=== PATIENT | female | born 1960 | race Caucasian/White ===

== ENCOUNTER 2016-07-13 17:56 | Inpatient (IN) | payer BC ==
[~2016-07-13] VITALS: Ht 157.5 cm; Wt 91.6 kg
[~2016-07-13 17:56] MED LIST: BENZ200C3 PO; CEFU250T PO; CETI10TA20 PO; CHOL200059 PO; DCS100C PO; ESTR0.5T PO; ESTR1TAB24 PO; ESTR2TAB PO; FENO134C PO; HYDR-3875 PO; L.AC1CAP6 PO; LEVO250T7 PO; LEVO50TA6 PO; LISI1TAB10 PO; LVT.05T PO; MAGN400T39 PO; MEDR2.5T PO; NAPR-243 PO; NAPR250T2 PO; OMEG1CAP51 PO; OXYC-197 PO; OXYC-471 PO; POTA10CA43 PO; SPIR25TA3; SPIR50TA PO; TYLENOL#3 PO; VALS1TAB4 PO; VALS1TAB76 PO; VITA1CAP PO
[2016-07-13] MEDS ORDERED: PATIENT MAY USE OWN MEDS, ALL PO SCH (18:00)
[2016-07-13] MEDS ORDERED: cefTRIAXone INJECTION 1,000 MG in NORMAL SALINE (BAXTER MINI) 50 ML IV SCH (18:00)
[2016-07-13] MEDS ORDERED: ACETAMINOPHEN 500 MG TAB (TYLENOL) PO PRN (18:00)
[2016-07-13] MEDS ORDERED: IBUPROFEN 600 MG (MOTRIN) TAB PO PRN (18:15)
--- OUTSIDE RECORDS SUMMARY | 2016-07-13 18:50 | XMS REPORT | Continuity of Care Document ---
Author Author [facility] Organization [facility] Address Unknown Phone Unavailable Care Team Providers Care Network Operations Technician Name Role Phone KINDRA RHODES DO PCP Insurance Providers Payer Name Policy Number Subscriber Name Relationship [facility] [id number] Kristin Hopper 16 Self / Same As Patient Advance Directives Directive Response Recorded Date/Time Advance Directives No 09/24/15 7:45am Health Care Power of Diabetes Education Coordinator No 09/24/15 7:45am Organ Donor Yes 09/24/15 7:45am Problems Active Problems Medical Problem Onset Date Status Bronchitis Unknown Acute Spontaneous hematoma of abdominal wall Unknown Acute Thrombocytopenia Unknown Acute Medications Current Home Medications Medication Dose Units Route Directions Days/Qty Instructions Start Date Potassium Chloride 10 Meq 10 Meq Oral Daily 08/30/15 Spironolactone 50 Mg 50 Mg Oral Daily 09/24/15 Estradiol 2 Mg 2 Mg Oral Bedtime 09/24/15 Levothyroxine Sodium 50 Mcg 50 Mcg Oral Daily 09/24/15 Valsartan/Hydrochlorothiazide 1 Each 1 Tab Oral Daily 09/24/15 Cetirizine Hcl 10 Mg 10 Mg Oral Bedtime 09/24/15 Cholecalciferol (Vitamin D3) 2,000 Unit 2,000 Unit Oral Daily Vitamin B Complex 1 Each 1 Cap Oral Daily 09/24/15 L.acidoph & Paracasei,B.lactis 1 Each 1 Cap Oral Daily 09/24/15 Hydrocodone/Acetaminophen 1 Each 2 Each Oral Every 4HRS 30 09/24/15 Past Home Medications Medication Directions Ordered Status Hctz/Lisinopril (Zestoretic) 1 Tab Tablet, 1 Each Oral Daily 05/12/10 Discontinued Levothyroxine Sodium 50 Mcg Tab, 50 Mcg Oral Daily 05/12/10 Discontinued Estradiol 1 Mg Tablet, 1 Mg Oral Daily 05/12/10 Discontinued Medroxyprogesterone Acetate 2.5 Mg Tablet, 1 Each Oral Daily 05/12/10 Discontinued Naproxen 500 Mg Tablet, 500 Mg Oral Twice A Day as needed for Pain 05/12/10 Discontinued [place]-3 Fatty Acids/Fish Oil 1 Each Capsule, 1000 Mg Oral Twice A Day Discontinued Benzonatate 200 Mg Capsule, 200 Mg Oral Three Times A Day 05/12/10 Discontinued Hctz/Valsartan 1 Each Tablet, 1 Each Oral Daily 05/12/10 Discontinued Levofloxacin 250 Mg Tab, 1 Each Oral Daily 05/21/10 Discontinued [Tylenol#3] , 1-2 Tab Oral Every 3 Hours Prn 05/21/10 Discontinued Naproxen 250 Mg Tab, 500 Mg Oral Twice Daily And Prn 05/21/10 Discontinued Docusate Sodium 100 Mg Capsule, 100 Mg Oral 05/21/10 Discontinued Estradiol 0.5 Mg Tablet, 1 Mg Oral Daily 05/21/10 Discontinued Spironolactone 25 Mg Tablet, 08/30/15 Discontinued Cefuroxime Axetil 250 Mg Tablet, 250 Mg Oral Twice A Day 08/30/15 Discontinued Oxycodone Hcl/Acetaminophen 1 Each Tablet, 1 Each Oral Every 4HRS as needed for Cough 08/30/15 Discontinued Fenofibrate,Micronized 134 Mg Capsule, 134 Mg Oral Daily 09/24/15 Discontinued Oxycodone Hcl/Acetaminophen 1 Each Tablet, 1-2 Tab Oral Every 4HRS as needed for Pain 09/24/15 Discontinued Magnesium Oxide 400 Mg Tablet, 400 Mg Oral Daily 09/24/15 Discontinued Social History Social History Problem Response Recorded Date/Time Alcohol Use Occasionally Uses 09/24/2015 7:47am Recreational Drug Use No 09/24/2015 7:47am Recent Foreign Travel N [place] 12/31/2015 8:54am Sexually Transmitted Disease No 09/24/2015 7:47am HIV/AIDS No 09/24/2015 7:47am Do you dip or chew tobacco? No 09/24/2015 10:07am Sexually Transmitted Disease No 09/24/2015 7:47am Hx Sexually Transmitted Disorders No 05/18/2010 11:00am Hospital Discharge Instructions No hospital discharge instructions. Plan of Care Prescriptions See Medication Section Functional Status No functional status results. Allergies, Adverse Reactions, Alerts Allergen Type Severity Reaction Status Last Updated azithromycin ([id number]) Allergy Severe BLISTERS Active 05/18/10 Immunizations No immunization records. Vital Signs No known vital signs results. Results Laboratory Results Test Name Result Units Flags Reference Collection Date/Time Result Date/ Time Comments White Blood Count 8.3 10^3/uL 4.3-11.0 12/31/2015 8:57am 12/31/2015 9: 04am Red Blood Count 4.75 10^6/uL 4.35-5.85 12/31/2015 8:57am 12/31/2015 9: 04am Hemoglobin 15.4 G/DL 11.5-16.0 12/31/2015 8:57am 12/31/2015 9:04am Hematocrit 43 % 35-52 12/31/2015 8:57am 12/31/2015 9:04am Mean Corpuscular Volume 91 FL 80-99 12/31/2015 8:57am 12/31/2015 9: 04am Mean Corpuscular Hemoglobin 32 PG 25-34 12/31/2015 8:57am 12/31/2015 9: 04am Mean Corpuscular Hemoglobin Concent 36 G/DL 32-36 12/31/2015 8:57am 9:04am Red Cell Distribution Width 12.9 % 10.0-14.5 12/31/2015 8:57am 2015 9:04am Platelet Count 210 10^3/uL 130-400 12/31/2015 8:57am 12/31/2015 9:04am Mean Platelet Volume 10.0 FL 7.4-10.4 12/31/2015 8:57am 12/31/2015 9: 04am Neutrophils (%) (Auto) 62 % 42-75 12/31/2015 8:57am 12/31/2015 9:04am Lymphocytes (%) (Auto) 28 % 12-44 12/31/2015 8:57am 12/31/2015 9:04am Monocytes (%) (Auto) 8 % 0-12 12/31/2015 8:57am 12/31/2015 9:04am Eosinophils (%) (Auto) 2 % 0-10 12/31/2015 8:57am 12/31/2015 9:04am Basophils (%) (Auto) 1 % 0-10 12/31/2015 8:57am 12/31/2015 9:04am Neutrophils # (Auto) 5.2 X 10^3 1.8-7.8 12/31/2015 8:57am 12/31/2015 9: 04am Lymphocytes # (Auto) 2.3 X 10^3 1.0-4.0 12/31/2015 8:57am 12/31/2015 9: 04am Monocytes # (Auto) 0.6 X 10^3 0.0-1.0 12/31/2015 8:57am 12/31/2015 9: 04am Eosinophils # (Auto) 0.2 10^3/uL 0.0-0.3 12/31/2015 8:57am 12/31/2015 9 :04am Basophils # (Auto) 0.1 10^3/uL 0.0-0.1 12/31/2015 8:57am 12/31/2015 9: 04am Sodium Level 140 MMOL/L 135-145 12/31/2015 8:57am 12/31/2015 9:37am Potassium Level 4.0 MMOL/L 3.6-5.0 12/31/2015 8:57am 12/31/2015 9:37am Chloride Level 102 MMOL/L 98-107 12/31/2015 8:5712/31/2015 9:37am Carbon Dioxide Level 25 MMOL/L 21-32 12/31/2015 8:5712/31/2015 9: 37am Anion Gap 13 MMOL/L 5-14 12/31/2015 8:57am 12/31/2015 9:37am Blood Urea Nitrogen 24 MG/DL H 7-18 12/31/2015 8:57am 12/31/2015 9:37am Creatinine 0.82 MG/DL 0.60-1.30 12/31/2015 8:57am 12/31/2015 9:37am BUN/Creatinine Ratio 29 12/31/2015 8:57am 12/31/2015 9:37am Estimat Glomerular Filtration Rate > 60 12/31/2015 8:57am 2015 9:37am GFR INTERPRETIVE DATA UNITS FOR ESTIMATED GFR (eGFR): mL/min/1.73 M2 REFERENCE RANGE FOR ESTIMATED GFR (eGFR) eGFR NORMAL eGFR >60 MODERATELY DECREASED eGFR 30-59 SEVERLY DECREASED eGFR 15-29 KIDNEY FAILURE <15 (OR DIALYSIS) Glucose Level 106 MG/DL H 70-105 12/31/2015 8:57am 12/31/2015 9:37am Calcium Level 9.4 MG/DL 8.5-10.1 12/31/2015 8:57am 12/31/2015 9:37am Total Bilirubin 0.3 MG/DL 0.1-1.0 12/31/2015 8:57am 12/31/2015 9:37am Alkaline Phosphatase 65 U/L 40-136 12/31/2015 8:57am 12/31/2015 9:37am Aspartate Amino Transf (AST/SGOT) 25 U/L 5-34 12/31/2015 8:57am 2015 9:37am Alanine Aminotransferase (ALT/SGPT) 20 U/L 0-55 12/31/2015 8:57am 12/30 9:37am Total Protein 6.4 G/DL 6.4-8.2 12/31/2015 8:57am 12/31/2015 9:37am Albumin 3.9 G/DL 3.2-4.5 12/31/2015 8:57am 12/31/2015 9:37am Procedures No known history of procedures. Encounters Encounter Location Arrival/Admit Date Discharge/Depart Date Attending Provider Discharged Recurring [facility] 12/31/15 8:54am 11:59pm SANDRA TOBIN
[2016-07-13] MEDS: ONDANSETRON 4 MG/2 ML (SDV) Z0FRAN IVP PRN (18:59)
[2016-07-13] MEDS ORDERED: KETOROLAC 30 MG/ML VIAL IVP ONE (19:15)
[2016-07-13] MEDS ORDERED: ONDANSETRON 4 MG/2 ML (SDV) Z0FRAN IVP ONE (19:15)
[2016-07-13] MEDS ORDERED: cefTRIAXone 1 GM (ROCEPHIN) VIAL ONE (19:16)
[2016-07-13] MEDS ORDERED: NORMAL SALINE (BAXTER MINI) 50 ML IV ONE (19:16)
[2016-07-13] MEDS: NS IV 1000 ML 1,000 ML IV SCH ×2 (19:20→20:59)
[2016-07-13] MEDS ORDERED: LACTATED RINGERS 1,000 ML IV SCH (20:00)
[2016-07-13 20:09] LABS: BASOPHILS % (AUTO) 0 % (0-10); EOSINOPHILS # (AUTO) 0.1 10^3/uL (0.0-0.3); EOSINOPHILS % (AUTO) 1 % (0-10); LYMPHOCYTES # (AUTO) 0.8 X 10^3 (1.0-4.0); LYMPHOCYTES % (AUTO) 7 % (12-44); MEAN CORPUSCULAR HEMOGLOBIN 33 PG (25-34); MEAN CORPUSCULAR HGB CONC 35 G/DL (32-36); MEAN CORPUSCULAR VOLUME 95 FL (80-99); MEAN PLATELET VOLUME 10.3 FL (7.4-10.4); MONOCYTES # (AUTO) 0.8 X 10^3 (0.0-1.0); MONOCYTES % (AUTO) 7 % (0-12); NEUTROPHILS # (AUTO) 10.1 X 10^3 (1.8-7.8); NEUTROPHILS % (AUTO) 85 % (42-75); PLATELET COUNT 202 10^3/uL (130-400); RED BLOOD COUNT 3.92 10^6/uL (4.35-5.85); RED CELL DISTRIBUTION WIDTH 12.5 % (10.0-14.5); WHITE BLOOD COUNT 11.8 10^3/uL (4.3-11.0)
[2016-07-13 20:23] LABS: CALCIUM 8.4 MG/DL (8.5-10.1); CREATININE SERUM 2.07 MG/DL (0.60-1.30)
[2016-07-13] MEDS ORDERED: NS IV 1000 ML 1,000 ML IV PRN (20:59)
[2016-07-13] MEDS: NOREPINEPHRINE FOR DRIPS 4 MG in D5W 250 ML (IVPB) 250 ML IV SCH (20:59)
[2016-07-13] MEDS ORDERED: DOXYCYCLINE IV SCH (21:00)
[2016-07-13] MEDS ORDERED: NORMAL SALINE IV SCH (21:00)
[2016-07-13] MEDS ORDERED: PHARMACY TO DOSE IV SCH (21:00)
--- NOTE | 2016-07-13 21:10 | History & Physicial ---
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 She did not go to work today because when she awakened, she had chills and weakness. 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 The CXR showed a left upper lobe pneumonia and admission was recommended. However, she wanted to attempt treatment at home so [facility] called out for her. She became weaker as the day progressed and started having nausea and vomiting as well as pain in her left chest and rib area so I was called by her employer and asked to direct admit her for pneumonia. Upon arrival to the hospital, the patient was weak and hypotensive so a lactic acid was added to her labs and did come back elevated. It was decided she should be transferred to the ICU and the sepsis protocol started. Date of Admission Jul 13, 2016 at 18:40 I consulted on this patient on 07/13/16 21:02 Attending Physician Samira Fish DO Admitting Physician Samira Fish DO Consult Allergies and Home Medications Allergies Coded Allergies: azithromycin (Unverified Allergy, Severe, BLISTERS, 05/18/10) Home Medications Cetirizine HCl 10 Mg Tablet 10 MG PO HS (Reported) Cholecalciferol (Vitamin D3) 2,000 Unit Tablet 2,000 UNIT PO DAILY (Reported) Estradiol 2 Mg Tablet 2 MG PO HS (Reported) Hydrocodone/Acetaminophen 1 Each Tablet #30 2 EACH PO Q4H Prescribed by: SAMIRA FISH on 09/24/15 190 L.acidoph & Paracasei,B.lactis 1 Each Capsule 1 CAP PO DAILY (Reported) Levothyroxine Sodium 50 Mcg Tablet 50 MCG PO DAILY (Reported) Potassium Chloride 10 Meq Capsule.er 10 MEQ PO DAILY (Reported) Spironolactone 50 Mg Tablet 50 MG PO DAILY (Reported) Valsartan/Hydrochlorothiazide 1 Each Tablet 1 TAB PO DAILY (Reported) Vitamin B Complex 1 Each Capsule 1 CAP PO DAILY (Reported) Past Squojsm-Ghirmq-Brddrz Hx Patient Social History Smoking Status: Current Everyday Smoker Type Used: Cigarettes Surgeries HX Surgeries: Yes (D&C) Surgeries: Section, Hysterectomy Respiratory Hx Respiratory Disorders: Yes Cardiovascular Hx Cardiovascular Disorders: Yes Cardiac Disorders: Hypertension Neurological Hx Neurological Disorders: No Reproductive System Hx Reproductive Disorders: No Sexually Transmitted Disease: No HIV/AIDS: No Female Reproductive Disorders: Denies Genitourinary Hx Genitourinary Disorders: Yes (STRESS INCONTINENCE) Gastrointestinal Hx Gastrointestinal Disorders: Yes Gastrointestinal Disorders: Gastroesophageal Reflux Musculoskeletal Hx Musculoskeletal Disorders: Yes Musculoskeletal Disorders: Arthritis Endocrine Hx Endocrine Disorders: Yes Endocrine Disorders: Hypothyroidsim HEENT HX ENT Disorders: No Cancer Hx Cancer: No Psychosocial Hx Psychiatric Problems: No Integumentary HX Skin/Integumentary Disorder: No Blood Transfusions Hx Blood Disorders: No Adverse Reaction to a Blood Tr: No Constitutional: chills weakness EENTM: No blurred vision, No dental problems, No double vision, No ear discharge, No ear pain, No epistaxis, No eye pain, No hearing loss, No hoarseness, No mouth pain, No mouth swelling, No no symptoms reported, No nose congestion, No nose pain, No other, No see HPI, No tearing, No throat pain, No throat swelling, No vision loss Respiratory: cough Cardiovascular: No no symptoms reported, No see HPI, No chest pain, No edema, No Hx of Intervention, No palpitations, No syncope, No vascular heart diseas, No other Gastrointestinal: diarrhea vomiting Genitourinary: No no symptoms reported, No see HPI, No decreased output, No discharge, No dysuria, No frequency, No hematuria, No hesitancy, No incontinence , No nocturia, No pain, No other Musculoskeletal: joint pain muscle pain Skin: No no symptoms reported, No see HPI, No change in color, No change in hair/nails, No dryness, No hx of skin cancer, No lesions, No lumps, No pruritus , No rash, No other Psychiatric/Neurological: Weakness Physical Exam Vital Signs Vital Sign - Last 12Hours 07/13/16 19:47 Pulse Ox 93 Capillary Refill : General Appearance: No Apparent Distress HEENT: Pharyngeal Erythema Neck: Supple Respiratory: Crackles (left) Decreased Breath Sounds Cardiovascular: Gallop/S3 Tachycardia Gastrointestinal: Normal Bowel Sounds Non Tender Soft Rectal: Deferred Back: No CVA Tenderness Extremity: Non Tender No Calf Tenderness No Pedal Edema Neurologic/Psychiatric: Alert Oriented x3 Motor Weakness (generalized) Skin: Warm/Dry Pallor Comments Laboratory Tests 07/13/16 19:52: Anion Gap 13, BUN/Creatinine Ratio 16, Basophils # (Auto) 0.0, Basophils (%) ( Auto) 0, Blood Urea Nitrogen 34H, Calcium Level 8.4L, Carbon Dioxide Level 17L, Chloride Level 105, Creatinine 2.07H, Eosinophils # (Auto) 0.1, Eosinophils (%) (Auto) 1, Estimat Glomerular Filtration Rate 25, Glucose Level 125H, Hematocrit 37, Hemoglobin 12.8, Lactic Acid Level 2.9*H, Lymphocytes # (Auto) 0.8L, Lymphocytes (%) (Auto) 7L, Mean Corpuscular Hemoglobin 33, Mean Corpuscular Hemoglobin Concent 35, Mean Corpuscular Volume 95, Mean Platelet Volume 10.3, Monocytes # (Auto) 0.8, Monocytes (%) (Auto) 7, Neutrophils # (Auto) 10.1H, Neutrophils (%) (Auto) 85H, Platelet Count 202, Potassium Level 4.0, Red Blood Count 3.92L, Red Cell Distribution Width 12.5, Sodium Level 135, White Blood Count 11.8H Assessment/Plan Assessment and Plan 1. Left Upper Lobe Pneumonia with Sepsis--Transfer to ICU on Sepsis Protocol, Given IV Rocephin and Doxycline 2. Hypotensive--aggressive IVF rehydration and monitor BP 3. Acute Renal Failure--monitor Cr with hydration, treatment of infection 4. Hypothyroidism--resume home dose 5. Tobacco Abuse--continues to smoke 6. COPD--start MAT protocol Clinical Quality Measures DVT/VTE Risk/Contraindication: Risk Factor Score Per Nursin RFS Level Per Nursing on Admit: 3=High SAMIRA FISH DO Jul 13, 2016 21:10
[2016-07-13 21:19] LABS: PROTHROMBIN TIME PATIENT 12.8 SEC (12.2-14.7)
[2016-07-13] MEDS ORDERED: DOXYCYCLINE 100 MG INJ (VIBRAMYCIN) ONE (21:39)
[2016-07-13] MEDS ORDERED: NORMAL SALINE (BAXTER MINI) 100 ML IV ONE (21:40)
[2016-07-13] MEDS: NS IV 1000 ML 2,500 ML IV PRN ×3 (21:50→23:20)
[2016-07-13] MEDS: ENOXAPARIN 30 MG/0.3 ML (LOVENOX) SYR SC SCH (21:54)
[2016-07-13 22:00] VITALS: BP 76/41
[2016-07-13] MEDS: HYDROcodone/APAP 5 MG/325 MG (LORTAB) TAB PO PRN (22:16)
[2016-07-13 23:00] VITALS: BP 107/83
[2016-07-13] MEDS ORDERED: HYDROmorphone (DILAUDID) 2 MG/ML VIAL IV ONE (23:30)
[2016-07-13] MEDS: RT-ALBUTEROL/IPRATROPIUM 3 ML (DUONEB) VIAL INH PRN (23:59)
[2016-07-14] VITALS (30 sets, daily range): BP systolic 66–151; BP diastolic 39–131
[2016-07-14] MEDS: ONDANSETRON 4 MG/2 ML (SDV) Z0FRAN IVP PRN (00:04)
[2016-07-14] MEDS ORDERED: NOREPINEPHRINE FOR DRIPS 4 MG/4 ML AMP IV ONE ×3 (00:08→12:25)
[2016-07-14] MEDS ORDERED: D5W 250 ML (IVPB) 250 ML IV ONE ×3 (00:08→12:25)
[2016-07-14] MEDS: NS IV 1000 ML 2,500 ML IV PRN (00:16)
[2016-07-14] MEDS: NOREPINEPHRINE FOR DRIPS 4 MG in D5W 250 ML (IVPB) 250 ML IV SCH ×5 (00:22→22:30)
[2016-07-14] MEDS: NS IV 1000 ML 1,000 ML IV SCH ×9 (00:25→22:35)
[2016-07-14 01:24] LABS: ABG BASE EXCESS -11.3 MMOL/L (-2.5-2.5); ABG OXYGEN SATURATION 95 % (94-100); ABG PCO2 43 MMHG (35-45); ABG PO2 79 MMHG (79-93); ABG TCO2 17.9 MMOL/L (21.0-31.0); ALLENS TEST YES-POS
[2016-07-14 01:25] LABS: PATIENT TEMP 96.8
[2016-07-14 01:26] LABS: ABG HCO3 17 MMOL/L (23-27)
[2016-07-14] MEDS: RT-ALBUTEROL/IPRATROPIUM 3 ML (DUONEB) VIAL INH PRN (02:25)
[2016-07-14] MEDS ORDERED: SODIUM BICARB 8.4% 50 MEQ/50 ML (ABBOTT) SYR ONE (02:29)
[2016-07-14] MEDS ORDERED: SODIUM BICARB 8.4% 50 MEQ/50 ML (ABBOTT) SYR INJ ONE (02:30)
[2016-07-14] MEDS ORDERED: VANCOMYCIN 2000 MG/NS 500 ML IVPB IV ONE ×2 (03:00)
[2016-07-14] MEDS ORDERED: [UNRECOGNIZED DRUG - OTHER] ONE (03:02)
[2016-07-14] MEDS ORDERED: SODIUM CHLORIDE ONE (03:02)
[2016-07-14] MEDS ORDERED: VANCOMYCIN 1 GM ADD-VANTAGE VIAL IV ONE (03:02)
[2016-07-14] MEDS ORDERED: NS IV 1000 ML 1,000 ML IV ONE (03:30)
[2016-07-14 04:11] LABS: BASOPHILS % (AUTO) 0 % (0-10); EOSINOPHILS % (AUTO) 0 % (0-10); LYMPHOCYTES # (AUTO) 1.2 X 10^3 (1.0-4.0); LYMPHOCYTES % (AUTO) 10 % (12-44); MEAN CORPUSCULAR HEMOGLOBIN 32 PG (25-34); MEAN CORPUSCULAR HGB CONC 33 G/DL (32-36); MEAN CORPUSCULAR VOLUME 98 FL (80-99); MEAN PLATELET VOLUME 10.4 FL (7.4-10.4); MONOCYTES # (AUTO) 0.4 X 10^3 (0.0-1.0); MONOCYTES % (AUTO) 4 % (0-12); NEUTROPHILS # (AUTO) 10.3 X 10^3 (1.8-7.8); NEUTROPHILS % (AUTO) 86 % (42-75); PLATELET COUNT 191 10^3/uL (130-400); WHITE BLOOD COUNT 11.9 10^3/uL (4.3-11.0)
[2016-07-14] MEDS: HYDROcodone/APAP 5 MG/325 MG (LORTAB) TAB PO PRN (04:21)
[2016-07-14 04:40] LABS: ALBUMIN 2.7 G/DL (3.2-4.5); ANION GAP 13 MMOL/L (5-14); BLOOD UREA NITROGEN 31 MG/DL (7-18); BUN/CREATININE RATIO 19; CALCIUM 6.5 MG/DL (8.5-10.1); CARBON DIOXIDE 12 MMOL/L (21-32); CHLORIDE 111 MMOL/L (98-107); GFR ESTIMATED 33; GLUCOSE 134 MG/DL (70-105); PHOSPHORUS 4.1 MG/DL (2.3-4.7); POTASSIUM 4.9 MMOL/L (3.6-5.0); SODIUM 136 MMOL/L (135-145)
[2016-07-14 04:48] LABS: TROPONIN I < 0.30 NG/ML (<0.30)
[2016-07-14 05:03] LABS: MAGNESIUM 0.9 MG/DL (1.8-2.4)
[2016-07-14] MEDS: POTASSIUM CL 10MEQ/50ML IVPB 50 ML IV SCH (05:56)
[2016-07-14] MEDS: KCL 20 MEQ TAB (K-DUR) PO SCH (05:56)
[2016-07-14] MEDS: MAGNESIUM 1 GM/100 ML IVPB 100 ML IV SCH ×5 (06:00→11:27)
[2016-07-14] MEDS: RT-ALBUTEROL/IPRATROPIUM 3 ML (DUONEB) VIAL INH SCH ×5 (06:30→22:29)
--- NOTE | 2016-07-14 06:55 | Diagnostic Imaging Report ---
INDICATION: Followup of pneumonia. Comparison with 07/13/2016. There has been significant increase in the infiltrate in the left lung. This now appears to involve both left upper and left lower lobe. Left hemidiaphragm is now obscured. Right lung shows mild basilar atelectasis. The heart is not enlarged. No evidence of pulmonary edema. IMPRESSION: Increasing infiltrate in the left lung when compared with previous exam. Dictated by: Dictated on workstation # [id number]
[2016-07-14] MEDS ORDERED: FLU TRIvalent (5 YOA+) 2016-17 (AFLURIA) 0.5 ML IM ONE (07:30)
--- NOTE | 2016-07-14 07:56 | Pulmonary Consultation ---
History of Present Illness History of Present Illness Date of Consultation 07/14/16 07:51 Date of Admission History of Present Illness 55yo presented via direct admit secondary to progressive cough, SOB, weakness and chills . Symptoms progressed to n/v left chest pain. Upon admission pt was weak and hypotensive she was transferred to with sepsis protocol . CXR shows RAMÍREZ pneumonia. SHe is requiring levophed gtt secondary to hypotension. I am consulted for pulmonary management. Allergies and Home Medications Allergies Coded Allergies: azithromycin (Unverified Allergy, Severe, BLISTERS, 05/18/10) Home Medications Calcium Carbonate 600 Mg Tablet 600 MG PO DAILY (Reported) Cetirizine HCl 10 Mg Tablet 10 MG PO HS (Reported) Cholecalciferol (Vitamin D3) 1,000 Unit Capsule 1,000 UNIT PO DAILY (Reported) Diclofenac Sod 100 Mg Tab 100 MG PO BID (Reported) Estradiol 2 Mg Tablet 2 MG PO HS (Reported) Fenofibrate,Micronized 134 Mg Capsule 134 MG PO DAILY (Reported) L.acidoph & Paracasei,B.lactis 1 Each Capsule 1 CAP PO DAILY (Reported) Levothyroxine Sodium 50 Mcg Tablet 50 MCG PO DAILY (Reported) Magnesium Oxide 400 Mg Tablet 400 MG PO DAILY (Reported) Potassium Chloride 10 Meq Capsule.er 10 MEQ PO DAILY (Reported) Spironolactone 50 Mg Tablet 50 MG PO DAILY (Reported) Valsartan/Hydrochlorothiazide 1 Each Tablet 1 TAB PO DAILY (Reported) Vitamin B Complex & Vit C No.4 150 Mg Tablet 1 TAB PO DAILY (Reported) Past Jfckpli-Ybvqbq-Blunle Hx Patient Social History Alcohol Use: Occasionally Uses Recreational Drug Use: No Smoking Status: Current Everyday Smoker Type Used: Cigarettes Recent Foreign Travel: No Contact w/Someone Who Travel: No Recent Infectious Disease Expo: No Recent Hopitalizations: No (SURGERIES) Physical Abuse Screen: No Sexual Abuse: No Immunizations Up To Date Tetanus Booster (TDap): More than 5yrs Seasonal Allergies Seasonal Allergies: Yes Surgeries HX Surgeries: Yes (D&C) Surgeries: Section, Hysterectomy Respiratory Hx Respiratory Disorders: Yes Respiratory Disorders: Chronic Bronchitis Cardiovascular Hx Cardiac Disorders: Yes Cardiac Disorders: Hypertension Neurological Hx Neurological Disorders: No Reproductive System Hx Reproductive Disorders: No Sexually Transmitted Disease: No HIV/AIDS: No Female Reproductive Disorders: Denies 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 Genitourinary Hx Genitourinary Disorders: Yes (STRESS INCONTINENCE) Gastrointestinal Hx Gastrointestinal Disorders: Yes Gastrointestinal Disorders: Gastroesophageal Reflux Musculoskeletal Hx Musculoskeletal Disorders: Yes Musculoskeletal Disorders: Arthritis Endocrine Hx Endocrine Disorders: Yes Endocrine Disorders: Hypothyroidsim HEENT HX ENT Disorders: No Cancer Hx Cancer: No Psychosocial Hx Psychiatric Problems: No Integumentary HX Skin/Integumentary Disorder: No Blood Transfusions Hx Blood Disorders: No Adverse Reaction to a Blood Tr: No Review of Systems Constitutional: : Chills: Fever: Malaise: Sweats: Weakness Respiratory: : SOB with excertion: Shortness of breath Cardiovascular: : Lt Headedness: Orthopnea: Palpitations: Paroxysmal Noc. Dyspnea Gastrointestinal: : Nausea: VomitingNo: Abdominal Pain, Constipation, Diarrhea Neurological: : Weakness Exam Exam Vital Signs Date Time Temp Pulse Resp B/P Pulse Ox O2 Delivery O2 Flow Rate FiO2 07/14/16 06:35 117 74/46 07/14/16 06:30 94 High Flow N/C 26.00 75 07/14/16 06:00 129 36 113/63 FIO2 75.00 07/14/16 06:00 117 113/63 07/14/16 05:44 112 101/88 07/14/16 05:00 108 21 105/76 FIO2 75.00 07/14/16 04:20 104 90/68 07/14/16 04:00 98.4 112 20 96/60 96 FIO2 80.00 07/14/16 03:00 98 22 79/58 94 FIO2 90.00 07/14/16 02:48 103 84/56 07/14/16 02:32 93 07/14/16 02:26 High Flow N/C 26.00 80 07/14/16 02:02 114 79/51 07/14/16 02:00 105 14 84/56 93 FIO2 90.00 07/14/16 01:58 High Flow N/C 28.00 80 07/14/16 01:17 111 74/56 07/14/16 01:00 111 18 73/54 96 FIO2 100.00 07/14/16 01:00 105 07/14/16 00:50 112 66/52 07/14/16 00:34 102 87/46 07/14/16 00:23 95 High Flow N/C 28.00 100 07/14/16 00:22 112 73/52 07/14/16 00:00 115 21 66/52 90 FIO2 100.00 07/14/16 00:00 96 FIO2 100 07/13/16 23:59 89 Nasal Cannula 10.00 07/13/16 23:00 120 23 107/83 95 Nasal Cannula 3.00 07/13/16 22:00 96.5 121 24 76/41 96 Nasal Cannula 3.00 07/13/16 21:21 96 Nasal Cannula 3.00 07/13/16 19:52 93 07/13/16 19:47 93 07/13/16 19:30 95 Room Air I & O 07/14/16 07:00 Intake Total 1000 ml Output Total 120 ml Balance 880 ml General Appearance: No Apparent Distress HEENT: Pharyngeal Erythema Neck: Supple Respiratory: Crackles (left) Decreased Breath Sounds Cardiovascular: Gallop/S3 Tachycardia Extremity: Non Tender No Calf Tenderness No Pedal Edema Neurologic/Psychiatric: Alert Oriented x3 Motor Weakness (generalized) Skin: Warm/Dry Pallor Results Lab Laboratory Tests 07/13/16 19:52 07/14/16 04:00 Assessment/Plan Assessment/Plan Severe sepsis with RAMÍREZ pneumonia -Change Abx to Vanco, cefepime, and Levaquin -Pagan cultures metabolic acidosis -Give 2 amps of NaHC03 -IVF Septic shock -Levophed -Will place central line and arterial line Acute renal failure -IVF Acute respiratory distress. -Will proceed with intubation Tobacco use Clinical Quality Measures DVT/VTE Risk/Contraindication: Risk Factor Score Per Nursin RFS Level Per Nursing on Admit: 3=High KIKO FREED DO Jul 14, 2016 07:56
[2016-07-14] MEDS ORDERED: CALC600T12 PO (08:10)
[2016-07-14] MEDS ORDERED: SODIUM BICARB 8.4% 50 MEQ/50 ML (ABBOTT) SYR IV NR (08:15)
[2016-07-14] MEDS ORDERED: VITA150T PO (08:17)
[2016-07-14] MEDS ORDERED: CHOL10007 PO (08:17)
[2016-07-14] MEDS ORDERED: MAGN400T29 PO (08:17)
[2016-07-14] MEDS ORDERED: NF-DICLOTA PO (08:17)
[2016-07-14] MEDS ORDERED: FENO134C PO (08:17)
[2016-07-14] MEDS ORDERED: PROPOFOL DRIP (ICU) 100 ML IV ONE (08:52)
[2016-07-14] MEDS ORDERED: proPOfol 200 MG/20 ML (DIPRIVAN) VIAL IV ONE (08:52)
[2016-07-14] MEDS ORDERED: VANCOMYCIN 1,750 MG/NS 500 ML IVPB IV NR ×2 (08:58)
[2016-07-14] MEDS ORDERED: PHARMACY TO DOSE IV SCH (09:00)
[2016-07-14] MEDS ORDERED: RT-ALBUTEROL/IPRATROPIUM 3 ML (DUONEB) VIAL INH SCH (09:00)
[2016-07-14] MEDS ORDERED: CEFEPIME INJECTION 2,000 MG in NORMAL SALINE (BAXTER MINI) 50 ML IV SCH (09:00)
[2016-07-14] MEDS ORDERED: NS IV 500 ML 500 ML ONE ×2 (09:07→10:41)
[2016-07-14] MEDS ORDERED: LIDOCAINE 1% INJ 20 ML (XYLOCAINE) VIAL ONE (09:08)
[2016-07-14] MEDS: DEXMEDETOMIDINE PRE-MIX 100 ML IV SCH (09:37)
[2016-07-14] MEDS ORDERED: MIDAZOLAM 5 MG/5 ML (VERSED) VIAL IVP ONE (09:45)
[2016-07-14] MEDS ORDERED: SUCCINYLCHOLINE INJ 100 MG/5 ML SYR INJ ONE ×2 (09:45→12:00)
--- NOTE | 2016-07-14 09:55 | Diagnostic Imaging Report ---
Postoperative upright radiograph of the chest. INDICATION: Intubation. FINDINGS: There is an ET tube seen in the mid thoracic trachea. There is a large infiltrate in the left lung slightly similar to the previous exam performed 6 hours earlier. The right lung is clear. The heart size is normal. No effusion or pneumothorax. IMPRESSION: Extensive left lung infiltrates. Dictated by: Dictated on workstation # [id number]
[2016-07-14] MEDS ORDERED: NS IV 1000 ML 1,000 ML IV SCH (10:30)
[2016-07-14] MEDS ORDERED: PROPOFOL DRIP (ICU) 100 ML IV SCH ×3 (11:30→15:30)
--- NOTE | 2016-07-14 11:38 | Pulmonary Procedures ---
Pulmonary Procedures Date of Procedure Date of Service: Jul 14, 2016 Lumen: triple Central Line Procedure: betadine prep sterile drapes applied sterile dressing applied Position: internal jugular (R) Anesthesia: Lidocaine Complications: none Post Position: sutured, good blood return, position confirmed w/ CXR KIKO FREED DO Jul 14, 2016 11:38
[2016-07-14] MEDS ORDERED: MIDAZOLAM 5 MG/5 ML (VERSED) VIAL IJ ONE (12:00)
[2016-07-14] MEDS: PROPOFOL DRIP (ICU) 100 ML IV SCH ×4 (12:02→23:26)
--- NOTE | 2016-07-14 12:02 | Diagnostic Imaging Report ---
INDICATION: Line placement. TECHNIQUE: Single view chest at 11:41 AM. CORRELATION STUDY: 07/14/2016. FINDINGS: The endotracheal tube remains in place. Since the prior study, a right IJ central line has been placed with the tip projected over the right paramediastinal region, likely over the high SVC. Rather extensive opacity through a large portion of the left hemithorax appears somewhat increased and more dense from the prior study. Minimal infiltrate is suggested about the right perihilar region appearing adversely changed. No pneumothorax. The heart size and mediastinal configuration are stable. IMPRESSION: 1. A right IJ central line has been placed without evidence for post line placement complication. 2. Increasing consolidated density over the left mid lung with increasing infiltrate in the right perihilar region. Dictated by: Dictated on workstation # [id number]
[2016-07-14] MEDS ORDERED: CEFEPIME HCL 2 GM (MAXIPIME) VIAL ONE (12:22)
[2016-07-14] MEDS ORDERED: NORMAL SALINE (BAXTER MINI) 50 ML IV ONE (12:22)
[2016-07-14] MEDS: LEVOFLOXACIN 500 MG/100 ML IV 100 ML IV SCH (12:33)
[2016-07-14 14:15] LABS: ABG BASE EXCESS -7.9 MMOL/L (-2.5-2.5); ABG HCO3 18 MMOL/L (23-27); ABG OXYGEN SATURATION 96 % (94-100); ABG PCO2 39 MMHG (35-45); ABG PO2 89 MMHG (79-93); ABG TCO2 19.2 MMOL/L (21.0-31.0)
[2016-07-14 14:18] LABS: ABG PH 7.28 (7.37-7.43)
[2016-07-14 14:19] LABS: PATIENT TEMP 99.3
[2016-07-14] MEDS ORDERED: SODIUM CHLORIDE FLUSH 10 ML IV PRN (15:30)
[2016-07-14] MEDS ORDERED: fentaNYL INJECTION 100 MCG/2 ML AMP ONE (15:37)
[2016-07-14] MEDS: fentaNYL INJECTION 100 MCG/2 ML AMP IVP PRN ×4 (15:51→22:49)
[2016-07-14] MEDS ORDERED: NS IV 500 ML 500 ML IV ONE (16:45)
[2016-07-14] MEDS ORDERED: VASOPRESSIN IV SCH (18:15)
[2016-07-14] MEDS ORDERED: NS IV SCH (18:15)
[2016-07-14] MEDS ORDERED: APAP 325 MG/10.15 ML LIQ (TYLENOL) UDC PO PRN (18:30)
[2016-07-14] MEDS: NS IV SCH ×2 (18:40→23:47)
[2016-07-14] MEDS: VASOPRESSIN IV SCH ×2 (18:40→23:47)
--- NOTE | 2016-07-14 19:16 | Progress Note (SOAP) ---
Subjective Subjective/Events-last exam Fwup Pneumonia with sepsis, acute renal failure, hypotension, COPD. Respiratory distress this AM. Objective Exam Vital Signs Date Time Temp Pulse Resp B/P Pulse Ox O2 Delivery O2 Flow Rate FiO2 07/14/16 18:33 101.5 07/14/16 18:18 120 22 97 50 07/14/16 18:12 101.5 07/14/16 18:10 125 19 86/39 97 FIO2 50.00 07/14/16 18:00 118 19 92/42 96 Mechanical Ventilator 85.00 07/14/16 17:20 121 23 95/41 98 50.00 07/14/16 17:20 121 23 95/41 98 FIO2 50.00 07/14/16 17:00 125 21 97/40 97 Mechanical Ventilator 85.00 07/14/16 16:37 126 22 97 50 07/14/16 16:00 125 18 94/39 95 Mechanical Ventilator 85.00 07/14/16 15:00 121 20 101/40 98 Mechanical Ventilator 85.00 07/14/16 14:41 123 22 95 60 07/14/16 14:10 99.3 07/14/16 14:00 117 19 102/49 98 Mechanical Ventilator 85.00 07/14/16 13:34 100/47 07/14/16 13:00 120 19 114/54 99 Mechanical Ventilator 85.00 07/14/16 13:00 120 07/14/16 12:30 99.4 07/14/16 12:16 100 43 97 70 07/14/16 12:12 122 42 127/53 95 FIO2 70.00 07/14/16 12:03 118 21 119/57 97 FIO2 70.00 07/14/16 12:02 120 40 119/56 96 FIO2 70.00 07/14/16 12:00 118 30 96/69 96 Mechanical Ventilator 85.00 07/14/16 11:21 121/50 07/14/16 11:00 116 18 114/75 100 Mechanical Ventilator 85.00 07/14/16 10:00 122 20 124/73 96 Mechanical Ventilator 85.00 07/14/16 09:45 66/45 07/14/16 09:37 98.4 115 28 101/76 94 07/14/16 09:10 116 20 90 80 07/14/16 09:00 125 31 107/69 90 Mechanical Ventilator 85.00 07/14/16 08:33 115 28 101/76 94 07/14/16 08:00 124 36 108/68 FIO2 75.00 07/14/16 07:00 110 15 104/67 FIO2 75.00 07/14/16 07:00 110 07/14/16 06:35 117 74/46 07/14/16 06:30 94 High Flow N/C 26.00 75 07/14/16 06:00 129 36 113/63 FIO2 75.00 07/14/16 06:00 117 113/63 07/14/16 05:44 112 101/88 07/14/16 05:00 108 21 105/76 FIO2 75.00 07/14/16 04:20 104 90/68 07/14/16 04:00 98.4 112 20 96/60 96 FIO2 80.00 07/14/16 04:00 96 FIO2 75 07/14/16 03:00 98 22 79/58 94 FIO2 90.00 07/14/16 02:48 103 84/56 07/14/16 02:32 93 07/14/16 02:26 High Flow N/C 26.00 80 07/14/16 02:02 114 79/51 07/14/16 02:00 105 14 84/56 93 FIO2 90.00 07/14/16 01:58 High Flow N/C 28.00 80 07/14/16 01:17 111 74/56 07/14/16 01:00 111 18 73/54 96 FIO2 100.00 07/14/16 01:00 105 07/14/16 00:50 112 66/52 07/14/16 00:34 102 87/46 07/14/16 00:23 95 High Flow N/C 28.00 100 07/14/16 00:22 112 73/52 07/14/16 00:00 115 21 66/52 90 FIO2 100.00 07/14/16 00:00 96 FIO2 100 07/13/16 23:59 89 Nasal Cannula 10.00 07/13/16 23:00 120 23 107/83 95 Nasal Cannula 3.00 07/13/16 22:00 96.5 121 24 76/41 96 Nasal Cannula 3.00 07/13/16 21:21 96 Nasal Cannula 3.00 07/13/16 19:52 93 07/13/16 19:47 93 07/13/16 19:30 95 Room Air I & O 07/14/16 07:00 Intake Total 8354 ml Output Total 120 ml Balance 8234 ml Capillary Refill : General Appearance: Moderate Distress Neck: Supple Respiratory: Decreased Breath Sounds Rales Rhonci Cardiovascular: Tachycardia Gastrointestinal: normal bowel sounds non tender soft Neurologic/Psychiatric: Alert Oriented x3 Results Lab Laboratory Tests 07/13/16 19:52: Activated Partial Thromboplast Time 28, Anion Gap 13, BUN/Creatinine Ratio 16, Basophils # (Auto) 0.0, Basophils (%) (Auto) 0, Blood Urea Nitrogen 34H, Calcium Level 8.4L, Carbon Dioxide Level 17L, Chloride Level 105, Creatinine 2.07H, Eosinophils # (Auto) 0.1, Eosinophils (%) (Auto) 1, Estimat Glomerular Filtration Rate 25, Glucose Level 125H, Hematocrit 37, Hemoglobin 12.8, INR Comment 1.0, Lactic Acid Level 2.9*H, Lymphocytes # (Auto) 0.8L, Lymphocytes (% ) (Auto) 7L, Mean Corpuscular Hemoglobin 33, Mean Corpuscular Hemoglobin Concent 35, Mean Corpuscular Volume 95, Mean Platelet Volume 10.3, Monocytes # ( Auto) 0.8, Monocytes (%) (Auto) 7, Neutrophils # (Auto) 10.1H, Neutrophils (%) ( Auto) 85H, Platelet Count 202, Potassium Level 4.0, Prothrombin Time 12.8, Red Blood Count 3.92L, Red Cell Distribution Width 12.5, Sodium Level 135, White Blood Count 11.8H 07/13/16 22:06: Lactic Acid Level 3.7*H 07/14/16 00:20: Lactic Acid Level 3.0*H 07/14/16 04:00: Anion Gap 13, BUN/Creatinine Ratio 19, Basophils # (Auto) 0.0, Basophils (%) ( Auto) 0, Blood Urea Nitrogen 31H, Calcium Level 6.5L, Carbon Dioxide Level 12L, Chloride Level 111H, Creatinine 1.60H, Eosinophils # (Auto) 0.0, Eosinophils (% ) (Auto) 0, Estimat Glomerular Filtration Rate 33, Glucose Level 134H, Hematocrit 36, Hemoglobin 11.9, Lactic Acid Level 3.9*H, Lymphocytes # (Auto) 1.2, Lymphocytes (%) (Auto) 10L, Mean Corpuscular Hemoglobin 32, Mean Corpuscular Hemoglobin Concent 33, Mean Corpuscular Volume 98, Mean Platelet Volume 10.4, Monocytes # (Auto) 0.4, Monocytes (%) (Auto) 4, Neutrophils # (Auto ) 10.3H, Neutrophils (%) (Auto) 86H, Platelet Count 191, Potassium Level 4.9, Red Blood Count 3.70L, Red Cell Distribution Width 13.0, Sodium Level 136, White Blood Count 11.9H, Albumin 2.7L, Magnesium Level 0.9*L, Phosphorus Level 4.1, Troponin I < 0.30 07/14/16 06:10: 07/14/16 08:27: Lactic Acid Level 4.5*H 07/14/16 12:19: Lactic Acid Level 3.2*H 07/14/16 14:10: Drew Test N/A, Arterial Blood Base Excess -7.9L, Arterial Blood HCO3 18L, Arterial Blood Oxygen Saturation 96, Arterial Blood Partial Pressure CO2 39, Arterial Blood Partial Pressure O2 89, Arterial Blood Total CO2 19.2L, Arterial Blood pH 7.28*L, Blood Gas Inspired Oxygen 60%, Blood Gas Patient Temperature 99.3, Blood Gas Puncture Site ART LINE, Blood Gas Ventilator Setting YES 07/14/16 14:25: Lactic Acid Level 2.6*H 07/14/16 14:45: Magnesium Level 2.1 07/14/16 16:08: Lactic Acid Level 3.0*H Microbiology 07/13/16 Blood Culture - Preliminary, Resulted No growth 07/14/16 Influenza Types A,B Antigen ([place]) - Final, Complete Assessment/Plan Assessment/Plan Assess & Plan/Chief Complaint 1. Pneumonia with Sepsis--changed to triple abx 2. Acute Respiratory Failure--Pulmonology consulted and proceeded with intubation 3. Septic Shock--on levaphed 4. Acute Renal Failure--hydrate and monitor 5. Metabolic Acidosis--given Na Bicarbonate 6. COPD-- Diagnosis/Problems: Clinical Quality Measures DVT/VTE Risk/Contraindication: Risk Factor Score Per Nursin RFS Level Per Nursing on Admit: 3=High KINDRA RHODES DO Jul 14, 2016 7:16 pm
[2016-07-14] MEDS: ENOXAPARIN 30 MG/0.3 ML (LOVENOX) SYR SC SCH (20:23)
[2016-07-14] MEDS: FAMOTIDINE 20MG/2ML IV (PEPCID) IVP SCH (20:23)
[2016-07-14] MEDS ORDERED: ALBUMIN 5% 12.5 GM/250 ML 500 ML IV ONE ×2 (22:14→22:30)
[2016-07-14 23:16] LABS: ALANINE AMINOTRANSFERASE 295 U/L (0-55); ANION GAP 12 MMOL/L (5-14); ASPARTATE AMINO TRANSFERASE 438 U/L (5-34); BLOOD UREA NITROGEN 25 MG/DL (7-18); BUN/CREATININE RATIO 21; CALCIUM 6.3 MG/DL (8.5-10.1); CARBON DIOXIDE 14 MMOL/L (21-32); CHLORIDE 106 MMOL/L (98-107); GFR ESTIMATED 46; GLUCOSE 159 MG/DL (70-105); LIPASE 24 U/L (8-78); POTASSIUM 4.3 MMOL/L (3.6-5.0); SODIUM 132 MMOL/L (135-145)
[2016-07-14 23:22] LABS: TROPONIN I < 0.30 NG/ML (<0.30)
[2016-07-14 23:43] LABS: CALCIUM IONIZED 0.96 mmol/L (1.16-1.32); CORRECTED IONIZED CALCIUM 0.85 mmol/L (1.16-1.32)
[2016-07-15] VITALS (37 sets, daily range): BP systolic 88–152; BP diastolic 35–77
[2016-07-15] MEDS: fentaNYL INJECTION 100 MCG/2 ML AMP IVP PRN ×5 (00:22→23:46)
[2016-07-15] MEDS ORDERED: SODIUM BICARB 8.4% 50 MEQ/50 ML (ABBOTT) SYR ONE ×2 (00:28→22:48)
[2016-07-15] MEDS ORDERED: SODIUM BICARB 8.4% 50 MEQ/50 ML (ABBOTT) SYR IV ONE (00:45)
[2016-07-15] MEDS ORDERED: CALCIUM GLUC. 10% 4.65 MEQ/10 ML VIAL ONE (00:48)
[2016-07-15] MEDS: NS IV 1000 ML 1,000 ML IV SCH ×4 (00:59→12:32)
[2016-07-15] MEDS ORDERED: NS (IVPB) 100 ML ONE (01:03)
[2016-07-15] MEDS ORDERED: SODIUM CHLORIDE IV SCH (01:15)
[2016-07-15] MEDS ORDERED: CALCIUM GLUCONATE IV SCH (01:15)
[2016-07-15] MEDS: PROPOFOL DRIP (ICU) 100 ML IV SCH ×5 (01:20→14:45)
[2016-07-15] MEDS: NOREPINEPHRINE FOR DRIPS 4 MG in D5W 250 ML (IVPB) 250 ML IV SCH ×3 (01:26→09:58)
[2016-07-15 01:50] LABS: BILIRUBIN,URINE NEGATIVE (NEGATIVE); KETONES,URINE 1+ (NEGATIVE); LEUKOCYTE ESTERASE ,URINE NEGATIVE (NEGATIVE); NITRITE,URINE NEGATIVE (NEGATIVE); PH,URINE 6 (5-9); PROTEIN,URINE 2+ (NEGATIVE); UROBILINOGEN,URINE NORMAL (NORMAL)
[2016-07-15 02:07] LABS: SQUAMOUS EPITHELIAL CELL,UR RARE /HPF; WBC,URINE RARE /HPF
[2016-07-15] MEDS: RT-ALBUTEROL/IPRATROPIUM 3 ML (DUONEB) VIAL INH SCH ×6 (02:11→22:40)
[2016-07-15 04:05] LABS: BASOPHILS % (AUTO) 0 % (0-10); EOSINOPHILS % (AUTO) 0 % (0-10); LYMPHOCYTES # (AUTO) 0.8 X 10^3 (1.0-4.0); LYMPHOCYTES % (AUTO) 9 % (12-44); MEAN CORPUSCULAR HEMOGLOBIN 34 PG (25-34); MEAN CORPUSCULAR HGB CONC 34 G/DL (32-36); MEAN CORPUSCULAR VOLUME 99 FL (80-99); MEAN PLATELET VOLUME 10.4 FL (7.4-10.4); MONOCYTES # (AUTO) 0.1 X 10^3 (0.0-1.0); MONOCYTES % (AUTO) 1 % (0-12); NEUTROPHILS # (AUTO) 8.4 X 10^3 (1.8-7.8); NEUTROPHILS % (AUTO) 90 % (42-75); PLATELET COUNT 94 10^3/uL (130-400); RED BLOOD COUNT 2.84 10^6/uL (4.35-5.85); WHITE BLOOD COUNT 9.3 10^3/uL (4.3-11.0)
[2016-07-15 04:13] LABS: ABG BASE EXCESS -8.5 MMOL/L (-2.5-2.5); ABG HCO3 18 MMOL/L (23-27); ABG OXYGEN SATURATION 95 % (94-100); ABG PCO2 41 MMHG (35-45); ABG PO2 76 MMHG (79-93); ABG TCO2 19.5 MMOL/L (21.0-31.0)
[2016-07-15 04:15] LABS: ALLENS TEST ART LINE; INR 1.6 (0.8-1.4); PATIENT TEMP 96.9; PROTHROMBIN TIME PATIENT 19.2 SEC (12.2-14.7)
[2016-07-15 04:16] LABS: ABG PH 7.26 (7.37-7.43)
[2016-07-15 04:28] LABS: ALBUMIN 2.8 G/DL (3.2-4.5); BILIRUBIN,TOTAL 1.5 MG/DL (0.1-1.0); CREATININE SERUM 1.08 MG/DL (0.60-1.30); POTASSIUM 4.2 MMOL/L (3.6-5.0); TOTAL PROTEIN 5.2 G/DL (6.4-8.2)
[2016-07-15 04:50] LABS: MAGNESIUM 2.1 MG/DL (1.8-2.4); PHOSPHORUS 2.5 MG/DL (2.3-4.7)
[2016-07-15] MEDS: POTASSIUM CL 10MEQ/50ML IVPB 50 ML IV SCH (04:53)
[2016-07-15] MEDS: KCL 20 MEQ TAB (K-DUR) PO SCH ×2 (04:56)
[2016-07-15] MEDS: MAGNESIUM 1 GM/100 ML IVPB 100 ML IV SCH (04:56)
[2016-07-15] MEDS ORDERED: D5W 250 ML (IVPB) 250 ML IV ONE (05:24)
[2016-07-15] MEDS ORDERED: NOREPINEPHRINE FOR DRIPS 4 MG/4 ML AMP IV ONE (05:24)
[2016-07-15] MEDS ORDERED: POTASSIUM CL 10MEQ/50ML IVPB 50 ML IV SCH (06:00)
[2016-07-15] MEDS ORDERED: MAGNESIUM 1 GM/100 ML IVPB 100 ML IV SCH (06:00)
[2016-07-15] MEDS ORDERED: inSUlin (REGULAR) HUMAN 1 UNIT/0.01 ML (CHARGE PER UNIT) SC SCH (06:00)
[2016-07-15 06:36] LABS: LEGIONELLA PNEU ANTIGEN URINE Negative
[2016-07-15 06:36] LABS: CALCIUM PH 7.2
[2016-07-15 06:37] LABS: STREP PNEUMOCOCCUS ANTIG Positive
[2016-07-15] MEDS ORDERED: SODIUM BICARBONATE 8.4% VIAL 100 MEQ in 1/2 NS IV SOLUTION 1,000 ML IV SCH (06:45)
--- NOTE | 2016-07-15 06:54 | Pulmonary Progress Note ---
Subjective Subjective/Events-last exam PT is still requiring Levophed and vasopressin for BP support. Exam Exam Vital Signs Date Time Temp Pulse Resp B/P Pulse Ox O2 Delivery O2 Flow Rate FiO2 07/15/16 06:00 104 21 110/53 94 Mechanical Ventilator 50.00 07/15/16 05:35 96.0 114 23 118/58 93 50.00 07/15/16 05:00 108 19 92/46 94 Mechanical Ventilator 50.00 07/15/16 04:11 114 23 93 50 07/15/16 04:00 92 Mechanical Ventilator 50 07/15/16 04:00 96.0 108 21 108/53 92 Mechanical Ventilator 50.00 07/15/16 03:00 112 20 101/50 92 Mechanical Ventilator 50.00 07/15/16 02:11 114 20 93 50 07/15/16 02:00 112 21 118/53 94 Mechanical Ventilator 50.00 07/15/16 01:26 98.5 112 22 124/55 92 50.00 07/15/16 01:20 98.5 112 22 124/55 92 50.00 07/15/16 01:00 107 21 145/61 92 Mechanical Ventilator 50.00 07/15/16 01:00 107 07/15/16 00:11 112 22 92 50 07/15/16 00:00 109 20 119/54 91 Mechanical Ventilator 50.00 07/15/16 00:00 92 Mechanical Ventilator 50 07/15/16 00:00 98.5 108 22 113/50 94 Mechanical Ventilator 50.00 07/14/16 23:26 99.2 118 22 100/45 96 50.00 07/14/16 23:00 112 21 102/51 91 Mechanical Ventilator 50.00 07/14/16 22:30 99.2 118 22 100/45 96 50.00 07/14/16 22:29 121 28 92 50 07/14/16 22:00 107 20 99/47 94 Mechanical Ventilator 50.00 07/14/16 21:00 111 21 91/44 94 Mechanical Ventilator 50.00 07/14/16 20:41 99.2 07/14/16 20:03 118 22 96 50 07/14/16 20:00 118 22 104/47 96 Mechanical Ventilator 50.00 07/14/16 20:00 95 Mechanical Ventilator 50 07/14/16 19:47 102.6 117 22 106/46 97 Mechanical Ventilator 50.00 07/14/16 19:13 101.5 07/14/16 19:10 118 20 102/44 97 FIO2 50.00 07/14/16 19:00 117 07/14/16 18:33 101.5 07/14/16 18:18 120 22 97 50 07/14/16 18:12 101.5 07/14/16 18:10 125 19 86/39 97 FIO2 50.00 07/14/16 18:00 118 19 92/42 96 Mechanical Ventilator 85.00 07/14/16 17:20 121 23 95/41 98 50.00 07/14/16 17:20 121 23 95/41 98 FIO2 50.00 07/14/16 17:00 125 21 97/40 97 Mechanical Ventilator 85.00 07/14/16 16:37 126 22 97 50 07/14/16 16:00 125 18 94/39 95 Mechanical Ventilator 85.00 07/14/16 16:00 FIO2 50 07/14/16 15:00 121 20 101/40 98 Mechanical Ventilator 85.00 07/14/16 14:41 123 22 95 60 07/14/16 14:10 99.3 07/14/16 14:00 117 19 102/49 98 Mechanical Ventilator 85.00 07/14/16 13:34 100/47 07/14/16 13:00 120 19 114/54 99 Mechanical Ventilator 85.00 07/14/16 13:00 120 07/14/16 12:30 99.4 07/14/16 12:16 100 43 97 70 07/14/16 12:12 122 42 127/53 95 FIO2 70.00 07/14/16 12:03 118 21 119/57 97 FIO2 70.00 07/14/16 12:02 120 40 119/56 96 FIO2 70.00 07/14/16 12:00 118 30 96/69 96 Mechanical Ventilator 85.00 07/14/16 12:00 FIO2 70 07/14/16 11:21 121/50 07/14/16 11:00 116 18 114/75 100 Mechanical Ventilator 85.00 07/14/16 10:00 122 20 124/73 96 Mechanical Ventilator 85.00 07/14/16 09:45 66/45 07/14/16 09:37 98.4 115 28 101/76 94 07/14/16 09:10 116 20 90 80 07/14/16 09:00 125 31 107/69 90 Mechanical Ventilator 85.00 07/14/16 08:33 115 28 101/76 94 07/14/16 08:00 124 36 108/68 FIO2 75.00 07/14/16 08:00 FIO2 75 07/14/16 07:00 110 15 104/67 FIO2 75.00 07/14/16 07:00 110 I & O 07/15/16 07:00 Intake Total 7235.5 ml Output Total 2550 ml Balance 4685.5 ml General Appearance: Moderate Distress HEENT: Pharyngeal Erythema Neck: Supple Respiratory: Crackles (left) Decreased Breath Sounds Cardiovascular: Gallop/S3 Tachycardia Gastrointestinal: normal bowel sounds non tender soft Extremity: Non Tender No Calf Tenderness No Pedal Edema Neurologic/Psychiatric: Alert Oriented x3 Motor Weakness (generalized) Skin: Warm/Dry Pallor Results Lab Laboratory Tests 07/13/16 19:52 07/14/16 04:00 07/14/16 22:40 07/15/16 03:55 Assessment/Plan Assessment/Plan Acute respiratory distress with ARDS Pa02/Fi02 = 152 -Continue ventilator support -Add fentanyl gtt 12.5 mcg/hr and try to titrate Diprivan down to lowest effective dose. Severe sepsis with RAMÍREZ pneumonia -Continue Vanco, cefepime, and Levaquin -Pagan cultures pending Anemia with thrombocytopenia - r/o DIC metabolic acidosis with lactic acidosis -add bicarb gtt at 100cc/hr -IVF keep NS at 50cc/hr Hyponatremia -monitor Septic shock r/o DIC -DIC panal, and peripheral smear -Levophed and vasopressin - central line CVP 15 , arterial line Acute renal failure -IVF shock liver -monitor Tobacco use Clinical Quality Measures DVT/VTE Risk/Contraindication: Risk Factor Score Per Nursin RFS Level Per Nursing on Admit: 3=High KIKO FREED DO Jul 15, 2016 06:53
[2016-07-15 07:06] LABS: BASOPHILS % (AUTO) 0 % (0-10); EOSINOPHILS % (AUTO) 0 % (0-10); LYMPHOCYTES # (AUTO) 0.8 X 10^3 (1.0-4.0); LYMPHOCYTES % (AUTO) 9 % (12-44); MEAN CORPUSCULAR HEMOGLOBIN 33 PG (25-34); MEAN CORPUSCULAR HGB CONC 34 G/DL (32-36); MEAN CORPUSCULAR VOLUME 99 FL (80-99); MEAN PLATELET VOLUME 10.3 FL (7.4-10.4); MONOCYTES # (AUTO) 0.2 X 10^3 (0.0-1.0); MONOCYTES % (AUTO) 2 % (0-12); NEUTROPHILS # (AUTO) 7.8 X 10^3 (1.8-7.8); NEUTROPHILS % (AUTO) 89 % (42-75); PLATELET COUNT 88 10^3/uL (130-400); RED BLOOD COUNT 2.84 10^6/uL (4.35-5.85); RED CELL DISTRIBUTION WIDTH 12.9 % (10.0-14.5); RETICULOCYTE % 1.57 % (0.50-2.40); WHITE BLOOD COUNT 8.9 10^3/uL (4.3-11.0)
[2016-07-15 07:17] LABS: PATH WILL NEED TO REVIEW SMEAR PATH TO REVIEW
--- NOTE | 2016-07-15 07:20 | Anesthesia-Procedure Note ---
Procedure Start/Stop Time Date of Procedure: Jul 14, 2016 Start Time: 09:00 Referring Physician: Dr. Guzmán Preprocedural Diagnosis: Impending Respiratory Failure Stop Time: 09:20 Procedures/Interventions Lumen: triple Central Line Procedure: betadine prep sterile drapes applied sterile dressing applied Position: internal jugular (R) Anesthesia: Lidocaine Complications: none Post Position: sutured, good blood return, position confirmed w/ CXR RSI: Yes 100% pre-Ox, [id number]: Yes Videoscope used: Yes Medications: Propofol, Succinylcholine Mask Ventilation: positive Positive End Tide CO2: Yes Breath Sounds after Intubation: bilateral-equal ETT Securred @ (cm): 21 Intubated with ease: Yes Intubation Complications: no complications Post Intubation Xray-done: Yes Progress/Xray Impression: Endotracheal tube in good location Post Procedure Pt tolerated procedure well Progress Pt was placed on ventilator support per Dr. Guzmán Care turned over to: CHIDI Navarrete DO Jul 15, 2016 07:20
[2016-07-15 07:26] LABS: INR 1.6 (0.8-1.4); PROTHROMBIN TIME PATIENT 18.7 SEC (12.2-14.7)
[2016-07-15] MEDS ORDERED: NORMAL SALINE (BAXTER MINI) 50 ML IV ONE ×2 (07:56→21:23)
[2016-07-15] MEDS ORDERED: CEFEPIME HCL 2 GM (MAXIPIME) VIAL ONE ×2 (07:56→21:21)
[2016-07-15] MEDS: DEXMEDETOMIDINE PRE-MIX 100 ML IV SCH (08:15)
[2016-07-15] MEDS: VASOPRESSIN IV SCH ×2 (08:23→21:25)
[2016-07-15] MEDS: NS IV SCH ×2 (08:23→21:25)
[2016-07-15] MEDS: FAMOTIDINE 20MG/2ML IV (PEPCID) IVP SCH ×2 (08:24→21:39)
[2016-07-15] MEDS: LEVOFLOXACIN 500 MG/100 ML IV 100 ML IV SCH (08:24)
[2016-07-15] MEDS: fentaNYL INJECTION 1,250 MCG in NS (IVPB) 225 ML IV SCH (08:27)
[2016-07-15 08:53] LABS: BAND NEUTROPHILS 5 %; NEUTROPHILS % (MANUAL) 84 %
[2016-07-15] MEDS: CEFEPIME INJECTION 2,000 MG in NORMAL SALINE (BAXTER MINI) 50 ML IV SCH ×2 (08:53→21:39)
[2016-07-15 08:54] LABS: BASOPHILS % (MANUAL) 0 %; EOSINOPHILS % (MANUAL) 1 %; LYMPHOCYTES % (MANUAL) 7 %
--- NOTE | 2016-07-15 09:06 | Physical Therapy Progress Note ---
Therapy Progress Note Patient is sedated and on vent. No skilled PT indicated at this time due to previous statement. RN and PT discussed that PT will be needed in future and will receive new orders. ANNMARIE AUGUSTIN PT Jul 15, 2016 09:06
[2016-07-15] MEDS: VANCOMYCIN 1250 MG/NS 250 ML IVPB IV SCH ×4 (09:58→23:06)
--- NOTE | 2016-07-15 12:28 | Diagnostic Imaging Report ---
Portable upright radiograph of the chest. INDICATION: Pneumonia and sepsis. COMPARISON: 07/14/2016. FINDINGS: Again seen extensive infiltrates in the left lung and mild right perihilar infiltrates minimally increased compared to 07/14/20. ET tube, NG tube and right IJ venous line are all stable. The heart size is not enlarged. There is no significant effusion. No pneumothorax. IMPRESSION: Slightly increased extensive bilateral infiltrates worse on the left. Dictated by: Dictated on workstation # [id number]
[2016-07-15] MEDS: inSUlin (REGULAR) HUMAN 1 UNIT/0.01 ML (CHARGE PER UNIT) SC SCH ×2 (12:32→18:05)
--- NOTE | 2016-07-15 12:44 | Progress Note (SOAP) ---
Subjective Subjective/Events-last exam Fwup respiratory failure, pneumonia with sepsis, septic shock with hypotension/ renal failure and elevated LFTs. Patient sedated on ventilator. Looks like in ARDS. Objective Exam Vital Signs Date Time Temp Pulse Resp B/P Pulse Ox O2 Delivery O2 Flow Rate FiO2 07/15/16 12:14 96 Mechanical Ventilator 50 07/15/16 12:14 97.9 07/15/16 09:59 103 22 96 50 07/15/16 09:58 103/51 07/15/16 08:48 96 Mechanical Ventilator 50 07/15/16 08:47 99.4 111 23 125/60 96 Mechanical Ventilator 50.00 07/15/16 08:23 108/53 07/15/16 08:03 105 22 94 50 07/15/16 08:00 103/51 Mechanical Ventilator 50.00 07/15/16 07:00 120 22 115/52 93 Mechanical Ventilator 50.00 07/15/16 07:00 104 07/15/16 06:43 96.0 103 21 98/50 95 50.00 07/15/16 06:37 103 21 95 50 07/15/16 06:00 104 21 110/53 94 Mechanical Ventilator 50.00 07/15/16 05:35 96.0 114 23 118/58 93 50.00 07/15/16 05:00 108 19 92/46 94 Mechanical Ventilator 50.00 07/15/16 04:11 114 23 93 50 07/15/16 04:00 92 Mechanical Ventilator 50 07/15/16 04:00 96.0 108 21 108/53 92 Mechanical Ventilator 50.00 07/15/16 03:00 112 20 101/50 92 Mechanical Ventilator 50.00 07/15/16 02:11 114 20 93 50 07/15/16 02:00 112 21 118/53 94 Mechanical Ventilator 50.00 07/15/16 01:26 98.5 112 22 124/55 92 50.00 07/15/16 01:20 98.5 112 22 124/55 92 50.00 07/15/16 01:00 107 21 145/61 92 Mechanical Ventilator 50.00 07/15/16 01:00 107 07/15/16 00:11 112 22 92 50 07/15/16 00:00 109 20 119/54 91 Mechanical Ventilator 50.00 07/15/16 00:00 92 Mechanical Ventilator 50 07/15/16 00:00 98.5 108 22 113/50 94 Mechanical Ventilator 50.00 07/14/16 23:26 99.2 118 22 100/45 96 50.00 07/14/16 23:00 112 21 102/51 91 Mechanical Ventilator 50.00 07/14/16 22:30 99.2 118 22 100/45 96 50.00 07/14/16 22:29 121 28 92 50 07/14/16 22:00 107 20 99/47 94 Mechanical Ventilator 50.00 07/14/16 21:00 111 21 91/44 94 Mechanical Ventilator 50.00 07/14/16 20:41 99.2 07/14/16 20:03 118 22 96 50 07/14/16 20:00 118 22 104/47 96 Mechanical Ventilator 50.00 07/14/16 20:00 95 Mechanical Ventilator 50 07/14/16 19:47 102.6 117 22 106/46 97 Mechanical Ventilator 50.00 07/14/16 19:13 101.5 07/14/16 19:10 118 20 102/44 97 FIO2 50.00 07/14/16 19:00 117 07/14/16 18:33 101.5 07/14/16 18:18 120 22 97 50 07/14/16 18:12 101.5 07/14/16 18:10 125 19 86/39 97 FIO2 50.00 07/14/16 18:00 118 19 92/42 96 Mechanical Ventilator 85.00 07/14/16 17:20 121 23 95/41 98 50.00 07/14/16 17:20 121 23 95/41 98 FIO2 50.00 07/14/16 17:00 125 21 97/40 97 Mechanical Ventilator 85.00 07/14/16 16:37 126 22 97 50 07/14/16 16:00 125 18 94/39 95 Mechanical Ventilator 85.00 07/14/16 16:00 FIO2 50 07/14/16 15:00 121 20 101/40 98 Mechanical Ventilator 85.00 07/14/16 14:41 123 22 95 60 07/14/16 14:10 99.3 07/14/16 14:00 117 19 102/49 98 Mechanical Ventilator 85.00 07/14/16 13:34 100/47 07/14/16 13:00 120 19 114/54 99 Mechanical Ventilator 85.00 07/14/16 13:00 120 I & O 07/15/16 07:00 Intake Total 7235.5 ml Output Total 2550 ml Balance 4685.5 ml Capillary Refill : General Appearance: Other (sedated on ventilator) Neck: Supple Respiratory: Decreased Breath Sounds Rhonci Cardiovascular: Gallop/S3 Tachycardia Gastrointestinal: normal bowel sounds soft Extremity: Pedal Edema Other (SCDs in place) Neurologic/Psychiatric: Other (sedated on ventilator) Results Lab Laboratory Tests 07/14/16 14:10: Drew Test N/A, Arterial Blood Base Excess -7.9L, Arterial Blood HCO3 18L, Arterial Blood Oxygen Saturation 96, Arterial Blood Partial Pressure CO2 39, Arterial Blood Partial Pressure O2 89, Arterial Blood Total CO2 19.2L, Arterial Blood pH 7.28*L, Blood Gas Inspired Oxygen 60%, Blood Gas Patient Temperature 99.3, Blood Gas Puncture Site ART LINE, Blood Gas Ventilator Setting YES 07/14/16 14:25: Lactic Acid Level 2.6*H 07/14/16 14:45: Magnesium Level 2.1 07/14/16 16:08: Lactic Acid Level 3.0*H 07/14/16 20:10: Lactic Acid Level 3.3*H 07/14/16 22:40: Lactic Acid Level 4.0*H, Alanine Aminotransferase (ALT/SGPT) 295H, Anion Gap 12 , Aspartate Amino Transf (AST/SGOT) 438H, BUN/Creatinine Ratio 21, Blood Urea Nitrogen 25H, Calcium Level 6.3L, Carbon Dioxide Level 14L, Chloride Level 106, Creatinine 1.20, Estimat Glomerular Filtration Rate 46, Glucose Level 159H, Hemoglobin 10.3L, Lipase 24, Magnesium Level 2.0, Potassium Level 4.3, Sodium Level 132L, Troponin I < 0.30 07/15/16 00:28: Glucometer 190H 07/15/16 03:55: Alanine Aminotransferase (ALT/SGPT) 283H, Anion Gap 12, Aspartate Amino Transf ( AST/SGOT) 398H, BUN/Creatinine Ratio 21, Blood Urea Nitrogen 23H, Calcium Level 7.0L, Carbon Dioxide Level 15L, Chloride Level 106, Creatinine 1.08, Estimat Glomerular Filtration Rate 52, Glucose Level 167H, Hemoglobin 9.5L, Magnesium Level 2.1, Potassium Level 4.2, Sodium Level 133L, Activated Partial Thromboplast Time 36H, Albumin 2.8L, Alkaline Phosphatase 54, Drew Test ART LINE, Arterial Blood Base Excess -8.5L, Arterial Blood HCO3 18L, Arterial Blood Oxygen Saturation 95, Arterial Blood Partial Pressure CO2 41, Arterial Blood Partial Pressure O2 76L, Arterial Blood Total CO2 19.5L, Arterial Blood pH 7.26* L, Basophils # (Auto) 0.0, Basophils (%) (Auto) 0, Blood Gas Inspired Oxygen 50% FIO2, Blood Gas Patient Temperature 96.9, Blood Gas Puncture Site R ISABEL, Blood Gas Ventilator Setting YES, Eosinophils # (Auto) 0.0, Eosinophils (%) ( Auto) 0, Hematocrit 28L, INR Comment 1.6H, Lymphocytes # (Auto) 0.8L, Lymphocytes (%) (Auto) 9L, Mean Corpuscular Hemoglobin 34, Mean Corpuscular Hemoglobin Concent 34, Mean Corpuscular Volume 99, Mean Platelet Volume 10.4, Monocytes # (Auto) 0.1, Monocytes (%) (Auto) 1, Neutrophils # (Auto) 8.4H, Neutrophils (%) (Auto) 90H, Phosphorus Level 2.5, Platelet Count 94L, Prothrombin Time 19.2H, Red Blood Count 2.84L, Red Cell Distribution Width 13.0 , Total Bilirubin 1.5H, Total Protein 5.2L, White Blood Count 9.3 07/15/16 06:55: Absolute Reticulocyte Count 45, Activated Partial Thromboplast Time 36H, Band Neutrophils 5, Basophils # (Auto) 0.0, Basophils % (Manual) 0, Basophils (%) ( Auto) 0, Blood Morphology Comment NORMAL, D-Dimer 6.50H, Eosinophils # (Auto) 0.0, Eosinophils % (Manual) 1, Eosinophils (%) (Auto) 0, Fibrinogen 563H, Hematocrit 28L, Hemoglobin 9.4L, INR Comment 1.6H, Lactic Acid Level 4.3*H, Lymphocytes # (Auto) 0.8L, Lymphocytes % (Manual) 7, Lymphocytes (%) (Auto) 9L, Mean Corpuscular Hemoglobin 33, Mean Corpuscular Hemoglobin Concent 34, Mean Corpuscular Volume 99, Mean Platelet Volume 10.3, Monocytes # (Auto) 0.2, Monocytes % (Manual) 3, Monocytes (%) (Auto) 2, Neutrophils # (Auto) 7.8, Neutrophils % (Manual) 84, Neutrophils (%) (Auto) 89H, Percent Reticulocyte Count 1.57, Platelet Count 88L, Prothrombin Time 18.7H, Red Blood Count 2.84L, Red Cell Distribution Width 12.9, White Blood Count 8.9 07/15/16 11:53: Lactic Acid Level 3.7*H Microbiology 07/13/16 Blood Culture - Preliminary, Resulted No growth 07/14/16 Gram Stain - Final, Resulted 07/14/16 Sputum Culture - Preliminary, Resulted Normal karissa 07/14/16 Urine Culture - Preliminary, Resulted NO GROWTH Assessment/Plan Assessment/Plan Assess & Plan/Chief Complaint 1. Pneumonia with Sepsis--continue triple abx, monitor CBC for DIC 2. Acute Respiratory Failure with ARDs--on ventilator 3. Septic Shock--on norepinephrine, vasopressin just DCed 4. Acute Renal Failure--creatinine improved 5. Metabolic Acidosis--improving Diagnosis/Problems: Clinical Quality Measures DVT/VTE Risk/Contraindication: Risk Factor Score Per Nursin RFS Level Per Nursing on Admit: 3=High KINDRA RHODES DO Jul 15, 2016 12:44 KINDRA RHODES DO Jul 15, 2016 12:44
--- NOTE | 2016-07-15 13:14 | Occ Therapy Progress Note ---
Therapy Progress Note Pt is currently intubated and sedated, therapy on hold at this time. Will await new Occupation Therapy orders when appropriate. GEO SALCIDO OT Jul 15, 2016 13:13
[2016-07-15] MEDS: HYDROCORTISONE 100 MG/2 ML (Solu-CORTEF) VIAL IV SCH ×2 (14:44→23:06)
--- NOTE | 2016-07-15 15:03 | Progress Note-Standard ---
Standard Progress Note Progress Notes/Assess & Plan Progress/Assessment & Plan Anesthesia Note (Post-dated: procedure done on 07-14-16 from [id number]) Called for arterial line placement. Dr Guzmán in room to do central line placement. ChloraPrep, 20 G art. line placed in Rt radial artery on 3rd attempt. Secured with good waveform. Pt intubated and sedated on ventilator. She tolerated the procedure well. JEROME ZAMUDIO DO Jul 15, 2016 15:03
[2016-07-15 15:13] LABS: ABG BASE EXCESS -5.3 MMOL/L (-2.5-2.5); ABG HCO3 21 MMOL/L (23-27); ABG OXYGEN SATURATION 97 % (94-100); ABG PCO2 41 MMHG (35-45); ABG PO2 87 MMHG (79-93)
[2016-07-15 15:15] LABS: ABG PH 7.32 (7.37-7.43); ALLENS TEST ART LINE; PATIENT TEMP 96.9
[2016-07-15] MEDS: SODIUM BICARBONATE 8.4% VIAL 150 MEQ in D5W 1000 ML IV SOLUTION 1,000 ML IV SCH ×2 (15:44→23:06)
[2016-07-15] MEDS ORDERED: fentaNYL INJECTION 100 MCG/2 ML AMP IVP PRN (16:00)
[2016-07-15] MEDS: ENOXAPARIN 40 MG/0.4 ML (LOVENOX) SYR SC SCH (21:39)
[2016-07-15] MEDS ORDERED: 1/2 NS IV SOLUTION 0 ML IV ONE (22:48)
[2016-07-15] MEDS ORDERED: D5W 1000 ML IV SOLUTION 1,000 ML ONE (22:53)
[2016-07-15 23:51] LABS: CALCIUM IONIZED 0.88 mmol/L (1.16-1.32); CORRECTED IONIZED CALCIUM 0.8 mmol/L (1.16-1.32)
[2016-07-16] VITALS (33 sets, daily range): BP systolic 104–183; BP diastolic 49–71
[2016-07-16] MEDS: inSUlin (REGULAR) HUMAN 1 UNIT/0.01 ML (CHARGE PER UNIT) SC SCH ×4 (00:41→18:25)
[2016-07-16] MEDS: PROPOFOL DRIP (ICU) 100 ML IV SCH ×3 (02:00→20:01)
[2016-07-16] MEDS: RT-ALBUTEROL/IPRATROPIUM 3 ML (DUONEB) VIAL INH SCH ×6 (02:30→22:42)
[2016-07-16] MEDS: NOREPINEPHRINE FOR DRIPS 4 MG in D5W 250 ML (IVPB) 250 ML IV SCH ×3 (03:27→23:52)
[2016-07-16] MEDS: VASOPRESSIN IV SCH ×3 (03:50→20:30)
[2016-07-16] MEDS: NS IV SCH ×3 (03:50→20:30)
[2016-07-16 04:21] LABS: BASOPHILS % (AUTO) 0 % (0-10); EOSINOPHILS % (AUTO) 0 % (0-10); LYMPHOCYTES # (AUTO) 0.6 X 10^3 (1.0-4.0); LYMPHOCYTES % (AUTO) 6 % (12-44); MEAN CORPUSCULAR HEMOGLOBIN 33 PG (25-34); MEAN CORPUSCULAR HGB CONC 35 G/DL (32-36); MEAN CORPUSCULAR VOLUME 96 FL (80-99); MEAN PLATELET VOLUME 10.6 FL (7.4-10.4); MONOCYTES # (AUTO) 0.3 X 10^3 (0.0-1.0); MONOCYTES % (AUTO) 3 % (0-12); NEUTROPHILS # (AUTO) 9.1 X 10^3 (1.8-7.8); NEUTROPHILS % (AUTO) 90 % (42-75); PLATELET COUNT 73 10^3/uL (130-400); RED BLOOD COUNT 2.69 10^6/uL (4.35-5.85); RED CELL DISTRIBUTION WIDTH 12.6 % (10.0-14.5); WHITE BLOOD COUNT 10.1 10^3/uL (4.3-11.0)
[2016-07-16 04:26] LABS: ABG HCO3 29 MMOL/L (23-27); ABG OXYGEN SATURATION 98 % (94-100); ABG PCO2 50 MMHG (35-45); ABG PH 7.38 (7.37-7.43); ABG PO2 98 MMHG (79-93); ABG TCO2 30.3 MMOL/L (21.0-31.0)
[2016-07-16 04:29] LABS: INR 1.4 (0.8-1.4); PROTHROMBIN TIME PATIENT 17.2 SEC (12.2-14.7)
[2016-07-16 04:31] LABS: ALLENS TEST YES-POS; PATIENT TEMP 98.4
[2016-07-16 04:37] LABS: MAGNESIUM 1.9 MG/DL (1.8-2.4)
[2016-07-16] MEDS: POTASSIUM CL 10MEQ/50ML IVPB 50 ML IV SCH (04:47)
[2016-07-16] MEDS: MAGNESIUM 1 GM/100 ML IVPB 100 ML IV SCH (04:48)
[2016-07-16] MEDS: KCL 20 MEQ TAB (K-DUR) PO SCH ×2 (04:48)
[2016-07-16 04:51] LABS: PHOSPHORUS 0.8 MG/DL (2.3-4.7)
[2016-07-16] MEDS ORDERED: SODIUM BICARB 8.4% 50 MEQ/50 ML (ABBOTT) SYR ONE (05:02)
[2016-07-16] MEDS ORDERED: D5W 1000 ML IV SOLUTION 1,000 ML ONE (05:05)
[2016-07-16 05:08] LABS: ALANINE AMINOTRANSFERASE 288 U/L (0-55); ALBUMIN 2.2 G/DL (3.2-4.5); ANION GAP 10 MMOL/L (5-14); ASPARTATE AMINO TRANSFERASE 317 U/L (5-34); BILIRUBIN,TOTAL 1.4 MG/DL (0.1-1.0); BLOOD UREA NITROGEN 13 MG/DL (7-18); BUN/CREATININE RATIO 17; CALCIUM 6.2 MG/DL (8.5-10.1); CARBON DIOXIDE 21 MMOL/L (21-32); CHLORIDE 110 MMOL/L (98-107); CREATININE SERUM 0.76 MG/DL (0.60-1.30); GFR ESTIMATED > 60; GLUCOSE 153 MG/DL (70-105); SODIUM 141 MMOL/L (135-145); TOTAL PROTEIN 4.1 G/DL (6.4-8.2)
[2016-07-16] MEDS: fentaNYL INJECTION 100 MCG/2 ML AMP IVP PRN ×3 (05:17→10:26)
[2016-07-16] MEDS: SODIUM BICARBONATE 8.4% VIAL 150 MEQ in D5W 1000 ML IV SOLUTION 1,000 ML IV SCH ×3 (05:22→20:00)
[2016-07-16] MEDS: HYDROCORTISONE 100 MG/2 ML (Solu-CORTEF) VIAL IV SCH ×2 (06:02→14:42)
[2016-07-16] MEDS ORDERED: NS IV 1000 ML 1,000 ML ONE (06:41)
[2016-07-16] MEDS: fentaNYL INJECTION 1,250 MCG in NS (IVPB) 225 ML IV SCH ×2 (06:45→23:56)
--- NOTE | 2016-07-16 06:48 | Pulmonary Progress Note ---
Subjective Subjective/Events-last exam Pt is maybe slightly improved. Levophed and vasopressin now D/C'd. Sputum culture + for Strep pneumonia Urine strep pneumonia Ag + Exam Exam Vital Signs Date Time Temp Pulse Resp B/P Pulse Ox O2 Delivery O2 Flow Rate FiO2 07/16/16 05:55 124 32 90 50 07/16/16 05:00 112 15 117/52 97 Mechanical Ventilator 50.00 07/16/16 04:00 115 23 106/49 97 Mechanical Ventilator 50.00 07/16/16 04:00 95 Mechanical Ventilator 50 07/16/16 03:51 98.4 114 30 104/52 95 Mechanical Ventilator 50.00 07/16/16 03:27 98.8 124 30 147/62 95 50.00 07/16/16 03:00 116 22 109/52 93 Mechanical Ventilator 50.00 07/16/16 02:30 124 30 95 50 07/16/16 02:00 122 24 148/68 96 Mechanical Ventilator 50.00 07/16/16 02:00 98.8 124 30 147/62 95 50.00 07/16/16 01:00 116 07/16/16 01:00 116 20 111/54 97 Mechanical Ventilator 50.00 07/16/16 00:16 117 30 96 50 07/16/16 00:00 98.8 124 30 130/59 98 Mechanical Ventilator 50.00 07/16/16 00:00 98 Mechanical Ventilator 50 07/15/16 23:00 128 24 115/48 89 Mechanical Ventilator 50.00 07/15/16 22:48 136 31 99 50 07/15/16 22:00 117 20 111/51 99 Mechanical Ventilator 50.00 07/15/16 21:00 125 31 125/56 99 Mechanical Ventilator 50.00 07/15/16 20:33 141 33 95 50 07/15/16 20:00 123 25 127/52 97 Mechanical Ventilator 50.00 07/15/16 20:00 98 Mechanical Ventilator 50 07/15/16 19:47 99.0 122 30 131/53 98 Mechanical Ventilator 50.00 07/15/16 19:00 120 20 117/50 99 Mechanical Ventilator 50.00 07/15/16 19:00 125 07/15/16 18:30 120 31 99 50 07/15/16 18:00 122 30 110/49 99 Mechanical Ventilator 50.00 07/15/16 17:00 122 19 110/47 96 Mechanical Ventilator 50.00 07/15/16 16:00 96.6 07/15/16 16:00 96 Mechanical Ventilator 50 07/15/16 16:00 123 12 88/35 94 Mechanical Ventilator 50.00 07/15/16 15:51 141 33 95 50 07/15/16 15:00 133 32 130/54 96 Mechanical Ventilator 50.00 07/15/16 14:45 135/55 07/15/16 14:44 135/55 07/15/16 14:00 130 29 152/77 97 Mechanical Ventilator 50.00 07/15/16 13:59 126 28 97 50 07/15/16 13:05 126 24 98 50 07/15/16 13:00 125 07/15/16 13:00 123 28 117/52 97 Mechanical Ventilator 50.00 07/15/16 12:14 96 Mechanical Ventilator 50 07/15/16 12:14 97.9 07/15/16 12:00 107 20 120/58 99 Mechanical Ventilator 50.00 07/15/16 11:00 101 21 106/53 97 Mechanical Ventilator 50.00 07/15/16 10:00 103 21 115/56 97 Mechanical Ventilator 50.00 07/15/16 09:59 103 22 96 50 07/15/16 09:58 103/51 07/15/16 08:48 96 Mechanical Ventilator 50 07/15/16 08:47 99.4 111 23 125/60 96 Mechanical Ventilator 50.00 07/15/16 08:23 108/53 07/15/16 08:03 105 22 94 50 07/15/16 08:00 103/51 Mechanical Ventilator 50.00 07/15/16 07:00 120 22 115/52 93 Mechanical Ventilator 50.00 07/15/16 07:00 104 07/15/16 06:43 96.0 103 21 98/50 95 50.00 I & O 07/16/16 07:00 Intake Total 3950 ml Output Total 3000 ml Balance 950 ml General Appearance: Other (sedated on ventilator) HEENT: Pharyngeal Erythema Neck: Supple Respiratory: Decreased Breath Sounds Rhonci Cardiovascular: Gallop/S3 Tachycardia Gastrointestinal: normal bowel sounds soft Extremity: Pedal Edema Other (SCDs in place) Neurologic/Psychiatric: Other (sedated on ventilator) Skin: Warm/Dry Pallor Results Lab Laboratory Tests 07/14/16 22:40 07/15/16 03:55 07/15/16 06:55 07/16/16 04:00 Assessment/Plan Assessment/Plan Acute respiratory distress with ARDS Pa02/Fi02 = 196 -Continue ventilator support -Add fentanyl gtt 12.5 mcg/hr and try to titrate Diprivan down to lowest effective dose. Severe sepsis with Strep pneumonia -D/C Vanco, Levaquin Continue cefepime, -Pagan cultures pending Anemia with thrombocytopenia - r/o DIC metabolic acidosis with lactic acidosis -Continue bicarb gtt Septic shock r/o DIC -Levophed and vasopressin --- Now D/C 'd - central line CVP 12 , arterial line Acute renal failure -IVF shock liver -monitor Tobacco use Clinical Quality Measures DVT/VTE Risk/Contraindication: Risk Factor Score Per Nursin RFS Level Per Nursing on Admit: 3=High KIKO FREED DO Jul 16, 2016 06:48 KIKO FREED DO Jul 16, 2016 06:48
--- NOTE | 2016-07-16 07:02 | Diagnostic Imaging Report ---
INDICATION: Ventilated patient. COMPARISON: 07/15/2016 FINDINGS: Single frontal radiographic view of the chest was obtained and demonstrates indwelling endotracheal tube with tip below the clavicular heads and above the sundar. Enteric tube terminates with tip in the stomach. Right internal jugular central venous catheter terminates with tip in the low SVC. Since the previous exam, there has been interval progression of dense consolidation scattered throughout the right lung. There is persistent large area of dense consolidation within the left lung as well, not significantly changed. There is no large effusion or pneumothorax. Cardiac silhouette and pulmonary vasculature stable. IMPRESSION: 1. Dense bilateral consolidations of both lungs with interval progression on the right. Dictated by: Dictated on workstation # [id number]
[2016-07-16] MEDS ORDERED: NS IV 1000 ML 1,000 ML IV ONE (07:15)
[2016-07-16 07:28] LABS: CALCIUM PH 7.21
[2016-07-16] MEDS ORDERED: CEFEPIME HCL 2 GM (MAXIPIME) VIAL ONE ×2 (07:40→19:52)
[2016-07-16] MEDS ORDERED: NORMAL SALINE (BAXTER MINI) 50 ML IV ONE ×2 (07:40→19:52)
[2016-07-16] MEDS: CEFEPIME INJECTION 2,000 MG in NORMAL SALINE (BAXTER MINI) 50 ML IV SCH ×2 (08:05→20:01)
[2016-07-16] MEDS: DEXMEDETOMIDINE PRE-MIX 100 ML IV SCH (08:05)
[2016-07-16] MEDS: LEVOFLOXACIN 500 MG/100 ML IV 100 ML IV SCH (08:05)
[2016-07-16] MEDS: FAMOTIDINE 20MG/2ML IV (PEPCID) IVP SCH ×2 (08:05→20:01)
[2016-07-16] MEDS ORDERED: TROUGH ORDER-PHARMACY XX NR (09:00)
--- NOTE | 2016-07-16 09:49 | ECHOCARDIOGRAPHY REPORT ---
PROCEDURE PHYSICIAN: EDDIE CHILDRESS DATE OF PROCEDURE: 07/14/2016 TWO DIMENSIONAL ECHOCARDIOGRAM REPORT PRIMARY PHYSICIAN: OTHER PHYSICIAN: Dr. Jose Guadalupe Green REFERRING PHYSICIAN: ORDERING PHYSICIAN: Dr. Xavier Guzmán ATTENDING PHYSICIAN: Dr. Samira Fish FAMILY PHYSICIAN: READING PHYSICIAN: INDICATION FOR THE PROCEDURE: Pneumonia, shortness of breath MEASUREMENTS DERIVED VALUES LV DIAMETER (LAX) NORMALS NORMALS Diastolic (3.6-5.2) Eject. Fract. (60%+/-6%) Systolic (2.3-3.9) Diastolic Vol. % Shortening (0.22-0.42) Systolic Vol. Aortic Root IVS THICKNESS Diastolic (0.6-1.1) LVPW THICKNESS Diastolic (0.6-1.1) LA DIAMETER Systolic (2.1-3.7) FINDINGS: 1. This is a technically difficult study; some of the views are limited. 2. Sinus rhythm. 3. There is no significant left atrial enlargement. 4. Left ventricular systolic function is preserved. Left ventricular ejection fraction is 60 to 65%. No LVH is present. 5. This is a difficult study especially the apex is not well visualized. In the rest of the payne, there is no significant wall motion abnormality. 6. Right heart dimensions are mildly enlarged. Right ventricular systolic function is preserved. 7. There is no evidence of pericardial effusion. 8. Diastolic function is normal. 9. IVC is dilated at 2.3 cm which suggests increased right atrial pressure. VALVULAR STRUCTURE OF THE HEART: There is trace tricuspid regurgitation with RVSP of 17 mmHg. The mitral valve has no significant pathology. Aortic valve is within normal limits. The pulmonic valve is not well visualized. CONCLUSION: 1. LV size and function is normal. 2. LVEF is 65%. 3. There is mild RV enlargement with preserved RV systolic function. 4. There is no significant valvular heart disease. 5. IVC is dilated which suggests increased right atrial pressure. 6. This is a technically difficult study and the apex is not well visualized. If accurate delineation of wall motion is required then contrast echocardiogram is recommended. Job ID: [id number] Dictated Date: 07/15/2016 20:33:00 Production Expediter Date: 07/16/2016 09:42:16 / jimmie
--- NOTE | 2016-07-16 11:05 | Progress Note (SOAP) ---
Subjective Subjective/Events-last exam Fwup respiratory failure, pneumonia with sepsis, septic shock with hypotension/ renal failure and elevated LFTs. Off all pressors and diprivan dose has been decreased so is moving a little bit but not agitated. Objective Exam Vital Signs Date Time Temp Pulse Resp B/P Pulse Ox O2 Delivery O2 Flow Rate FiO2 07/16/16 10:22 111 30 95 50 07/16/16 09:00 105 15 114/57 97 Mechanical Ventilator 50.00 07/16/16 08:00 112 13 126/60 97 Mechanical Ventilator 50.00 07/16/16 08:00 95 Mechanical Ventilator 50 07/16/16 08:00 96.9 07/16/16 07:45 112 30 97 50 07/16/16 07:00 112 07/16/16 07:00 112 14 108/51 97 Mechanical Ventilator 50.00 07/16/16 06:00 120 15 136/60 96 Mechanical Ventilator 50.00 07/16/16 05:55 124 32 90 50 07/16/16 05:00 112 15 117/52 97 Mechanical Ventilator 50.00 07/16/16 04:00 115 23 106/49 97 Mechanical Ventilator 50.00 07/16/16 04:00 95 Mechanical Ventilator 50 07/16/16 03:51 98.4 114 30 104/52 95 Mechanical Ventilator 50.00 07/16/16 03:27 98.8 124 30 147/62 95 50.00 07/16/16 03:00 116 22 109/52 93 Mechanical Ventilator 50.00 07/16/16 02:30 124 30 95 50 07/16/16 02:00 122 24 148/68 96 Mechanical Ventilator 50.00 07/16/16 02:00 98.8 124 30 147/62 95 50.00 07/16/16 01:00 116 07/16/16 01:00 116 20 111/54 97 Mechanical Ventilator 50.00 07/16/16 00:16 117 30 96 50 07/16/16 00:00 98.8 124 30 130/59 98 Mechanical Ventilator 50.00 07/16/16 00:00 98 Mechanical Ventilator 50 07/15/16 23:00 128 24 115/48 89 Mechanical Ventilator 50.00 07/15/16 22:48 136 31 99 50 07/15/16 22:00 117 20 111/51 99 Mechanical Ventilator 50.00 07/15/16 21:00 125 31 125/56 99 Mechanical Ventilator 50.00 07/15/16 20:33 141 33 95 50 07/15/16 20:00 123 25 127/52 97 Mechanical Ventilator 50.00 07/15/16 20:00 98 Mechanical Ventilator 50 07/15/16 19:47 99.0 122 30 131/53 98 Mechanical Ventilator 50.00 07/15/16 19:00 120 20 117/50 99 Mechanical Ventilator 50.00 07/15/16 19:00 125 07/15/16 18:30 120 31 99 50 07/15/16 18:00 122 30 110/49 99 Mechanical Ventilator 50.00 07/15/16 17:00 122 19 110/47 96 Mechanical Ventilator 50.00 07/15/16 16:00 96.6 07/15/16 16:00 96 Mechanical Ventilator 50 07/15/16 16:00 123 12 88/35 94 Mechanical Ventilator 50.00 07/15/16 15:51 141 33 95 50 07/15/16 15:00 133 32 130/54 96 Mechanical Ventilator 50.00 07/15/16 14:45 135/55 07/15/16 14:44 135/55 07/15/16 14:00 130 29 152/77 97 Mechanical Ventilator 50.00 07/15/16 13:59 126 28 97 50 07/15/16 13:05 126 24 98 50 07/15/16 13:00 125 07/15/16 13:00 123 28 117/52 97 Mechanical Ventilator 50.00 07/15/16 12:14 96 Mechanical Ventilator 50 07/15/16 12:14 97.9 07/15/16 12:00 107 20 120/58 99 Mechanical Ventilator 50.00 I & O 07/16/16 07:00 Intake Total 3950 ml Output Total 3000 ml Balance 950 ml Capillary Refill : General Appearance: No Apparent Distress Other (sedated on ventilator) Neck: Supple Respiratory: Crackles Decreased Breath Sounds Cardiovascular: Gallop/S3 Tachycardia Gastrointestinal: normal bowel sounds non tender soft Extremity: Non Tender No Calf Tenderness Pedal Edema Swelling Neurologic/Psychiatric: Other (sedated on ventilator) Results Lab Laboratory Tests 07/15/16 11:53: Glucometer 154H, Lactic Acid Level 3.7*H 07/15/16 15:06: Lactic Acid Level 2.7*H, Drew Test ART LINE, Arterial Blood Base Excess -5.3L, Arterial Blood HCO3 21L, Arterial Blood Oxygen Saturation 97, Arterial Blood Partial Pressure CO2 41, Arterial Blood Partial Pressure O2 87, Arterial Blood Total CO2 22.0, Arterial Blood pH 7.32*L, Blood Gas Inspired Oxygen 50%, Blood Gas Patient Temperature 96.9, Blood Gas Puncture Site ARTLINE, Blood Gas Ventilator Setting YES 07/15/16 17:59: Glucometer 158H 07/15/16 20:30: Urine Amorphous Sediment FEW GOPI URATESH, Urine Bacteria TRACE, Urine Bilirubin NEGATIVE, Urine Casts NONE, Urine Clarity CLEAR, Urine Color YELLOW, Urine Crystals PRESENTH, Urine Culture Indicated NO, Urine Glucose (UA) 1+H, Urine Ketones 1+H, Urine Leukocyte Esterase NEGATIVE, Urine Mucus SMALLH, Urine Nitrite NEGATIVE, Urine Protein 2+H, Urine RBC 50-100H, Urine RBC (Auto) 5+H, Urine Specific [place] 1.015L, Urine Squamous Epithelial Cells RARE, Urine Urobilinogen NORMAL, Urine WBC RARE, Urine pH 6 07/16/16 00:31: Glucometer 173H 07/16/16 04:00: Activated Partial Thromboplast Time 35, Alanine Aminotransferase (ALT/SGPT) 288H , Albumin 2.2L, Alkaline Phosphatase 66, Drew Test YES-POS, Anion Gap 10, Arterial Blood Base Excess 3.0H, Arterial Blood HCO3 29H, Arterial Blood Oxygen Saturation 98, Arterial Blood Partial Pressure CO2 50H, Arterial Blood Partial Pressure O2 98H, Arterial Blood Total CO2 30.3, Arterial Blood pH 7.38, Aspartate Amino Transf (AST/SGOT) 317H, BUN/Creatinine Ratio 17, Basophils # ( Auto) 0.0, Basophils (%) (Auto) 0, Blood Gas Inspired Oxygen 50%, Blood Gas Patient Temperature 98.4, Blood Gas Puncture Site RT RADIAL, Blood Gas Ventilator Setting YES, Blood Urea Nitrogen 13, Calcium Level 6.2L, Carbon Dioxide Level 21, Chloride Level 110H, Creatinine 0.76, Eosinophils # (Auto) 0.0 , Eosinophils (%) (Auto) 0, Estimat Glomerular Filtration Rate > 60, Glucose Level 153H, Hematocrit 26L, Hemoglobin 8.9L, INR Comment 1.4, Lactic Acid Level 3.3*H, Lymphocytes # (Auto) 0.6L, Lymphocytes (%) (Auto) 6L, Magnesium Level 1.9 , Mean Corpuscular Hemoglobin 33, Mean Corpuscular Hemoglobin Concent 35, Mean Corpuscular Volume 96, Mean Platelet Volume 10.6H, Monocytes # (Auto) 0.3, Monocytes (%) (Auto) 3, Neutrophils # (Auto) 9.1H, Neutrophils (%) (Auto) 90H, Phosphorus Level 0.8*L, Platelet Count 73L, Potassium Level 3.0L, Prothrombin Time 17.2H, Red Blood Count 2.69L, Red Cell Distribution Width 12.6, Sodium Level 141, Total Bilirubin 1.4H, Total Protein 4.1L, White Blood Count 10.1 07/16/16 09:00: Vancomycin Level Trough 14.2 Microbiology 07/13/16 Blood Culture - Preliminary, Resulted No growth 07/14/16 Gram Stain - Final, Complete 07/14/16 Sputum Culture - Final, Complete Usual/normal karissa isolated. 07/14/16 Urine Culture - Preliminary, Resulted Yeast Species Assessment/Plan Assessment/Plan Assess & Plan/Chief Complaint 1. Pneumonia with Sepsis--abx decreased down to cefepime, monitor CBC for DIC 2. Acute Respiratory Failure with ARDs--on ventilator 3. Septic Shock--off all pressors 4. Acute Renal Failure--creatinine improved 5. Metabolic Acidosis--improving Diagnosis/Problems: Clinical Quality Measures DVT/VTE Risk/Contraindication: Risk Factor Score Per Nursin RFS Level Per Nursing on Admit: 3=High KINDRA RHODES DO Jul 16, 2016 11:05
[2016-07-16 14:53] LABS: ABG BASE EXCESS 5.8 MMOL/L (-2.5-2.5); ABG HCO3 32 MMOL/L (23-27); ABG OXYGEN SATURATION 98 % (94-100); ABG PCO2 52 MMHG (35-45); ABG PO2 94 MMHG (79-93); ABG TCO2 33.3 MMOL/L (21.0-31.0)
[2016-07-16 14:56] LABS: ALLENS TEST YES-POS; PATIENT TEMP 97.3
[2016-07-16] MEDS: ENOXAPARIN 40 MG/0.4 ML (LOVENOX) SYR SC SCH (20:01)
[2016-07-17] VITALS (31 sets, daily range): BP systolic 121–177; BP diastolic 74–99
[2016-07-17] MEDS: inSUlin (REGULAR) HUMAN 1 UNIT/0.01 ML (CHARGE PER UNIT) SC SCH ×4 (00:23→18:00)
[2016-07-17 00:42] LABS: ANION GAP 10 MMOL/L (5-14); BLOOD UREA NITROGEN 12 MG/DL (7-18); BUN/CREATININE RATIO 15; CALCIUM 7.1 MG/DL (8.5-10.1); CARBON DIOXIDE 32 MMOL/L (21-32); CHLORIDE 101 MMOL/L (98-107); CREATININE SERUM 0.79 MG/DL (0.60-1.30); GFR ESTIMATED > 60; GLUCOSE 173 MG/DL (70-105); SODIUM 143 MMOL/L (135-145)
[2016-07-17] MEDS: RT-ALBUTEROL/IPRATROPIUM 3 ML (DUONEB) VIAL INH SCH ×6 (01:16→21:36)
[2016-07-17] MEDS ORDERED: POTASSIUM CL 10MEQ/50ML IVPB 50 ML IV ONE ×2 (02:15→19:15)
[2016-07-17] MEDS: PROPOFOL DRIP (ICU) 100 ML IV SCH ×5 (02:59→22:47)
[2016-07-17] MEDS: POTASSIUM CL 10MEQ/50ML IVPB 50 ML IV SCH ×10 (03:00→19:10)
[2016-07-17] MEDS: SODIUM BICARBONATE 8.4% VIAL 150 MEQ in D5W 1000 ML IV SOLUTION 1,000 ML IV SCH (03:46)
[2016-07-17] MEDS: NS IV SCH (04:50)
[2016-07-17] MEDS: VASOPRESSIN IV SCH (04:50)
[2016-07-17] MEDS: NOREPINEPHRINE FOR DRIPS 4 MG in D5W 250 ML (IVPB) 250 ML IV SCH (04:59)
[2016-07-17 05:03] LABS: ABG BASE EXCESS 10.6 MMOL/L (-2.5-2.5); ABG HCO3 36 MMOL/L (23-27); ABG OXYGEN SATURATION 95 % (94-100); ABG PCO2 50 MMHG (35-45); ABG PH 7.47 (7.37-7.43); ABG PO2 63 MMHG (79-93); ABG TCO2 37.3 MMOL/L (21.0-31.0)
[2016-07-17 05:07] LABS: BASOPHILS % (AUTO) 0 % (0-10); EOSINOPHILS % (AUTO) 0 % (0-10); LYMPHOCYTES # (AUTO) 1.1 X 10^3 (1.0-4.0); LYMPHOCYTES % (AUTO) 8 % (12-44); MEAN CORPUSCULAR HEMOGLOBIN 32 PG (25-34); MEAN CORPUSCULAR HGB CONC 33 G/DL (32-36); MEAN CORPUSCULAR VOLUME 96 FL (80-99); MONOCYTES # (AUTO) 1.8 X 10^3 (0.0-1.0); MONOCYTES % (AUTO) 14 % (0-12); NEUTROPHILS # (AUTO) 10.2 X 10^3 (1.8-7.8); NEUTROPHILS % (AUTO) 78 % (42-75); PLATELET COUNT 89 10^3/uL (130-400); RED BLOOD COUNT 3.08 10^6/uL (4.35-5.85); RED CELL DISTRIBUTION WIDTH 12.7 % (10.0-14.5); WHITE BLOOD COUNT 13.1 10^3/uL (4.3-11.0)
[2016-07-17 05:09] LABS: ALLENS TEST YES-POS; PATIENT TEMP 96.9
[2016-07-17 05:11] LABS: INR 1.1 (0.8-1.4); PROTHROMBIN TIME PATIENT 13.6 SEC (12.2-14.7)
[2016-07-17] MEDS: KCL 20 MEQ TAB (K-DUR) PO SCH ×2 (05:11)
[2016-07-17 05:19] LABS: MAGNESIUM 2.3 MG/DL (1.8-2.4)
[2016-07-17 05:20] LABS: ALANINE AMINOTRANSFERASE 261 U/L (0-55); ALBUMIN 2.4 G/DL (3.2-4.5); ANION GAP 10 MMOL/L (5-14); ASPARTATE AMINO TRANSFERASE 201 U/L (5-34); BILIRUBIN,TOTAL 1.5 MG/DL (0.1-1.0); BLOOD UREA NITROGEN 11 MG/DL (7-18); BUN/CREATININE RATIO 14; CALCIUM 7.2 MG/DL (8.5-10.1); CARBON DIOXIDE 33 MMOL/L (21-32); CHLORIDE 100 MMOL/L (98-107); CREATININE SERUM 0.77 MG/DL (0.60-1.30); GFR ESTIMATED > 60; GLUCOSE 169 MG/DL (70-105); POTASSIUM 3.3 MMOL/L (3.6-5.0); SODIUM 143 MMOL/L (135-145); TOTAL PROTEIN 4.9 G/DL (6.4-8.2)
[2016-07-17] MEDS: MAGNESIUM 1 GM/100 ML IVPB 100 ML IV SCH (05:49)
[2016-07-17] MEDS ORDERED: POTASSIUM PHOSPHATE IV ONE (06:02)
[2016-07-17] MEDS ORDERED: NS IV ONE (06:02)
[2016-07-17] MEDS: HYDROCORTISONE 100 MG/2 ML (Solu-CORTEF) VIAL IV SCH ×4 (06:23→22:05)
[2016-07-17] MEDS ORDERED: PHARMACY TO DOSE IV SCH (06:30)
--- NOTE | 2016-07-17 06:34 | Pulmonary Progress Note ---
Subjective Subjective/Events-last exam No complications noted. Pt is sedated on vent. Exam Exam Vital Signs Date Time Temp Pulse Resp B/P Pulse Ox O2 Delivery O2 Flow Rate FiO2 07/17/16 06:08 99 24 94 35 07/17/16 06:00 101 14 142/90 94 Mechanical Ventilator 40.00 07/17/16 05:00 96 30 149/89 94 Mechanical Ventilator 40.00 07/17/16 04:18 101 30 94 35 07/17/16 04:00 94 Mechanical Ventilator 45 07/17/16 04:00 97.0 105 30 147/90 93 Mechanical Ventilator 40.00 07/17/16 03:00 106 23 142/86 93 Mechanical Ventilator 40.00 07/17/16 02:59 99.9 112 30 121/74 95 40.00 07/17/16 02:00 111 19 135/79 94 Mechanical Ventilator 40.00 07/17/16 01:17 120 9 121/74 95 Mechanical Ventilator 40.00 07/17/16 01:16 112 30 95 35 07/17/16 01:00 117 15 93 Mechanical Ventilator 40.00 07/17/16 01:00 116 07/17/16 00:00 96 Mechanical Ventilator 45 07/17/16 00:00 99.9 117 30 128/74 93 Mechanical Ventilator 40.00 07/16/16 23:56 99.3 07/16/16 23:00 120 16 135/71 93 Mechanical Ventilator 40.00 07/16/16 22:42 104 30 96 40 07/16/16 22:00 106 30 125/63 96 Mechanical Ventilator 40.00 07/16/16 21:00 116 17 148/67 95 Mechanical Ventilator 40.00 07/16/16 20:01 99.3 112 30 127/60 96 40.00 07/16/16 20:00 110 30 121/59 95 Mechanical Ventilator 40.00 07/16/16 20:00 96 Mechanical Ventilator 45 07/16/16 19:55 99.3 112 30 127/60 96 Mechanical Ventilator 40.00 07/16/16 19:50 109 30 97 45 07/16/16 19:00 115 07/16/16 19:00 111 14 122/63 96 Mechanical Ventilator 50.00 07/16/16 18:11 110 30 98 50 07/16/16 18:00 110 23 127/65 98 Mechanical Ventilator 50.00 07/16/16 17:00 112 11 132/65 98 Mechanical Ventilator 50.00 07/16/16 16:08 97.2 07/16/16 16:00 113 11 146/63 98 Mechanical Ventilator 50.00 07/16/16 15:59 115 30 98 50 07/16/16 15:52 95 Mechanical Ventilator 50 07/16/16 15:01 118 30 97 50 07/16/16 15:00 116 16 161/62 99 Mechanical Ventilator 50.00 07/16/16 14:00 114 14 147/62 98 Mechanical Ventilator 50.00 07/16/16 13:35 147/65 07/16/16 13:00 116 14 138/62 98 Mechanical Ventilator 50.00 07/16/16 13:00 115 07/16/16 12:51 118 31 97 50 07/16/16 12:00 120 12 139/59 96 Mechanical Ventilator 50.00 07/16/16 11:32 95 Mechanical Ventilator 50 07/16/16 11:32 97.7 07/16/16 11:00 121 18 139/57 95 Mechanical Ventilator 50.00 07/16/16 10:22 111 30 95 50 07/16/16 10:00 107 30 131/57 98 Mechanical Ventilator 50.00 07/16/16 09:00 105 15 114/57 97 Mechanical Ventilator 50.00 07/16/16 08:00 112 13 126/60 97 Mechanical Ventilator 50.00 07/16/16 08:00 95 Mechanical Ventilator 50 07/16/16 08:00 96.9 07/16/16 07:45 112 30 97 50 07/16/16 07:00 112 07/16/16 07:00 112 14 108/51 97 Mechanical Ventilator 50.00 I & O 07/17/16 07:00 Intake Total 2600 ml Output Total 2925 ml Balance -325 ml General Appearance: No Apparent Distress Other (sedated on ventilator) HEENT: Pharyngeal Erythema Neck: Supple Respiratory: Crackles Decreased Breath Sounds Cardiovascular: Gallop/S3 Tachycardia Gastrointestinal: normal bowel sounds non tender soft Extremity: Non Tender No Calf Tenderness Pedal Edema Swelling Neurologic/Psychiatric: Other (sedated on ventilator) Skin: Warm/Dry Pallor Results Lab Laboratory Tests 07/15/16 06:55 07/16/16 04:00 07/17/16 00:13 07/17/16 04:45 Assessment/Plan Assessment/Plan Acute respiratory distress with ARDS Pa02/Fi02 = 157.5 -Continue ventilator support -Will start weaning tomorrow as tolerated -decrease fentanyl gtt 12.5 mcg/hr and try to titrate Diprivan down to lowest effective dose. Severe sepsis with Strep pneumonia -restart Vanco, Levaquin Continue cefepime, -- WBC jumped up to 13 pulmonary edema -D/C bicarb gtt -Start NS at 50cc/hr -give lasix 40mg IV X 1 Anemia with thrombocytopenia - stable metabolic acidosis with lactic acidosis -- RESOLVED -D/C bicarb gtt Septic shock r/o DIC -RESOLVED -Levophed and vasopressin --- Now D/C 'd - central line CVP 12 , arterial line Acute renal failure -IVF shock liver -monitor Tobacco use Clinical Quality Measures DVT/VTE Risk/Contraindication: Risk Factor Score Per Nursin RFS Level Per Nursing on Admit: 3=High KIKO FREED DO Jul 17, 2016 06:33
[2016-07-17] MEDS ORDERED: FUROSEMIDE 40 MG/4 ML INJ (LASIX) IVP ONE ×2 (06:45→19:30)
[2016-07-17] MEDS: NS IV 1000 ML 1,000 ML IV SCH (06:57)
[2016-07-17] MEDS: DEXMEDETOMIDINE PRE-MIX 100 ML IV SCH (07:01)
[2016-07-17] MEDS: LEVOFLOXACIN 750 MG/150 ML IV 150 ML IV SCH (07:06)
[2016-07-17] MEDS ORDERED: CEFEPIME HCL 2 GM (MAXIPIME) VIAL ONE ×2 (08:16→20:19)
[2016-07-17] MEDS: CEFEPIME INJECTION 2,000 MG in NORMAL SALINE (BAXTER MINI) 50 ML IV SCH ×2 (08:29→20:26)
[2016-07-17] MEDS: FAMOTIDINE 20MG/2ML IV (PEPCID) IVP SCH ×2 (08:29→20:26)
[2016-07-17] MEDS: VANCOMYCIN 1250 MG/NS 250 ML IVPB IV SCH ×4 (08:30→19:43)
[2016-07-17] MEDS ORDERED: NS IV NR (09:00)
[2016-07-17] MEDS ORDERED: SODIUM PHOSPHATE IV NR (09:00)
--- NOTE | 2016-07-17 09:43 | Progress Note (SOAP) ---
Subjective Subjective/Events-last exam patient on vent. Magnesium 1, potassium 3.3, liver enzymes elevated. Respiratory failure. Pneumonia with sepsis. Septic shock. Patient appears to be improving slowly Objective Exam Vital Signs Date Time Temp Pulse Resp B/P Pulse Ox O2 Delivery O2 Flow Rate FiO2 07/17/16 07:58 105 27 93 35 07/17/16 07:01 97.0 99 24 142/90 94 40.00 07/17/16 06:08 99 24 94 35 07/17/16 06:00 101 14 142/90 94 Mechanical Ventilator 40.00 07/17/16 05:00 96 30 149/89 94 Mechanical Ventilator 40.00 07/17/16 04:18 101 30 94 35 07/17/16 04:00 94 Mechanical Ventilator 45 07/17/16 04:00 97.0 105 30 147/90 93 Mechanical Ventilator 40.00 07/17/16 03:00 106 23 142/86 93 Mechanical Ventilator 40.00 07/17/16 02:59 99.9 112 30 121/74 95 40.00 07/17/16 02:00 111 19 135/79 94 Mechanical Ventilator 40.00 07/17/16 01:17 120 9 121/74 95 Mechanical Ventilator 40.00 07/17/16 01:16 112 30 95 35 07/17/16 01:00 117 15 93 Mechanical Ventilator 40.00 07/17/16 01:00 116 07/17/16 00:00 96 Mechanical Ventilator 45 07/17/16 00:00 99.9 117 30 128/74 93 Mechanical Ventilator 40.00 07/16/16 23:56 99.3 07/16/16 23:00 120 16 135/71 93 Mechanical Ventilator 40.00 07/16/16 22:42 104 30 96 40 07/16/16 22:00 106 30 125/63 96 Mechanical Ventilator 40.00 07/16/16 21:00 116 17 148/67 95 Mechanical Ventilator 40.00 07/16/16 20:01 99.3 112 30 127/60 96 40.00 07/16/16 20:00 110 30 121/59 95 Mechanical Ventilator 40.00 07/16/16 20:00 96 Mechanical Ventilator 45 07/16/16 19:55 99.3 112 30 127/60 96 Mechanical Ventilator 40.00 07/16/16 19:50 109 30 97 45 07/16/16 19:00 115 07/16/16 19:00 111 14 122/63 96 Mechanical Ventilator 50.00 07/16/16 18:11 110 30 98 50 07/16/16 18:00 110 23 127/65 98 Mechanical Ventilator 50.00 07/16/16 17:00 112 11 132/65 98 Mechanical Ventilator 50.00 07/16/16 16:08 97.2 07/16/16 16:00 113 11 146/63 98 Mechanical Ventilator 50.00 07/16/16 15:59 115 30 98 50 07/16/16 15:52 95 Mechanical Ventilator 50 07/16/16 15:01 118 30 97 50 07/16/16 15:00 116 16 161/62 99 Mechanical Ventilator 50.00 07/16/16 14:00 114 14 147/62 98 Mechanical Ventilator 50.00 07/16/16 13:35 147/65 07/16/16 13:00 116 14 138/62 98 Mechanical Ventilator 50.00 07/16/16 13:00 115 07/16/16 12:51 118 31 97 50 07/16/16 12:00 120 12 139/59 96 Mechanical Ventilator 50.00 07/16/16 11:32 95 Mechanical Ventilator 50 07/16/16 11:32 97.7 07/16/16 11:00 121 18 139/57 95 Mechanical Ventilator 50.00 07/16/16 10:22 111 30 95 50 07/16/16 10:00 107 30 131/57 98 Mechanical Ventilator 50.00 I & O 07/17/16 07:00 Intake Total 2600 ml Output Total 2925 ml Balance -325 ml Capillary Refill : General Appearance: Other ( on vent) Respiratory: Other (vent) Cardiovascular: Regular Rate, Rhythm Results Lab Laboratory Tests 07/16/16 11:14: Glucometer 178H 07/16/16 14:45: Drew Test YES-POS, Arterial Blood Base Excess 5.8H, Arterial Blood HCO3 32H, Arterial Blood Oxygen Saturation 98, Arterial Blood Partial Pressure CO2 52H, Arterial Blood Partial Pressure O2 94H, Arterial Blood Total CO2 33.3H, Arterial Blood pH 7.40, Blood Gas Inspired Oxygen 50%, Blood Gas Patient Temperature 97.3, Blood Gas Puncture Site RT RADIAL, Blood Gas Ventilator Setting YES 07/16/16 18:16: Glucometer 173H 07/17/16 00:10: Glucometer 170H 07/17/16 00:13: Anion Gap 10, BUN/Creatinine Ratio 15, Blood Urea Nitrogen 12, Calcium Level 7.1L, Carbon Dioxide Level 32, Chloride Level 101, Creatinine 0.79, Estimat Glomerular Filtration Rate > 60, Glucose Level 173H, Lactic Acid Level 2.0, Potassium Level 3.0L, Sodium Level 143 07/17/16 04:45: Anion Gap 10, BUN/Creatinine Ratio 14, Blood Urea Nitrogen 11, Calcium Level 7.2L, Carbon Dioxide Level 33H, Chloride Level 100, Creatinine 0.77, Estimat Glomerular Filtration Rate > 60, Glucose Level 169H, Lactic Acid Level 1.9, Potassium Level 3.3L, Sodium Level 143, Activated Partial Thromboplast Time 28, Alanine Aminotransferase (ALT/SGPT) 261H, Albumin 2.4L, Alkaline Phosphatase 120 , Drew Test YES-POS, Arterial Blood Base Excess 10.6H, Arterial Blood HCO3 36H , Arterial Blood Oxygen Saturation 95, Arterial Blood Partial Pressure CO2 50H, Arterial Blood Partial Pressure O2 63L, Arterial Blood Total CO2 37.3H, Arterial Blood pH 7.47H, Aspartate Amino Transf (AST/SGOT) 201H, Basophils # ( Auto) 0.0, Basophils (%) (Auto) 0, Blood Gas Inspired Oxygen 40%, Blood Gas Patient Temperature 96.9, Blood Gas Puncture Site LEFT RADIAL, Blood Gas Ventilator Setting YES, Eosinophils # (Auto) 0.0, Eosinophils (%) (Auto) 0, Hematocrit 30L, Hemoglobin 9.9L, INR Comment 1.1, Lymphocytes # (Auto) 1.1, Lymphocytes (%) (Auto) 8L, Magnesium Level 2.3, Mean Corpuscular Hemoglobin 32, Mean Corpuscular Hemoglobin Concent 33, Mean Corpuscular Volume 96, Mean Platelet Volume 11.0H, Monocytes # (Auto) 1.8H, Monocytes (%) (Auto) 14H, Neutrophils # (Auto) 10.2H, Neutrophils (%) (Auto) 78H, Phosphorus Level 1.0*L, Platelet Count 89L, Prothrombin Time 13.6, Red Blood Count 3.08L, Red Cell Distribution Width 12.7, Total Bilirubin 1.5H, Total Protein 4.9L, White Blood Count 13.1H Microbiology 07/13/16 Blood Culture - Preliminary, Resulted No growth 07/14/16 Gram Stain - Final, Complete 07/14/16 Sputum Culture - Final, Complete Usual/normal karissa isolated. 07/14/16 Urine Culture - Final, Complete Yeast Species Assessment/Plan Assessment/Plan Assess & Plan/Chief Complaint respiratory failure. Pneumonia with sepsis. Septic shock. Elevated liver functions studies Diagnosis/Problems: Clinical Quality Measures DVT/VTE Risk/Contraindication: Risk Factor Score Per Nursin RFS Level Per Nursing on Admit: 3=High JANA WILLIAMSON DO Jul 17, 2016 09:43
--- NOTE | 2016-07-17 10:02 | Diagnostic Imaging Report ---
INDICATION: On ventilator. Sepsis, pneumonia. EXAMINATION: Chest 07/17/2016. COMPARISON: 07/16/2016. FINDINGS: Again noted are diffuse bilateral airspace opacities especially in the periphery of the left midlung stable from previous imaging. No pneumothorax appreciated. There are likely bilateral small effusions. Heart and pulmonary vasculature appear prominent and stable. The feeding tube is stable. ET tube unchanged. A right jugular line is also unchanged. IMPRESSION: Stable chest. Dictated by: Dictated on workstation # [id number]
[2016-07-17] MEDS: hydrALAZINE (APESOLINE) 20 MG/ML VIAL IV PRN ×2 (12:03→20:26)
[2016-07-17 14:23] LABS: ABG BASE EXCESS 10.4 MMOL/L (-2.5-2.5); ABG HCO3 35 MMOL/L (23-27); ABG OXYGEN SATURATION 95 % (94-100); ABG PCO2 47 MMHG (35-45); ABG PH 7.49 (7.37-7.43); ABG PO2 64 MMHG (79-93); ABG TCO2 36.5 MMOL/L (21.0-31.0)
--- NOTE | 2016-07-17 14:40 | Diagnostic Imaging Report ---
EXAMINATION: Chest radiograph, portable AP view. DATE: July 17, 2016, at 1427 hours. INDICATION: 55-year-old female, tube placement. COMPARISON: July 17, 2016, at 0542 hrs. FINDINGS: The endotracheal tube is approximately 4 cm above the sundar. The nasogastric tube extends below the oxdsl-[id number]. The right internal jugular central venous line overlies the mid SVC. Stable overall appearance of the cardiomediastinal silhouette. There is no identified pneumothorax. There is no large pleural effusion. There is unchanged multifocal lung consolidation bilaterally. IMPRESSION: 1. Unchanged multifocal lung consolidation bilaterally. 2. Support lines and tubes as above. Dictated by: Dictated on workstation # [id number]
[2016-07-17 16:29] LABS: ANION GAP 12 MMOL/L (5-14); BLOOD UREA NITROGEN 14 MG/DL (7-18); BUN/CREATININE RATIO 17; CALCIUM 7.4 MG/DL (8.5-10.1); CARBON DIOXIDE 32 MMOL/L (21-32); CHLORIDE 103 MMOL/L (98-107); CREATININE SERUM 0.82 MG/DL (0.60-1.30); GFR ESTIMATED > 60; GLUCOSE 131 MG/DL (70-105); MAGNESIUM 2.2 MG/DL (1.8-2.4); PHOSPHORUS 2.1 MG/DL (2.3-4.7); POTASSIUM 2.9 MMOL/L (3.6-5.0); SODIUM 147 MMOL/L (135-145)
[2016-07-17] MEDS ORDERED: POTASSIUM CL 10MEQ/50ML IVPB 50 ML IV SCH (18:00)
[2016-07-17] MEDS: fentaNYL INJECTION 100 MCG/2 ML AMP IVP PRN ×3 (18:30→23:19)
[2016-07-17] MEDS ORDERED: FUROSEMIDE 40 MG/4 ML INJ (LASIX) IV ONE (19:00)
[2016-07-17] MEDS ORDERED: SODIUM PHOSPHATE INJ 30 MM in NS (IVPB) 100 ML IV ONE (19:30)
[2016-07-17] MEDS ORDERED: NORMAL SALINE (BAXTER MINI) 50 ML IV ONE (20:19)
[2016-07-17] MEDS: ENOXAPARIN 40 MG/0.4 ML (LOVENOX) SYR SC SCH (20:26)
[2016-07-17 23:36] LABS: ABG BASE EXCESS 9.8 MMOL/L (-2.5-2.5); ABG HCO3 36 MMOL/L (23-27); ABG OXYGEN SATURATION 98 % (94-100); ABG PCO2 54 MMHG (35-45); ABG PH 7.44 (7.37-7.43); ABG PO2 98 MMHG (79-93); ABG TCO2 37.1 MMOL/L (21.0-31.0)
[2016-07-17 23:38] LABS: ALLENS TEST YES-POS
[2016-07-17 23:39] LABS: PATIENT TEMP 98.7
[2016-07-18] VITALS (36 sets, daily range): BP systolic 140–201; BP diastolic 67–117
[2016-07-18] MEDS: inSUlin (REGULAR) HUMAN 1 UNIT/0.01 ML (CHARGE PER UNIT) SC SCH ×5 (00:48→23:47)
[2016-07-18 01:19] LABS: ABG BASE EXCESS 10.3 MMOL/L (-2.5-2.5); ABG HCO3 35 MMOL/L (23-27); ABG OXYGEN SATURATION 97 % (94-100); ABG PCO2 54 MMHG (35-45); ABG PH 7.44 (7.37-7.43); ABG PO2 88 MMHG (79-93)
[2016-07-18 01:21] LABS: ALLENS TEST YES-POS; PATIENT TEMP 100.8
[2016-07-18] MEDS: RT-ALBUTEROL/IPRATROPIUM 3 ML (DUONEB) VIAL INH SCH ×6 (01:33→22:26)
[2016-07-18] MEDS: fentaNYL INJECTION 100 MCG/2 ML AMP IVP PRN ×9 (01:43→21:08)
[2016-07-18] MEDS: PROPOFOL DRIP (ICU) 100 ML IV SCH ×6 (01:44→20:58)
[2016-07-18] MEDS: NS IV 1000 ML 1,000 ML IV SCH (03:40)
[2016-07-18] MEDS: KCL 20 MEQ TAB (K-DUR) PO SCH ×2 (04:48→05:37)
[2016-07-18 04:52] LABS: BASOPHILS # (AUTO) 0.2 10^3/uL (0.0-0.1); BASOPHILS % (AUTO) 1 % (0-10); EOSINOPHILS % (AUTO) 0 % (0-10); LYMPHOCYTES # (AUTO) 1.6 X 10^3 (1.0-4.0); LYMPHOCYTES % (AUTO) 10 % (12-44); MEAN CORPUSCULAR HEMOGLOBIN 33 PG (25-34); MEAN CORPUSCULAR HGB CONC 34 G/DL (32-36); MEAN CORPUSCULAR VOLUME 97 FL (80-99); MEAN PLATELET VOLUME 10.4 FL (7.4-10.4); MONOCYTES # (AUTO) 2.9 X 10^3 (0.0-1.0); MONOCYTES % (AUTO) 17 % (0-12); NEUTROPHILS # (AUTO) 12.5 X 10^3 (1.8-7.8); NEUTROPHILS % (AUTO) 73 % (42-75); PLATELET COUNT 118 10^3/uL (130-400); RED BLOOD COUNT 3.14 10^6/uL (4.35-5.85); WHITE BLOOD COUNT 17.2 10^3/uL (4.3-11.0)
[2016-07-18 05:07] LABS: INR 1.1 (0.8-1.4)
[2016-07-18 05:20] LABS: MAGNESIUM 2.2 MG/DL (1.8-2.4); PHOSPHORUS 2.1 MG/DL (2.3-4.7)
[2016-07-18 05:22] LABS: ALANINE AMINOTRANSFERASE 181 U/L (0-55); ALBUMIN 2.5 G/DL (3.2-4.5); ANION GAP 14 MMOL/L (5-14); ASPARTATE AMINO TRANSFERASE 113 U/L (5-34); BILIRUBIN,TOTAL 1.6 MG/DL (0.1-1.0); BLOOD UREA NITROGEN 20 MG/DL (7-18); BUN/CREATININE RATIO 26; CALCIUM 7.4 MG/DL (8.5-10.1); CARBON DIOXIDE 31 MMOL/L (21-32); CHLORIDE 104 MMOL/L (98-107); CREATININE SERUM 0.76 MG/DL (0.60-1.30); GFR ESTIMATED > 60; GLUCOSE 128 MG/DL (70-105); POTASSIUM 3.1 MMOL/L (3.6-5.0); SODIUM 149 MMOL/L (135-145); TOTAL PROTEIN 5.1 G/DL (6.4-8.2)
[2016-07-18] MEDS: MAGNESIUM 1 GM/100 ML IVPB 100 ML IV SCH (05:37)
[2016-07-18] MEDS: LEVOFLOXACIN 750 MG/150 ML IV 150 ML IV SCH (05:43)
[2016-07-18] MEDS: POTASSIUM CL 10MEQ/50ML IVPB 50 ML IV SCH ×5 (05:44→09:49)
[2016-07-18] MEDS: HYDROCORTISONE 100 MG/2 ML (Solu-CORTEF) VIAL IV SCH (05:44)
[2016-07-18 05:51] LABS: ABG BASE EXCESS 9.1 MMOL/L (-2.5-2.5); ABG HCO3 35 MMOL/L (23-27); ABG OXYGEN SATURATION 86 % (94-100); ABG PCO2 58 MMHG (35-45); ABG PO2 56 MMHG (79-93); ABG TCO2 36.7 MMOL/L (21.0-31.0)
[2016-07-18 06:11] LABS: BAND NEUTROPHILS 7 %; NEUTROPHILS % (MANUAL) 72 %
[2016-07-18 06:12] LABS: LYMPHOCYTES % (MANUAL) 5 %; METAMYELOCYTES % 5 %; MYELOCYTES % 2 %
[2016-07-18 06:13] LABS: ALLENS TEST YES-POS; PATIENT TEMP 100.6
[2016-07-18] MEDS ORDERED: 1/2 NS IV SOLUTION 1,000 ML IV SCH (07:00)
[2016-07-18 07:06] LABS: ABG BASE EXCESS 9.8 MMOL/L (-2.5-2.5); ABG HCO3 35 MMOL/L (23-27); ABG OXYGEN SATURATION 96 % (94-100); ABG PCO2 53 MMHG (35-45); ABG PH 7.44 (7.37-7.43); ABG PO2 78 MMHG (79-93); ABG TCO2 36.4 MMOL/L (21.0-31.0)
--- NOTE | 2016-07-18 07:07 | Pulmonary Progress Note ---
Subjective Subjective/Events-last exam Pt appears worse today. She is now on pressure control settings. Exam Exam Vital Signs Date Time Temp Pulse Resp B/P Pulse Ox O2 Delivery O2 Flow Rate FiO2 07/18/16 06:03 126 40 92 70 07/18/16 06:00 112 24 153/80 94 Mechanical Ventilator 70.00 07/18/16 05:44 146/74 07/18/16 05:00 115 24 175/86 93 Mechanical Ventilator 70.00 07/18/16 04:11 112 143/73 07/18/16 04:00 113 25 143/73 93 Mechanical Ventilator 70.00 07/18/16 04:00 93 Mechanical Ventilator 70.00 07/18/16 03:46 114 27 92 80 07/18/16 03:45 99.2 114 24 166/88 92 Mechanical Ventilator 70.00 07/18/16 03:00 115 25 146/78 92 Mechanical Ventilator 70.00 07/18/16 02:47 115 24 141/67 94 Mechanical Ventilator 70.00 07/18/16 02:00 117 26 153/68 94 Mechanical Ventilator 80.00 07/18/16 01:44 120 32 194/113 92 Mechanical Ventilator 80.00 07/18/16 01:33 122 36 92 80 07/18/16 01:00 111 07/18/16 01:00 111 27 171/94 95 Mechanical Ventilator 80.00 07/18/16 00:30 94 Mechanical Ventilator 80.00 07/18/16 00:00 98.7 113 32 158/85 92 Mechanical Ventilator 80.00 07/17/16 23:06 114 27 96 100 07/17/16 23:00 117 32 161/94 94 Mechanical Ventilator 100.00 07/17/16 22:47 114 30 153/93 07/17/16 22:00 109 27 146/84 94 Mechanical Ventilator 100.00 07/17/16 21:36 108 30 97 100 07/17/16 21:00 117 37 144/86 96 Mechanical Ventilator 100.00 07/17/16 20:26 144 07/17/16 20:20 126 44 96 Mechanical Ventilator 100.00 07/17/16 20:08 126 44 87 60 07/17/16 20:00 125 43 163/99 86 Mechanical Ventilator 80.00 07/17/16 20:00 97 Mechanical Ventilator 100.00 07/17/16 19:47 46 169/95 92 Mechanical Ventilator 60.00 07/17/16 19:00 117 07/17/16 19:00 99.6 124 48 163/88 Mechanical Ventilator 60.00 07/17/16 18:32 114 30 92 60 07/17/16 18:00 122 44 160/86 89 Mechanical Ventilator 35.00 07/17/16 17:45 117 49 152/83 91 Mechanical Ventilator 35.00 07/17/16 16:45 116 42 149/80 91 Mechanical Ventilator 35.00 07/17/16 16:03 105 34 94 60 07/17/16 16:00 99.0 Mechanical Ventilator 35.00 07/17/16 16:00 91 Mechanical Ventilator 35 07/17/16 15:55 97.9 114 34 145/84 92 Mechanical Ventilator 35.00 07/17/16 15:45 110 36 145/84 90 Mechanical Ventilator 35.00 07/17/16 14:21 109 36 93 60 07/17/16 14:00 108 33 145/79 91 Mechanical Ventilator 35.00 07/17/16 13:03 60 07/17/16 13:00 113 152/88 89 Mechanical Ventilator 35.00 07/17/16 13:00 112 07/17/16 12:02 110 39 95 35 07/17/16 12:00 98.0 Mechanical Ventilator 35.00 07/17/16 12:00 91 Mechanical Ventilator 35 07/17/16 11:31 97.9 89 23 171/98 91 Mechanical Ventilator 35.00 07/17/16 11:00 105 19 172/99 Mechanical Ventilator 35.00 07/17/16 10:00 99 29 172/95 91 Mechanical Ventilator 35.00 07/17/16 09:53 102 29 93 35 07/17/16 09:00 86 17 169/96 Mechanical Ventilator 35.00 07/17/16 08:00 91 Mechanical Ventilator 35 07/17/16 08:00 97.4 Mechanical Ventilator 35.00 07/17/16 08:00 114 23 156/86 93 Mechanical Ventilator 35.00 07/17/16 07:58 105 27 93 35 I & O 07/18/16 06:59 Intake Total 2216.0 ml Output Total 6100 ml Balance -3884.0 ml General Appearance: Other ( on vent) HEENT: Pharyngeal Erythema Neck: Supple Respiratory: Other (vent) Cardiovascular: Regular Rate, Rhythm Gastrointestinal: normal bowel sounds non tender soft Extremity: Non Tender No Calf Tenderness Pedal Edema Swelling Neurologic/Psychiatric: Other (sedated on ventilator) Skin: Warm/Dry Pallor Results Lab Laboratory Tests 07/17/16 00:13 07/17/16 04:45 07/17/16 16:10 07/18/16 04:40 Assessment/Plan Assessment/Plan Acute respiratory distress with ARDS Pa02/Fi02 = 65 -Continue ventilator support -- pt is now on pressure control settings -Currently expiratory VT is around 400 -Add end tidal C02 monitor -decrease fentanyl gtt 14 mcg/hr and try to titrate Diprivan down to lowest effective dose. Severe sepsis with Strep pneumonia -restart Vanco, Levaquin change cefepime to Merrem -Repan culture pulmonary edema - IVF 30cc/hr -Hold lasix for now Hypernatremia -Change IVF to 1/2 NS Anemia with thrombocytopenia - stable metabolic acidosis with lactic acidosis -- RESOLVED -D/C bicarb gtt Septic shock r/o DIC -RESOLVED -Levophed and vasopressin --- Now D/C 'd - central line CVP 12 , arterial line -Change solucortef to solumedrol Acute renal failure -IVF shock liver -monitor Tobacco use Clinical Quality Measures DVT/VTE Risk/Contraindication: Risk Factor Score Per Nursin RFS Level Per Nursing on Admit: 3=High KIKO FREED DO Jul 18, 2016 07:07
[2016-07-18 07:10] LABS: ALLENS TEST YES-POS; PATIENT TEMP 100.6
--- NOTE | 2016-07-18 07:10 | Diagnostic Imaging Report ---
EXAMINATION: Chest radiograph, portable AP view. DATE: July 18, 2016, at 0508 hours. INDICATION: 55-year-old female, sepsis. COMPARISON: July 17, 2016. FINDINGS: The endotracheal tube is approximately 4.5 cm above the sundar. The nasogastric tube overlies the expected position of the stomach. The right internal jugular central venous line overlies the mid SVC. Stable overall appearance of the cardiomediastinal silhouette. There is no identified pneumothorax. There are multifocal lung opacities bilaterally which appear mildly increased since the comparison exam. IMPRESSION: 1. Extensive multifocal bilateral lung opacities which are mildly increased since comparison exam. 2. Support lines and tubes as above. ? Dictated by: Dictated on workstation # [id number]
[2016-07-18] MEDS ORDERED: SODIUM PHOSPHATE INJ 30 MM in NS (IVPB) 100 ML IV NR (08:00)
--- NOTE | 2016-07-18 08:53 | Progress Note (SOAP) ---
Subjective Subjective/Events-last exam pneumonia. Sepsis. White blood cell count elevated to 17,200. Chest x-ray looks little worse today. Patient underwent Objective Exam Vital Signs Date Time Temp Pulse Resp B/P Pulse Ox O2 Delivery O2 Flow Rate FiO2 07/18/16 07:56 121 30 94 65 07/18/16 06:03 126 40 92 70 07/18/16 06:00 112 24 153/80 94 Mechanical Ventilator 70.00 07/18/16 05:44 146/74 07/18/16 05:00 115 24 175/86 93 Mechanical Ventilator 70.00 07/18/16 04:11 112 143/73 07/18/16 04:00 113 25 143/73 93 Mechanical Ventilator 70.00 07/18/16 04:00 93 Mechanical Ventilator 70.00 07/18/16 03:46 114 27 92 80 07/18/16 03:45 99.2 114 24 166/88 92 Mechanical Ventilator 70.00 07/18/16 03:00 115 25 146/78 92 Mechanical Ventilator 70.00 07/18/16 02:47 115 24 141/67 94 Mechanical Ventilator 70.00 07/18/16 02:00 117 26 153/68 94 Mechanical Ventilator 80.00 07/18/16 01:44 120 32 194/113 92 Mechanical Ventilator 80.00 07/18/16 01:33 122 36 92 80 07/18/16 01:00 111 07/18/16 01:00 111 27 171/94 95 Mechanical Ventilator 80.00 07/18/16 00:30 94 Mechanical Ventilator 80.00 07/18/16 00:00 98.7 113 32 158/85 92 Mechanical Ventilator 80.00 07/17/16 23:06 114 27 96 100 07/17/16 23:00 117 32 161/94 94 Mechanical Ventilator 100.00 07/17/16 22:47 114 30 153/93 07/17/16 22:00 109 27 146/84 94 Mechanical Ventilator 100.00 07/17/16 21:36 108 30 97 100 07/17/16 21:00 117 37 144/86 96 Mechanical Ventilator 100.00 07/17/16 20:26 144 07/17/16 20:20 126 44 96 Mechanical Ventilator 100.00 07/17/16 20:08 126 44 87 60 07/17/16 20:00 125 43 163/99 86 Mechanical Ventilator 80.00 07/17/16 20:00 97 Mechanical Ventilator 100.00 07/17/16 19:47 46 169/95 92 Mechanical Ventilator 60.00 07/17/16 19:00 117 07/17/16 19:00 99.6 124 48 163/88 Mechanical Ventilator 60.00 07/17/16 18:32 114 30 92 60 07/17/16 18:00 122 44 160/86 89 Mechanical Ventilator 35.00 07/17/16 17:45 117 49 152/83 91 Mechanical Ventilator 35.00 07/17/16 16:45 116 42 149/80 91 Mechanical Ventilator 35.00 07/17/16 16:03 105 34 94 60 07/17/16 16:00 99.0 Mechanical Ventilator 35.00 07/17/16 16:00 91 Mechanical Ventilator 35 07/17/16 15:55 97.9 114 34 145/84 92 Mechanical Ventilator 35.00 07/17/16 15:45 110 36 145/84 90 Mechanical Ventilator 35.00 07/17/16 14:21 109 36 93 60 07/17/16 14:00 108 33 145/79 91 Mechanical Ventilator 35.00 07/17/16 13:03 60 07/17/16 13:00 113 152/88 89 Mechanical Ventilator 35.00 07/17/16 13:00 112 07/17/16 12:02 110 39 95 35 07/17/16 12:00 98.0 Mechanical Ventilator 35.00 07/17/16 12:00 91 Mechanical Ventilator 35 07/17/16 11:31 97.9 89 23 171/98 91 Mechanical Ventilator 35.00 07/17/16 11:00 105 19 172/99 Mechanical Ventilator 35.00 07/17/16 10:00 99 29 172/95 91 Mechanical Ventilator 35.00 07/17/16 09:53 102 29 93 35 07/17/16 09:00 86 17 169/96 Mechanical Ventilator 35.00 I & O 07/18/16 07:00 Intake Total 2216.0 ml Output Total 6100 ml Balance -3884.0 ml Capillary Refill : General Appearance: No Apparent Distress WD/WN Results Lab Laboratory Tests 07/17/16 16:10 07/18/16 04:40 Laboratory Tests 07/17/16 14:18: Drew Test NA, Arterial Blood Base Excess 10.4H, Arterial Blood HCO3 35H, Arterial Blood Oxygen Saturation 95, Arterial Blood Partial Pressure CO2 47H, Arterial Blood Partial Pressure O2 64L, Arterial Blood Total CO2 36.5H, Arterial Blood pH 7.49H, Blood Gas Inspired Oxygen NA, Blood Gas Patient Temperature 98.0, Blood Gas Puncture Site LT RAD, Blood Gas Ventilator Setting YES 07/17/16 15:53: Glucometer 132H 07/17/16 16:10: Anion Gap 12, BUN/Creatinine Ratio 17, Blood Urea Nitrogen 14, Calcium Level 7.4L, Carbon Dioxide Level 32, Chloride Level 103, Creatinine 0.82, Estimat Glomerular Filtration Rate > 60, Glucose Level 131H, Magnesium Level 2.2, Phosphorus Level 2.1L, Potassium Level 2.9L, Sodium Level 147H 07/17/16 23:30: Drew Test YES-POS, Arterial Blood Base Excess 9.8H, Arterial Blood HCO3 36H, Arterial Blood Oxygen Saturation 98, Arterial Blood Partial Pressure CO2 54H, Arterial Blood Partial Pressure O2 98H, Arterial Blood Total CO2 37.1H, Arterial Blood pH 7.44H, Blood Gas Inspired Oxygen 100%, Blood Gas Patient Temperature 98.7, Blood Gas Puncture Site LEFT RADIAL, Blood Gas Ventilator Setting YES 07/18/16 00:35: Glucometer 148H 07/18/16 01:00: Drew Test YES-POS, Arterial Blood Base Excess 10.3H, Arterial Blood HCO3 35H, Arterial Blood Oxygen Saturation 97, Arterial Blood Partial Pressure CO2 54H, Arterial Blood Partial Pressure O2 88, Arterial Blood Total CO2 37.0H, Arterial Blood pH 7.44H, Blood Gas Inspired Oxygen 80%, Blood Gas Patient Temperature 100.8, Blood Gas Puncture Site RIGHT RADIAL, Blood Gas Ventilator Setting YES 07/18/16 04:40: Activated Partial Thromboplast Time 26, Alanine Aminotransferase (ALT/SGPT) 181H , Albumin 2.5L, Alkaline Phosphatase 133, Anion Gap 14, Aspartate Amino Transf ( AST/SGOT) 113H, B-Type Natriuretic Peptide 595.3H, BUN/Creatinine Ratio 26, Band Neutrophils 7, Basophils # (Auto) 0.2H, Basophils (%) (Auto) 1, Blood Morphology Comment NORMAL, Blood Urea Nitrogen 20H, Calcium Level 7.4L, Carbon Dioxide Level 31, Chloride Level 104, Creatinine 0.76, Eosinophils # (Auto) 0.0 , Eosinophils (%) (Auto) 0, Estimat Glomerular Filtration Rate > 60, Glucose Level 128H, Hematocrit 31L, Hemoglobin 10.3L, INR Comment 1.1, Lymphocytes # ( Auto) 1.6, Lymphocytes % (Manual) 5, Lymphocytes (%) (Auto) 10L, Magnesium Level 2.2, Mean Corpuscular Hemoglobin 33, Mean Corpuscular Hemoglobin Concent 34, Mean Corpuscular Volume 97, Mean Platelet Volume 10.4, Metamyelocytes % 5, Monocytes # (Auto) 2.9H, Monocytes % (Manual) 9, Monocytes (%) (Auto) 17H, Myelocytes % 2, Neutrophils # (Auto) 12.5H, Neutrophils % (Manual) 72, Neutrophils (%) (Auto) 73, Nucleated Red Blood Cells 3, Phosphorus Level 2.1L, Platelet Count 118L, Potassium Level 3.1L, Prothrombin Time 14.0, Red Blood Count 3.14L, Red Cell Distribution Width 13.0, Sodium Level 149H, Total Bilirubin 1.6H, Total Protein 5.1L, White Blood Count 17.2H 07/18/16 04:45: Glucometer 121H 07/18/16 05:45: Drew Test YES-POS, Arterial Blood Base Excess 9.1H, Arterial Blood HCO3 35H, Arterial Blood Oxygen Saturation 86L, Arterial Blood Partial Pressure CO2 58H, Arterial Blood Partial Pressure O2 56L, Arterial Blood Total CO2 36.7H, Arterial Blood pH 7.40, Blood Gas Inspired Oxygen 70%, Blood Gas Patient Temperature 100.6, Blood Gas Puncture Site RIGHT RADIAL, Blood Gas Ventilator Setting YES 07/18/16 07:00: Drew Test YES-POS, Arterial Blood Base Excess 9.8H, Arterial Blood HCO3 35H, Arterial Blood Oxygen Saturation 96, Arterial Blood Partial Pressure CO2 53H, Arterial Blood Partial Pressure O2 78L, Arterial Blood Total CO2 36.4H, Arterial Blood pH 7.44H, Blood Gas Inspired Oxygen 70%, Blood Gas Patient Temperature 100.6, Blood Gas Puncture Site RIGHT RADIAL, Blood Gas Ventilator Setting YES 07/18/16 07:55: Lactic Acid Level 1.6 Microbiology 07/13/16 Blood Culture - Preliminary, Resulted No growth 07/14/16 Gram Stain - Final, Complete 07/14/16 Sputum Culture - Final, Complete Usual/normal karissa isolated. 07/14/16 Urine Culture - Final, Complete Yeast Species Assessment/Plan Assessment/Plan Assess & Plan/Chief Complaint respiratory failure. Pneumonia with sepsis. Septic shock. Elevated liver functions studiesarea . 07/18/16 Patient on vent. Chest x-ray looks worse. White blood cell count elevated. Pneumonia. Sepsis Diagnosis/Problems: Clinical Quality Measures DVT/VTE Risk/Contraindication: Risk Factor Score Per Nursin RFS Level Per Nursing on Admit: 3=High JANA WILLIAMSON DO Jul 18, 2016 08:53
[2016-07-18] MEDS: methylPREDNISolone 40 MG/ML (Solu-MEDROL) VIAL IV SCH ×3 (09:47→20:34)
[2016-07-18] MEDS: FAMOTIDINE 20MG/2ML IV (PEPCID) IVP SCH ×2 (09:47→20:34)
[2016-07-18] MEDS: MEROPENEM 500 MG in NS (IVPB) 100 ML IV SCH ×2 (09:48→13:35)
[2016-07-18] MEDS: VANCOMYCIN 1250 MG/NS 250 ML IVPB IV SCH ×4 (09:48→20:40)
[2016-07-18] MEDS: DEXMEDETOMIDINE PRE-MIX 100 ML IV SCH (09:49)
[2016-07-18] MEDS: fentaNYL INJECTION 1,250 MCG in NS (IVPB) 225 ML IV SCH (09:49)
[2016-07-18] MEDS ORDERED: FUROSEMIDE 40 MG/4 ML INJ (LASIX) IVP ONE (10:15)
[2016-07-18 10:52] LABS: BILIRUBIN,URINE NEGATIVE (NEGATIVE); KETONES,URINE NEGATIVE (NEGATIVE); LEUKOCYTE ESTERASE ,URINE NEGATIVE (NEGATIVE); NITRITE,URINE NEGATIVE (NEGATIVE); PH,URINE 6 (5-9); PROTEIN,URINE 1+ (NEGATIVE); UROBILINOGEN,URINE NORMAL (NORMAL)
[2016-07-18 11:18] LABS: WBC,URINE 0-2 /HPF; YEAST,URINE FEW /HPF
[2016-07-18 13:22] LABS: ABG BASE EXCESS 8.8 MMOL/L (-2.5-2.5); ABG HCO3 34 MMOL/L (23-27); ABG OXYGEN SATURATION 95 % (94-100); ABG PCO2 54 MMHG (35-45); ABG PH 7.43 (7.37-7.43); ABG PO2 74 MMHG (79-93)
[2016-07-18 13:23] LABS: ALLENS TEST YES-POS; PATIENT TEMP 99.5
[2016-07-18] MEDS ORDERED: TROUGH ORDER-PHARMACY XX NR (19:00)
[2016-07-18] MEDS: hydrALAZINE (APESOLINE) 20 MG/ML VIAL IV PRN (19:08)
[2016-07-18] MEDS ORDERED: CEFEPIME HCL 2 GM (MAXIPIME) VIAL ONE (20:18)
[2016-07-18] MEDS ORDERED: SODIUM CHLORIDE (ADD-VANTAGE) 0 ML IV ONE (20:21)
[2016-07-18] MEDS: ENOXAPARIN 40 MG/0.4 ML (LOVENOX) SYR SC SCH (20:34)
[2016-07-18] MEDS ORDERED: MEROPENEM 500 MG VIAL (MERREM) IV ONE (20:35)
[2016-07-18] MEDS: MEROPENEM 500 MG in NORMAL SALINE (BAXTER MINI) 100 ML IV SCH (20:47)
[2016-07-18] MEDS ORDERED: SODIUM PHOSPHATE INJ 30 MM in NS (IVPB) 100 ML IV ONE (21:12)
[2016-07-19] VITALS (34 sets, daily range): BP systolic 124–211; BP diastolic 64–96
[2016-07-19] MEDS: PROPOFOL DRIP (ICU) 100 ML IV SCH ×7 (00:29→20:31)
[2016-07-19] MEDS: MEROPENEM 500 MG in NORMAL SALINE (BAXTER MINI) 100 ML IV SCH ×4 (01:06→19:31)
[2016-07-19] MEDS: methylPREDNISolone 40 MG/ML (Solu-MEDROL) VIAL IV SCH ×4 (01:07→19:31)
[2016-07-19] MEDS: fentaNYL INJECTION 1,250 MCG in NS (IVPB) 225 ML IV SCH (01:29)
[2016-07-19] MEDS: RT-ALBUTEROL/IPRATROPIUM 3 ML (DUONEB) VIAL INH SCH ×6 (02:36→22:49)
[2016-07-19 04:28] LABS: BASOPHILS # (AUTO) 0.2 10^3/uL (0.0-0.1); BASOPHILS % (AUTO) 1 % (0-10); EOSINOPHILS % (AUTO) 0 % (0-10); LYMPHOCYTES # (AUTO) 1.7 X 10^3 (1.0-4.0); LYMPHOCYTES % (AUTO) 9 % (12-44); MEAN CORPUSCULAR HEMOGLOBIN 33 PG (25-34); MEAN CORPUSCULAR HGB CONC 33 G/DL (32-36); MEAN CORPUSCULAR VOLUME 99 FL (80-99); MEAN PLATELET VOLUME 10.5 FL (7.4-10.4); MONOCYTES # (AUTO) 2.4 X 10^3 (0.0-1.0); MONOCYTES % (AUTO) 12 % (0-12); NEUTROPHILS # (AUTO) 15.5 X 10^3 (1.8-7.8); NEUTROPHILS % (AUTO) 78 % (42-75); PLATELET COUNT 154 10^3/uL (130-400); RED BLOOD COUNT 3.15 10^6/uL (4.35-5.85); RED CELL DISTRIBUTION WIDTH 13.2 % (10.0-14.5); WHITE BLOOD COUNT 19.7 10^3/uL (4.3-11.0)
[2016-07-19 04:36] LABS: ABG BASE EXCESS 8.7 MMOL/L (-2.5-2.5); ABG HCO3 34 MMOL/L (23-27); ABG OXYGEN SATURATION 98 % (94-100); ABG PCO2 51 MMHG (35-45); ABG PH 7.44 (7.37-7.43); ABG PO2 95 MMHG (79-93); ABG TCO2 35.8 MMOL/L (21.0-31.0)
[2016-07-19 04:38] LABS: ALLENS TEST YES-POS; PATIENT TEMP 97.3
[2016-07-19 04:39] LABS: INR 1.1 (0.8-1.4); PROTHROMBIN TIME PATIENT 13.4 SEC (12.2-14.7)
[2016-07-19 04:50] LABS: ALANINE AMINOTRANSFERASE 135 U/L (0-55); ALBUMIN 2.5 G/DL (3.2-4.5); ANION GAP 14 MMOL/L (5-14); ASPARTATE AMINO TRANSFERASE 79 U/L (5-34); BLOOD UREA NITROGEN 25 MG/DL (7-18); BUN/CREATININE RATIO 34; CALCIUM 7.7 MG/DL (8.5-10.1); CARBON DIOXIDE 30 MMOL/L (21-32); CHLORIDE 105 MMOL/L (98-107); CREATININE SERUM 0.73 MG/DL (0.60-1.30); GFR ESTIMATED > 60; GLUCOSE 165 MG/DL (70-105); MAGNESIUM 2.5 MG/DL (1.8-2.4); PHOSPHORUS 1.8 MG/DL (2.3-4.7); POTASSIUM 3.1 MMOL/L (3.6-5.0); SODIUM 149 MMOL/L (135-145); TOTAL PROTEIN 5.2 G/DL (6.4-8.2)
[2016-07-19] MEDS: hydrALAZINE (APESOLINE) 20 MG/ML VIAL IV PRN ×3 (05:00→15:44)
[2016-07-19] MEDS: KCL 20 MEQ TAB (K-DUR) PO SCH ×2 (05:32→05:33)
[2016-07-19] MEDS: MAGNESIUM 1 GM/100 ML IVPB 100 ML IV SCH (05:32)
[2016-07-19] MEDS: POTASSIUM CL 10MEQ/50ML IVPB 50 ML IV SCH ×9 (05:34→20:37)
[2016-07-19] MEDS: inSUlin (REGULAR) HUMAN 1 UNIT/0.01 ML (CHARGE PER UNIT) SC SCH ×3 (05:41→18:35)
[2016-07-19] MEDS: LEVOFLOXACIN 750 MG/150 ML IV 150 ML IV SCH (05:43)
--- NOTE | 2016-07-19 05:58 | Pulmonary Progress Note ---
Subjective Subjective/Events-last exam Pt is slightly better today. Exam Exam Vital Signs Date Time Temp Pulse Resp B/P Pulse Ox O2 Delivery O2 Flow Rate FiO2 07/19/16 05:00 114 14 155/82 96 Mechanical Ventilator 70.00 07/19/16 04:15 116 32 97 70 07/19/16 04:02 97.3 110 25 139/76 96 Mechanical Ventilator 70.00 07/19/16 04:00 96 Mechanical Ventilator 70.00 07/19/16 03:42 99.7 111 29 143/79 96 70.00 07/19/16 03:00 115 14 137/72 96 Mechanical Ventilator 70.00 07/19/16 02:36 111 29 96 70 07/19/16 02:00 110 13 141/74 96 Mechanical Ventilator 70.00 07/19/16 01:00 111 07/19/16 01:00 112 14 154/95 97 Mechanical Ventilator 70.00 07/19/16 00:29 99.7 128 25 162/91 96 70.00 07/19/16 00:00 96 Mechanical Ventilator 70.00 07/18/16 23:48 99.7 128 25 162/91 97 Mechanical Ventilator 70.00 07/18/16 23:00 130 22 140/91 96 Mechanical Ventilator 70.00 07/18/16 22:26 122 28 96 70 07/18/16 22:00 121 18 168/93 96 Mechanical Ventilator 70.00 07/18/16 21:00 120 14 174/100 96 Mechanical Ventilator 70.00 07/18/16 20:58 99.8 126 25 161/85 97 70.00 07/18/16 20:20 125 30 96 70 07/18/16 20:00 93 Mechanical Ventilator 70.00 07/18/16 20:00 126 25 161/85 97 Mechanical Ventilator 70.00 07/18/16 19:43 99.8 128 25 157/91 93 Mechanical Ventilator 70.00 07/18/16 19:00 126 07/18/16 19:00 125 20 181/117 96 Mechanical Ventilator 70.00 07/18/16 18:12 122 29 95 70 07/18/16 18:00 118 16 185/104 97 Mechanical Ventilator 70.00 07/18/16 17:00 118 19 176/103 97 Mechanical Ventilator 70.00 07/18/16 16:49 91 Mechanical Ventilator 70.00 07/18/16 16:49 99.1 07/18/16 16:48 158/97 07/18/16 16:00 115 16 162/91 95 Mechanical Ventilator 70.00 07/18/16 15:00 117 17 168/103 96 Mechanical Ventilator 70.00 07/18/16 14:16 109 31 95 70 07/18/16 14:00 110 19 171/91 93 Mechanical Ventilator 70.00 07/18/16 13:47 167/98 07/18/16 13:00 90 25 189/110 95 Mechanical Ventilator 70.00 07/18/16 13:00 118 07/18/16 12:36 90 70 07/18/16 12:00 91 Mechanical Ventilator 70.00 07/18/16 12:00 111 25 171/99 95 Mechanical Ventilator 70.00 07/18/16 11:00 112 27 176/99 95 Mechanical Ventilator 70.00 07/18/16 10:17 157/80 07/18/16 10:15 91 Mechanical Ventilator 70.00 07/18/16 10:09 70 07/18/16 10:03 125 40 87 60 07/18/16 10:00 126 25 151/80 90 Mechanical Ventilator 70.00 07/18/16 09:00 111 25 169/91 92 Mechanical Ventilator 70.00 07/18/16 08:40 92 60 07/18/16 08:30 92 Mechanical Ventilator 60.00 07/18/16 08:00 98.6 92 Mechanical Ventilator 65.00 07/18/16 08:00 93 Mechanical Ventilator 65.00 07/18/16 08:00 111 24 154/80 92 Mechanical Ventilator 70.00 07/18/16 07:56 121 30 94 65 07/18/16 07:00 114 24 156/80 93 Mechanical Ventilator 70.00 07/18/16 07:00 93 Mechanical Ventilator 70.00 07/18/16 07:00 115 07/18/16 06:03 126 40 92 70 07/18/16 06:00 112 24 153/80 94 Mechanical Ventilator 70.00 I & O 07/19/16 07:00 Intake Total 1295 ml Output Total 2475 ml Balance -1180 ml General Appearance: Other ( on vent) HEENT: Pharyngeal Erythema Neck: Supple Respiratory: Other (vent) Cardiovascular: Regular Rate, Rhythm Gastrointestinal: normal bowel sounds non tender soft Extremity: Non Tender No Calf Tenderness Pedal Edema Swelling Neurologic/Psychiatric: Other (sedated on ventilator) Skin: Warm/Dry Pallor Results Lab Laboratory Tests 07/17/16 16:10 07/18/16 04:40 07/19/16 04:10 Assessment/Plan Assessment/Plan Acute respiratory distress with ARDS Pa02/Fi02 = 135 -Continue ventilator support -- Pt is now respiratory alkalosis requiring minimal IP. She has been very restless on vent requiring a lot of sedation. Will change to volume control now -decrease fentanyl gtt 14 mcg/hr and try to titrate Diprivan down to lowest effective dose. Severe sepsis with Strep pneumonia -restart Vanco, Levaquin change cefepime to Merrem -Repan culture pulmonary edema - IVF 30cc/hr -Hold lasix for now Hypernatremia -Change IVF to D5 W -250cc of free water per OG Q 6hrs Anemia with thrombocytopenia - stable metabolic acidosis with lactic acidosis -- RESOLVED -D/C bicarb gtt Septic shock r/o DIC -RESOLVED -Levophed and vasopressin --- Now D/C 'd - central line CVP 12 , arterial line -Change solucortef to solumedrol Acute renal failure -IVF shock liver -monitor Tobacco use Clinical Quality Measures DVT/VTE Risk/Contraindication: Risk Factor Score Per Nursin RFS Level Per Nursing on Admit: 3=High KIKO FREED DO Jul 19, 2016 05:58
[2016-07-19] MEDS ORDERED: D5W 1000 ML IV SOLUTION 1,000 ML IV SCH ×2 (06:00→16:30)
[2016-07-19] MEDS ORDERED: POTASSIUM PHOSPHATE INJ 30 MM in NS (IVPB) 250 ML IV ONE (07:00)
[2016-07-19 07:53] LABS: ABG BASE EXCESS 7.2 MMOL/L (-2.5-2.5); ABG HCO3 32 MMOL/L (23-27); ABG OXYGEN SATURATION 95 % (94-100); ABG PCO2 44 MMHG (35-45); ABG PH 7.48 (7.37-7.43); ABG PO2 66 MMHG (79-93); ABG TCO2 33.2 MMOL/L (21.0-31.0)
[2016-07-19 07:54] LABS: ALLENS TEST YES-POS; PATIENT TEMP 97.1
[2016-07-19] MEDS ORDERED: LORazepam INJ 2 MG/ML (ATIVAN) VIAL ONE (08:18)
[2016-07-19] MEDS: meTOprolol TARTRATE 25 MG (LOPRESSOR) TABLET PO SCH ×2 (08:34→20:08)
[2016-07-19] MEDS: lisINopril 20 MG (ZESTRIL) TAB PO SCH (08:34)
[2016-07-19] MEDS: fentaNYL INJECTION 100 MCG/2 ML AMP IVP PRN ×5 (08:38→23:10)
[2016-07-19] MEDS ORDERED: NS IV 1000 ML 1,000 ML ONE (08:39)
--- NOTE | 2016-07-19 08:49 | Diagnostic Imaging Report ---
INDICATION: Sepsis. FINDINGS: The 5 lobe airspace disease is a redemonstrated finding having increased in severity in the lower lobes. The support apparatus projects in stable alignment. There is no pneumothorax. IMPRESSION: Worsened severe 5 lobe airspace disease. Dictated by: Dictated on workstation # [id number]
[2016-07-19] MEDS: FAMOTIDINE 20MG/2ML IV (PEPCID) IVP SCH ×2 (09:17→20:08)
[2016-07-19] MEDS: DEXMEDETOMIDINE PRE-MIX 100 ML IV SCH (09:24)
--- NOTE | 2016-07-19 09:55 | Progress Note-Standard ---
Standard Progress Note Progress Notes/Assess & Plan Progress/Assessment & Plan [id number] Called to ICU 9 for arterial line placement. On arrival around 0830, patient's HR was 140+ and CHRIS Gee noted that she was anxious and stirred up this am. Dr. Guzmán and CHRIS Gee were giving Ativan and Fentanyl IV to help calm her down. I attended to another in the meantime. Upon returning to this patient, I reviewed patient's chart and noted that anesthesia had previously placed an arterial line last week, with multiple attempts. Patient is edematous ; however, I was able to palpate a decent left radial pulse and I placed a 20g arterial catheter on my 3rd attempt. Strong pulsatile blood flow noted. Arterial waveform noted with pressure 150s/70s. Correlates well with NIBP. Secure arterial line with opsite. Left wrist restraint reapplied. Reported off to CHRIS Gee. ROMELIA ELMORE CRNA Jul 19, 2016 09:55
[2016-07-19] MEDS: VANCOMYCIN 1250 MG/NS 250 ML IVPB IV SCH ×4 (10:15→20:08)
--- NOTE | 2016-07-19 12:59 | Progress Note (SOAP) ---
Subjective Subjective/Events-last exam Fwup respiratory failure, pneumonia with sepsis, septic shock with hypotension/ renal failure and elevated LFTs. Respiratory status worsened over weekend. Growing out strep pneumo so abx changed yesterday and seems to be little improved today. Objective Exam Vital Signs Date Time Temp Pulse Resp B/P Pulse Ox O2 Delivery O2 Flow Rate FiO2 07/19/16 12:29 133 41 93 60 07/19/16 10:28 177/71 07/19/16 10:08 117 23 93 60 07/19/16 10:00 120 20 126/66 93 Mechanical Ventilator 70.00 07/19/16 09:00 129 20 132/64 95 Mechanical Ventilator 70.00 07/19/16 08:33 98.8 07/19/16 08:08 133 41 93 60 07/19/16 08:00 134 26 135/69 93 Mechanical Ventilator 70.00 07/19/16 07:09 97.3 109 34 155/79 93 70.00 07/19/16 07:00 123 07/19/16 07:00 137 34 173/90 90 Mechanical Ventilator 70.00 07/19/16 06:12 109 34 93 60 07/19/16 06:00 120 16 148/75 95 Mechanical Ventilator 70.00 07/19/16 05:00 114 14 155/82 96 Mechanical Ventilator 70.00 07/19/16 04:15 116 32 97 70 07/19/16 04:02 97.3 110 25 139/76 96 Mechanical Ventilator 70.00 07/19/16 04:00 96 Mechanical Ventilator 70.00 07/19/16 03:42 99.7 111 29 143/79 96 70.00 07/19/16 03:00 115 14 137/72 96 Mechanical Ventilator 70.00 07/19/16 02:36 111 29 96 70 07/19/16 02:00 110 13 141/74 96 Mechanical Ventilator 70.00 07/19/16 01:00 111 07/19/16 01:00 112 14 154/95 97 Mechanical Ventilator 70.00 07/19/16 00:29 99.7 128 25 162/91 96 70.00 07/19/16 00:00 96 Mechanical Ventilator 70.00 07/18/16 23:48 99.7 128 25 162/91 97 Mechanical Ventilator 70.00 07/18/16 23:00 130 22 140/91 96 Mechanical Ventilator 70.00 07/18/16 22:26 122 28 96 70 07/18/16 22:00 121 18 168/93 96 Mechanical Ventilator 70.00 07/18/16 21:00 120 14 174/100 96 Mechanical Ventilator 70.00 07/18/16 20:58 99.8 126 25 161/85 97 70.00 07/18/16 20:20 125 30 96 70 07/18/16 20:00 93 Mechanical Ventilator 70.00 07/18/16 20:00 126 25 161/85 97 Mechanical Ventilator 70.00 07/18/16 19:43 99.8 128 25 157/91 93 Mechanical Ventilator 70.00 07/18/16 19:00 126 07/18/16 19:00 125 20 181/117 96 Mechanical Ventilator 70.00 07/18/16 18:12 122 29 95 70 07/18/16 18:00 118 16 185/104 97 Mechanical Ventilator 70.00 07/18/16 17:00 118 19 176/103 97 Mechanical Ventilator 70.00 07/18/16 16:49 91 Mechanical Ventilator 70.00 07/18/16 16:49 99.1 07/18/16 16:48 158/97 07/18/16 16:00 115 16 162/91 95 Mechanical Ventilator 70.00 07/18/16 15:00 117 17 168/103 96 Mechanical Ventilator 70.00 07/18/16 14:16 109 31 95 70 07/18/16 14:00 110 19 171/91 93 Mechanical Ventilator 70.00 07/18/16 13:47 167/98 07/18/16 13:00 90 25 189/110 95 Mechanical Ventilator 70.00 07/18/16 13:00 118 I & O 07/19/16 07:00 Intake Total 1545 ml Output Total 2475 ml Balance -930 ml Capillary Refill : General Appearance: Other (sedated on ventilator) Neck: Supple Respiratory: Decreased Breath Sounds Rales Cardiovascular: Systolic Murmur Gallop/S3 Tachycardia Gastrointestinal: normal bowel sounds soft Extremity: Swelling Other (SCDs in place) Neurologic/Psychiatric: Other (sedated on ventilator) Results Lab Laboratory Tests 07/18/16 13:15: Drew Test YES-POS, Arterial Blood Base Excess 8.8H, Arterial Blood HCO3 34H, Arterial Blood Oxygen Saturation 95, Arterial Blood Partial Pressure CO2 54H, Arterial Blood Partial Pressure O2 74L, Arterial Blood Total CO2 36.0H, Arterial Blood pH 7.43, Blood Gas Inspired Oxygen 70%, Blood Gas Patient Temperature 99.5, Blood Gas Puncture Site LT RADIAL, Blood Gas Ventilator Setting YES 07/18/16 13:24: Glucometer 134H 07/18/16 18:39: Glucometer 149H 07/18/16 18:45: Vancomycin Level Trough 14.0 07/18/16 23:43: Glucometer 167H 07/19/16 04:10: Activated Partial Thromboplast Time 24, Alanine Aminotransferase (ALT/SGPT) 135H , Albumin 2.5L, Alkaline Phosphatase 125, Anion Gap 14, Aspartate Amino Transf ( AST/SGOT) 79H, BUN/Creatinine Ratio 34, Basophils # (Auto) 0.2H, Basophils (%) ( Auto) 1, Blood Urea Nitrogen 25H, Calcium Level 7.7L, Carbon Dioxide Level 30, Chloride Level 105, Creatinine 0.73, Eosinophils # (Auto) 0.0, Eosinophils (%) ( Auto) 0, Estimat Glomerular Filtration Rate > 60, Glucose Level 165H, Hematocrit 31L, Hemoglobin 10.3L, INR Comment 1.1, Lymphocytes # (Auto) 1.7, Lymphocytes (%) (Auto) 9L, Magnesium Level 2.5H, Mean Corpuscular Hemoglobin 33 , Mean Corpuscular Hemoglobin Concent 33, Mean Corpuscular Volume 99, Mean Platelet Volume 10.5H, Monocytes # (Auto) 2.4H, Monocytes (%) (Auto) 12, Neutrophils # (Auto) 15.5H, Neutrophils (%) (Auto) 78H, Phosphorus Level 1.8L, Platelet Count 154, Potassium Level 3.1L, Prothrombin Time 13.4, Red Blood Count 3.15L, Red Cell Distribution Width 13.2, Sodium Level 149H, Total Bilirubin 1.0, Total Protein 5.2L, White Blood Count 19.7H 07/19/16 04:20: Drew Test YES-POS, Arterial Blood Base Excess 8.7H, Arterial Blood HCO3 34H, Arterial Blood Oxygen Saturation 98, Arterial Blood Partial Pressure CO2 51H, Arterial Blood Partial Pressure O2 95H, Arterial Blood Total CO2 35.8H, Arterial Blood pH 7.44H, Blood Gas Inspired Oxygen 70%, Blood Gas Patient Temperature 97.3, Blood Gas Puncture Site LEFT RADIAL, Blood Gas Ventilator Setting YES 07/19/16 07:41: Drew Test YES-POS, Arterial Blood Base Excess 7.2H, Arterial Blood HCO3 32H, Arterial Blood Oxygen Saturation 95, Arterial Blood Partial Pressure CO2 44, Arterial Blood Partial Pressure O2 66L, Arterial Blood Total CO2 33.2H, Arterial Blood pH 7.48H, Blood Gas Inspired Oxygen 60%, Blood Gas Patient Temperature 97.1, Blood Gas Puncture Site LT RADIAL, Blood Gas Ventilator Setting YES 07/19/16 11:49: Glucometer 182H Microbiology 07/13/16 Blood Culture - Final, Complete No growth 07/14/16 Gram Stain - Final, Complete 07/14/16 Sputum Culture - Final, Complete Usual/normal karissa isolated. 07/14/16 Urine Culture - Final, Complete Yeast Species Assessment/Plan Assessment/Plan Assess & Plan/Chief Complaint 1. Pneumonia with Sepsis--growing out Strep pneumo so back on triple therapy abx 2. Acute Respiratory Failure with ARDs--on ventilator 3. Septic Shock--improved off all pressors and IVF rate decreased 4. Acute Renal Failure--creatinine improved 5. Metabolic Acidosis--improved Diagnosis/Problems: Clinical Quality Measures DVT/VTE Risk/Contraindication: Risk Factor Score Per Nursin RFS Level Per Nursing on Admit: 3=High KINDRA RHODES DO Jul 19, 2016 12:59 pm
[2016-07-19] MEDS ORDERED: FUROSEMIDE 40 MG/4 ML INJ (LASIX) IVP NR (15:22)
[2016-07-19 16:02] LABS: ABG HCO3 33 MMOL/L (23-27); ABG OXYGEN SATURATION 93 % (94-100); ABG PCO2 51 MMHG (35-45); ABG PH 7.43 (7.37-7.43); ABG PO2 68 MMHG (79-93); ABG TCO2 34.7 MMOL/L (21.0-31.0)
[2016-07-19 16:09] LABS: PATIENT TEMP 99.8
[2016-07-19 16:21] LABS: ALANINE AMINOTRANSFERASE 138 U/L (0-55); ALBUMIN 2.8 G/DL (3.2-4.5); ANION GAP 10 MMOL/L (5-14); ASPARTATE AMINO TRANSFERASE 98 U/L (5-34); BILIRUBIN,TOTAL 1.1 MG/DL (0.1-1.0); BLOOD UREA NITROGEN 25 MG/DL (7-18); BUN/CREATININE RATIO 37; CALCIUM 7.9 MG/DL (8.5-10.1); CARBON DIOXIDE 32 MMOL/L (21-32); CHLORIDE 106 MMOL/L (98-107); CREATININE SERUM 0.67 MG/DL (0.60-1.30); GFR ESTIMATED > 60; GLUCOSE 195 MG/DL (70-105); MAGNESIUM 2.3 MG/DL (1.8-2.4); PHOSPHORUS 2.3 MG/DL (2.3-4.7); POTASSIUM 3.4 MMOL/L (3.6-5.0); SODIUM 148 MMOL/L (135-145); TOTAL PROTEIN 5.6 G/DL (6.4-8.2)
[2016-07-19] MEDS: D5W IV SCH (18:36)
[2016-07-19] MEDS: POTASSIUM CHLORIDE IV SCH (18:36)
[2016-07-19] MEDS: ENOXAPARIN 40 MG/0.4 ML (LOVENOX) SYR SC SCH (20:29)
[2016-07-20] VITALS (48 sets, daily range): BP systolic 109–215; BP diastolic 50–85
[2016-07-20] MEDS: hydrALAZINE (APESOLINE) 20 MG/ML VIAL IV PRN ×3 (00:02→21:12)
[2016-07-20] MEDS: inSUlin (REGULAR) HUMAN 1 UNIT/0.01 ML (CHARGE PER UNIT) SC SCH ×5 (00:22→23:44)
[2016-07-20] MEDS: PROPOFOL DRIP (ICU) 100 ML IV SCH ×5 (00:30→17:14)
[2016-07-20] MEDS: RT-ALBUTEROL/IPRATROPIUM 3 ML (DUONEB) VIAL INH SCH ×6 (02:09→22:30)
[2016-07-20] MEDS: MEROPENEM 500 MG in NORMAL SALINE (BAXTER MINI) 100 ML IV SCH ×4 (02:11→21:04)
[2016-07-20] MEDS: methylPREDNISolone 40 MG/ML (Solu-MEDROL) VIAL IV SCH ×4 (02:12→21:04)
[2016-07-20] MEDS: fentaNYL INJECTION 100 MCG/2 ML AMP IVP PRN ×5 (02:33→23:42)
[2016-07-20 04:19] LABS: ABG BASE EXCESS 8.7 MMOL/L (-2.5-2.5); ABG HCO3 34 MMOL/L (23-27); ABG OXYGEN SATURATION 96 % (94-100); ABG PCO2 51 MMHG (35-45); ABG PH 7.44 (7.37-7.43); ABG PO2 80 MMHG (79-93); ABG TCO2 35.5 MMOL/L (21.0-31.0); BASOPHILS # (AUTO) 0.1 10^3/uL (0.0-0.1); BASOPHILS % (AUTO) 0 % (0-10); EOSINOPHILS % (AUTO) 0 % (0-10); LYMPHOCYTES # (AUTO) 1.6 X 10^3 (1.0-4.0); LYMPHOCYTES % (AUTO) 7 % (12-44); MEAN CORPUSCULAR HEMOGLOBIN 32 PG (25-34); MEAN CORPUSCULAR HGB CONC 32 G/DL (32-36); MEAN CORPUSCULAR VOLUME 99 FL (80-99); MEAN PLATELET VOLUME 10.3 FL (7.4-10.4); MONOCYTES # (AUTO) 0.7 X 10^3 (0.0-1.0); MONOCYTES % (AUTO) 3 % (0-12); NEUTROPHILS # (AUTO) 19.6 X 10^3 (1.8-7.8); NEUTROPHILS % (AUTO) 89 % (42-75); PLATELET COUNT 192 10^3/uL (130-400); RED BLOOD COUNT 3.21 10^6/uL (4.35-5.85); RED CELL DISTRIBUTION WIDTH 13.5 % (10.0-14.5)
[2016-07-20 04:21] LABS: ALLENS TEST ART LINE
[2016-07-20 04:32] LABS: INR 1.1 (0.8-1.4); PROTHROMBIN TIME PATIENT 13.8 SEC (12.2-14.7)
[2016-07-20 04:45] LABS: ALANINE AMINOTRANSFERASE 128 U/L (0-55); ALBUMIN 2.7 G/DL (3.2-4.5); ANION GAP 12 MMOL/L (5-14); ASPARTATE AMINO TRANSFERASE 113 U/L (5-34); BLOOD UREA NITROGEN 27 MG/DL (7-18); BUN/CREATININE RATIO 40; CALCIUM 7.9 MG/DL (8.5-10.1); CARBON DIOXIDE 29 MMOL/L (21-32); CHLORIDE 105 MMOL/L (98-107); CREATININE SERUM 0.67 MG/DL (0.60-1.30); GFR ESTIMATED > 60; GLUCOSE 180 MG/DL (70-105); MAGNESIUM 2.3 MG/DL (1.8-2.4); PHOSPHORUS 2.3 MG/DL (2.3-4.7); POTASSIUM 3.9 MMOL/L (3.6-5.0); SODIUM 146 MMOL/L (135-145); TOTAL PROTEIN 5.3 G/DL (6.4-8.2)
[2016-07-20] MEDS ORDERED: LABETALOL HCL 20 MG/4 ML VIAL IV ONE (05:15)
[2016-07-20] MEDS: KCL 20 MEQ TAB (K-DUR) PO SCH ×2 (05:21)
[2016-07-20] MEDS: POTASSIUM CL 10MEQ/50ML IVPB 50 ML IV SCH (05:21)
[2016-07-20] MEDS: MAGNESIUM 1 GM/100 ML IVPB 100 ML IV SCH (05:21)
[2016-07-20] MEDS: LEVOFLOXACIN 750 MG/150 ML IV 150 ML IV SCH (05:52)
[2016-07-20] MEDS: fentaNYL INJECTION 1,250 MCG in NS (IVPB) 225 ML IV SCH ×2 (06:10→15:21)
--- NOTE | 2016-07-20 06:20 | Pulmonary Progress Note ---
Subjective Subjective/Events-last exam Pt appears slightly improved today. She is requiring less oxygen today. Exam Exam Vital Signs Date Time Temp Pulse Resp B/P Pulse Ox O2 Delivery O2 Flow Rate FiO2 07/20/16 06:00 94 20 134/77 92 Mechanical Ventilator 40.00 07/20/16 05:51 Mechanical Ventilator 40.00 07/20/16 05:00 113 20 127/70 94 Mechanical Ventilator 50.00 07/20/16 04:00 Mechanical Ventilator 50.00 07/20/16 04:00 99.0 109 25 131/72 95 Mechanical Ventilator 50.00 07/20/16 03:59 106 33 93 50 07/20/16 03:32 99.4 101 32 130/71 95 55.00 07/20/16 03:00 88 23 150/76 93 Mechanical Ventilator 55.00 07/20/16 02:09 101 32 95 55 07/20/16 02:00 100 20 130/71 95 Mechanical Ventilator 55.00 07/20/16 01:11 106 07/20/16 01:00 107 20 130/69 94 Mechanical Ventilator 55.00 07/20/16 00:30 99.4 106 25 145/79 95 55.00 07/20/16 00:00 99.4 91 25 145/79 95 Mechanical Ventilator 55.00 07/20/16 00:00 Mechanical Ventilator 55.00 07/19/16 23:00 116 23 135/71 95 Mechanical Ventilator 55.00 07/19/16 22:49 100 28 95 60 07/19/16 22:00 102 19 124/72 95 Mechanical Ventilator 55.00 07/19/16 21:00 127 21 143/74 94 Mechanical Ventilator 60.00 07/19/16 20:31 100.5 122 28 179/94 92 60.00 07/19/16 20:06 122 28 92 60 07/19/16 20:00 Mechanical Ventilator 60.00 07/19/16 20:00 124 30 155/79 93 Mechanical Ventilator 60.00 07/19/16 19:36 100.5 128 25 164/91 93 Mechanical Ventilator 60.00 07/19/16 19:00 122 07/19/16 18:18 120 24 93 60 07/19/16 18:00 120 24 183/66 91 Mechanical Ventilator 70.00 07/19/16 17:03 172/88 07/19/16 17:00 123 24 172/88 91 Mechanical Ventilator 70.00 07/19/16 16:04 133 31 92 60 07/19/16 16:00 Mechanical Ventilator 60.00 07/19/16 16:00 146 177/83 90 Mechanical Ventilator 70.00 07/19/16 15:58 99.8 07/19/16 15:00 130 30 179/86 92 Mechanical Ventilator 70.00 07/19/16 14:07 117 24 91 60 07/19/16 14:00 118 24 142/81 93 Mechanical Ventilator 70.00 07/19/16 13:45 183/68 07/19/16 13:00 133 166/96 88 Mechanical Ventilator 70.00 07/19/16 13:00 131 07/19/16 12:29 133 41 93 60 07/19/16 12:00 Mechanical Ventilator 60.00 07/19/16 12:00 99.4 07/19/16 12:00 109 22 138/77 94 Mechanical Ventilator 70.00 07/19/16 11:00 115 19 135/71 94 Mechanical Ventilator 70.00 07/19/16 10:28 177/71 07/19/16 10:08 117 23 93 60 07/19/16 10:00 120 20 126/66 93 Mechanical Ventilator 70.00 07/19/16 09:00 129 20 132/64 95 Mechanical Ventilator 70.00 07/19/16 08:33 98.8 07/19/16 08:08 133 41 93 60 07/19/16 08:00 Mechanical Ventilator 70.00 07/19/16 08:00 134 26 135/69 93 Mechanical Ventilator 70.00 07/19/16 07:09 97.3 109 34 155/79 93 70.00 07/19/16 07:00 123 07/19/16 07:00 137 34 173/90 90 Mechanical Ventilator 70.00 I & O 07/20/16 07:00 Intake Total 4632 ml Output Total 2300 ml Balance 2332 ml General Appearance: Other (sedated on ventilator) HEENT: Pharyngeal Erythema Neck: Supple Respiratory: Decreased Breath Sounds Rales Cardiovascular: Systolic Murmur Gallop/S3 Tachycardia Gastrointestinal: normal bowel sounds soft Extremity: Swelling Other (SCDs in place) Neurologic/Psychiatric: Other (sedated on ventilator) Skin: Warm/Dry Pallor Results Lab Laboratory Tests 1/2/17 04:10 07/19/16 15:55 07/20/16 04:10 Assessment/Plan Assessment/Plan Acute respiratory distress with ARDS Pa02/Fi02 = 160 -Continue ventilator support -- Pt is now respiratory alkalosis requiring minimal IP. She has been very restless on vent requiring a lot of sedation. Will change to volume control now Severe sepsis with Strep pneumonia - Vanco, Levaquin Merrem -Repan culture neg thus far pulmonary edema - IVF 50cc/hr with d5w -continue lasix Hypernatremia - IVF D5 W -250cc of free water per OG Q 6hrs Anemia with thrombocytopenia - improving metabolic acidosis with lactic acidosis -- RESOLVED -D/C bicarb gtt Septic shock r/o DIC -RESOLVED -Levophed and vasopressin --- Now D/C 'd - central line CVP 12 , arterial line -Change solucortef to solumedrol Acute renal failure -IVF shock liver -- improving -monitor Tobacco use Clinical Quality Measures DVT/VTE Risk/Contraindication: Risk Factor Score Per Nursin RFS Level Per Nursing on Admit: 3=High KIKO FREED DO Jul 20, 2016 06:20
[2016-07-20] MEDS ORDERED: FUROSEMIDE 40 MG/4 ML INJ (LASIX) IVP ONE (06:45)
[2016-07-20] MEDS: DEXMEDETOMIDINE PRE-MIX 100 ML IV SCH ×4 (08:15→21:57)
--- NOTE | 2016-07-20 08:20 | Progress Note (SOAP) ---
Subjective Subjective/Events-last exam Fwup respiratory failure, pneumonia with Strep pneumo sepsis, septic shock with hypotension/renal failure and elevated LFTs. FiO2 down to 40%. Not agitated this am during exam. Objective Exam Vital Signs Date Time Temp Pulse Resp B/P Pulse Ox O2 Delivery O2 Flow Rate FiO2 07/20/16 06:55 99.0 104 28 134/77 92 40.00 07/20/16 06:26 104 28 92 40 07/20/16 06:00 94 20 134/77 92 Mechanical Ventilator 40.00 07/20/16 05:51 Mechanical Ventilator 40.00 07/20/16 05:00 113 20 127/70 94 Mechanical Ventilator 50.00 07/20/16 04:00 Mechanical Ventilator 50.00 07/20/16 04:00 99.0 109 25 131/72 95 Mechanical Ventilator 50.00 07/20/16 03:59 106 33 93 50 07/20/16 03:32 99.4 101 32 130/71 95 55.00 07/20/16 03:00 88 23 150/76 93 Mechanical Ventilator 55.00 07/20/16 02:09 101 32 95 55 07/20/16 02:00 100 20 130/71 95 Mechanical Ventilator 55.00 07/20/16 01:11 106 07/20/16 01:00 107 20 130/69 94 Mechanical Ventilator 55.00 07/20/16 00:30 99.4 106 25 145/79 95 55.00 07/20/16 00:00 99.4 91 25 145/79 95 Mechanical Ventilator 55.00 07/20/16 00:00 Mechanical Ventilator 55.00 07/19/16 23:00 116 23 135/71 95 Mechanical Ventilator 55.00 07/19/16 22:49 100 28 95 60 07/19/16 22:00 102 19 124/72 95 Mechanical Ventilator 55.00 07/19/16 21:00 127 21 143/74 94 Mechanical Ventilator 60.00 07/19/16 20:31 100.5 122 28 179/94 92 60.00 07/19/16 20:06 122 28 92 60 07/19/16 20:00 Mechanical Ventilator 60.00 07/19/16 20:00 124 30 155/79 93 Mechanical Ventilator 60.00 07/19/16 19:36 100.5 128 25 164/91 93 Mechanical Ventilator 60.00 07/19/16 19:00 122 07/19/16 18:18 120 24 93 60 07/19/16 18:00 120 24 183/66 91 Mechanical Ventilator 70.00 07/19/16 17:03 172/88 07/19/16 17:00 123 24 172/88 91 Mechanical Ventilator 70.00 07/19/16 16:04 133 31 92 60 07/19/16 16:00 Mechanical Ventilator 60.00 07/19/16 16:00 146 177/83 90 Mechanical Ventilator 70.00 07/19/16 15:58 99.8 07/19/16 15:00 130 30 179/86 92 Mechanical Ventilator 70.00 07/19/16 14:07 117 24 91 60 07/19/16 14:00 118 24 142/81 93 Mechanical Ventilator 70.00 07/19/16 13:45 183/68 07/19/16 13:00 133 166/96 88 Mechanical Ventilator 70.00 07/19/16 13:00 131 07/19/16 12:29 133 41 93 60 07/19/16 12:00 Mechanical Ventilator 60.00 07/19/16 12:00 99.4 07/19/16 12:00 109 22 138/77 94 Mechanical Ventilator 70.00 07/19/16 11:00 115 19 135/71 94 Mechanical Ventilator 70.00 07/19/16 10:28 177/71 07/19/16 10:08 117 23 93 60 07/19/16 10:00 120 20 126/66 93 Mechanical Ventilator 70.00 07/19/16 09:00 129 20 132/64 95 Mechanical Ventilator 70.00 07/19/16 08:33 98.8 I & O 07/20/16 07:00 Intake Total 4732 ml Output Total 2300 ml Balance 2432 ml Capillary Refill : General Appearance: Other (sedated on ventilator) Respiratory: Decreased Breath Sounds Rales Cardiovascular: Systolic Murmur Gallop/S3 Tachycardia Gastrointestinal: normal bowel sounds soft Extremity: Pedal Edema Swelling Other (SCDs in place) Neurologic/Psychiatric: Other (sedated on ventilator) Results Lab Laboratory Tests 07/19/16 11:49: Glucometer 182H 07/19/16 15:55: Alanine Aminotransferase (ALT/SGPT) 138H, Albumin 2.8L, Alkaline Phosphatase 131 , Drew Test NA, Anion Gap 10, Arterial Blood Base Excess 8.0H, Arterial Blood HCO3 33H, Arterial Blood Oxygen Saturation 93L, Arterial Blood Partial Pressure CO2 51H, Arterial Blood Partial Pressure O2 68L, Arterial Blood Total CO2 34.7H , Arterial Blood pH 7.43, Aspartate Amino Transf (AST/SGOT) 98H, BUN/Creatinine Ratio 37, Blood Gas Inspired Oxygen 60%, Blood Gas Patient Temperature 99.8, Blood Gas Puncture Site ARTLINE, Blood Gas Ventilator Setting YES, Blood Urea Nitrogen 25H, Calcium Level 7.9L, Carbon Dioxide Level 32, Chloride Level 106, Creatinine 0.67, Estimat Glomerular Filtration Rate > 60, Glucose Level 195H, Magnesium Level 2.3, Phosphorus Level 2.3, Potassium Level 3.4L, Sodium Level 148H, Total Bilirubin 1.1H, Total Protein 5.6L 07/19/16 17:54: Glucometer 212H 07/20/16 00:10: Glucometer 204H 07/20/16 04:10: Activated Partial Thromboplast Time 22L, Alanine Aminotransferase (ALT/SGPT) 128H, Albumin 2.7L, Alkaline Phosphatase 123, Drew Test ART LINE, Anion Gap 12 , Arterial Blood Base Excess 8.7H, Arterial Blood HCO3 34H, Arterial Blood Oxygen Saturation 96, Arterial Blood Partial Pressure CO2 51H, Arterial Blood Partial Pressure O2 80, Arterial Blood Total CO2 35.5H, Arterial Blood pH 7.44H , Aspartate Amino Transf (AST/SGOT) 113H, BUN/Creatinine Ratio 40, Basophils # ( Auto) 0.1, Basophils (%) (Auto) 0, Blood Gas Inspired Oxygen 50%, Blood Gas Patient Temperature 99.0, Blood Gas Puncture Site LEFT ISABEL, Blood Gas Ventilator Setting YES, Blood Urea Nitrogen 27H, Calcium Level 7.9L, Carbon Dioxide Level 29, Chloride Level 105, Creatinine 0.67, Eosinophils # (Auto) 0.0 , Eosinophils (%) (Auto) 0, Estimat Glomerular Filtration Rate > 60, Glucose Level 180H, Hematocrit 32L, Hemoglobin 10.3L, INR Comment 1.1, Lymphocytes # ( Auto) 1.6, Lymphocytes (%) (Auto) 7L, Magnesium Level 2.3, Mean Corpuscular Hemoglobin 32, Mean Corpuscular Hemoglobin Concent 32, Mean Corpuscular Volume 99, Mean Platelet Volume 10.3, Monocytes # (Auto) 0.7, Monocytes (%) (Auto) 3, Neutrophils # (Auto) 19.6H, Neutrophils (%) (Auto) 89H, Phosphorus Level 2.3, Platelet Count 192, Potassium Level 3.9, Prothrombin Time 13.8, Red Blood Count 3.21L, Red Cell Distribution Width 13.5, Sodium Level 146H, Total Bilirubin 1.0 , Total Protein 5.3L, White Blood Count 22.0H Microbiology 07/18/16 Blood Culture - Preliminary, Resulted No growth 07/14/16 Gram Stain - Final, Complete 07/14/16 Sputum Culture - Final, Complete Usual/normal karissa isolated. 07/14/16 Urine Culture - Final, Complete Yeast Species Assessment/Plan Assessment/Plan Assess & Plan/Chief Complaint 1. Pneumonia with Sepsis--growing out Strep pneumo so back on triple therapy abx but WBC count increasing 2. Acute Respiratory Failure with ARDs--on ventilator 3. Septic Shock--improved off all pressors and IVF rate decreased 4. Acute Renal Failure--creatinine improved 5. Metabolic Acidosis--improved Diagnosis/Problems: Clinical Quality Measures DVT/VTE Risk/Contraindication: Risk Factor Score Per Nursin RFS Level Per Nursing on Admit: 3=High KINDRA RHODES DO Jul 20, 2016 8:20 am
--- NOTE | 2016-07-20 08:59 | Diagnostic Imaging Report ---
INDICATION: Sepsis, pneumonia, and respiratory failure. TECHNIQUE: A frontal chest was obtained at 0542 hours. COMPARISON: 07/19/2016. FINDINGS: The ET tube, NG tube, and right-sided central catheter are all unchanged. Extensive patchy bilateral infiltrates are again noted throughout both lungs which appear similar to the prior study. There is no pneumothorax or pleural fluid. IMPRESSION: Stable life-support lines. Unchanged diffuse extensive bilateral infiltrates. No pneumothorax or pleural fluid. Dictated by: Dictated on workstation # [id number]
[2016-07-20] MEDS: meTOprolol TARTRATE 50 MG (LOPRESSOR) TAB NG SCH ×2 (09:08→21:04)
[2016-07-20] MEDS: lisINopril 20 MG (ZESTRIL) TAB PO SCH (09:08)
[2016-07-20] MEDS: VANCOMYCIN 1250 MG/NS 250 ML IVPB IV SCH ×4 (09:08→21:05)
[2016-07-20] MEDS: FAMOTIDINE 20MG/2ML IV (PEPCID) IVP SCH ×2 (09:08→21:05)
[2016-07-20 11:18] LABS: ABG BASE EXCESS 8.7 MMOL/L (-2.5-2.5); ABG HCO3 34 MMOL/L (23-27); ABG OXYGEN SATURATION 92 % (94-100); ABG PCO2 49 MMHG (35-45); ABG PH 7.45 (7.37-7.43); ABG PO2 60 MMHG (79-93); ABG TCO2 35.4 MMOL/L (21.0-31.0)
[2016-07-20 11:20] LABS: ALLENS TEST ART LINE; PATIENT TEMP 98.3
[2016-07-20] MEDS: D5W IV SCH (15:03)
[2016-07-20] MEDS: POTASSIUM CHLORIDE IV SCH (15:03)
[2016-07-20] MEDS: morphine INJ 4 MG/ML 1 ML (VIAL/SYRINGE) IVP PRN (18:30)
[2016-07-20] MEDS: ENOXAPARIN 40 MG/0.4 ML (LOVENOX) SYR SC SCH (21:04)
[2016-07-20] MEDS: ONDANSETRON 4 MG/2 ML (SDV) Z0FRAN IVP PRN (21:12)
[2016-07-21] VITALS (54 sets, daily range): BP systolic 101–185; BP diastolic 44–149
[2016-07-21] MEDS: methylPREDNISolone 40 MG/ML (Solu-MEDROL) VIAL IV SCH ×4 (01:53→20:57)
[2016-07-21] MEDS: MEROPENEM 500 MG in NORMAL SALINE (BAXTER MINI) 100 ML IV SCH ×4 (01:54→20:56)
[2016-07-21] MEDS: RT-ALBUTEROL/IPRATROPIUM 3 ML (DUONEB) VIAL INH SCH ×6 (02:17→21:32)
[2016-07-21] MEDS: DEXMEDETOMIDINE PRE-MIX 100 ML IV SCH ×6 (03:02→22:39)
[2016-07-21 03:59] LABS: PROTHROMBIN TIME PATIENT 13.1 SEC (12.2-14.7)
[2016-07-21 04:04] LABS: BASOPHILS # (AUTO) 0.1 10^3/uL (0.0-0.1); BASOPHILS % (AUTO) 0 % (0-10); EOSINOPHILS % (AUTO) 0 % (0-10); LYMPHOCYTES % (AUTO) 6 % (12-44); MEAN CORPUSCULAR HEMOGLOBIN 32 PG (25-34); MEAN CORPUSCULAR HGB CONC 32 G/DL (32-36); MEAN CORPUSCULAR VOLUME 99 FL (80-99); MEAN PLATELET VOLUME 10.6 FL (7.4-10.4); MONOCYTES # (AUTO) 0.4 X 10^3 (0.0-1.0); MONOCYTES % (AUTO) 2 % (0-12); NEUTROPHILS # (AUTO) 17.4 X 10^3 (1.8-7.8); NEUTROPHILS % (AUTO) 92 % (42-75); PLATELET COUNT 210 10^3/uL (130-400); RED BLOOD COUNT 3.29 10^6/uL (4.35-5.85); RED CELL DISTRIBUTION WIDTH 13.4 % (10.0-14.5); WHITE BLOOD COUNT 18.9 10^3/uL (4.3-11.0)
[2016-07-21 04:10] LABS: ALANINE AMINOTRANSFERASE 131 U/L (0-55); ALBUMIN 2.6 G/DL (3.2-4.5); ANION GAP 11 MMOL/L (5-14); ASPARTATE AMINO TRANSFERASE 93 U/L (5-34); BILIRUBIN,TOTAL 0.7 MG/DL (0.1-1.0); BLOOD UREA NITROGEN 30 MG/DL (7-18); BUN/CREATININE RATIO 45; CALCIUM 7.9 MG/DL (8.5-10.1); CARBON DIOXIDE 28 MMOL/L (21-32); CHLORIDE 104 MMOL/L (98-107); CREATININE SERUM 0.66 MG/DL (0.60-1.30); GFR ESTIMATED > 60; GLUCOSE 164 MG/DL (70-105); MAGNESIUM 2.2 MG/DL (1.8-2.4); PHOSPHORUS 3.1 MG/DL (2.3-4.7); POTASSIUM 4.2 MMOL/L (3.6-5.0); SODIUM 143 MMOL/L (135-145); TOTAL PROTEIN 5.2 G/DL (6.4-8.2)
[2016-07-21] MEDS: POTASSIUM CL 10MEQ/50ML IVPB 50 ML IV SCH (04:48)
[2016-07-21] MEDS: MAGNESIUM 1 GM/100 ML IVPB 100 ML IV SCH (04:49)
[2016-07-21] MEDS: KCL 20 MEQ TAB (K-DUR) PO SCH ×2 (04:49)
[2016-07-21] MEDS: LEVOFLOXACIN 750 MG/150 ML IV 150 ML IV SCH (06:01)
[2016-07-21] MEDS: inSUlin (REGULAR) HUMAN 1 UNIT/0.01 ML (CHARGE PER UNIT) SC SCH ×4 (06:01→23:49)
[2016-07-21 06:28] LABS: ABG BASE EXCESS 6.1 MMOL/L (-2.5-2.5); ABG HCO3 31 MMOL/L (23-27); ABG OXYGEN SATURATION 99 % (94-100); ABG PCO2 45 MMHG (35-45); ABG PH 7.45 (7.37-7.43); ABG PO2 114 MMHG (79-93); ABG TCO2 32.3 MMOL/L (21.0-31.0)
[2016-07-21 06:30] LABS: ALLENS TEST ART LINE; PATIENT TEMP 98.1
[2016-07-21] MEDS ORDERED: FUROSEMIDE 40 MG/4 ML INJ (LASIX) ONE (06:43)
[2016-07-21] MEDS: hydrALAZINE (APESOLINE) 20 MG/ML VIAL IV PRN ×2 (06:56→20:57)
[2016-07-21] MEDS ORDERED: FUROSEMIDE 40 MG/4 ML INJ (LASIX) IVP ONE (07:00)
--- NOTE | 2016-07-21 07:41 | Pulmonary Progress Note ---
Subjective Subjective/Events-last exam PT is looking much better today. She is tolerating being off Diprivan Exam Exam Vital Signs Date Time Temp Pulse Resp B/P Pulse Ox O2 Delivery O2 Flow Rate FiO2 07/21/16 07:08 96 07/21/16 06:30 75 23 172/69 98 Mechanical Ventilator 40.00 07/21/16 06:15 84 12 158/67 97 Mechanical Ventilator 40.00 07/21/16 06:03 84 29 97 40 07/21/16 06:00 85 13 150/63 97 Mechanical Ventilator 40.00 07/21/16 05:45 86 12 151/64 97 Mechanical Ventilator 40.00 07/21/16 05:30 89 22 156/65 96 Mechanical Ventilator 40.00 07/21/16 05:15 97 11 155/68 96 Mechanical Ventilator 40.00 07/21/16 05:00 81 14 125/48 96 Mechanical Ventilator 40.00 07/21/16 04:45 93 12 120/45 96 Mechanical Ventilator 40.00 07/21/16 04:30 98 14 126/50 96 Mechanical Ventilator 40.00 07/21/16 04:18 78 25 96 40 07/21/16 04:15 100 21 137/51 95 Mechanical Ventilator 40.00 07/21/16 04:00 96 Mechanical Ventilator 40.00 07/21/16 04:00 100 14 139/52 95 Mechanical Ventilator 40.00 07/21/16 04:00 98.7 07/21/16 03:45 96 14 135/54 94 Mechanical Ventilator 40.00 07/21/16 03:30 103 19 154/62 94 Mechanical Ventilator 40.00 07/21/16 03:15 102 20 156/63 95 Mechanical Ventilator 40.00 07/21/16 03:02 111 07/21/16 03:00 81 12 139/55 96 Mechanical Ventilator 40.00 07/21/16 02:45 82 11 137/53 96 Mechanical Ventilator 40.00 07/21/16 02:30 81 18 131/50 97 Mechanical Ventilator 40.00 07/21/16 02:17 80 33 96 40 07/21/16 02:15 80 12 133/53 96 Mechanical Ventilator 40.00 07/21/16 02:00 78 10 131/52 96 Mechanical Ventilator 40.00 07/21/16 01:45 82 12 130/51 96 Mechanical Ventilator 40.00 07/21/16 01:30 82 16 127/50 96 Mechanical Ventilator 40.00 07/21/16 01:15 84 12 122/48 96 Mechanical Ventilator 40.00 07/21/16 01:00 88 07/21/16 01:00 88 14 119/46 96 Mechanical Ventilator 40.00 07/21/16 00:45 89 13 123/49 96 Mechanical Ventilator 40.00 07/21/16 00:41 87 27 95 40 07/21/16 00:38 98.6 07/21/16 00:30 98 12 119/51 95 Mechanical Ventilator 40.00 07/21/16 00:15 94 13 123/50 95 Mechanical Ventilator 40.00 07/21/16 00:00 95 Mechanical Ventilator 40.00 07/21/16 00:00 98 12 126/52 95 Mechanical Ventilator 40.00 07/21/16 00:00 98.9 07/20/16 23:47 98.6 07/20/16 23:45 96 11 131/50 94 Mechanical Ventilator 40.00 07/20/16 23:30 98 14 136/55 94 Mechanical Ventilator 40.00 07/20/16 23:15 113 23 161/69 94 Mechanical Ventilator 40.00 07/20/16 23:00 98 13 124/56 95 Mechanical Ventilator 40.00 07/20/16 22:45 104 9 120/54 95 Mechanical Ventilator 40.00 07/20/16 22:30 84 25 133/66 94 Mechanical Ventilator 40.00 07/20/16 22:30 90 27 94 40 07/20/16 22:15 96 14 116/51 96 Mechanical Ventilator 40.00 07/20/16 22:00 99 14 109/50 96 Mechanical Ventilator 40.00 07/20/16 21:57 100 07/20/16 21:45 102 16 112/52 95 Mechanical Ventilator 40.00 07/20/16 21:30 103 16 128/56 95 Mechanical Ventilator 40.00 07/20/16 21:15 98 15 176/69 96 Mechanical Ventilator 40.00 07/20/16 21:00 85 13 177/74 95 Mechanical Ventilator 40.00 07/20/16 20:45 87 16 174/72 94 Mechanical Ventilator 40.00 07/20/16 20:30 84 14 167/68 94 Mechanical Ventilator 40.00 07/20/16 20:17 90 31 95 40 07/20/16 20:15 104 23 196/85 95 Mechanical Ventilator 40.00 07/20/16 20:00 84 12 173/76 94 Mechanical Ventilator 40.00 07/20/16 20:00 95 Mechanical Ventilator 40.00 07/20/16 19:45 84 12 170/71 95 Mechanical Ventilator 40.00 07/20/16 19:31 99.1 83 12 178/72 Mechanical Ventilator 40.00 07/20/16 19:15 80 12 171/72 95 Mechanical Ventilator 40.00 07/20/16 19:00 80 07/20/16 19:00 80 13 174/74 95 Mechanical Ventilator 40.00 07/20/16 18:53 78 32 95 40 07/20/16 18:00 80 15 174/72 94 Mechanical Ventilator 40.00 07/20/16 17:14 168/71 07/20/16 17:14 78 07/20/16 17:00 75 16 171/72 94 Mechanical Ventilator 40.00 07/20/16 16:52 76 34 94 40 07/20/16 16:00 91 Mechanical Ventilator 40.00 07/20/16 16:00 78 17 158/66 94 Mechanical Ventilator 40.00 07/20/16 16:00 98.7 07/20/16 15:00 89 20 153/66 94 Mechanical Ventilator 40.00 07/20/16 14:12 74 34 94 40 07/20/16 14:00 76 24 136/58 93 Mechanical Ventilator 40.00 07/20/16 13:00 104 07/20/16 13:00 98 23 180/67 92 Mechanical Ventilator 40.00 07/20/16 12:23 168/80 07/20/16 12:03 111 28 92 40 07/20/16 12:00 108 25 214/75 92 Mechanical Ventilator 40.00 07/20/16 11:13 91 Mechanical Ventilator 40.00 07/20/16 11:13 98.3 07/20/16 11:00 87 21 183/64 92 Mechanical Ventilator 40.00 07/20/16 10:37 79 23 91 40 07/20/16 10:30 185/65 07/20/16 10:00 108 23 211/72 92 Mechanical Ventilator 40.00 07/20/16 09:00 109 26 202/71 91 Mechanical Ventilator 40.00 07/20/16 08:30 105 23 91 40 07/20/16 08:00 91 Mechanical Ventilator 40.00 07/20/16 08:00 121 39 182/66 89 Mechanical Ventilator 40.00 07/20/16 08:00 99.2 91 Mechanical Ventilator 40.00 I & O 07/21/16 07:00 Intake Total 1202.5 ml Output Total 3200 ml Balance -1997.5 ml General Appearance: Other (sedated on ventilator) HEENT: Pharyngeal Erythema Neck: Supple Respiratory: Decreased Breath Sounds Rales Cardiovascular: Systolic Murmur Gallop/S3 Tachycardia Gastrointestinal: normal bowel sounds soft Extremity: Pedal Edema Swelling Other (SCDs in place) Neurologic/Psychiatric: Other (sedated on ventilator) Skin: Warm/Dry Pallor Results Lab Laboratory Tests 07/19/16 15:55 07/20/16 04:10 07/21/16 03:45 Assessment/Plan Assessment/Plan Acute respiratory distress with ARDS Pa02/Fi02 = 285 ARDS IS NOW MUCH IMPROVED -Continue ventilator support -- Continue volume control ventilation -Decrease PEEP to 10 -HOLD OFF ON TRACHEOSTOMY -NO LANDMARK CONSULT AT THIS TIME Severe sepsis with Strep pneumonia - Jolynn Serna Merrem -Repan culture neg thus far pulmonary edema - IVF 50cc/hr with d5w -continue lasix Hypernatremia - RESOLVED - IVF D5 W -250cc of free water per OG Q 6hrs Anemia with thrombocytopenia - improving metabolic acidosis with lactic acidosis -- RESOLVED -D/C bicarb gtt Septic shock r/o DIC -RESOLVED -Levophed and vasopressin --- Now D/C 'd - central line CVP 12 , arterial line - solumedrol Acute renal failure -IVF shock liver -- improving -monitor Tobacco use Clinical Quality Measures DVT/VTE Risk/Contraindication: Risk Factor Score Per Nursin RFS Level Per Nursing on Admit: 3=High KIKO FREED DO Jul 21, 2016 07:41
--- NOTE | 2016-07-21 08:51 | Diagnostic Imaging Report ---
INDICATION: Respiratory failure and sepsis. Frontal chest obtained at 5:14 a.m. and compared with yesterday. FINDINGS: ET tube and NG tube and right IJ catheter are unchanged. Extensive patchy bilateral infiltrates are again noted and appears similar to the prior study. There is no pneumothorax or pleural fluid collection. IMPRESSION: Extensive patchy bilateral infiltrates are present and unchanged. Life-support lines are stable. No new abnormality. Dictated by: Dictated on workstation # [id number]
[2016-07-21] MEDS: meTOprolol TARTRATE 50 MG (LOPRESSOR) TAB NG SCH ×2 (09:29→20:57)
[2016-07-21] MEDS: lisINopril 20 MG (ZESTRIL) TAB PO SCH (09:29)
[2016-07-21] MEDS: FAMOTIDINE 20MG/2ML IV (PEPCID) IVP SCH ×2 (09:29→20:57)
[2016-07-21] MEDS: VANCOMYCIN 1250 MG/NS 250 ML IVPB IV SCH ×4 (09:29→20:56)
[2016-07-21] MEDS: D5W IV SCH (12:34)
[2016-07-21] MEDS: POTASSIUM CHLORIDE IV SCH (12:34)
[2016-07-21] MEDS: fentaNYL INJECTION 100 MCG/2 ML AMP IVP PRN ×4 (12:47→22:53)
[2016-07-21] MEDS: morphine INJ 4 MG/ML 1 ML (VIAL/SYRINGE) IVP PRN (17:13)
--- NOTE | 2016-07-21 18:32 | Progress Note (SOAP) ---
Subjective Subjective/Events-last exam Fwup respiratory failure, pneumonia with Strep pneumo sepsis, septic shock with hypotension/renal failure and elevated LFTs. Patient much better this AM--off diprivan with eyes open and nodding head to questions. PEEP down to 10. Objective Exam Vital Signs Date Time Temp Pulse Resp B/P Pulse Ox O2 Delivery O2 Flow Rate FiO2 07/21/16 16:32 86 25 97 40 07/21/16 16:03 98.3 07/21/16 16:03 95 Mechanical Ventilator 40.00 07/21/16 15:22 95 07/21/16 14:44 80 25 97 40 07/21/16 13:00 82 07/21/16 12:33 82 25 93 40 07/21/16 12:00 97.2 07/21/16 12:00 95 Mechanical Ventilator 40.00 07/21/16 10:47 95 147/58 07/21/16 10:13 89 25 97 40 07/21/16 08:30 95 Mechanical Ventilator 40.00 07/21/16 08:30 97.5 07/21/16 08:14 98 25 96 40 07/21/16 07:08 96 07/21/16 07:00 98 07/21/16 06:30 75 23 172/69 98 Mechanical Ventilator 40.00 07/21/16 06:15 84 12 158/67 97 Mechanical Ventilator 40.00 07/21/16 06:03 84 29 97 40 07/21/16 06:00 85 13 150/63 97 Mechanical Ventilator 40.00 07/21/16 05:45 86 12 151/64 97 Mechanical Ventilator 40.00 07/21/16 05:30 89 22 156/65 96 Mechanical Ventilator 40.00 07/21/16 05:15 97 11 155/68 96 Mechanical Ventilator 40.00 07/21/16 05:00 81 14 125/48 96 Mechanical Ventilator 40.00 07/21/16 04:45 93 12 120/45 96 Mechanical Ventilator 40.00 07/21/16 04:30 98 14 126/50 96 Mechanical Ventilator 40.00 07/21/16 04:18 78 25 96 40 07/21/16 04:15 100 21 137/51 95 Mechanical Ventilator 40.00 07/21/16 04:00 96 Mechanical Ventilator 40.00 07/21/16 04:00 100 14 139/52 95 Mechanical Ventilator 40.00 07/21/16 04:00 98.7 07/21/16 03:45 96 14 135/54 94 Mechanical Ventilator 40.00 07/21/16 03:30 103 19 154/62 94 Mechanical Ventilator 40.00 07/21/16 03:15 102 20 156/63 95 Mechanical Ventilator 40.00 07/21/16 03:02 111 07/21/16 03:00 81 12 139/55 96 Mechanical Ventilator 40.00 07/21/16 02:45 82 11 137/53 96 Mechanical Ventilator 40.00 07/21/16 02:30 81 18 131/50 97 Mechanical Ventilator 40.00 07/21/16 02:17 80 33 96 40 07/21/16 02:15 80 12 133/53 96 Mechanical Ventilator 40.00 07/21/16 02:00 78 10 131/52 96 Mechanical Ventilator 40.00 07/21/16 01:45 82 12 130/51 96 Mechanical Ventilator 40.00 07/21/16 01:30 82 16 127/50 96 Mechanical Ventilator 40.00 07/21/16 01:15 84 12 122/48 96 Mechanical Ventilator 40.00 07/21/16 01:00 88 07/21/16 01:00 88 14 119/46 96 Mechanical Ventilator 40.00 07/21/16 00:45 89 13 123/49 96 Mechanical Ventilator 40.00 07/21/16 00:41 87 27 95 40 07/21/16 00:38 98.6 07/21/16 00:30 98 12 119/51 95 Mechanical Ventilator 40.00 07/21/16 00:15 94 13 123/50 95 Mechanical Ventilator 40.00 07/21/16 00:00 95 Mechanical Ventilator 40.00 07/21/16 00:00 98 12 126/52 95 Mechanical Ventilator 40.00 07/21/16 00:00 98.9 07/20/16 23:47 98.6 07/20/16 23:45 96 11 131/50 94 Mechanical Ventilator 40.00 07/20/16 23:30 98 14 136/55 94 Mechanical Ventilator 40.00 07/20/16 23:15 113 23 161/69 94 Mechanical Ventilator 40.00 07/20/16 23:00 98 13 124/56 95 Mechanical Ventilator 40.00 07/20/16 22:45 104 9 120/54 95 Mechanical Ventilator 40.00 07/20/16 22:30 84 25 133/66 94 Mechanical Ventilator 40.00 07/20/16 22:30 90 27 94 40 07/20/16 22:15 96 14 116/51 96 Mechanical Ventilator 40.00 07/20/16 22:00 99 14 109/50 96 Mechanical Ventilator 40.00 07/20/16 21:57 100 07/20/16 21:45 102 16 112/52 95 Mechanical Ventilator 40.00 07/20/16 21:30 103 16 128/56 95 Mechanical Ventilator 40.00 07/20/16 21:15 98 15 176/69 96 Mechanical Ventilator 40.00 07/20/16 21:00 85 13 177/74 95 Mechanical Ventilator 40.00 07/20/16 20:45 87 16 174/72 94 Mechanical Ventilator 40.00 07/20/16 20:30 84 14 167/68 94 Mechanical Ventilator 40.00 07/20/16 20:17 90 31 95 40 07/20/16 20:15 104 23 196/85 95 Mechanical Ventilator 40.00 07/20/16 20:00 84 12 173/76 94 Mechanical Ventilator 40.00 07/20/16 20:00 95 Mechanical Ventilator 40.00 07/20/16 19:45 84 12 170/71 95 Mechanical Ventilator 40.00 07/20/16 19:31 99.1 83 12 178/72 Mechanical Ventilator 40.00 07/20/16 19:15 80 12 171/72 95 Mechanical Ventilator 40.00 07/20/16 19:00 80 07/20/16 19:00 80 13 174/74 95 Mechanical Ventilator 40.00 07/20/16 18:53 78 32 95 40 I & O 07/21/16 07:00 Intake Total 1202.5 ml Output Total 3200 ml Balance -1997.5 ml Capillary Refill : General Appearance: Other (on ventilator but opens eyes and understands questions and not agitated) Neck: Supple Respiratory: Lungs Clear Cardiovascular: Systolic Murmur Gallop/S3 Tachycardia Gastrointestinal: normal bowel sounds non tender soft Extremity: Non Tender No Calf Tenderness Swelling Neurologic/Psychiatric: Alert (eyes open this AM and comprehending questions) Other (on ventilator) Results Lab Laboratory Tests 07/20/16 18:38: Glucometer 174H 07/20/16 23:39: Glucometer 169H 07/21/16 03:45: Activated Partial Thromboplast Time 21L, Alanine Aminotransferase (ALT/SGPT) 131H, Albumin 2.6L, Alkaline Phosphatase 113, Anion Gap 11, Aspartate Amino Transf (AST/SGOT) 93H, BUN/Creatinine Ratio 45, Basophils # (Auto) 0.1, Basophils (%) (Auto) 0, Blood Urea Nitrogen 30H, Calcium Level 7.9L, Carbon Dioxide Level 28, Chloride Level 104, Creatinine 0.66, Eosinophils # (Auto) 0.0 , Eosinophils (%) (Auto) 0, Estimat Glomerular Filtration Rate > 60, Glucose Level 164H, Hematocrit 33L, Hemoglobin 10.5L, INR Comment 1.0, Lymphocytes # ( Auto) 1.0, Lymphocytes (%) (Auto) 6L, Magnesium Level 2.2, Mean Corpuscular Hemoglobin 32, Mean Corpuscular Hemoglobin Concent 32, Mean Corpuscular Volume 99, Mean Platelet Volume 10.6H, Monocytes # (Auto) 0.4, Monocytes (%) (Auto) 2, Neutrophils # (Auto) 17.4H, Neutrophils (%) (Auto) 92H, Phosphorus Level 3.1, Platelet Count 210, Potassium Level 4.2, Prothrombin Time 13.1, Red Blood Count 3.29L, Red Cell Distribution Width 13.4, Sodium Level 143, Total Bilirubin 0.7, Total Protein 5.2L, White Blood Count 18.9H 07/21/16 06:25: Drew Test ART LINE, Arterial Blood Base Excess 6.1H, Arterial Blood HCO3 31H, Arterial Blood Oxygen Saturation 99, Arterial Blood Partial Pressure CO2 45, Arterial Blood Partial Pressure O2 114H, Arterial Blood Total CO2 32.3H, Arterial Blood pH 7.45H, Blood Gas Inspired Oxygen 40%, Blood Gas Patient Temperature 98.1, Blood Gas Puncture Site LEFT ISABEL, Blood Gas Ventilator Setting YES 07/21/16 12:41: Glucometer 207H Microbiology 07/18/16 Blood Culture - Preliminary, Resulted No growth 07/14/16 Gram Stain - Final, Complete 07/14/16 Sputum Culture - Final, Complete Usual/normal karissa isolated. 07/14/16 Urine Culture - Final, Complete Yeast Species Assessment/Plan Assessment/Plan Assess & Plan/Chief Complaint 1. Pneumonia with Sepsis--growing out Strep pneumo so back on triple therapy abx and recultures negative so far 2. Acute Respiratory Failure with ARDs--on ventilator but much improved this AM 3. Septic Shock--improved off all pressors and IVF rate decreased 4. Acute Renal Failure--creatinine improved 5. Metabolic Acidosis--improved 6. Pulmonary Edema--on Lasix 7. Much better prognosis so as per pulmonology going to hold on trach Diagnosis/Problems: Clinical Quality Measures DVT/VTE Risk/Contraindication: Risk Factor Score Per Nursin RFS Level Per Nursing on Admit: 3=High KINDRA RHODES DO Jul 21, 2016 6:32 pm
[2016-07-21] MEDS: ONDANSETRON 4 MG/2 ML (SDV) Z0FRAN IVP PRN (20:56)
[2016-07-21] MEDS: ENOXAPARIN 40 MG/0.4 ML (LOVENOX) SYR SC SCH (20:57)
[2016-07-22] VITALS (31 sets, daily range): BP systolic 137–232; BP diastolic 47–80
[2016-07-22] MEDS: PROPOFOL DRIP (ICU) 100 ML IV SCH (01:25)
[2016-07-22] MEDS: RT-ALBUTEROL/IPRATROPIUM 3 ML (DUONEB) VIAL INH SCH ×6 (01:50→22:31)
[2016-07-22] MEDS: DEXMEDETOMIDINE PRE-MIX 100 ML IV SCH ×2 (02:09→05:08)
[2016-07-22] MEDS: methylPREDNISolone 40 MG/ML (Solu-MEDROL) VIAL IV SCH ×4 (02:15→20:16)
[2016-07-22] MEDS: MEROPENEM 500 MG in NORMAL SALINE (BAXTER MINI) 100 ML IV SCH ×4 (02:16→20:15)
[2016-07-22 03:58] LABS: ABG HCO3 29 MMOL/L (23-27); ABG OXYGEN SATURATION 97 % (94-100); ABG PCO2 44 MMHG (35-45); ABG PH 7.43 (7.37-7.43); ABG PO2 81 MMHG (79-93)
[2016-07-22 03:59] LABS: ALLENS TEST ART LINE; PATIENT TEMP 98.9
[2016-07-22 04:04] LABS: BASOPHILS % (AUTO) 0 % (0-10); EOSINOPHILS % (AUTO) 0 % (0-10); LYMPHOCYTES # (AUTO) 0.6 X 10^3 (1.0-4.0); LYMPHOCYTES % (AUTO) 4 % (12-44); MEAN CORPUSCULAR HEMOGLOBIN 32 PG (25-34); MEAN CORPUSCULAR HGB CONC 33 G/DL (32-36); MEAN CORPUSCULAR VOLUME 99 FL (80-99); MEAN PLATELET VOLUME 10.6 FL (7.4-10.4); MONOCYTES # (AUTO) 0.4 X 10^3 (0.0-1.0); MONOCYTES % (AUTO) 3 % (0-12); NEUTROPHILS # (AUTO) 12.5 X 10^3 (1.8-7.8); NEUTROPHILS % (AUTO) 92 % (42-75); PLATELET COUNT 222 10^3/uL (130-400); RED BLOOD COUNT 3.22 10^6/uL (4.35-5.85); RED CELL DISTRIBUTION WIDTH 13.2 % (10.0-14.5); WHITE BLOOD COUNT 13.6 10^3/uL (4.3-11.0)
[2016-07-22 04:15] LABS: INR 1.1 (0.8-1.4)
[2016-07-22 04:25] LABS: PROTHROMBIN TIME PATIENT 13.5 SEC (12.2-14.7)
[2016-07-22 04:26] LABS: ALANINE AMINOTRANSFERASE 126 U/L (0-55); ALBUMIN 2.5 G/DL (3.2-4.5); ANION GAP 8 MMOL/L (5-14); ASPARTATE AMINO TRANSFERASE 86 U/L (5-34); BILIRUBIN,TOTAL 0.5 MG/DL (0.1-1.0); BLOOD UREA NITROGEN 30 MG/DL (7-18); BUN/CREATININE RATIO 54; CALCIUM 7.7 MG/DL (8.5-10.1); CARBON DIOXIDE 26 MMOL/L (21-32); CHLORIDE 106 MMOL/L (98-107); CREATININE SERUM 0.56 MG/DL (0.60-1.30); GFR ESTIMATED > 60; GLUCOSE 168 MG/DL (70-105); POTASSIUM 4.4 MMOL/L (3.6-5.0); SODIUM 140 MMOL/L (135-145); TOTAL PROTEIN 4.7 G/DL (6.4-8.2)
[2016-07-22] MEDS: hydrALAZINE (APESOLINE) 20 MG/ML VIAL IV PRN ×3 (04:31→16:42)
[2016-07-22] MEDS: morphine INJ 4 MG/ML 1 ML (VIAL/SYRINGE) IVP PRN ×3 (04:32→20:16)
[2016-07-22] MEDS: POTASSIUM CL 10MEQ/50ML IVPB 50 ML IV SCH (04:33)
[2016-07-22] MEDS: KCL 20 MEQ TAB (K-DUR) PO SCH ×2 (04:33)
[2016-07-22 04:50] LABS: ANION GAP 8 MMOL/L (5-14); BLOOD UREA NITROGEN 30 MG/DL (7-18); BUN/CREATININE RATIO 53; CALCIUM 7.7 MG/DL (8.5-10.1); CARBON DIOXIDE 26 MMOL/L (21-32); CHLORIDE 105 MMOL/L (98-107); CREATININE SERUM 0.57 MG/DL (0.60-1.30); GFR ESTIMATED > 60; GLUCOSE 168 MG/DL (70-105); MAGNESIUM 2.1 MG/DL (1.8-2.4); PHOSPHORUS 3.6 MG/DL (2.3-4.7); POTASSIUM 4.4 MMOL/L (3.6-5.0); SODIUM 139 MMOL/L (135-145)
[2016-07-22] MEDS: MAGNESIUM 1 GM/100 ML IVPB 100 ML IV SCH (05:13)
[2016-07-22] MEDS: inSUlin (REGULAR) HUMAN 1 UNIT/0.01 ML (CHARGE PER UNIT) SC SCH ×3 (06:12→18:35)
[2016-07-22] MEDS ORDERED: FUROSEMIDE 40 MG/4 ML INJ (LASIX) IVP ONE (06:45)
--- NOTE | 2016-07-22 06:49 | Pulmonary Progress Note ---
Subjective Subjective/Events-last exam Pt is looking very good today. Will attempt ventilator weaning Exam Exam Vital Signs Date Time Temp Pulse Resp B/P Pulse Ox O2 Delivery O2 Flow Rate FiO2 07/22/16 06:00 75 15 137/54 94 Mechanical Ventilator 25.00 07/22/16 05:53 73 34 94 25 07/22/16 05:08 78 07/22/16 05:00 75 19 137/55 94 Mechanical Ventilator 25.00 07/22/16 04:10 66 32 95 25 07/22/16 04:00 69 13 173/69 95 Mechanical Ventilator 25.00 07/22/16 04:00 96 Mechanical Ventilator 30.00 07/22/16 03:00 82 16 144/61 94 Mechanical Ventilator 25.00 07/22/16 02:09 77 07/22/16 02:00 77 11 144/61 94 Mechanical Ventilator 25.00 07/22/16 01:55 75 16 146/63 94 Mechanical Ventilator 25.00 07/22/16 01:50 79 29 97 30 07/22/16 01:00 71 07/22/16 01:00 71 17 146/63 96 Mechanical Ventilator 30.00 07/22/16 00:09 79 24 140/60 96 Mechanical Ventilator 30.00 07/22/16 00:05 79 30 97 35 07/22/16 00:00 96 Mechanical Ventilator 30.00 07/22/16 00:00 98.7 80 11 137/59 97 Mechanical Ventilator 35.00 07/21/16 23:00 86 11 128/53 96 Mechanical Ventilator 35.00 07/21/16 22:39 80 07/21/16 22:00 89 14 101/47 96 Mechanical Ventilator 35.00 07/21/16 21:33 92 29 95 35 07/21/16 21:00 90 23 185/75 97 Mechanical Ventilator 35.00 07/21/16 20:00 96 Mechanical Ventilator 35.00 07/21/16 20:00 80 12 169/70 97 Mechanical Ventilator 35.00 07/21/16 19:47 Mechanical Ventilator 35.00 07/21/16 19:43 80 34 98 40 07/21/16 19:00 97.4 81 11 171/70 97 Mechanical Ventilator 40.00 07/21/16 19:00 84 07/21/16 18:57 84 07/21/16 18:30 80 35 97 40 07/21/16 18:00 85 12 /149 98 Mechanical Ventilator 40.00 07/21/16 17:00 90 15 130/55 97 Mechanical Ventilator 40.00 07/21/16 16:32 86 25 97 40 07/21/16 16:03 98.3 07/21/16 16:03 95 Mechanical Ventilator 40.00 07/21/16 16:00 85 14 131/59 94 Mechanical Ventilator 40.00 07/21/16 15:22 95 07/21/16 15:00 84 13 146/60 97 Mechanical Ventilator 40.00 07/21/16 14:44 80 25 97 40 07/21/16 14:00 81 13 157/69 97 Mechanical Ventilator 40.00 07/21/16 13:00 82 07/21/16 13:00 86 12 151/63 97 Mechanical Ventilator 40.00 07/21/16 12:33 82 25 93 40 07/21/16 12:00 97.2 07/21/16 12:00 95 Mechanical Ventilator 40.00 07/21/16 11:00 91 22 160/62 97 Mechanical Ventilator 40.00 07/21/16 10:47 95 147/58 07/21/16 10:13 89 25 97 40 07/21/16 10:00 92 19 116/44 97 Mechanical Ventilator 40.00 07/21/16 09:00 92 13 138/51 97 Mechanical Ventilator 40.00 07/21/16 08:30 95 Mechanical Ventilator 40.00 07/21/16 08:30 97.5 07/21/16 08:14 98 25 96 40 07/21/16 08:00 92 21 149/55 96 Mechanical Ventilator 40.00 07/21/16 07:08 96 07/21/16 07:00 98 07/21/16 07:00 96 15 158/63 97 Mechanical Ventilator 40.00 I & O 07/22/16 07:00 Intake Total 2895.5 ml Output Total 2675 ml Balance 220.5 ml General Appearance: No Apparent Distress WD/WN Other (on ventilator but opens eyes and understands questions and not agitated) HEENT: Pharyngeal Erythema Neck: Supple Respiratory: Lungs Clear Cardiovascular: Systolic Murmur Gallop/S3 Tachycardia Gastrointestinal: normal bowel sounds non tender soft Extremity: Non Tender No Calf Tenderness Swelling Neurologic/Psychiatric: Alert (eyes open this AM and comprehending questions) Other (on ventilator) Skin: Warm/Dry Pallor Results Lab Laboratory Tests 07/21/16 03:45 07/22/16 03:48 Assessment/Plan Assessment/Plan Acute respiratory distress with ARDS Pa02/Fi02 = 324 ARDS IS NOW RESOLVED -Will start weaning vent -Decrease PEEP to 5 and obtain weaning parameters -obtain weaning parameters -D/C fentanyl continue Precedex -NO LANDMARK CONSULT AT THIS TIME Severe sepsis with Strep pneumonia - Daphne Levaquin Merrem pulmonary edema - IVF 50cc/hr with d5w -continue lasix shock liver -- improving -monitor Tobacco use Hypernatremia - RESOLVED - IVF D5 W -250cc of free water per OG Q 6hrs Anemia with thrombocytopenia - RESOLVED metabolic acidosis with lactic acidosis -- RESOLVED -D/C bicarb gtt Septic shock r/o DIC -RESOLVED Acute renal failure - RESOLVED -IVF Hypotension - resolved Clinical Quality Measures DVT/VTE Risk/Contraindication: Risk Factor Score Per Nursin RFS Level Per Nursing on Admit: 3=High KIKO FREED DO Jul 22, 2016 06:49
[2016-07-22 07:40] LABS: ABG HCO3 30 MMOL/L (23-27); ABG OXYGEN SATURATION 96 % (94-100); ABG PCO2 41 MMHG (35-45); ABG PH 7.47 (7.37-7.43); ABG PO2 67 MMHG (79-93)
[2016-07-22 07:41] LABS: PATIENT TEMP 95.4
[2016-07-22] MEDS: FAMOTIDINE 20MG/2ML IV (PEPCID) IVP SCH ×2 (09:18→20:16)
[2016-07-22] MEDS: D5W IV SCH (09:18)
[2016-07-22] MEDS: POTASSIUM CHLORIDE IV SCH (09:18)
[2016-07-22] MEDS: VANCOMYCIN 1250 MG/NS 250 ML IVPB IV SCH ×4 (09:19→20:15)
--- NOTE | 2016-07-22 10:43 | Diagnostic Imaging Report ---
INDICATION: Mechanical ventilation. Severe sepsis. TECHNIQUE: Single view chest at 4:57 a.m. CORRELATION STUDY: 07/21/2016. FINDINGS: Endotracheal tube, gastric tube, and right IJ central line all remain in place. Heart size and mediastinum are generally stable. Vasculature does remain prominent, perhaps slightly increased. Scattered patchy airspace disease throughout both lung segal persists. This may be slightly more consolidated involving the right lung base and left upper lobe, otherwise perhaps minimally improved. IMPRESSION: 1. Stable support lines and tubes. Extensive patchy bilateral infiltrates do persist, perhaps very slightly more consolidated involving the right lung base as well as left upper lobe with remaining lung segal perhaps somewhat improved. Dictated by: Dictated on workstation # [id number]
[2016-07-22 11:55] LABS: ABG BASE EXCESS 4.9 MMOL/L (-2.5-2.5); ABG HCO3 29 MMOL/L (23-27); ABG OXYGEN SATURATION 96 % (94-100); ABG PCO2 40 MMHG (35-45); ABG PH 7.48 (7.37-7.43); ABG PO2 75 MMHG (79-93); ABG TCO2 30.1 MMOL/L (21.0-31.0)
[2016-07-22 11:56] LABS: ALLENS TEST POSITIVE; PATIENT TEMP 98.2
[2016-07-22] MEDS: lisINopril 20 MG (ZESTRIL) TAB PO SCH (12:42)
[2016-07-22] MEDS: meTOprolol TARTRATE 50 MG (LOPRESSOR) TAB NG SCH ×2 (12:42→20:16)
[2016-07-22] MEDS ORDERED: MEROPENEM 500 MG VIAL (MERREM) IV ONE (14:44)
[2016-07-22] MEDS ORDERED: NORMAL SALINE (BAXTER MINI) 100 ML IV ONE (14:45)
[2016-07-22] MEDS: ONDANSETRON 4 MG/2 ML (SDV) Z0FRAN IVP PRN ×2 (14:55→20:16)
[2016-07-22] MEDS: fentaNYL INJECTION 100 MCG/2 ML AMP IVP PRN (14:55)
[2016-07-22] MEDS ORDERED: LORazepam INJ 2 MG/ML (ATIVAN) VIAL ONE (19:53)
[2016-07-22] MEDS ORDERED: LORazepam INJ 2 MG/ML (ATIVAN) VIAL IVP ONE (20:15)
[2016-07-22] MEDS: HYDROcodone/APAP 5 MG/325 MG (LORTAB) TAB PO PRN (20:16)
[2016-07-22] MEDS: ENOXAPARIN 40 MG/0.4 ML (LOVENOX) SYR SC SCH (20:16)
[2016-07-22] MEDS ORDERED: ENALAPRILAT 2.5 MG/2 ML (VASOTEC) VIAL IV ONE (20:45)
[2016-07-23] VITALS (25 sets, daily range): BP systolic 136–194; BP diastolic 43–85
[2016-07-23] MEDS: RT-ALBUTEROL/IPRATROPIUM 3 ML (DUONEB) VIAL INH SCH ×6 (02:27→22:08)
[2016-07-23] MEDS: MEROPENEM 500 MG in NORMAL SALINE (BAXTER MINI) 100 ML IV SCH ×4 (02:32→20:31)
[2016-07-23] MEDS: hydrALAZINE (APESOLINE) 20 MG/ML VIAL IV PRN ×3 (02:33→21:49)
[2016-07-23] MEDS: morphine INJ 4 MG/ML 1 ML (VIAL/SYRINGE) IVP PRN ×2 (02:33→23:17)
[2016-07-23] MEDS: methylPREDNISolone 40 MG/ML (Solu-MEDROL) VIAL IV SCH ×4 (02:33→20:31)
[2016-07-23] MEDS: D5W IV SCH ×2 (02:39→21:49)
[2016-07-23] MEDS: POTASSIUM CHLORIDE IV SCH ×2 (02:39→21:49)
[2016-07-23 04:22] LABS: BASOPHILS # (AUTO) 0.1 10^3/uL (0.0-0.1); BASOPHILS % (AUTO) 0 % (0-10); EOSINOPHILS % (AUTO) 0 % (0-10); LYMPHOCYTES # (AUTO) 0.9 X 10^3 (1.0-4.0); LYMPHOCYTES % (AUTO) 4 % (12-44); MEAN CORPUSCULAR HEMOGLOBIN 32 PG (25-34); MEAN CORPUSCULAR HGB CONC 33 G/DL (32-36); MEAN CORPUSCULAR VOLUME 98 FL (80-99); MEAN PLATELET VOLUME 10.5 FL (7.4-10.4); MONOCYTES # (AUTO) 0.7 X 10^3 (0.0-1.0); MONOCYTES % (AUTO) 3 % (0-12); NEUTROPHILS # (AUTO) 21.4 X 10^3 (1.8-7.8); NEUTROPHILS % (AUTO) 93 % (42-75); PLATELET COUNT 309 10^3/uL (130-400); RED BLOOD COUNT 3.41 10^6/uL (4.35-5.85); RED CELL DISTRIBUTION WIDTH 13.4 % (10.0-14.5); WHITE BLOOD COUNT 23.1 10^3/uL (4.3-11.0)
[2016-07-23 04:32] LABS: PROTHROMBIN TIME PATIENT 13.2 SEC (12.2-14.7)
[2016-07-23 04:48] LABS: ALANINE AMINOTRANSFERASE 101 U/L (0-55); ALBUMIN 2.6 G/DL (3.2-4.5); ANION GAP 8 MMOL/L (5-14); ASPARTATE AMINO TRANSFERASE 64 U/L (5-34); BILIRUBIN,TOTAL 0.6 MG/DL (0.1-1.0); BLOOD UREA NITROGEN 22 MG/DL (7-18); BUN/CREATININE RATIO 39; CARBON DIOXIDE 26 MMOL/L (21-32); CHLORIDE 103 MMOL/L (98-107); CREATININE SERUM 0.57 MG/DL (0.60-1.30); GFR ESTIMATED > 60; GLUCOSE 129 MG/DL (70-105); POTASSIUM 4.6 MMOL/L (3.6-5.0); SODIUM 137 MMOL/L (135-145); TOTAL PROTEIN 5.1 G/DL (6.4-8.2)
[2016-07-23] MEDS: POTASSIUM CL 10MEQ/50ML IVPB 50 ML IV SCH (05:02)
[2016-07-23] MEDS: KCL 20 MEQ TAB (K-DUR) PO SCH ×2 (05:02→05:03)
[2016-07-23] MEDS: inSUlin (REGULAR) HUMAN 1 UNIT/0.01 ML (CHARGE PER UNIT) SC SCH ×5 (05:03→23:33)
[2016-07-23 05:06] LABS: ANION GAP 9 MMOL/L (5-14); BLOOD UREA NITROGEN 21 MG/DL (7-18); BUN/CREATININE RATIO 36; CALCIUM 7.9 MG/DL (8.5-10.1); CARBON DIOXIDE 25 MMOL/L (21-32); CHLORIDE 103 MMOL/L (98-107); CREATININE SERUM 0.59 MG/DL (0.60-1.30); GFR ESTIMATED > 60; GLUCOSE 130 MG/DL (70-105); POTASSIUM 4.6 MMOL/L (3.6-5.0); SODIUM 137 MMOL/L (135-145)
[2016-07-23] MEDS: MAGNESIUM 1 GM/100 ML IVPB 100 ML IV SCH (05:08)
[2016-07-23] MEDS ORDERED: ENALAPRILAT 2.5 MG/2 ML (VASOTEC) VIAL IV ONE ×2 (05:29→06:00)
[2016-07-23] MEDS ORDERED: meTOprolol 5 MG/5 ML (LOPRESSOR) VIAL ONE (05:32)
[2016-07-23] MEDS ORDERED: meTOprolol 5 MG/5 ML (LOPRESSOR) VIAL IV ONE (06:00)
--- NOTE | 2016-07-23 07:14 | Diagnostic Imaging Report ---
INDICATION: Followup pneumonia. Sepsis. COMPARISON: 07/22/2016 FINDINGS: Single frontal radiographic view of the chest was obtained and demonstrates interval removal of enteric and endotracheal tubes. Right internal jugular central venous catheter remains with tip in the SVC. Cardiac silhouette and pulmonary vasculature are stable. Lungs continue to show diffuse patchy and confluent alveolar infiltrates bilaterally. Overall, aeration has not significantly changed compared to prior exam. Small underlying effusions cannot be excluded. There is no pneumothorax. Bony structures are unchanged. IMPRESSION: 1. Interval extubation and removal of enteric tube. 2. Otherwise, stable exam of the chest showing extensive bilateral infiltrates. Dictated by: Dictated on workstation # [id number]
[2016-07-23] MEDS: meTOprolol TARTRATE 50 MG (LOPRESSOR) TAB NG SCH ×2 (08:01→20:31)
[2016-07-23] MEDS: FAMOTIDINE 20MG/2ML IV (PEPCID) IVP SCH ×2 (08:01→20:31)
[2016-07-23] MEDS: lisINopril 20 MG (ZESTRIL) TAB PO SCH (08:01)
[2016-07-23] MEDS: amLODIPine 5 MG (NORVASC) TAB PO SCH (08:01)
[2016-07-23] MEDS: LEVOTHYROXINE 50 MCG (LEVOTHROID) TAB PO SCH (08:01)
--- NOTE | 2016-07-23 08:26 | Pulmonary Progress Note ---
Subjective Subjective/Events-last exam Pt is a/o x 3; she denies shortness of breath, she does report npc. She reports difficulty getting up oob and states she is weak. She used bipap until 7pm last night and is on 5L NC with sats 97%. She states she has had hx of htn for several years. She is a 1ppd smoker; she does not use INH at home. She had never been hospitalized for breathing problems nor placed on vent before this hospitalization. Exam Exam Vital Signs Date Time Temp Pulse Resp B/P Pulse Ox O2 Delivery O2 Flow Rate FiO2 07/23/16 06:34 96 High Flow N/C 4.00 07/23/16 06:00 90 17 162/52 97 High Flow NC 5.00 07/23/16 05:00 96 17 194/54 96 High Flow NC 5.00 07/23/16 04:00 106 20 191/63 95 High Flow NC 5.00 07/23/16 04:00 95 High Flow NC 5.00 07/23/16 03:00 104 16 146/50 96 High Flow NC 5.00 07/23/16 02:27 98 High Flow N/C 5.00 07/23/16 02:00 92 17 165/59 97 High Flow NC 5.00 07/23/16 01:00 92 17 159/56 97 High Flow NC 5.00 07/23/16 01:00 90 07/23/16 00:41 98.7 High Flow NC 5.00 07/23/16 00:00 106 12 178/60 97 High Flow NC 5.00 07/23/16 00:00 97 High Flow NC 5.00 07/22/16 23:00 112 17 174/60 96 High Flow NC 5.00 07/22/16 22:31 98 High Flow N/C 6.00 07/22/16 22:00 118 17 178/59 98 High Flow NC 5.00 07/22/16 21:00 117 18 195/64 98 High Flow NC 5.00 07/22/16 20:42 98 High Flow N/C 6.00 07/22/16 20:00 118 13 164/50 98 NIV/Bilevel 40.00 07/22/16 20:00 96 High Flow NC 6.00 07/22/16 19:21 98.2 NIV/Bilevel 40.00 07/22/16 19:00 125 07/22/16 19:00 125 21 146/48 97 NIV/Bilevel 40.00 07/22/16 18:33 121 20 96 40.00 07/22/16 18:00 118 11 138/54 97 FIO2 45.00 15.00 07/22/16 17:00 112 11 145/47 97 FIO2 45.00 15.00 07/22/16 16:00 98 NIV/Bilevel 40.00 07/22/16 16:00 107 14 165/55 97 FIO2 45.00 15.00 07/22/16 15:41 107 19 96 07/22/16 15:00 113 18 170/57 98 FIO2 45.00 15.00 07/22/16 14:00 113 14 162/56 96 FIO2 45.00 15.00 07/22/16 13:55 116 19 98 07/22/16 13:30 96 High Flow NC 4.00 07/22/16 13:00 123 17 186/60 98 FIO2 45.00 15.00 07/22/16 13:00 121 07/22/16 12:15 120 22 97 07/22/16 12:00 121 16 197/61 95 FIO2 45.00 15.00 07/22/16 11:41 96 High Flow NC 4.00 07/22/16 11:40 98.2 07/22/16 11:00 114 7 232/70 94 FIO2 45.00 15.00 07/22/16 10:30 96 FIO2 45.00 15.00 07/22/16 10:14 High Flow N/C 96 07/22/16 10:00 105 19 202/79 96 High Flow NC 4.00 07/22/16 09:00 95 15 212/77 96 High Flow NC 4.00 07/22/16 08:30 96.8 High Flow NC 4.00 I & O 07/23/16 07:00 Intake Total 1717.5 ml Output Total 5240 ml Balance -3522.5 ml General Appearance: No Apparent Distress WD/WN Obese HEENT: PERRL/EOMI Pharyngeal Erythema Neck: Full Range of Motion Normal Inspection Non Tender Supple Respiratory: Lungs Clear No Accessory Muscle Use No Respiratory Distress Decreased Breath Sounds Cardiovascular: Regular Rate, Rhythm Systolic Murmur Gallop/S3 Other (b/l +2 edema) Peripheral Pulses: 2+ Dorsalis Pedis (R), 2+ Left Dors-Pedis (L), 2+ Radial Pulses (R), 2+ Radial Pulses (L) Gastrointestinal: normal bowel sounds non tender soft Extremity: Normal Capillary Refill Normal Inspection Normal Range of Motion Non Tender No Calf Tenderness Pedal Edema Swelling Neurologic/Psychiatric: Alert Oriented x3 Normal Mood/Affect Skin: Normal Color Warm/Dry Results Lab Laboratory Tests 07/22/16 03:48 07/23/16 04:00 Assessment/Plan Assessment/Plan Acute respiratory distress with ARDS Pa02/Fi02 = 324 ARDS IS NOW RESOLVED -bipap prn -oxygen to maintain sats >92% -I/S -order PT for ambulation -continue IV solumedrol -continue daily cxr and labs -NO LANDMARK CONSULT AT THIS TIME Severe sepsis with Strep pneumonia - Vanco, Levaquin Merrem -WBC was elevated will repeat cbc and if remains elevated will stop vanco and add zyvox pulmonary edema - IVF 50cc/hr with d5w -lasix 40mg IV x 1 HTN -start Cardene GTT -start Home BP meds -Pt started on lisinipril, norvasc, and Lopressor -titrate Cardene off once bp is controlled Hypothyroidism -resume Home meds DVT prophylactic -lovenox Pt is on pepcid shock liver -- improving -monitor Tobacco use Hypernatremia - RESOLVED - IVF D5 W -250cc of free water per OG Q 6hrs Anemia with thrombocytopenia - RESOLVED metabolic acidosis with lactic acidosis -- RESOLVED -D/C bicarb gtt Septic shock r/o DIC -RESOLVED Acute renal failure - RESOLVED -IVF Hypotension - resolved *please note that all treatment plans listed above were d/c with Dr. Guzmán via phone. Clinical Quality Measures DVT/VTE Risk/Contraindication: Risk Factor Score Per Nursin RFS Level Per Nursing on Admit: 3=High ZAKI ANDREWS APRN Jul 23, 2016 08:25
[2016-07-23] MEDS: VANCOMYCIN 1250 MG/NS 250 ML IVPB IV SCH ×2 (08:44)
[2016-07-23] MEDS: niCARdipine IV 50 MG in NS (IVPB) 230 ML IV SCH ×3 (08:45→21:50)
[2016-07-23] MEDS ORDERED: lisINopril 10 MG (PRINIVIL) TAB PO SCH ×2 (09:00)
[2016-07-23] MEDS ORDERED: FUROSEMIDE 40 MG/4 ML INJ (LASIX) IVP NR (09:27)
[2016-07-23 10:49] LABS: RED BLOOD COUNT 3.54 10^6/uL (4.35-5.85); RED CELL DISTRIBUTION WIDTH 13.3 % (10.0-14.5)
--- NOTE | 2016-07-23 11:40 | Progress Note (SOAP) ---
Subjective Subjective/Events-last exam Late entry for 07/22/16. Fwup respiratory failure, pneumonia with Strep pneumo sepsis, septic shock with hypotension/renal failure and elevated LFTs. Extubated this AM and on NC. Some confusion but is awake and alert. Objective Exam Vital Signs Date Time Temp Pulse Resp B/P Pulse Ox O2 Delivery O2 Flow Rate FiO2 07/23/16 10:23 94 High Flow N/C 4.00 07/23/16 08:00 95 High Flow NC 5.00 07/23/16 07:50 98.0 High Flow NC 5.00 07/23/16 07:00 96 07/23/16 06:34 96 High Flow N/C 4.00 07/23/16 06:00 90 17 162/52 97 High Flow NC 5.00 07/23/16 05:00 96 17 194/54 96 High Flow NC 5.00 07/23/16 04:00 106 20 191/63 95 High Flow NC 5.00 07/23/16 04:00 95 High Flow NC 5.00 07/23/16 03:00 104 16 146/50 96 High Flow NC 5.00 07/23/16 02:27 98 High Flow N/C 5.00 07/23/16 02:00 92 17 165/59 97 High Flow NC 5.00 07/23/16 01:00 92 17 159/56 97 High Flow NC 5.00 07/23/16 01:00 90 07/23/16 00:41 98.7 High Flow NC 5.00 07/23/16 00:00 106 12 178/60 97 High Flow NC 5.00 07/23/16 00:00 97 High Flow NC 5.00 07/22/16 23:00 112 17 174/60 96 High Flow NC 5.00 07/22/16 22:31 98 High Flow N/C 6.00 07/22/16 22:00 118 17 178/59 98 High Flow NC 5.00 07/22/16 21:00 117 18 195/64 98 High Flow NC 5.00 07/22/16 20:42 98 High Flow N/C 6.00 07/22/16 20:00 118 13 164/50 98 NIV/Bilevel 40.00 07/22/16 20:00 96 High Flow NC 6.00 07/22/16 19:21 98.2 NIV/Bilevel 40.00 07/22/16 19:00 125 07/22/16 19:00 125 21 146/48 97 NIV/Bilevel 40.00 07/22/16 18:33 121 20 96 40.00 07/22/16 18:00 118 11 138/54 97 FIO2 45.00 15.00 07/22/16 17:00 112 11 145/47 97 FIO2 45.00 15.00 07/22/16 16:00 98 NIV/Bilevel 40.00 07/22/16 16:00 107 14 165/55 97 FIO2 45.00 15.00 07/22/16 15:41 107 19 96 07/22/16 15:00 113 18 170/57 98 FIO2 45.00 15.00 07/22/16 14:00 113 14 162/56 96 FIO2 45.00 15.00 07/22/16 13:55 116 19 98 07/22/16 13:30 96 High Flow NC 4.00 07/22/16 13:00 123 17 186/60 98 FIO2 45.00 15.00 07/22/16 13:00 121 07/22/16 12:15 120 22 97 07/22/16 12:00 121 16 197/61 95 FIO2 45.00 15.00 07/22/16 11:41 96 High Flow NC 4.00 07/22/16 11:40 98.2 I & O 07/23/16 07:00 Intake Total 1717.5 ml Output Total 5240 ml Balance -3522.5 ml Capillary Refill : General Appearance: No Apparent Distress Neck: Supple Respiratory: Rales Gastrointestinal: normal bowel sounds non tender soft Extremity: Swelling Neurologic/Psychiatric: Alert Results Lab Laboratory Tests 07/22/16 11:51: Drew Test POSITIVE, Arterial Blood Base Excess 4.9H, Arterial Blood HCO3 29H, Arterial Blood Oxygen Saturation 96, Arterial Blood Partial Pressure CO2 40, Arterial Blood Partial Pressure O2 75L, Arterial Blood Total CO2 30.1, Arterial Blood pH 7.48H, Blood Gas Inspired Oxygen 45%, Blood Gas Patient Temperature 98.2, Blood Gas Puncture Site LEFT RADIAL, Blood Gas Ventilator Setting YES 07/22/16 17:50: Glucometer 158H 07/23/16 00:35: Glucometer 149H 07/23/16 04:00: Activated Partial Thromboplast Time 23L, Alanine Aminotransferase (ALT/SGPT) 101H, Albumin 2.6L, Alkaline Phosphatase 106, Anion Gap 9, Aspartate Amino Transf (AST/SGOT) 64H, BUN/Creatinine Ratio 36, Basophils # (Auto) 0.1, Basophils (%) (Auto) 0, Blood Urea Nitrogen 21H, Calcium Level 7.9L, Carbon Dioxide Level 25, Chloride Level 103, Creatinine 0.59L, Eosinophils # (Auto) 0.0 , Eosinophils (%) (Auto) 0, Estimat Glomerular Filtration Rate > 60, Glucose Level 130H, Hematocrit 33L, Hemoglobin 10.9L, INR Comment 1.0, Lymphocytes # ( Auto) 0.9L, Lymphocytes (%) (Auto) 4L, Magnesium Level 2.0, Mean Corpuscular Hemoglobin 32, Mean Corpuscular Hemoglobin Concent 33, Mean Corpuscular Volume 98, Mean Platelet Volume 10.5H, Monocytes # (Auto) 0.7, Monocytes (%) (Auto) 3, Neutrophils # (Auto) 21.4H, Neutrophils (%) (Auto) 93H, Phosphorus Level 4.0, Platelet Count 309, Potassium Level 4.6, Prothrombin Time 13.2, Red Blood Count 3.41L, Red Cell Distribution Width 13.4, Sodium Level 137, Total Bilirubin 0.6, Total Protein 5.1L, White Blood Count 23.1H 07/23/16 10:45: Hematocrit 35, Hemoglobin 11.4L, Mean Corpuscular Hemoglobin 32, Mean Corpuscular Hemoglobin Concent 33, Mean Corpuscular Volume 98, Mean Platelet Volume 10.0, Platelet Count 331, Red Blood Count 3.54L, Red Cell Distribution Width 13.3, White Blood Count 24.0H Microbiology 07/18/16 Blood Culture - Preliminary, Resulted No growth 07/14/16 Gram Stain - Final, Complete 07/14/16 Sputum Culture - Final, Complete Usual/normal karissa isolated. 07/14/16 Urine Culture - Final, Complete Yeast Species Assessment/Plan Assessment/Plan Assess & Plan/Chief Complaint 1. Pneumonia with Sepsis--growing out Strep pneumo so continue triple therapy abx and recultures negative so far--WBC still up but likely from steroids 2. Acute Respiratory Failure with ARDs--extubated this AM 3. Septic Shock--improved off all pressors and IVF rate decreased 4. Acute Renal Failure--creatinine improved 5. Metabolic Acidosis--improved 6. Pulmonary Edema--on Lasix 7. Much better prognosis so holding on LTAC Diagnosis/Problems: Clinical Quality Measures DVT/VTE Risk/Contraindication: Risk Factor Score Per Nursin RFS Level Per Nursing on Admit: 3=High KINDRA RHODES DO Jul 23, 2016 11:40
--- NOTE | 2016-07-23 11:43 | Progress Note (SOAP) ---
Subjective Subjective/Events-last exam Fwup respiratory failure, pneumonia with Strep pneumo sepsis, septic shock with hypotension/renal failure and elevated LFTs. On BIPAP yesterday and some overnight but back to OR this AM. Is awake and hungry. Feels very weak. Objective Exam Vital Signs Date Time Temp Pulse Resp B/P Pulse Ox O2 Delivery O2 Flow Rate FiO2 07/23/16 10:23 94 High Flow N/C 4.00 07/23/16 08:00 95 High Flow NC 5.00 07/23/16 07:50 98.0 High Flow NC 5.00 07/23/16 07:00 96 07/23/16 06:34 96 High Flow N/C 4.00 07/23/16 06:00 90 17 162/52 97 High Flow NC 5.00 07/23/16 05:00 96 17 194/54 96 High Flow NC 5.00 07/23/16 04:00 106 20 191/63 95 High Flow NC 5.00 07/23/16 04:00 95 High Flow NC 5.00 07/23/16 03:00 104 16 146/50 96 High Flow NC 5.00 07/23/16 02:27 98 High Flow N/C 5.00 07/23/16 02:00 92 17 165/59 97 High Flow NC 5.00 07/23/16 01:00 92 17 159/56 97 High Flow NC 5.00 07/23/16 01:00 90 07/23/16 00:41 98.7 High Flow NC 5.00 07/23/16 00:00 106 12 178/60 97 High Flow NC 5.00 07/23/16 00:00 97 High Flow NC 5.00 07/22/16 23:00 112 17 174/60 96 High Flow NC 5.00 07/22/16 22:31 98 High Flow N/C 6.00 07/22/16 22:00 118 17 178/59 98 High Flow NC 5.00 07/22/16 21:00 117 18 195/64 98 High Flow NC 5.00 07/22/16 20:42 98 High Flow N/C 6.00 07/22/16 20:00 118 13 164/50 98 NIV/Bilevel 40.00 07/22/16 20:00 96 High Flow NC 6.00 07/22/16 19:21 98.2 NIV/Bilevel 40.00 07/22/16 19:00 125 07/22/16 19:00 125 21 146/48 97 NIV/Bilevel 40.00 07/22/16 18:33 121 20 96 40.00 07/22/16 18:00 118 11 138/54 97 FIO2 45.00 15.00 07/22/16 17:00 112 11 145/47 97 FIO2 45.00 15.00 07/22/16 16:00 98 NIV/Bilevel 40.00 07/22/16 16:00 107 14 165/55 97 FIO2 45.00 15.00 07/22/16 15:41 107 19 96 07/22/16 15:00 113 18 170/57 98 FIO2 45.00 15.00 07/22/16 14:00 113 14 162/56 96 FIO2 45.00 15.00 07/22/16 13:55 116 19 98 07/22/16 13:30 96 High Flow NC 4.00 07/22/16 13:00 123 17 186/60 98 FIO2 45.00 15.00 07/22/16 13:00 121 07/22/16 12:15 120 22 97 07/22/16 12:00 121 16 197/61 95 FIO2 45.00 15.00 07/22/16 11:41 96 High Flow NC 4.00 I & O 07/23/16 07:00 Intake Total 1717.5 ml Output Total 5240 ml Balance -3522.5 ml Capillary Refill : General Appearance: No Apparent Distress Neck: Supple Respiratory: Rales Cardiovascular: Regular Rate, Rhythm Systolic Murmur Gallop/S3 Gastrointestinal: normal bowel sounds non tender soft Extremity: Swelling Neurologic/Psychiatric: Alert Oriented x3 Results Lab Laboratory Tests 07/22/16 11:51: Drew Test POSITIVE, Arterial Blood Base Excess 4.9H, Arterial Blood HCO3 29H, Arterial Blood Oxygen Saturation 96, Arterial Blood Partial Pressure CO2 40, Arterial Blood Partial Pressure O2 75L, Arterial Blood Total CO2 30.1, Arterial Blood pH 7.48H, Blood Gas Inspired Oxygen 45%, Blood Gas Patient Temperature 98.2, Blood Gas Puncture Site LEFT RADIAL, Blood Gas Ventilator Setting YES 07/22/16 17:50: Glucometer 158H 07/23/16 00:35: Glucometer 149H 07/23/16 04:00: Activated Partial Thromboplast Time 23L, Alanine Aminotransferase (ALT/SGPT) 101H, Albumin 2.6L, Alkaline Phosphatase 106, Anion Gap 9, Aspartate Amino Transf (AST/SGOT) 64H, BUN/Creatinine Ratio 36, Basophils # (Auto) 0.1, Basophils (%) (Auto) 0, Blood Urea Nitrogen 21H, Calcium Level 7.9L, Carbon Dioxide Level 25, Chloride Level 103, Creatinine 0.59L, Eosinophils # (Auto) 0.0 , Eosinophils (%) (Auto) 0, Estimat Glomerular Filtration Rate > 60, Glucose Level 130H, Hematocrit 33L, Hemoglobin 10.9L, INR Comment 1.0, Lymphocytes # ( Auto) 0.9L, Lymphocytes (%) (Auto) 4L, Magnesium Level 2.0, Mean Corpuscular Hemoglobin 32, Mean Corpuscular Hemoglobin Concent 33, Mean Corpuscular Volume 98, Mean Platelet Volume 10.5H, Monocytes # (Auto) 0.7, Monocytes (%) (Auto) 3, Neutrophils # (Auto) 21.4H, Neutrophils (%) (Auto) 93H, Phosphorus Level 4.0, Platelet Count 309, Potassium Level 4.6, Prothrombin Time 13.2, Red Blood Count 3.41L, Red Cell Distribution Width 13.4, Sodium Level 137, Total Bilirubin 0.6, Total Protein 5.1L, White Blood Count 23.1H 07/23/16 10:45: Hematocrit 35, Hemoglobin 11.4L, Mean Corpuscular Hemoglobin 32, Mean Corpuscular Hemoglobin Concent 33, Mean Corpuscular Volume 98, Mean Platelet Volume 10.0, Platelet Count 331, Red Blood Count 3.54L, Red Cell Distribution Width 13.3, White Blood Count 24.0H Microbiology 07/18/16 Blood Culture - Preliminary, Resulted No growth 07/14/16 Gram Stain - Final, Complete 07/14/16 Sputum Culture - Final, Complete Usual/normal karissa isolated. 07/14/16 Urine Culture - Final, Complete Yeast Species Assessment/Plan Assessment/Plan Assess & Plan/Chief Complaint 1. Pneumonia with Sepsis--growing out Strep pneumo so continue triple therapy abx and recultures negative so far--WBC still up but likely from steroids but per pulmonology note may change abx tomorrow if WBC count still elevated 2. Acute Respiratory Failure with ARDs--BIPAP prn with NC 3. Septic Shock--improved off all pressors and IVF rate decreased 4. Acute Renal Failure--creatinine improved 5. Metabolic Acidosis--improved 6. Pulmonary Edema--on Lasix 7. Much better prognosis so holding on LTAC 8. Weakness--PT started Diagnosis/Problems: Clinical Quality Measures DVT/VTE Risk/Contraindication: Risk Factor Score Per Nursin RFS Level Per Nursing on Admit: 3=High KINDRA RHODES DO Jul 23, 2016 11:43
[2016-07-23] MEDS: LINEZOLID IVPB 300 ML IV SCH ×2 (12:36→23:22)
--- NOTE | 2016-07-23 14:40 | Physical Therapy Evaluation ---
PT Evaluation-General Medical Diagnosis Admission Date Jul 13, 2016 at 18:40 Medical Diagnosis: severe sepsis/pneumonia Onset Date: Jul 13, 2016 Therapy Diagnosis Therapy Diagnosis: severe weakness and debility Height/Weight Height (Feet): 5 Height (Inches): 2.00 Weight (Pounds): 234 Weight (Ounces): 9.0 Precautions Precautions/Isolations: Standard Precautions Referral Physician: Abe Reason for Referral: Evaluation/Treatment Medical History Pertinent Medical History: Arthritis, COPD, Hypothroidism, Smoking Additional Medical History attempted to conservatively treat at home with oral antibiotic, however, unsuccessful Current History increase with SOA, N&V and elevated lactic acid; on vent x 7 days Reviewed History: Yes Social History Home: Single Level Current Living Status: Spouse Prior/Core FIM Prior Level of Function Functional [place] Measure 0=Not Assessed/NA 4=Minimal Assistance 1=Total Assistance 5=Supervision or Setup 2=Maximal Assistance 6=Modified [place] 3=Moderate Assistance 7=Complete [place] Bed Mobility: 7 Transfers (B,C,W/C) (FIM): 7 Gait: 7 Locomotion: 7 [address] nurse for Dr. andrea dwyer PT Evaluation-Current Subjective Patient is in bed and agrees to PT. Pain Numeric Pain Scale: 5-Moderate Pain Location: Right, Left Location Body Site: Knee Pain Description: Ache Pt/Family Goals improve current LOF and return to home Objective Patient Orientation: Normal For Age Problem Solving: Fair Attachments: Oxygen, Jewell Catheter, Other-See Comments, IV art. line ROM/Strength ROM Lower Extremities bilateral LE WFL with PROM in all planes in supine Strenght Lower Extremities left knee and ankle MMT all planes 2+/5 grossly; right knee and ankle MMT all planes 3/5 grossly Integumentary/Posture Integumentary noted pitting 2+ edema bilateral LE Bowel Incontinence: No Bladder Incontinence: Jewell Cath Posture kyphotic posture in sit due to severe weakness Neuromuscular (Tone, Coordination, Reflexes) severely diminished coordination and tone due to severe debility Sensory Vision: Functional Hearing: Functional Sensation Right Lower Extremit: Intact Sensation Left Lower Extremity: Intact Transfers Functional [place] Measure 0=Not Assessed/NA 4=Minimal Assistance 1=Total Assistance 5=Supervision or Setup 2=Maximal Assistance 6=Modified [place] 3=Moderate Assistance 7=Complete [place] Transfers (B, C, W/C) (FIM): 1 Scootin Rollin Supine to/from Sit: 1 dependent assist with all bed mobility and supine<>sit EOB with dependent assist to maintain EOB x 5 min Gait Anticipated Mode of Locomotion: Walk Balance Sitting Static: Poor Sitting Dynamic: Poor Assessment/Needs 55 y.o. extremely debilitated female, will benefit from skilled PT to address limitations in functional strength and mobility to improve current LOF and to return to PLOF. Rehab Potential: Fair Post Rehab Potential-Barriers: resp. failure PT Short Term Goals Short Term Goals Time Frame: Jul 30, 2016 Transfers (B,C,W/C) (FIM): 3 Gait (FIM): 1 Distance (FIM): 1=up to 49 ft Gait Distance Comment: 20' Gait Level of Assist: 3 Gait Assistive Device: FWW PT Alf Goals Contact Center Engineer Goals PT Alf Goals Time Frame: Aug 13, 2016 Transfers (B,C,W/C) (FIM): 6 Gait (FIM): 6 Gait distance (FIM): 3=150 ft Gait Level of Assist: 6 Gait Assistive Device: None, FWW PT Plan Problem List Problem List: Activity Tolerance, Functional Strength, Safety, Balance, Gait, Transfer, Bed Mobility Treatment/Plan Treatment Plan: Continue Plan of Care Treatment Plan: Bed Mobility, Education, Functional Activity Zeina, Functional Strength, Gait, Safety, Therapeutic Exercise, Transfers Treatment Duration: Aug 13, 2016 # of days/week 6 Visits Per Week: 11 Pt/Family Agrees w/Plan: Yes Safety Risks/Education Patient Education: Correct Positioning Teaching Recipient: Patient, Family Teaching Methods: Demonstration, Discussion Response to Teaching: Verbalize Understanding, Return Demonstration Discharge Recommendations Therapy D/C Recommendations: Acute Rehab Time/GCodes Time In: 1335 Time Out: 1400 Total Billed Treatment Time: 25 Total Billed Treatment 1 visit EVM 25 min ANNMARIE AUGUSTIN PT Jul 23, 2016 14:40
[2016-07-23] MEDS: meTOprolol 5 MG/5 ML (LOPRESSOR) VIAL IV PRN ×2 (18:48→23:06)
[2016-07-23] MEDS ORDERED: DIAZEPAM 5 MG (VALIUM) TABLET PO NR (20:00)
[2016-07-23] MEDS: ENOXAPARIN 40 MG/0.4 ML (LOVENOX) SYR SC SCH (20:31)
[2016-07-23] MEDS ORDERED: PANTOPRAZOLE 40 MG/10 ML (PROTONIX) VIAL ONE (22:02)
[2016-07-23] MEDS ORDERED: CALCIUM CARBONATE 500 MG (TUMS) TAB.CHEW ONE (22:02)
[2016-07-23] MEDS ORDERED: PANTOPRAZOLE 40 MG/10 ML (PROTONIX) VIAL IV ONE (22:15)
[2016-07-23] MEDS ORDERED: CALCIUM CARBONATE 500 MG (TUMS) TAB.CHEW PO PRN (22:15)
[2016-07-23] MEDS ORDERED: HALOPERIDOL 5 MG/ML (HALDOL) AMP ONE (22:50)
[2016-07-23] MEDS ORDERED: HALOPERIDOL 5 MG/ML (HALDOL) AMP IJ ONE (23:00)
[2016-07-23] MEDS: ONDANSETRON 4 MG/2 ML (SDV) Z0FRAN IVP PRN (23:17)
[2016-07-24] VITALS (25 sets, daily range): BP systolic 111–173; BP diastolic 40–81
[2016-07-24] MEDS: meTOprolol 5 MG/5 ML (LOPRESSOR) VIAL IV PRN ×3 (01:14→17:34)
[2016-07-24] MEDS ORDERED: NS (IVPB) 250 ML ONE ×2 (01:20→05:43)
[2016-07-24] MEDS ORDERED: niCARdipine IV FOR DRIP 50 MG KIT ONE ×2 (01:20→05:43)
[2016-07-24] MEDS: RT-ALBUTEROL/IPRATROPIUM 3 ML (DUONEB) VIAL INH SCH ×6 (02:02→22:03)
[2016-07-24] MEDS: MEROPENEM 500 MG in NORMAL SALINE (BAXTER MINI) 100 ML IV SCH ×4 (02:07→20:17)
[2016-07-24] MEDS: methylPREDNISolone 40 MG/ML (Solu-MEDROL) VIAL IV SCH ×4 (02:07→20:17)
[2016-07-24] MEDS: niCARdipine IV 50 MG in NS (IVPB) 230 ML IV SCH ×5 (02:25→18:47)
[2016-07-24 04:41] LABS: BASOPHILS % (AUTO) 0 % (0-10); EOSINOPHILS % (AUTO) 0 % (0-10); LYMPHOCYTES # (AUTO) 0.4 X 10^3 (1.0-4.0); LYMPHOCYTES % (AUTO) 2 % (12-44); MEAN CORPUSCULAR HEMOGLOBIN 32 PG (25-34); MEAN CORPUSCULAR HGB CONC 33 G/DL (32-36); MEAN CORPUSCULAR VOLUME 97 FL (80-99); MEAN PLATELET VOLUME 10.5 FL (7.4-10.4); MONOCYTES # (AUTO) 0.5 X 10^3 (0.0-1.0); MONOCYTES % (AUTO) 2 % (0-12); NEUTROPHILS # (AUTO) 19.7 X 10^3 (1.8-7.8); NEUTROPHILS % (AUTO) 96 % (42-75); PLATELET COUNT 332 10^3/uL (130-400); RED BLOOD COUNT 3.43 10^6/uL (4.35-5.85); RED CELL DISTRIBUTION WIDTH 13.1 % (10.0-14.5); WHITE BLOOD COUNT 20.6 10^3/uL (4.3-11.0)
[2016-07-24 04:43] LABS: PROTHROMBIN TIME PATIENT 13.2 SEC (12.2-14.7)
[2016-07-24] MEDS ORDERED: FUROSEMIDE 40 MG/4 ML INJ (LASIX) IVP ONE ×2 (04:45→10:00)
[2016-07-24] MEDS ORDERED: meTOprolol 5 MG/5 ML (LOPRESSOR) VIAL IV ONE (04:45)
[2016-07-24] MEDS ORDERED: ENALAPRILAT 2.5 MG/2 ML (VASOTEC) VIAL IV ONE (04:45)
[2016-07-24 05:06] LABS: ALANINE AMINOTRANSFERASE 102 U/L (0-55); ALBUMIN 2.9 G/DL (3.2-4.5); ANION GAP 11 MMOL/L (5-14); ASPARTATE AMINO TRANSFERASE 107 U/L (5-34); BILIRUBIN,TOTAL 0.6 MG/DL (0.1-1.0); BLOOD UREA NITROGEN 19 MG/DL (7-18); BUN/CREATININE RATIO 33; CALCIUM 8.1 MG/DL (8.5-10.1); CARBON DIOXIDE 24 MMOL/L (21-32); CHLORIDE 104 MMOL/L (98-107); CREATININE SERUM 0.58 MG/DL (0.60-1.30); GFR ESTIMATED > 60; GLUCOSE 165 MG/DL (70-105); POTASSIUM 4.4 MMOL/L (3.6-5.0); SODIUM 139 MMOL/L (135-145); TOTAL PROTEIN 5.1 G/DL (6.4-8.2)
[2016-07-24] MEDS: KCL 20 MEQ TAB (K-DUR) PO SCH ×2 (05:19→05:20)
[2016-07-24] MEDS: POTASSIUM CL 10MEQ/50ML IVPB 50 ML IV SCH (05:19)
[2016-07-24] MEDS: inSUlin (REGULAR) HUMAN 1 UNIT/0.01 ML (CHARGE PER UNIT) SC SCH ×3 (05:26→17:34)
[2016-07-24 05:33] LABS: ANION GAP 11 MMOL/L (5-14); BLOOD UREA NITROGEN 19 MG/DL (7-18); BUN/CREATININE RATIO 33; CARBON DIOXIDE 24 MMOL/L (21-32); CHLORIDE 103 MMOL/L (98-107); CREATININE SERUM 0.58 MG/DL (0.60-1.30); GFR ESTIMATED > 60; GLUCOSE 164 MG/DL (70-105); POTASSIUM 4.4 MMOL/L (3.6-5.0); SODIUM 138 MMOL/L (135-145)
[2016-07-24] MEDS: MAGNESIUM 1 GM/100 ML IVPB 100 ML IV SCH (05:41)
[2016-07-24] MEDS: LEVOTHYROXINE 50 MCG (LEVOTHROID) TAB PO SCH (08:02)
[2016-07-24] MEDS: lisINopril 20 MG (ZESTRIL) TAB PO SCH (08:02)
[2016-07-24] MEDS: FAMOTIDINE 20MG/2ML IV (PEPCID) IVP SCH ×2 (08:02→20:17)
[2016-07-24] MEDS: meTOprolol TARTRATE 50 MG (LOPRESSOR) TAB NG SCH (08:02)
[2016-07-24] MEDS: amLODIPine 5 MG (NORVASC) TAB PO SCH (08:02)
--- NOTE | 2016-07-24 09:04 | Physical Therapy Daily Note ---
PT Daily Note-Current Subjective Patient in bed pre tx, agrees to PT, states she liked having the bed in a chair form yesterday. Pain Numeric Pain Scale: 0-No Pain Appearance Patient in bed post tx, has nurse call, phone, tray, all needs met. Bed in chair position. Mental Status Patient Orientation: Normal For Age Attachments: Oxygen, Jewell Catheter, IV Transfers Functional [place] Measure 0=Not Assessed/NA 4=Minimal Assistance 1=Total Assistance 5=Supervision or Setup 2=Maximal Assistance 6=Modified [place] 3=Moderate Assistance 7=Complete IndependenceIRFPAI Quality Coding Scale 6 Independent with activity with or without an assistive device 5 Patient requires set up or clean up by helper. Patient completes activity by themselves 4 Supervision or touching assist (CGA). [place] provide cues , steadying assist 3 The helper provides less than half the effort to complete the activity 2 The helper provides more than half the effort to complete the activity 1 Dependent. The helper does all the effort to complete an activity 7 Patient refused to complete or attempt activity 9 The patient did not perform the activity before the current illness or injury 88 Not attempted due to Medical conditions or safety concerns Transfers (B, C, W/C) (FIM): 1 Scootin Rollin Supine to/from Sit: 1 Patient was able to assist getting her legs to the edge of the bed. Exercises LAQ x 20 while sitting at EOB Treatments Patient sat at the edge of the bed for 5 min and performed LAQ, she quickly became too tired to continue to sit. Assessment Current Status: Poor Progress no change in mobility PT Short Term Goals Short Term Goals Time Frame: Jul 30, 2016 Transfers (B,C,W/C) (FIM): 3 Gait (FIM): 1 Distance (FIM): 1=up to 49 ft Gait Distance Comment: 20' Gait Level of Assist: 3 Gait Assistive Device: FWW PT Physicist [place] Goals Physicist [place] Goals PT Prison Goals Time Frame: Aug 13, 2016 Transfers (B,C,W/C) (FIM): 6 Gait (FIM): 6 Gait distance (FIM): 3=150 ft Gait Level of Assist: 6 Gait Assistive Device: None, FWW PT Plan Problem List Problem List: Activity Tolerance, Functional Strength, Safety, Balance, Gait, Transfer, Bed Mobility, ROM Treatment/Plan Treatment Plan: Continue Plan of Care Treatment Plan: Bed Mobility, Education, Functional Activity Zeina, Functional Strength, Gait, Safety, Therapeutic Exercise, Transfers Treatment Duration: Aug 13, 2016 Visits Per Week: 11 Safety Risks/Education Patient Education: Transfer Techniques, Correct Positioning, Safety Issues Teaching Recipient: Patient Teaching Methods: Demonstration, Discussion Response to Teaching: Reinforcement Needed Time/GCodes Time In: 845 Time Out: 855 Total Billed Treatment Time: 10 Total Billed Treatment 1 visit FA 10 min NOREEN DIAZ PT Jul 24, 2016 09:04
--- NOTE | 2016-07-24 09:31 | Progress Note (SOAP) ---
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 THE PATIENT WAS SITTING UP IN BED, STATES THAT SHE JUST FEELS EXTREMELY WEAK, FEELS FATIGUED, HAD VERY BAD HEART BURN LAST NIGHT AND STILL HAS SOME HEART BURN TODAY. PER STAFF, SHE HAD A DOSE OF VALIUM LAST NIGHT BECAUSE OF ANXIETY, THEN HAD HALLUCINATIONS FROM THE VALIUM. NURSING STAFF ALSO NOTES THAT SHE HAS HAD TROUBLE GETTING BLOOD PRESSURES UNDER CONTROL WITHOUT USE OF IV METOPROLOL. Review of Systems General: No Chills, Fatigue Malaise Appetite (DECREASED) HEENT: No Head Aches, No Visual Changes Pulmonary: Dyspnea Cough Cardiovascular: : EdemaNo: Chest Pain Gastrointestinal: : Abdominal Pain (GERD)No: Nausea Musculoskeletal: : other (GENERALIZED WEAKNESS) Neurological: : Confusion (LAST NIGHT): Weakness Objective Exam Vital Signs Date Time Temp Pulse Resp B/P Pulse Ox O2 Delivery O2 Flow Rate FiO2 07/24/16 08:00 94 High Flow NC 3.00 07/24/16 08:00 98.6 118 16 159/75 94 High Flow NC 3.00 152/47 07/24/16 07:00 97 07/24/16 06:26 94 Nasal Cannula 2.00 07/24/16 06:00 95 156/41 93 High Flow NC 3.00 07/24/16 05:00 101 155/40 93 High Flow NC 3.00 07/24/16 04:00 94 High Flow NC 3.00 07/24/16 03:53 99.2 105 20 160/43 91 High Flow NC 3.00 07/24/16 03:00 100 156/43 90 High Flow NC 3.00 07/24/16 02:03 94 High Flow N/C 2.00 07/24/16 02:00 96 154/43 96 High Flow NC 3.00 07/24/16 01:00 105 07/24/16 01:00 106 173/47 95 High Flow NC 3.00 07/24/16 00:00 101 173/48 94 High Flow NC 3.00 07/24/16 00:00 93 High Flow NC 3.00 07/23/16 23:26 97.9 104 20 147/47 91 High Flow NC 3.00 07/23/16 23:00 134 12 151/72 92 High Flow NC 3.00 07/23/16 22:09 94 High Flow N/C 2.00 07/23/16 22:00 121 150/75 94 High Flow NC 3.00 07/23/16 21:00 129 24 149/71 92 High Flow NC 3.00 07/23/16 20:00 93 High Flow NC 3.00 07/23/16 20:00 122 25 137/64 93 High Flow NC 3.00 07/23/16 19:40 97.8 107 20 136/43 93 High Flow NC 3.00 07/23/16 19:13 95 High Flow N/C 2.00 07/23/16 19:00 104 07/23/16 19:00 97 19 140/65 92 High Flow NC 3.00 07/23/16 18:00 128 16 147/74 94 High Flow NC 3.00 07/23/16 17:00 130 19 162/71 93 High Flow NC 3.00 07/23/16 16:00 97.9 High Flow NC 3.00 07/23/16 16:00 123 11 141/85 94 High Flow NC 3.00 07/23/16 16:00 94 High Flow NC 3.00 07/23/16 15:00 122 13 155/82 95 High Flow NC 3.00 07/23/16 14:34 97 High Flow N/C 3.00 07/23/16 14:00 120 20 147/75 96 High Flow NC 3.00 07/23/16 13:00 92 07/23/16 13:00 93 19 147/75 94 High Flow NC 3.00 07/23/16 12:00 94 High Flow NC 5.00 07/23/16 12:00 102 16 156/53 93 High Flow NC 5.00 07/23/16 12:00 98.6 High Flow NC 5.00 07/23/16 11:00 96 16 167/56 93 High Flow NC 5.00 07/23/16 10:23 94 High Flow N/C 4.00 07/23/16 10:00 86 16 152/48 94 High Flow NC 5.00 I & O 07/24/16 07:00 Intake Total 2572.5 ml Output Total 6900 ml Balance -4327.5 ml Capillary Refill : General Appearance: WD/WN Mild Distress HEENT: PERRL/EOMI Pharynx Normal Neck: Full Range of Motion Respiratory: Chest Non Tender Crackles Decreased Breath Sounds Wheezing Cardiovascular: Regular Rate, Rhythm Other (EDEMA BILATERAL LOWER EXTREMITIES AND HANDS/WRISTS) Gastrointestinal: normal bowel sounds non tender soft no organomegaly no pulsatile mass Extremity: Pedal Edema Neurologic/Psychiatric: Alert Oriented x3 Normal Mood/Affect Skin: Warm/Dry Results Lab Laboratory Tests 07/23/16 10:45: Hematocrit 35, Hemoglobin 11.4L, Mean Corpuscular Hemoglobin 32, Mean Corpuscular Hemoglobin Concent 33, Mean Corpuscular Volume 98, Mean Platelet Volume 10.0, Platelet Count 331, Red Blood Count 3.54L, Red Cell Distribution Width 13.3, White Blood Count 24.0H 07/23/16 12:09: Glucometer 170H 07/23/16 17:46: Glucometer 178H 07/23/16 23:29: Glucometer 166H 07/24/16 04:00: Activated Partial Thromboplast Time 22L, Alanine Aminotransferase (ALT/SGPT) 102H, Albumin 2.9L, Alkaline Phosphatase 109, Anion Gap 11, Aspartate Amino Transf (AST/SGOT) 107H, BUN/Creatinine Ratio 33, Basophils # (Auto) 0.0, Basophils (%) (Auto) 0, Blood Urea Nitrogen 19H, Calcium Level 8.0L, Carbon Dioxide Level 24, Chloride Level 103, Creatinine 0.58L, Eosinophils # (Auto) 0.0 , Eosinophils (%) (Auto) 0, Estimat Glomerular Filtration Rate > 60, Glucose Level 164H, Hematocrit 33L, Hemoglobin 10.8L, INR Comment 1.0, Lymphocytes # ( Auto) 0.4L, Lymphocytes (%) (Auto) 2L, Magnesium Level 2.0, Mean Corpuscular Hemoglobin 32, Mean Corpuscular Hemoglobin Concent 33, Mean Corpuscular Volume 97, Mean Platelet Volume 10.5H, Monocytes # (Auto) 0.5, Monocytes (%) (Auto) 2, Neutrophils # (Auto) 19.7H, Neutrophils (%) (Auto) 96H, Phosphorus Level 4.0, Platelet Count 332, Potassium Level 4.4, Prothrombin Time 13.2, Red Blood Count 3.43L, Red Cell Distribution Width 13.1, Sodium Level 138, Total Bilirubin 0.6, Total Protein 5.1L, White Blood Count 20.6H Microbiology 07/18/16 Blood Culture - Final, Complete No growth 07/14/16 Gram Stain - Final, Complete 07/14/16 Sputum Culture - Final, Complete Usual/normal karissa isolated. 07/14/16 Urine Culture - Final, Complete Yeast Species Assessment/Plan Assessment/Plan Assess & Plan/Chief Complaint PNEUMONIA DUE TO STREPTOCOCCUS SEPSIS/SEPTIC SHOCK ACUTE RESPIRATORY FAILURE HYPERTENSION ACUTE RENAL FAILURE GERD PULMONARY EDEMA GENERALIZED WEAKNESS ANXIETY PNEUMONIA DUE TO STREPTOCOCCUS WITH SEPSIS/SEPTIC SHOCK - SHOCK HAS IMPROVED - PNEUMONIA PERSISTENT - CHEST XRAY SHOWS CONTINUED INFILTRATES, THE WHITE COUNT HAD BEEN INCREASING AND THE PATIENT'S ANTIBIOTICS WERE ADJUSTED YESTERDAY - PT IS CURRENTLY ON : - MEROPENEM - ZYVOX FOR TREATMENT OF PNEUMONIA - CONTINUE WITH CURRENT TREATMENT - MONITOR SERIAL CHEST XRAYS. ACUTE RESPIRATORY FAILURE - IMPROVED PT OFF OF VENT ON NASAL CANNULA WITH BIPAP PRN FOR RESPIRATORY MUSCLE FATIGUE. HYPERTENSION - UNCONTROLLED - INCREASED DOSE OF TOPROL FROM 50MG BID TO 75MG BID - CONTINUE WITH PRN IV DOSE OF LOPRESSOR AND MONITOR BLOOD PRESSURE AND HEART RATE RESPONSE TO INCREASE IN HER MEDICATION. ACUTE RENAL FAILURE - IMPROVED PULMONARY EDEMA- IMPROVING - WILL GIVE DOSE OF LASIX TODAY. GENERALIZED WEAKNESS - WILL ORDER PHYSICAL THERAPY IF NOT ALREADY VISITING PATIENT FOR EXERCISES TO BE DONE IN HER BED IN THE ICU FOR NOW, MAY NEED TO CONSIDER INPATIENT REHAB FOR FURTHER STRENGTHENING POST PROLONGED HOSPITALIZATION DUE TO HER SEVERE ILLNESS. ANXIETY - WILL ORDER PRN ATIVAN FOR PT TO USE AT NIGHT IF NEEDED FOR ANXIETY ATTACK. GERD - PT ON PEPCID, PRN PROTONIX AND WILL ORDER CARAFATE. Diagnosis/Problems: Clinical Quality Measures DVT/VTE Risk/Contraindication: Risk Factor Score Per Nursin RFS Level Per Nursing on Admit: 3=High NELSON MORALES MD Jul 24, 2016 09:31
[2016-07-24] MEDS ORDERED: meTOprolol TARTRATE 25 MG (LOPRESSOR) TABLET PO ONE (10:00)
[2016-07-24] MEDS: SUCRALFATE 1 GM (CARAFATE) TAB PO SCH ×3 (10:35→20:17)
--- NOTE | 2016-07-24 11:21 | Diagnostic Imaging Report ---
INDICATION: Pneumonia with sepsis. Followup. TECHNIQUE: Single view chest 5:27 a.m. CORRELATION STUDY: 07/23/2016. FINDINGS: Right IJ central line stable. Cardiac enlargement with pulmonary vascular congestion persist, perhaps very minimally improved. Scattered areas of edema versus infiltrate throughout both lung segal most noticeable at the bases. Bilateral pleural effusions. IMPRESSION: 1. Findings of congestive failure with fluid overload. 2. Scattered bilateral pulmonary infiltrates versus edema persisting, overall likely relatively stable. Dictated by: Dictated on workstation # [id number]
[2016-07-24] MEDS ORDERED: LORazepam INJ 2 MG/ML (ATIVAN) VIAL IVP PRN (11:45)
[2016-07-24] MEDS: LINEZOLID IVPB 300 ML IV SCH (12:24)
[2016-07-24] MEDS: FUROSEMIDE 40 MG/4 ML INJ (LASIX) IVP SCH (16:45)
[2016-07-24] MEDS: D5W IV SCH (17:40)
[2016-07-24] MEDS: POTASSIUM CHLORIDE IV SCH (17:40)
[2016-07-24] MEDS: meTOprolol TARTRATE 25 MG (LOPRESSOR) TABLET PO SCH (20:17)
[2016-07-24] MEDS: ENOXAPARIN 40 MG/0.4 ML (LOVENOX) SYR SC SCH (20:17)
[2016-07-24] MEDS: meTOprolol TARTRATE 50 MG (LOPRESSOR) TAB PO SCH (20:17)
[2016-07-25] VITALS (24 sets, daily range): BP systolic 120–154; BP diastolic 40–81
[2016-07-25] MEDS: niCARdipine IV 50 MG in NS (IVPB) 230 ML IV SCH ×2 (00:07→07:30)
[2016-07-25] MEDS: LINEZOLID IVPB 300 ML IV SCH ×2 (00:26→12:16)
[2016-07-25] MEDS: inSUlin (REGULAR) HUMAN 1 UNIT/0.01 ML (CHARGE PER UNIT) SC SCH ×5 (00:26→20:45)
[2016-07-25] MEDS: RT-ALBUTEROL/IPRATROPIUM 3 ML (DUONEB) VIAL INH SCH ×6 (02:05→22:10)
[2016-07-25] MEDS: methylPREDNISolone 40 MG/ML (Solu-MEDROL) VIAL IV SCH ×4 (02:46→20:13)
[2016-07-25] MEDS: MEROPENEM 500 MG in NORMAL SALINE (BAXTER MINI) 100 ML IV SCH ×4 (02:46→20:13)
[2016-07-25] MEDS: meTOprolol 5 MG/5 ML (LOPRESSOR) VIAL IV PRN ×2 (03:49→13:09)
[2016-07-25 05:03] LABS: BASOPHILS % (AUTO) 0 % (0-10); EOSINOPHILS % (AUTO) 0 % (0-10); LYMPHOCYTES # (AUTO) 0.4 X 10^3 (1.0-4.0); LYMPHOCYTES % (AUTO) 3 % (12-44); MEAN CORPUSCULAR HEMOGLOBIN 32 PG (25-34); MEAN CORPUSCULAR HGB CONC 34 G/DL (32-36); MEAN CORPUSCULAR VOLUME 95 FL (80-99); MEAN PLATELET VOLUME 10.1 FL (7.4-10.4); MONOCYTES # (AUTO) 0.8 X 10^3 (0.0-1.0); MONOCYTES % (AUTO) 5 % (0-12); NEUTROPHILS # (AUTO) 13.4 X 10^3 (1.8-7.8); NEUTROPHILS % (AUTO) 92 % (42-75); PLATELET COUNT 334 10^3/uL (130-400); RED BLOOD COUNT 3.31 10^6/uL (4.35-5.85); RED CELL DISTRIBUTION WIDTH 12.8 % (10.0-14.5); WHITE BLOOD COUNT 14.6 10^3/uL (4.3-11.0)
[2016-07-25 05:19] LABS: INR 1.1 (0.8-1.4); PROTHROMBIN TIME PATIENT 13.5 SEC (12.2-14.7)
[2016-07-25 05:36] LABS: ALANINE AMINOTRANSFERASE 98 U/L (0-55); ALBUMIN 2.8 G/DL (3.2-4.5); ANION GAP 12 MMOL/L (5-14); ASPARTATE AMINO TRANSFERASE 105 U/L (5-34); BILIRUBIN,TOTAL 0.6 MG/DL (0.1-1.0); BLOOD UREA NITROGEN 22 MG/DL (7-18); BUN/CREATININE RATIO 37; CALCIUM 7.9 MG/DL (8.5-10.1); CARBON DIOXIDE 22 MMOL/L (21-32); CHLORIDE 103 MMOL/L (98-107); CREATININE SERUM 0.59 MG/DL (0.60-1.30); GFR ESTIMATED > 60; GLUCOSE 170 MG/DL (70-105); SODIUM 137 MMOL/L (135-145); TOTAL PROTEIN 5.1 G/DL (6.4-8.2)
[2016-07-25] MEDS: KCL 20 MEQ TAB (K-DUR) PO SCH ×2 (05:47)
[2016-07-25] MEDS: POTASSIUM CL 10MEQ/50ML IVPB 50 ML IV SCH (05:47)
[2016-07-25] MEDS: MAGNESIUM 1 GM/100 ML IVPB 100 ML IV SCH (06:00)
[2016-07-25 06:06] LABS: ANION GAP 11 MMOL/L (5-14); BLOOD UREA NITROGEN 21 MG/DL (7-18); BUN/CREATININE RATIO 36; CARBON DIOXIDE 22 MMOL/L (21-32); CHLORIDE 103 MMOL/L (98-107); CREATININE SERUM 0.58 MG/DL (0.60-1.30); GFR ESTIMATED > 60; GLUCOSE 171 MG/DL (70-105); MAGNESIUM 1.9 MG/DL (1.8-2.4); PHOSPHORUS 3.8 MG/DL (2.3-4.7); POTASSIUM 3.9 MMOL/L (3.6-5.0); SODIUM 136 MMOL/L (135-145)
[2016-07-25] MEDS: FUROSEMIDE 40 MG/4 ML INJ (LASIX) IVP SCH ×2 (06:23→16:15)
[2016-07-25] MEDS: SUCRALFATE 1 GM (CARAFATE) TAB PO SCH ×4 (06:23→20:31)
[2016-07-25] MEDS: FAMOTIDINE 20MG/2ML IV (PEPCID) IVP SCH ×2 (08:00→20:31)
[2016-07-25] MEDS: amLODIPine 5 MG (NORVASC) TAB PO SCH (08:00)
[2016-07-25] MEDS: lisINopril 20 MG (ZESTRIL) TAB PO SCH (08:00)
[2016-07-25] MEDS: LEVOTHYROXINE 50 MCG (LEVOTHROID) TAB PO SCH (08:00)
[2016-07-25] MEDS: meTOprolol TARTRATE 50 MG (LOPRESSOR) TAB PO SCH ×2 (08:01→20:31)
[2016-07-25] MEDS: meTOprolol TARTRATE 25 MG (LOPRESSOR) TABLET PO SCH (08:01)
--- NOTE | 2016-07-25 08:15 | Diagnostic Imaging Report ---
INDICATION: Pneumonia with sepsis. COMPARISON: July 24, 2016 TECHNIQUE: Single frontal radiograph of the chest dated July 25, 2016. FINDINGS: Right IJ central venous catheter is stable. The cardiac silhouette is within normal limits. Mild central pulmonary vascular congestion is present, appearing improved from the prior examination. Improved bibasilar pleural-parenchymal opacities with persistent opacities remaining. No new focal pulmonary opacity. No pneumothorax. Osseous structures are stable. IMPRESSION: Improving bibasilar pleural-parenchymal opacities. Findings likely relate to improving edema given improving central pulmonary vascular congestion. Recommend continued followup. Dictated by: Dictated on workstation # [id number]
--- NOTE | 2016-07-25 09:22 | Progress Note (SOAP) ---
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 THE PATIENT WAS SITTING UP IN BED, STATES THAT SHE JUST FEELS EXTREMELY WEAK, FEELS FATIGUED, AND HAS QUITE A BIT OF SWELLING OF HER ARMS, SIGNIFICANTLY CHANGED FROM YESTERDAY. Review of Systems General: Fatigue Malaise HEENT: No Head Aches Pulmonary: Dyspnea Cough Cardiovascular: : Edema (LOWER EXTREMITIES AND ARMS)No: Chest Pain Gastrointestinal: No: Abdominal Pain, Nausea Genitourinary: No Dysuria Musculoskeletal: : arm painNo: back pain Neurological: : Weakness Objective Exam Vital Signs Date Time Temp Pulse Resp B/P Pulse Ox O2 Delivery O2 Flow Rate FiO2 07/25/16 08:00 97 High Flow NC 3.00 07/25/16 08:00 98.4 98 18 146/68 96 High Flow NC 3.00 129/40 07/25/16 07:00 98 07/25/16 06:08 98 Nasal Cannula 3.00 07/25/16 06:00 96 23 141/45 97 High Flow NC 3.00 07/25/16 05:00 94 22 143/48 94 High Flow NC 3.00 07/25/16 04:00 96 High Flow NC 3.00 07/25/16 04:00 97.6 96 20 146/49 97 High Flow NC 3.00 07/25/16 03:00 99 140/59 98 High Flow NC 3.00 07/25/16 02:06 96 Nasal Cannula 3.00 07/25/16 02:00 98 140/44 98 High Flow NC 3.00 07/25/16 01:00 96 07/25/16 01:00 94 138/43 94 High Flow NC 3.00 07/25/16 00:00 94 High Flow NC 3.00 07/25/16 00:00 98.8 103 20 136/43 94 High Flow NC 3.00 07/24/16 23:00 102 134/42 95 High Flow NC 3.00 07/24/16 22:03 97 Nasal Cannula 3.00 07/24/16 22:00 105 120/40 High Flow NC 3.00 07/24/16 21:00 105 129/42 High Flow NC 3.00 07/24/16 20:00 94 High Flow NC 3.00 07/24/16 20:00 97 19 134/41 96 High Flow NC 3.00 07/24/16 19:27 97.9 96 22 131/40 96 High Flow NC 3.00 07/24/16 19:00 97 07/24/16 19:00 98 23 135/47 97 High Flow NC 3.00 07/24/16 18:38 98 Nasal Cannula 3.00 07/24/16 18:00 96 30 135/77 95 High Flow NC 3.00 07/24/16 17:00 112 26 152/73 85 High Flow NC 3.00 07/24/16 16:00 109 26 150/70 93 High Flow NC 3.00 07/24/16 16:00 95 High Flow NC 3.00 07/24/16 16:00 99.1 07/24/16 15:05 95 Nasal Cannula 3.00 07/24/16 15:00 102 28 128/60 89 High Flow NC 3.00 07/24/16 14:00 99 20 125/56 90 High Flow NC 3.00 07/24/16 13:00 93 23 129/60 90 High Flow NC 3.00 07/24/16 13:00 94 07/24/16 12:00 95 High Flow NC 3.00 07/24/16 12:00 98.3 92 20 118/54 95 High Flow NC 3.00 135/46 07/24/16 11:00 111/53 92 High Flow NC 3.00 07/24/16 10:31 98 Nasal Cannula 4.00 07/24/16 10:00 89 15 159/81 89 High Flow NC 3.00 I & O 07/25/16 07:00 Intake Total 3785 ml Output Total 3700 ml Balance 85 ml Capillary Refill : General Appearance: No Apparent Distress WD/WN HEENT: PERRL/EOMI Pharynx Normal Neck: Full Range of Motion Supple Respiratory: Chest Non Tender Decreased Breath Sounds Rhonci Cardiovascular: Regular Rate, Rhythm Gastrointestinal: normal bowel sounds non tender soft no organomegaly no pulsatile mass Extremity: Pedal Edema Swelling (UPPER AND LOWER EXTREMITIES 2-3+) Neurologic/Psychiatric: Alert Oriented x3 Normal Mood/Affect Lymphatic: No Adenopathy Results Lab Laboratory Tests 07/24/16 12:06: Glucometer 196H 07/24/16 17:28: Glucometer 196H 07/25/16 00:19: Glucometer 174H 07/25/16 04:50: Activated Partial Thromboplast Time 22L, Alanine Aminotransferase (ALT/SGPT) 98H , Albumin 2.8L, Alkaline Phosphatase 95, Anion Gap 11, Aspartate Amino Transf ( AST/SGOT) 105H, BUN/Creatinine Ratio 36, Basophils # (Auto) 0.0, Basophils (%) ( Auto) 0, Blood Urea Nitrogen 21H, Calcium Level 8.0L, Carbon Dioxide Level 22, Chloride Level 103, Creatinine 0.58L, Eosinophils # (Auto) 0.0, Eosinophils (%) (Auto) 0, Estimat Glomerular Filtration Rate > 60, Glucose Level 171H, Hematocrit 32L, Hemoglobin 10.6L, INR Comment 1.1, Lymphocytes # (Auto) 0.4L, Lymphocytes (%) (Auto) 3L, Magnesium Level 1.9, Mean Corpuscular Hemoglobin 32, Mean Corpuscular Hemoglobin Concent 34, Mean Corpuscular Volume 95, Mean Platelet Volume 10.1, Monocytes # (Auto) 0.8, Monocytes (%) (Auto) 5, Neutrophils # (Auto) 13.4H, Neutrophils (%) (Auto) 92H, Phosphorus Level 3.8, Platelet Count 334, Potassium Level 3.9, Prothrombin Time 13.5, Red Blood Count 3.31L, Red Cell Distribution Width 12.8, Sodium Level 136, Total Bilirubin 0.6, Total Protein 5.1L, White Blood Count 14.6H Microbiology 07/18/16 Blood Culture - Final, Complete No growth 07/14/16 Gram Stain - Final, Complete 07/14/16 Sputum Culture - Final, Complete Usual/normal karissa isolated. 07/14/16 Urine Culture - Final, Complete Yeast Species Assessment/Plan Assessment/Plan Assess & Plan/Chief Complaint PNEUMONIA DUE TO STREPTOCOCCUS SEPSIS/SEPTIC SHOCK ACUTE RESPIRATORY FAILURE HYPERTENSION ACUTE RENAL FAILURE GERD PULMONARY EDEMA GENERALIZED WEAKNESS ANXIETY PNEUMONIA DUE TO STREPTOCOCCUS WITH SEPSIS/SEPTIC SHOCK - SHOCK HAS IMPROVED - PNEUMONIA PERSISTENT - CHEST XRAY SHOWS CONTINUED INFILTRATES, THE WHITE COUNT HAD BEEN INCREASING AND THE PATIENT'S ANTIBIOTICS WERE ADJUSTED YESTERDAY - PT IS CURRENTLY ON : - MEROPENEM - ZYVOX FOR TREATMENT OF PNEUMONIA - CONTINUE WITH CURRENT TREATMENT - MONITOR SERIAL CHEST XRAYS. ACUTE RESPIRATORY FAILURE - IMPROVED PT OFF OF VENT ON NASAL CANNULA WITH BIPAP PRN FOR RESPIRATORY MUSCLE FATIGUE. HYPERTENSION - UNCONTROLLED - INCREASED DOSE OF TOPROL AGAIN FROM 75MG BID TO 100MG - CONTINUE WITH PRN IV DOSE OF LOPRESSOR AND MONITOR BLOOD PRESSURE AND HEART RATE RESPONSE TO INCREASE IN HER MEDICATION. ACUTE RENAL FAILURE - IMPROVED PULMONARY EDEMA- IMPROVING - WILL GIVE ADDITIONAL DOSE OF LASIX TODAY. GENERALIZED WEAKNESS - WILL ORDER PHYSICAL THERAPY IF NOT ALREADY VISITING PATIENT FOR EXERCISES TO BE DONE IN HER BED IN THE ICU FOR NOW, MAY NEED TO CONSIDER INPATIENT REHAB FOR FURTHER STRENGTHENING POST PROLONGED HOSPITALIZATION DUE TO HER SEVERE ILLNESS. ANXIETY - WILL ORDER PRN ATIVAN FOR PT TO USE AT NIGHT IF NEEDED FOR ANXIETY ATTACK. GERD - PT ON PEPCID, PRN PROTONIX AND WILL ORDER CARAFATE. Diagnosis/Problems: Clinical Quality Measures DVT/VTE Risk/Contraindication: Risk Factor Score Per Nursin RFS Level Per Nursing on Admit: 3=High NELSON MORALES MD Jul 25, 2016 09:22
[2016-07-25] MEDS ORDERED: meTOprolol TARTRATE 25 MG (LOPRESSOR) TABLET PO ONE (10:15)
[2016-07-25] MEDS ORDERED: FUROSEMIDE 40 MG/4 ML INJ (LASIX) IVP ONE (10:15)
[2016-07-25] MEDS: hydrALAZINE (APESOLINE) 20 MG/ML VIAL IV PRN ×3 (10:15→23:36)
--- NOTE | 2016-07-25 12:15 | Diagnostic Imaging Report ---
INDICATION: Bilateral upper extremity edema EXAMINATIONS: Both grayscale and color Doppler imaging of the deep veins of the upper extremities were performed with waveform analysis. FINDINGS: There is no intraluminal filling defect. Normal continuous flow is seen throughout the deep venous systems of both upper extremities, and there is normal response to augmentation. The deep veins compress normally. IMPRESSION: No ultrasound evidence of deep venous thrombosis in either upper extremity. Dictated by: Dictated on workstation # [id number]
[2016-07-25] MEDS: LACTOBACILLUS Acidoph/Bulgar (LACTINEX/FLORANEX) TAB PO SCH ×2 (13:15→16:14)
[2016-07-25] MEDS: D5W IV SCH (13:33)
[2016-07-25] MEDS: POTASSIUM CHLORIDE IV SCH (13:33)
[2016-07-25] MEDS: CATHETER FLUSH 10 ML SYR IV PRN (20:14)
[2016-07-25] MEDS: ENOXAPARIN 40 MG/0.4 ML (LOVENOX) SYR SC SCH (20:33)
[2016-07-26] VITALS (13 sets, daily range): BP systolic 132–171; BP diastolic 51–88
[2016-07-26] MEDS: LINEZOLID IVPB 300 ML IV SCH (00:26)
[2016-07-26] MEDS: RT-ALBUTEROL/IPRATROPIUM 3 ML (DUONEB) VIAL INH SCH ×6 (01:53→22:00)
[2016-07-26] MEDS: CATHETER FLUSH 10 ML SYR IV PRN ×3 (01:56→07:01)
[2016-07-26] MEDS: meTOprolol 5 MG/5 ML (LOPRESSOR) VIAL IV PRN (01:56)
[2016-07-26] MEDS: MEROPENEM 500 MG in NORMAL SALINE (BAXTER MINI) 100 ML IV SCH ×4 (01:58→20:12)
[2016-07-26] MEDS: methylPREDNISolone 40 MG/ML (Solu-MEDROL) VIAL IV SCH ×3 (02:18→20:12)
[2016-07-26 04:21] LABS: BASOPHILS % (AUTO) 0 % (0-10); EOSINOPHILS % (AUTO) 0 % (0-10); LYMPHOCYTES # (AUTO) 0.5 X 10^3 (1.0-4.0); LYMPHOCYTES % (AUTO) 4 % (12-44); MEAN CORPUSCULAR HEMOGLOBIN 32 PG (25-34); MEAN CORPUSCULAR HGB CONC 33 G/DL (32-36); MEAN CORPUSCULAR VOLUME 96 FL (80-99); MEAN PLATELET VOLUME 10.2 FL (7.4-10.4); MONOCYTES # (AUTO) 0.9 X 10^3 (0.0-1.0); MONOCYTES % (AUTO) 7 % (0-12); NEUTROPHILS # (AUTO) 11.1 X 10^3 (1.8-7.8); NEUTROPHILS % (AUTO) 89 % (42-75); PLATELET COUNT 362 10^3/uL (130-400); RED BLOOD COUNT 3.29 10^6/uL (4.35-5.85); RED CELL DISTRIBUTION WIDTH 12.9 % (10.0-14.5); WHITE BLOOD COUNT 12.5 10^3/uL (4.3-11.0)
[2016-07-26 04:30] LABS: INR 1.1 (0.8-1.4); PROTHROMBIN TIME PATIENT 13.5 SEC (12.2-14.7)
[2016-07-26 04:42] LABS: ALANINE AMINOTRANSFERASE 102 U/L (0-55); ALBUMIN 2.6 G/DL (3.2-4.5); ANION GAP 8 MMOL/L (5-14); ASPARTATE AMINO TRANSFERASE 94 U/L (5-34); BILIRUBIN,TOTAL 0.5 MG/DL (0.1-1.0); BLOOD UREA NITROGEN 25 MG/DL (7-18); BUN/CREATININE RATIO 40; CALCIUM 7.6 MG/DL (8.5-10.1); CARBON DIOXIDE 25 MMOL/L (21-32); CHLORIDE 103 MMOL/L (98-107); CREATININE SERUM 0.62 MG/DL (0.60-1.30); GFR ESTIMATED > 60; GLUCOSE 174 MG/DL (70-105); PHOSPHORUS 3.6 MG/DL (2.3-4.7); POTASSIUM 3.8 MMOL/L (3.6-5.0); SODIUM 136 MMOL/L (135-145); TOTAL PROTEIN 4.6 G/DL (6.4-8.2)
[2016-07-26] MEDS: POTASSIUM CL 10MEQ/50ML IVPB 50 ML IV SCH (05:56)
[2016-07-26] MEDS: MAGNESIUM 1 GM/100 ML IVPB 100 ML IV SCH (05:56)
[2016-07-26] MEDS: KCL 20 MEQ TAB (K-DUR) PO SCH ×2 (05:56→05:57)
--- NOTE | 2016-07-26 06:41 | Pulmonary Progress Note ---
Subjective Subjective/Events-last exam Pt is doing much better but still very weak. Exam Exam Vital Signs Date Time Temp Pulse Resp B/P Pulse Ox O2 Delivery O2 Flow Rate FiO2 07/26/16 06:00 97 19 161/80 94 High Flow NC 2.00 07/26/16 05:00 87 18 151/57 94 High Flow NC 2.00 07/26/16 04:00 98.1 81 16 148/70 94 High Flow NC 2.00 07/26/16 04:00 96 High Flow NC 2.00 07/26/16 03:00 88 18 163/77 95 High Flow NC 2.00 07/26/16 02:00 92 163/88 96 High Flow NC 2.00 07/26/16 01:53 98 Nasal Cannula 2.00 07/26/16 01:00 97 148/51 97 High Flow NC 2.00 07/26/16 01:00 91 07/26/16 00:00 96 High Flow NC 2.00 07/26/16 00:00 99.0 90 18 156/76 96 High Flow NC 2.00 07/25/16 23:00 93 154/75 High Flow NC 2.00 07/25/16 22:10 96 Nasal Cannula 2.00 07/25/16 22:00 93 147/77 High Flow NC 2.00 07/25/16 21:00 106 139/70 High Flow NC 2.00 07/25/16 20:00 95 High Flow NC 3.00 07/25/16 20:00 99.4 105 16 131/66 95 High Flow NC 2.00 07/25/16 19:00 106 130/65 High Flow NC 2.00 07/25/16 19:00 105 07/25/16 18:39 97 Nasal Cannula 2.00 07/25/16 18:00 102 140/71 High Flow NC 3.00 07/25/16 17:00 92 154/73 92 High Flow NC 3.00 07/25/16 16:00 96 20 152/74 96 High Flow NC 3.00 07/25/16 15:47 94 High Flow NC 3.00 07/25/16 15:46 98.4 90 16 146/52 96 High Flow NC 3.00 07/25/16 14:34 96 Nasal Cannula 2.00 07/25/16 14:00 93 139/71 95 High Flow NC 3.00 07/25/16 13:00 101 07/25/16 13:00 100 20 120/81 95 High Flow NC 3.00 07/25/16 12:00 94 High Flow NC 3.00 07/25/16 12:00 97.9 95 18 125/80 94 High Flow NC 3.00 07/25/16 11:09 96 Nasal Cannula 2.00 07/25/16 11:00 98 130/67 98 High Flow NC 3.00 07/25/16 10:00 92 146/70 96 High Flow NC 3.00 07/25/16 09:00 106 142/63 High Flow NC 3.00 07/25/16 08:00 97 High Flow NC 3.00 07/25/16 08:00 98.4 98 18 146/68 96 High Flow NC 3.00 129/40 07/25/16 07:00 97 142/63 96 High Flow NC 3.00 07/25/16 07:00 98 I & O 07/26/16 07:00 Intake Total 2930 ml Output Total 3775 ml Balance -845 ml General Appearance: No Apparent Distress WD/WN HEENT: PERRL/EOMI Pharynx Normal Neck: Full Range of Motion Supple Respiratory: Chest Non Tender Decreased Breath Sounds Rhonci Cardiovascular: Regular Rate, Rhythm Peripheral Pulses: 2+ Dorsalis Pedis (R), 2+ Left Dors-Pedis (L), 2+ Radial Pulses (R), 2+ Radial Pulses (L) Gastrointestinal: normal bowel sounds non tender soft no organomegaly no pulsatile mass Extremity: Pedal Edema Swelling (UPPER AND LOWER EXTREMITIES 2-3+) Neurologic/Psychiatric: Alert Oriented x3 Normal Mood/Affect Skin: Warm/Dry Lymphatic: No Adenopathy Results Lab Laboratory Tests 07/25/16 04:50 07/26/16 04:10 Assessment/Plan Assessment/Plan Acute respiratory distress with ARDS Pa02/Fi02 = 324 ARDS IS NOW RESOLVED -oxygen to maintain sats >92% -I/S -PT/OT -decrease solumedrol to 40mg IV Q12 -D/C central line obtain picc -D/C arterial line Severe sepsis with Strep pneumonia - zyvox, Merrem pulmonary edema -Hep lock IVF -lasix 40mg IV Q12 HTN -lisinopril, norvasc, lopressor -PRN hydralazine, and vasotec Hypothyroidism -resume Home meds DVT prophylactic -lovenox debility -PT/OT -rehab consult -D/C flores -increase activity Tobacco use Hypernatremia - RESOLVED - IVF D5 W -250cc of free water per OG Q 6hrs Anemia with thrombocytopenia - RESOLVED metabolic acidosis with lactic acidosis -- RESOLVED -D/C bicarb gtt Septic shock r/o DIC -RESOLVED Acute renal failure - RESOLVED -IVF Hypotension - resolved Transfer to 4th floor pt is doing much better. Clinical Quality Measures DVT/VTE Risk/Contraindication: Risk Factor Score Per Nursin RFS Level Per Nursing on Admit: 3=High KIKO FREED DO Jul 26, 2016 06:41
[2016-07-26] MEDS ORDERED: FUROSEMIDE 40 MG/4 ML INJ (LASIX) IVP NR (06:45)
[2016-07-26] MEDS: hydrALAZINE (APESOLINE) 20 MG/ML VIAL IV PRN (06:50)
[2016-07-26] MEDS: SUCRALFATE 1 GM (CARAFATE) TAB PO SCH ×4 (06:53→20:12)
[2016-07-26] MEDS: LACTOBACILLUS Acidoph/Bulgar (LACTINEX/FLORANEX) TAB PO SCH ×3 (06:53→16:21)
[2016-07-26] MEDS: inSUlin (REGULAR) HUMAN 1 UNIT/0.01 ML (CHARGE PER UNIT) SC SCH (06:58)
[2016-07-26] MEDS: lisINopril 20 MG (ZESTRIL) TAB PO SCH (08:12)
[2016-07-26] MEDS: FAMOTIDINE 20MG/2ML IV (PEPCID) IVP SCH ×2 (08:12→20:12)
[2016-07-26] MEDS: LEVOTHYROXINE 50 MCG (LEVOTHROID) TAB PO SCH (08:13)
[2016-07-26] MEDS: meTOprolol TARTRATE 50 MG (LOPRESSOR) TAB PO SCH ×2 (08:13→20:12)
[2016-07-26] MEDS: amLODIPine 5 MG (NORVASC) TAB PO SCH (08:13)
--- NOTE | 2016-07-26 09:23 | Diagnostic Imaging Report ---
INDICATION: Pneumonia and sepsis. TECHNIQUE: A frontal chest was obtained at 0505 hours. COMPARISON: 07/25/2016. FINDINGS: The heart is normal in size. The mediastinal silhouette is unremarkable. There are patchy bilateral basilar infiltrates which are similar to the prior study. There is no pneumothorax or pleural fluid. The right IJ central catheter is unchanged with the tip in the SVC. IMPRESSION: Unchanged patchy bibasilar infiltrates. No new abnormality. Dictated by: Dictated on workstation # [id number]
--- NOTE | 2016-07-26 10:02 | Physical Therapy Daily Note ---
PT Daily Note-Current Subjective Patient is alert and incontinent BM. RN in to assist for cleansing. Patient states she is feeling much stronger. Pain Numeric Pain Scale: 0-No Pain Location: No Pain Reported Appearance noted 3+ pitting edema total body Mental Status Patient Orientation: Normal For Age Attachments: Oxygen (2L NC HF) Transfers Functional [place] Measure 0=Not Assessed/NA 4=Minimal Assistance 1=Total Assistance 5=Supervision or Setup 2=Maximal Assistance 6=Modified [place] 3=Moderate Assistance 7=Complete IndependenceIRFPAI Quality Coding Scale 6 Independent with activity with or without an assistive device 5 Patient requires set up or clean up by helper. Patient completes activity by themselves 4 Supervision or touching assist (CGA). [place] provide cues , steadying assist 3 The helper provides less than half the effort to complete the activity 2 The helper provides more than half the effort to complete the activity 1 Dependent. The helper does all the effort to complete an activity 7 Patient refused to complete or attempt activity 9 The patient did not perform the activity before the current illness or injury 88 Not attempted due to Medical conditions or safety concerns Transfers (B, C, W/C) (FIM): 1 Scootin Rollin Supine to/from Sit: 3 Sit to/from Stand: 1 Bed to/from Chair: 1 dependent assist x 2 with sit to stand and SPT; sit to stand x 4 sets and SPT x 2 Gait Training Gait (FIM): 0 Distance (FIM): 0=does not occure Assessment Patient is slowly improving with treatment. PT to increase activity as tolerated by patient. Patient is limited with functional strength. PT Short Term Goals Short Term Goals Time Frame: Jul 30, 2016 Transfers (B,C,W/C) (FIM): 3 Gait (FIM): 1 Distance (FIM): 1=up to 49 ft Gait Distance Comment: 20' Gait Level of Assist: 3 Gait Assistive Device: FWW PT Custodial Goals Custodial Goals PT Custodial Goals Time Frame: Aug 13, 2016 Transfers (B,C,W/C) (FIM): 6 Gait (FIM): 6 Gait distance (FIM): 3=150 ft Gait Level of Assist: 6 Gait Assistive Device: None, FWW PT Plan Treatment/Plan Treatment Plan: Continue Plan of Care Treatment Plan: Bed Mobility, Education, Functional Activity Zeina, Functional Strength, Gait, Safety, Therapeutic Exercise, Transfers Treatment Duration: Aug 13, 2016 Visits Per Week: 11 Time/GCodes Time In: 846 Time Out: 909 Total Billed Treatment Time: 23 Total Billed Treatment 1 visit FA x 2 23 min ANNMARIE AUGUSTIN PT Jul 26, 2016 10:02
--- NOTE | 2016-07-26 11:36 | Diagnostic Imaging Report ---
INDICATION: Central venous catheter evaluation 1126 hrs. Since the study of earlier in the day, there has been placement of right upper extremity PICC with catheter tip extending cephalad into the region of the right jugular vein. Right jugular central venous catheter is in stable position with tip projecting over the mid superior vena cava. There is no pneumothorax or other change in the radiographic appearance of the chest. IMPRESSION: Right upper extremity PICC tip extends cephalad into the right jugular vein. Dictated by: Dictated on workstation # [id number]
[2016-07-26] MEDS: LINEZOLID (ZYVOX) 600 MG TAB PO SCH ×2 (11:51→20:13)
--- NOTE | 2016-07-26 12:00 | Occupational Therapy Eval ---
OT Evaluation-General/PLF Medical Diagnosis Admission Date Jul 13, 2016 at 18:40 Medical Diagnosis: severe sepsis/pneumonia Onset Date: Jul 13, 2016 Therapy Diagnosis Therapy Diagnosis: Weakness, Decreased ADL skills Height/Weight Height (Feet): 5 Height (Inches): 2.00 Weight (Pounds): 218 Weight (Ounces): 9.6 Precautions Precautions/Isolations: Standard Precautions Safety Interventions: None Weight Bear Status Weight Bearing Restriction: Weight Bearing/Tolerated Referral Physician: Abe Referral Reason: Activity Tolerance, Self Care, Evaluation/Treatment, Strengthening/ROM Medical History Pertinent Medical History: Arthritis, COPD, Hypothroidism, Smoking Additional Medical History Pt. came in with pneumonia. Became septic. On vent 7 days. Current History Pt. is severely debilitated. Very weak and has difficulty physically participating. Reviewed History: Yes Social History Home: Single Level Current Living Status: Spouse Entry Into Home: Stairs With Railing Steps Into Home: 2 ADL-Prior Level of Function ADL PLOF Comments Pt. was independent with daily tasks previous to this hospitalization. 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 DME/Equipment: Shower DME/Equipment Comments Pt. states that she has no equipment. 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. Drive Self: Yes OT Current Status Subjective Pt. does not report pain level, but does report that her skin is sensitive with touch due to swelling. Appearance Pt. is up in wheelchair. Requests to shower. Mental Status/Objective Patient Orientation: Person, Place, Time, Situation Current Glasses/Contacts: Yes Hand Dominance: Right Upper Extremity ROM Pt. is only able to actively flex bilateral shoulders to approximately 45 degrees. Limited ROM in bilateral hands, elbow, and wrist noted as well, due to swelling and weakness. Upper Extremity Coordination impaired Upper Extremity Sensation impaired. Pt. is hypersensitive due to swelling. Upper Extremity Strength 2/5 bilateral UE strength. Pt. is very limited. Edema: Pt. has significant swelling on bilateral hands and UE. ADL-Treatment Functional [place] Measure 0=Not Assessed/NA 4=Minimal Assistance 1=Total Assistance 5=Supervision or Setup 2=Maximal Assistance 6=Modified [place] 3=Moderate Assistance 7=Complete IndependenceIRFPAI Quality Coding Scale 6 Independent with activity with or without an assistive device 5 Patient requires set up or clean up by helper. Patient completes activity by themselves 4 Supervision or touching assist (CGA). [place] provide cues , steadying assist 3 The helper provides less than half the effort to complete the activity 2 The helper provides more than half the effort to complete the activity 1 Dependent. The helper does all the effort to complete an activity 7 Patient refused to complete or attempt activity 9 The patient did not perform the activity before the current illness or injury 88 Not attempted due to Medical conditions or safety concerns Grooming (FIM): 1 (Pt. is dependent for brushing hair. Is unable to bring her hands up to head. Note that pt. has significant knotting due to being debilitated so long.) Bathing (FIM): 1 (Pt. is unable to hold shower head or washcloth. Requires dependent assistance to wash self.) Lower Body Dressing (FIM): 1 (Dependent for socks.) Toileting (FIM): 1 (Pt. became incontinent of bowel all over bathroom floor.) Transfers (B, C, W/C) (FIM): 1 (Pt. requires dependent assistance for transfer to and from shower chair. Max x 2 for sit-stand, and then for sit-supine and bed mobility.) Shower Transfer (FIM): 1 (shower chair.) Education OT Patient Education: Correct positioning, Modified ADL techniques, Progress toward Goal/Update tx plan, Purpose of tx/functional activities, Reviewed precautions, Rehab process, Transfer techniques Teaching Recipient: Patient Teaching Methods: Demonstration, Discussion Response to Teaching: Verbalize Understanding, Return Demonstration OT Short Term Goals Short Term Goals Time Frame: Aug 09, 2016 Eating(FIM): 4 Grooming(FIM): 4 Bathing(FIM): 3 Upper Body Dressing(FIM): 4 Lower Body Dressing(FIM): 3 Toileting(FIM): 4 Transfers (B,C,W/C) (FIM): 3 Toilet/Commode Transfer(FIM): 3 Shower Transfer(FIM): 3 Additional Short Term Goals: 1-Demonstrate ADL Tasks, 2-Verbalize Understanding , 3-ImproveStrength/[place] 1=Demonstrate adherence to instructed precautions during ADL tasks. 2=Patient will verbalize/demonstrate understanding of assistive devices/ modifications for ADL. 3=Patient will improve strength/tolerance for activity to enable patient to perform ADL's. OT Usp Goals Agronomy Teacher Goals Time Frame: 4 weeks Eating (FIM): 5 Grooming(FIM): 5 Bathing(FIM): 5 Upper Body Dressing(FIM): 5 Lower Body Dressing(FIM): 5 Toileting(FIM): 5 Transfers (B,C,W/C) (FIM): 5 Toilet/Commode Transfer(FIM): 5 Shower Transfer(FIM): 5 Additional Goals: 1-Demonstrate ADL Tasks, 2-Verbalize Understanding, 3- ImproveStrength/Ze[place] 1=Demonstrate adherence to instructed precautions during ADL tasks. 2=Patient will verbalize/demonstrate understanding of assistive devices/ modifications for ADL. 3=Patient will improve strength/tolerance for activity to enable patient to perform ADL's. OT Education/Plan Problem List/Assessment Assessment: Decreased Activ Tolerance, Decreased UE Strength, Dependent Transfers, Edema, Impaired Bed Mobility, Impaired Cognition, Impaired Coordination, Impaired Funct Balance, Impaired I ADL's, Impaired Self-Care Skills, Restricted Funct UE ROM Discharge Recommendations Plan/Recommendations: Continue POC Therapy D/C Recommendations: Acute Rehab Target Placement Pt. is very debilitated at this time. Would benefit from skilled rehab. Treatment Plan/Plan of Care Treatment,Training & Education: Yes Patient would benefit from OT for education, treatment and training to promote independence in ADL's, mobility, safety and/or upper extremity function for ADL' s. Plan of Care: ADL Retraining, Functional Mobility, UE Funct Exercise/Act Treatment Duration: Aug 16, 2016 # of days/week 5-6 Visits Per Week: 5-6 Agreement: Yes Rehab Potential: Good Time/GCodes Start Time: 09:00 Stop Time: 10:00 Total Time Billed (hr/min): 60 Billed Treatment Time 1, EVLow x 15minutes, ADL x 45minutes GENEVA COLLIER OT Jul 26, 2016 12:00
--- NOTE | 2016-07-26 12:52 | Diagnostic Imaging Report ---
Portable upright radiograph of the chest. INDICATION: PICC line adjustment. FINDINGS: The lungs demonstrate mild basilar infiltrates or atelectasis mostly in the left side. The heart size is normal. There is a right IJ catheter with the tip at the SVC level. The PICC line tip is in good position at this time. There is no significant effusion or pneumothorax. IMPRESSION: Mild left basilar infiltrates. Dictated by: Dictated on workstation # [id number]
--- NOTE | 2016-07-26 14:57 | Physical Therapy Daily Note ---
PT Daily Note-Current Subjective Patient is agreeable to participate with PT. Patient states she is very fatigued this p.m. Pain Numeric Pain Scale: 0-No Pain Location: No Pain Reported Mental Status Patient Orientation: Normal For Age Attachments: Oxygen Transfers Functional [place] [employer] [employer] Measure 0=Not Assessed/NA 4=Minimal Assistance 1=Total Assistance 5=Supervision or Setup 2=Maximal Assistance 6=Modified [employer] [employer] [employer] 3=Moderate Assistance 7=Complete IndependenceIRFPAI Quality Coding Scale 6 Independent with activity with or without an assistive device 5 Patient requires set up or clean up by helper. Patient completes activity by themselves 4 Supervision or touching assist (CGA). [place] provide cues , steadying assist 3 The helper provides less than half the effort to complete the activity 2 The helper provides more than half the effort to complete the activity 1 Dependent. The helper does all the effort to complete an activity 7 Patient refused to complete or attempt activity 9 The patient did not perform the activity before the current illness or injury 88 Not attempted due to Medical conditions or safety concerns Transfers (B, C, W/C) (FIM): 1 Scootin Rollin Supine to/from Sit: 1 Sit to/from Stand: 1 Bed to/from Chair: 1 attempted to perform transfer training sit to stand with gait belt and 2 people , however, patient unable to safely perform this p.m. due to fatigue. PT utilized sit to stand lift with patient performing standing ~25% due to extreme weakness and fatigue Assessment Patient tolerated minimal activity due to disease process and healing time. From a PT standpoint, patient will benefit from ARU in a few days when medically stable and improvement in endurance. patient just recently off vent and bipap and will require time to tolerate intense therapies. PT Short Term Goals Short Term Goals Time Frame: Jul 30, 2016 Transfers (B,C,W/C) (FIM): 3 Gait (FIM): 1 Distance (FIM): 1=up to 49 ft Gait Distance Comment: 20' Gait Level of Assist: 3 Gait Assistive Device: FWW PT Intermediate Goals Intermediate Goals PT [employer] Goals Time Frame: Aug 13, 2016 Transfers (B,C,W/C) (FIM): 6 Gait (FIM): 6 Gait distance (FIM): 3=150 ft Gait Level of Assist: 6 Gait Assistive Device: None, FWW PT Plan Treatment/Plan Treatment Plan: Continue Plan of Care Treatment Plan: Bed Mobility, Education, Functional Activity [place], Functional Strength, Gait, Safety, Therapeutic Exercise, Transfers Treatment Duration: Aug 13, 2016 Visits Per Week: 11 Time/GCodes Time In: 1416 Time Out: 1439 Total Billed Treatment Time: 23 Total Billed Treatment 1 visit FA x 2 23 min ANNMARIE AUGUSTIN PT Jul 26, 2016 14:56
--- NOTE | 2016-07-26 15:00 | Progress Note (SOAP) ---
Subjective Subjective/Events-last exam Fwup respiratory failure, pneumonia with Strep pneumo sepsis, septic shock with hypotension/renal failure and elevated LFTs. Much more awake and alert but still very weak and edematous. Objective Exam Vital Signs Date Time Temp Pulse Resp B/P Pulse Ox O2 Delivery O2 Flow Rate FiO2 07/26/16 14:45 92 Nasal Cannula 0.50 07/26/16 13:16 105 07/26/16 11:56 96.9 80 20 162/76 95 High Flow NC 2.00 07/26/16 10:26 90 Nasal Cannula 0.50 07/26/16 10:00 98.4 89 22 171/81 94 07/26/16 08:10 98.5 07/26/16 08:00 98 20 149/75 High Flow NC 2.00 07/26/16 08:00 High Flow NC 2.00 07/26/16 07:02 95 Nasal Cannula 2.00 07/26/16 07:00 100 21 161/77 High Flow NC 2.00 07/26/16 07:00 99 07/26/16 06:00 97 19 161/80 94 High Flow NC 2.00 07/26/16 05:00 87 18 151/57 94 High Flow NC 2.00 07/26/16 04:00 98.1 81 16 148/70 94 High Flow NC 2.00 07/26/16 04:00 96 High Flow NC 2.00 07/26/16 03:00 88 18 163/77 95 High Flow NC 2.00 07/26/16 02:00 92 163/88 96 High Flow NC 2.00 07/26/16 01:53 98 Nasal Cannula 2.00 07/26/16 01:00 97 148/51 97 High Flow NC 2.00 07/26/16 01:00 91 07/26/16 00:00 96 High Flow NC 2.00 07/26/16 00:00 99.0 90 18 156/76 96 High Flow NC 2.00 07/25/16 23:00 93 154/75 High Flow NC 2.00 07/25/16 22:10 96 Nasal Cannula 2.00 07/25/16 22:00 93 147/77 High Flow NC 2.00 07/25/16 21:00 106 139/70 High Flow NC 2.00 07/25/16 20:00 95 High Flow NC 3.00 07/25/16 20:00 99.4 105 16 131/66 95 High Flow NC 2.00 07/25/16 19:00 106 130/65 High Flow NC 2.00 07/25/16 19:00 105 07/25/16 18:39 97 Nasal Cannula 2.00 07/25/16 18:00 102 140/71 High Flow NC 3.00 07/25/16 17:00 92 154/73 92 High Flow NC 3.00 07/25/16 16:00 96 20 152/74 96 High Flow NC 3.00 07/25/16 15:47 94 High Flow NC 3.00 07/25/16 15:46 98.4 90 16 146/52 96 High Flow NC 3.00 I & O 07/26/16 07:00 Intake Total 2930 ml Output Total 3775 ml Balance -845 ml Capillary Refill : General Appearance: No Apparent Distress Neck: Supple Respiratory: Crackles (bases) Decreased Breath Sounds Cardiovascular: Regular Rate, Rhythm Gallop/S3 Gastrointestinal: normal bowel sounds non tender soft Extremity: Swelling (diffuse) Neurologic/Psychiatric: Alert Oriented x3 Results Lab Laboratory Tests 07/25/16 16:09: Glucometer 202H 07/25/16 20:29: Glucometer 167H 07/25/16 22:23: Glucometer 154H 07/26/16 04:10: Activated Partial Thromboplast Time 22L, Alanine Aminotransferase (ALT/SGPT) 102H, Albumin 2.6L, Alkaline Phosphatase 89, Anion Gap 8, Aspartate Amino Transf (AST/SGOT) 94H, BUN/Creatinine Ratio 40, Basophils # (Auto) 0.0, Basophils (%) (Auto) 0, Blood Urea Nitrogen 25H, Calcium Level 7.6L, Carbon Dioxide Level 25, Chloride Level 103, Creatinine 0.62, Eosinophils # (Auto) 0.0 , Eosinophils (%) (Auto) 0, Estimat Glomerular Filtration Rate > 60, Glucose Level 174H, Hematocrit 32L, Hemoglobin 10.5L, INR Comment 1.1, Lymphocytes # ( Auto) 0.5L, Lymphocytes (%) (Auto) 4L, Magnesium Level 2.0, Mean Corpuscular Hemoglobin 32, Mean Corpuscular Hemoglobin Concent 33, Mean Corpuscular Volume 96, Mean Platelet Volume 10.2, Monocytes # (Auto) 0.9, Monocytes (%) (Auto) 7, Neutrophils # (Auto) 11.1H, Neutrophils (%) (Auto) 89H, Phosphorus Level 3.6, Platelet Count 362, Potassium Level 3.8, Prothrombin Time 13.5, Red Blood Count 3.29L, Red Cell Distribution Width 12.9, Sodium Level 136, Total Bilirubin 0.5, Total Protein 4.6L, White Blood Count 12.5H Microbiology 07/18/16 Blood Culture - Final, Complete No growth 07/14/16 Gram Stain - Final, Complete 07/14/16 Sputum Culture - Final, Complete Usual/normal karissa isolated. 07/14/16 Urine Culture - Final, Complete Yeast Species Assessment/Plan Assessment/Plan Assess & Plan/Chief Complaint 1. Pneumonia with Sepsis--improving--CXR and WBC count improving 2. Acute Respiratory Failure with ARDs--resolved 3. Septic Shock--resolved 4. Acute Renal Failure--creatinine improved 5. Metabolic Acidosis--improved 6. Pulmonary Edema/Anasarca--on Lasix at BID 7. Weakness--PT started, looking at rehab 8. Transfer to Medical Floor Diagnosis/Problems: Clinical Quality Measures DVT/VTE Risk/Contraindication: Risk Factor Score Per Nursin RFS Level Per Nursing on Admit: 3=High KINDRA RHODES DO Jul 26, 2016 15:00
[2016-07-26] MEDS: FUROSEMIDE 40 MG/4 ML INJ (LASIX) IVP SCH (17:25)
[2016-07-26] MEDS: ENOXAPARIN 40 MG/0.4 ML (LOVENOX) SYR SC SCH (20:12)
[2016-07-27] VITALS (7 sets, daily range): BP systolic 111–162; BP diastolic 64–79
[2016-07-27] MEDS: MEROPENEM 500 MG in NORMAL SALINE (BAXTER MINI) 100 ML IV SCH ×4 (01:34→20:10)
[2016-07-27] MEDS: RT-ALBUTEROL/IPRATROPIUM 3 ML (DUONEB) VIAL INH SCH ×6 (02:46→21:32)
[2016-07-27] MEDS: LACTOBACILLUS Acidoph/Bulgar (LACTINEX/FLORANEX) TAB PO SCH ×3 (06:04→17:48)
[2016-07-27] MEDS: SUCRALFATE 1 GM (CARAFATE) TAB PO SCH ×4 (06:04→20:10)
[2016-07-27] MEDS: FUROSEMIDE 40 MG/4 ML INJ (LASIX) IVP SCH ×2 (06:06→17:47)
[2016-07-27 06:10] LABS: BASOPHILS % (AUTO) 0 % (0-10); EOSINOPHILS % (AUTO) 0 % (0-10); LYMPHOCYTES # (AUTO) 1.6 X 10^3 (1.0-4.0); LYMPHOCYTES % (AUTO) 13 % (12-44); MEAN CORPUSCULAR HEMOGLOBIN 32 PG (25-34); MEAN CORPUSCULAR HGB CONC 33 G/DL (32-36); MEAN CORPUSCULAR VOLUME 96 FL (80-99); MONOCYTES # (AUTO) 1.5 X 10^3 (0.0-1.0); MONOCYTES % (AUTO) 12 % (0-12); NEUTROPHILS # (AUTO) 9.5 X 10^3 (1.8-7.8); NEUTROPHILS % (AUTO) 75 % (42-75); PLATELET COUNT 390 10^3/uL (130-400); RED BLOOD COUNT 3.21 10^6/uL (4.35-5.85); RED CELL DISTRIBUTION WIDTH 12.7 % (10.0-14.5); WHITE BLOOD COUNT 12.6 10^3/uL (4.3-11.0)
[2016-07-27 06:24] LABS: PROTHROMBIN TIME PATIENT 13.1 SEC (12.2-14.7)
[2016-07-27 06:29] LABS: ALANINE AMINOTRANSFERASE 151 U/L (0-55); ALBUMIN 2.7 G/DL (3.2-4.5); ANION GAP 7 MMOL/L (5-14); ASPARTATE AMINO TRANSFERASE 138 U/L (5-34); BILIRUBIN,TOTAL 0.6 MG/DL (0.1-1.0); BLOOD UREA NITROGEN 25 MG/DL (7-18); BUN/CREATININE RATIO 42; CALCIUM 7.7 MG/DL (8.5-10.1); CARBON DIOXIDE 24 MMOL/L (21-32); CHLORIDE 108 MMOL/L (98-107); GFR ESTIMATED > 60; GLUCOSE 110 MG/DL (70-105); PHOSPHORUS 3.2 MG/DL (2.3-4.7); POTASSIUM 3.6 MMOL/L (3.6-5.0); SODIUM 139 MMOL/L (135-145); TOTAL PROTEIN 4.8 G/DL (6.4-8.2)
--- NOTE | 2016-07-27 07:22 | Diagnostic Imaging Report ---
INDICATION: Sepsis. Comparison with 07/26/2016. FINDINGS: There continues to be some hazy opacification left hemidiaphragm when compared with previous exam. There is suggestion of mild right basilar infiltrate on today's study as well. Interstitial markings are prominent bilaterally. The heart is not enlarged. No evidence of pulmonary edema. Right PICC line remains present in good position. IMPRESSION: 1. Persistent basilar infiltrates present with slight increase in density noted in right lung base. 2. Mild prominence of interstitial markings noted bilaterally as well. Dictated by: Dictated on workstation # [id number]
--- NOTE | 2016-07-27 07:52 | Pulmonary Progress Note ---
Subjective Subjective/Events-last exam DOing much better very weak Exam Exam Vital Signs Date Time Temp Pulse Resp B/P Pulse Ox O2 Delivery O2 Flow Rate FiO2 07/27/16 07:31 97 Nasal Cannula 3.00 07/27/16 04:00 98.3 93 20 137/64 94 High Flow NC 2.00 07/27/16 02:47 95 Nasal Cannula 3.00 07/27/16 01:00 95 07/27/16 00:00 98.5 101 20 141/67 95 High Flow NC 2.00 07/26/16 22:01 90 Nasal Cannula 3.00 07/26/16 20:10 90 Nasal Cannula 2.00 07/26/16 20:00 97.7 93 20 132/61 96 High Flow NC 2.00 07/26/16 19:00 89 07/26/16 16:24 97.8 91 16 145/66 96 High Flow NC 2.00 07/26/16 14:45 92 Nasal Cannula 0.50 07/26/16 13:16 105 07/26/16 11:56 96.9 80 20 162/76 95 High Flow NC 2.00 07/26/16 10:26 90 Nasal Cannula 0.50 07/26/16 10:00 98.4 89 22 171/81 94 07/26/16 08:10 98.5 07/26/16 08:00 98 20 149/75 High Flow NC 2.00 07/26/16 08:00 High Flow NC 2.00 I & O 07/27/16 07:00 Intake Total 1840 ml Output Total 3110 ml Balance -1270 ml General Appearance: No Apparent Distress HEENT: PERRL/EOMI Pharynx Normal Neck: Supple Respiratory: Crackles (bases) Decreased Breath Sounds Cardiovascular: Regular Rate, Rhythm Gallop/S3 Peripheral Pulses: 2+ Dorsalis Pedis (R), 2+ Left Dors-Pedis (L), 2+ Radial Pulses (R), 2+ Radial Pulses (L) Gastrointestinal: normal bowel sounds non tender soft Extremity: Swelling (diffuse) Neurologic/Psychiatric: Alert Oriented x3 Skin: Warm/Dry Lymphatic: No Adenopathy Results Lab Laboratory Tests 07/26/16 04:10 07/27/16 06:00 Assessment/Plan Assessment/Plan Acute respiratory distress with ARDS Pa02/Fi02 = 324 ARDS IS NOW RESOLVED -oxygen to maintain sats >92% -I/S -PT/OT - rehab eval solumedrol to 40mg IV Q12 -- change to prednisone taper Severe sepsis with Strep pneumonia - Merrem pulmonary edema -Hep lock IVF -lasix 40mg IV Q12 HTN -lisinopril, norvasc, lopressor -PRN hydralazine, and vasotec Hypothyroidism Home meds DVT prophylactic -lovenox debility -PT/OT -rehab consult -D/C flores -increase activity Tobacco use Hypernatremia - RESOLVED - IVF D5 W -250cc of free water per OG Q 6hrs Anemia with thrombocytopenia - RESOLVED metabolic acidosis with lactic acidosis -- RESOLVED -D/C bicarb gtt Septic shock r/o DIC -RESOLVED Acute renal failure - RESOLVED -IVF Hypotension - resolved Clinical Quality Measures DVT/VTE Risk/Contraindication: Risk Factor Score Per Nursin RFS Level Per Nursing on Admit: 3=High KIKO FREED DO Jul 27, 2016 07:52
[2016-07-27] MEDS: POTASSIUM CL 10MEQ/50ML IVPB 50 ML IV SCH ×6 (09:52→16:10)
[2016-07-27] MEDS: LEVOTHYROXINE 50 MCG (LEVOTHROID) TAB PO SCH (09:53)
[2016-07-27] MEDS: amLODIPine 5 MG (NORVASC) TAB PO SCH (09:53)
[2016-07-27] MEDS: meTOprolol TARTRATE 50 MG (LOPRESSOR) TAB PO SCH ×2 (09:53→20:11)
[2016-07-27] MEDS: predniSONE 10 MG TAB PO SCH (09:53)
[2016-07-27] MEDS: FAMOTIDINE 20MG/2ML IV (PEPCID) IVP SCH ×2 (09:53→20:10)
[2016-07-27] MEDS: LINEZOLID (ZYVOX) 600 MG TAB PO SCH ×2 (09:59→20:10)
[2016-07-27] MEDS: lisINopril 20 MG (ZESTRIL) TAB PO SCH (09:59)
--- NOTE | 2016-07-27 11:52 | Physical Therapy Daily Note ---
PT Daily Note-Current Subjective Patient is up in recliner with bilateral UE's elevated with pillows secondary to 2+ edema. Patient agrees to PT but states, "I don't know how much I can do right now." Pain Numeric Pain Scale: 0-No Pain Location: No Pain Reported Mental Status Patient Orientation: Normal For Age Attachments: Oxygen, IV Transfers Functional [place] Measure 0=Not Assessed/NA 4=Minimal Assistance 1=Total Assistance 5=Supervision or Setup 2=Maximal Assistance 6=Modified [place] 3=Moderate Assistance 7=Complete IndependenceIRFPAI Quality Coding Scale 6 Independent with activity with or without an assistive device 5 Patient requires set up or clean up by helper. Patient completes activity by themselves 4 Supervision or touching assist (CGA). [place] provide cues , steadying assist 3 The helper provides less than half the effort to complete the activity 2 The helper provides more than half the effort to complete the activity 1 Dependent. The helper does all the effort to complete an activity 7 Patient refused to complete or attempt activity 9 The patient did not perform the activity before the current illness or injury 88 Not attempted due to Medical conditions or safety concerns Transfers (B, C, W/C) (FIM): 1 Scootin Sit to/from Stand: 1 Bed to/from Chair: 1 dependent to max assist with sit to stand transfers with PT and PT tech using gait belt and blocking bilateral knees. Patient is able to assist initially, however, fatigues very quickly requiring dependent assist with SPT recliner <> commode with assistance of a 3rd person to cleanse after commode use Exercises Seated Therapy Exercises: Ankle pumps (AAROM with minimal dorsiflexion activation bilaterally), Long arc quads, Hip flexion Seated Reps: 10 (x 2 sets with recovery periods between exercises due to fatigue) Assessment Patient is progressing slowly with treatment. Patient continues to be edematous , however, this is also improving. Edema and weakness limites patient progression at this time. PT Short Term Goals Short Term Goals Time Frame: Jul 30, 2016 Transfers (B,C,W/C) (FIM): 3 Gait (FIM): 1 Distance (FIM): 1=up to 49 ft Gait Distance Comment: 20' Gait Level of Assist: 3 Gait Assistive Device: FWW PT Pie Dough Roller Goals Pie Dough Roller Goals PT [facility] Goals Time Frame: Aug 13, 2016 Transfers (B,C,W/C) (FIM): 6 Gait (FIM): 6 Gait distance (FIM): 3=150 ft Gait Level of Assist: 6 Gait Assistive Device: None, FWW PT Plan Treatment/Plan Treatment Plan: Continue Plan of Care Treatment Plan: Bed Mobility, Education, Functional Activity Zeina, Functional Strength, Gait, Safety, Therapeutic Exercise, Transfers Treatment Duration: Aug 13, 2016 Visits Per Week: 11 Safety Risks/Education Patient Education: Transfer Techniques Teaching Recipient: Patient Teaching Methods: Demonstration, Discussion Response to Teaching: Verbalize Understanding, Return Demonstration Discharge Recommendations Therapy D/C Recommendations: Acute Rehab Time/GCodes Time In: 1115 Time Out: 1140 Total Billed Treatment Time: 25 Total Billed Treatment 1 visit FA 10 min EX 15 ANNMARIE AUGUSTIN PT Jul 27, 2016 11:52
--- NOTE | 2016-07-27 12:58 | Progress Note (SOAP) ---
Subjective Subjective/Events-last exam Fwup respiratory failure, pneumonia with Strep pneumo sepsis, septic shock with hypotension/renal failure and elevated LFTs. Up in chair. Still very weak--3 person assist per nursing. Not eating well--no appetite. Objective Exam Vital Signs Date Time Temp Pulse Resp B/P Pulse Ox O2 Delivery O2 Flow Rate FiO2 07/27/16 10:46 96 Nasal Cannula 3.00 07/27/16 08:00 98.8 90 16 162/79 96 High Flow NC 2.00 07/27/16 07:31 97 Nasal Cannula 3.00 07/27/16 04:00 98.3 93 20 137/64 94 High Flow NC 2.00 07/27/16 02:47 95 Nasal Cannula 3.00 07/27/16 01:00 95 07/27/16 00:00 98.5 101 20 141/67 95 High Flow NC 2.00 07/26/16 22:01 90 Nasal Cannula 3.00 07/26/16 20:10 90 Nasal Cannula 2.00 07/26/16 20:00 97.7 93 20 132/61 96 High Flow NC 2.00 07/26/16 19:00 89 07/26/16 16:24 97.8 91 16 145/66 96 High Flow NC 2.00 07/26/16 14:45 92 Nasal Cannula 0.50 07/26/16 13:16 105 I & O 07/27/16 07:00 Intake Total 1840 ml Output Total 3110 ml Balance -1270 ml Capillary Refill : General Appearance: No Apparent Distress Neck: Supple Respiratory: Lungs Clear Decreased Breath Sounds Cardiovascular: Regular Rate, Rhythm Gallop/S3 Extremity: No Calf Tenderness Swelling (anasarca) Neurologic/Psychiatric: Alert Oriented x3 Results Lab Laboratory Tests 07/27/16 06:00: Activated Partial Thromboplast Time 22L, Alanine Aminotransferase (ALT/SGPT) 151H, Albumin 2.7L, Alkaline Phosphatase 116, Anion Gap 7, Aspartate Amino Transf (AST/SGOT) 138H, B-Type Natriuretic Peptide 105.5H, BUN/Creatinine Ratio 42, Basophils # (Auto) 0.0, Basophils (%) (Auto) 0, Blood Urea Nitrogen 25H, Calcium Level 7.7L, Carbon Dioxide Level 24, Chloride Level 108H, Creatinine 0.60, Eosinophils # (Auto) 0.0, Eosinophils (%) (Auto) 0, Estimat Glomerular Filtration Rate > 60, Glucose Level 110H, Hematocrit 31L, Hemoglobin 10.1L, INR Comment 1.0, Lymphocytes # (Auto) 1.6, Lymphocytes (%) (Auto) 13, Magnesium Level 2.0, Mean Corpuscular Hemoglobin 32, Mean Corpuscular Hemoglobin Concent 33, Mean Corpuscular Volume 96, Mean Platelet Volume 10.0, Monocytes # (Auto) 1.5H, Monocytes (%) (Auto) 12, Neutrophils # (Auto) 9.5H, Neutrophils (%) (Auto ) 75, Phosphorus Level 3.2, Platelet Count 390, Potassium Level 3.6, Prothrombin Time 13.1, Red Blood Count 3.21L, Red Cell Distribution Width 12.7, Sodium Level 139, Total Bilirubin 0.6, Total Protein 4.8L, White Blood Count 12.6H Microbiology 07/18/16 Blood Culture - Final, Complete No growth 07/14/16 Gram Stain - Final, Complete 07/14/16 Sputum Culture - Final, Complete Usual/normal karissa isolated. 07/14/16 Urine Culture - Final, Complete Yeast Species Assessment/Plan Assessment/Plan Assess & Plan/Chief Complaint 1. Pneumonia with Sepsis--improving--CXR and WBC count improving, on Zyvax 2. Acute Respiratory Failure with ARDs--resolved 3. Septic Shock--resolved 4. Acute Renal Failure--creatinine improved 5. Metabolic Acidosis--improved 6. Pulmonary Edema/Anasarca--on Lasix at BID 7. Weakness--PT started, looking at rehab tomorrow Diagnosis/Problems: Clinical Quality Measures DVT/VTE Risk/Contraindication: Risk Factor Score Per Nursin RFS Level Per Nursing on Admit: 3=High KINDRA RHODES DO Jul 27, 2016 12:58
--- NOTE | 2016-07-27 14:07 | Occupational Ther Daily Note ---
OT Current Status-Daily Note Subjective Pt. reports that she is still not able to move her hands very well. Appearance Pt. is up in chair. Spouse has just came in and has been feeding her. Mental Status/Objective Patient Orientation: Person, Place, Time, Situation Functional [place] Measure 0=Not Assessed/NA 4=Minimal Assistance 1=Total Assistance 5=Supervision or Setup 2=Maximal Assistance 6=Modified [place] 3=Moderate Assistance 7=Complete [place] ADL-Treatment Eating (FIM): 2 (Spouse is feeding pt. with max assist needed.) Pt. is able to move bilateral UE in all planes, but movement is very weak and pt. has difficulty. Unable to hold utensils or cup. Pt. is issued red therapy foam sponge built up grasps for when she has more grasp noted. Will explore universal cuff for feeding and grooming when pt. has more strength to tolerate the treatment. Pt. issued yellow therapy sponge to begin hand squeezes. Educate on importance of movement to flush fluid out of bilateral hands. Edema is great, and it is noted that pt. is "weeping" out of skin due to amount of swelling. Applied compression gloves to bilateral hands due to swelling. Checked glove stretch and gloves are appropriate for pt's swelling. Cut fingers out to increase ability to move in gloves. All needs met in room. Nursing educated on glove use. Will begin light massage if pt. is able to tolerate glove use. Education OT Patient Education: Exercise program, Modified ADL techniques, Progress toward Goal/Update tx plan, Purpose of tx/functional activities, Reviewed precautions, Transfer techniques Teaching Recipient: Patient Teaching Methods: Demonstration, Discussion Response to Teaching: Verbalize Understanding, Return Demonstration OT Short Term Goals Short Term Goals Time Frame: Aug 09, 2016 Eating(FIM): 4 Grooming(FIM): 4 Bathing(FIM): 3 Upper Body Dressing(FIM): 4 Lower Body Dressing(FIM): 3 Toileting(FIM): 4 Transfers (B,C,W/C) (FIM): 3 Toilet/Commode Transfer(FIM): 3 Shower Transfer(FIM): 3 Additional Short Term Goals: 1-Demonstrate ADL Tasks, 2-Verbalize Understanding , 3-ImproveStrength/Zeina 1=Demonstrate adherence to instructed precautions during ADL tasks. 2=Patient will verbalize/demonstrate understanding of assistive devices/ modifications for ADL. 3=Patient will improve strength/tolerance for activity to enable patient to perform ADL's. OT Investigative Writer Goals Investigative Writer Goals Time Frame: 4 weeks Eating (FIM): 5 Grooming(FIM): 5 Bathing(FIM): 5 Upper Body Dressing(FIM): 5 Lower Body Dressing(FIM): 5 Toileting(FIM): 5 Transfers (B,C,W/C) (FIM): 5 Toilet/Commode Transfer(FIM): 5 Shower Transfer(FIM): 5 Additional Goals: 1-Demonstrate ADL Tasks, 2-Verbalize Understanding, 3- ImproveStrength/Zeina 1=Demonstrate adherence to instructed precautions during ADL tasks. 2=Patient will verbalize/demonstrate understanding of assistive devices/ modifications for ADL. 3=Patient will improve strength/tolerance for activity to enable patient to perform ADL's. OT Education/Plan Problem List/Assessment Assessment: Decreased Activ Tolerance, Decreased UE Strength, Dependent Transfers, Impaired Bed Mobility, Impaired Coordination, Impaired Funct Balance , Impaired I ADL's, Impaired Self-Care Skills, Restricted Funct UE ROM Discharge Recommendations Plan/Recommendations: Continue POC Therapy D/C Recommendations: Acute Rehab Target Placement Pt. will be coming to acute rehab tomorrow. Will determine equipment needs at that time. Treatment Plan/Plan of Care Treatment,Training & Education: Yes Patient would benefit from OT for education, treatment and training to promote independence in ADL's, mobility, safety and/or upper extremity function for ADL' s. Plan of Care: ADL Retraining, Functional Mobility, UE Funct Exercise/Act Treatment Duration: Aug 16, 2016 Visits Per Week: 5-6 Agreement: Yes Rehab Potential: Good Time/GCodes Start Time: 13:00 Stop Time: 13:35 Total Time Billed (hr/min): 35 Billed Treatment Time 1, NMX 35minutes GENEVA COLLIER OT Jul 27, 2016 14:07
--- NOTE | 2016-07-27 14:50 | Physical Therapy Daily Note ---
PT Daily Note-Current Subjective Patient is up in recliner and agrees to exercises. Pain Numeric Pain Scale: 0-No Pain Location: No Pain Reported Mental Status Patient Orientation: Normal For Age Attachments: IV Transfers Functional [place] Measure 0=Not Assessed/NA 4=Minimal Assistance 1=Total Assistance 5=Supervision or Setup 2=Maximal Assistance 6=Modified [place] 3=Moderate Assistance 7=Complete IndependenceIRFPAI Quality Coding Scale 6 Independent with activity with or without an assistive device 5 Patient requires set up or clean up by helper. Patient completes activity by themselves 4 Supervision or touching assist (CGA). [place] provide cues , steadying assist 3 The helper provides less than half the effort to complete the activity 2 The helper provides more than half the effort to complete the activity 1 Dependent. The helper does all the effort to complete an activity 7 Patient refused to complete or attempt activity 9 The patient did not perform the activity before the current illness or injury 88 Not attempted due to Medical conditions or safety concerns Exercises Seated Therapy Exercises: Ankle pumps, Long arc quads, Hip flexion Seated Reps: 15 (x 3 sets AAROM) Assessment Patient reports extreme fatigue this p.m. and tolerated AAROM exercises in recliner. PT to increase activity as tolerated. Plan to transfer to [facility] per staff report. PT Short Term Goals Short Term Goals Time Frame: Jul 30, 2016 Transfers (B,C,W/C) (FIM): 3 Gait (FIM): 1 Distance (FIM): 1=up to 49 ft Gait Distance Comment: 20' Gait Level of Assist: 3 Gait Assistive Device: FWW PT Security Officer Supervisor Goals Residential Goals PT Security Officer Supervisor Goals Time Frame: Aug 13, 2016 Transfers (B,C,W/C) (FIM): 6 Gait (FIM): 6 Gait distance (FIM): 3=150 ft Gait Level of Assist: 6 Gait Assistive Device: None, FWW PT Plan Treatment/Plan Treatment Plan: Continue Plan of Care Treatment Plan: Bed Mobility, Education, Functional Activity [place], Functional Strength, Gait, Safety, Therapeutic Exercise, Transfers Treatment Duration: Aug 13, 2016 Visits Per Week: 11 Time/GCodes Time In: 1410 Time Out: 1430 Total Billed Treatment Time: 20 Total Billed Treatment 1 visit EX 20 min ANNMARIE AUGUSTNI PT Jul 27, 2016 14:50
[2016-07-27] MEDS ORDERED: NORMAL SALINE (BAXTER MINI) 100 ML IV ONE (19:20)
[2016-07-27] MEDS ORDERED: MEROPENEM 500 MG VIAL (MERREM) IV ONE (19:20)
[2016-07-27] MEDS: ENOXAPARIN 40 MG/0.4 ML (LOVENOX) SYR SC SCH (20:10)
[2016-07-27] MEDS: CATHETER FLUSH 10 ML SYR IV PRN (20:11)
[2016-07-28] MEDS ORDERED: MEROPENEM 500 MG VIAL (MERREM) IV ONE (01:44)
[2016-07-28] MEDS ORDERED: NORMAL SALINE (BAXTER MINI) 100 ML IV ONE (01:44)
[2016-07-28] MEDS: MEROPENEM 500 MG in NORMAL SALINE (BAXTER MINI) 100 ML IV SCH ×2 (01:52→12:14)
[2016-07-28] MEDS: CATHETER FLUSH 10 ML SYR IV PRN ×2 (01:52→06:42)
[2016-07-28] MEDS: RT-ALBUTEROL/IPRATROPIUM 3 ML (DUONEB) VIAL INH SCH ×3 (02:00→10:30)
[2016-07-28 04:00] VITALS: BP 134/73
[2016-07-28] MEDS: SUCRALFATE 1 GM (CARAFATE) TAB PO SCH ×2 (05:01→12:15)
[2016-07-28] MEDS: LACTOBACILLUS Acidoph/Bulgar (LACTINEX/FLORANEX) TAB PO SCH ×2 (05:01→12:13)
[2016-07-28 05:15] LABS: BASOPHILS % (AUTO) 0 % (0-10); EOSINOPHILS % (AUTO) 0 % (0-10); LYMPHOCYTES # (AUTO) 1.6 X 10^3 (1.0-4.0); LYMPHOCYTES % (AUTO) 11 % (12-44); MEAN CORPUSCULAR HEMOGLOBIN 32 PG (25-34); MEAN CORPUSCULAR HGB CONC 33 G/DL (32-36); MEAN CORPUSCULAR VOLUME 95 FL (80-99); MEAN PLATELET VOLUME 10.1 FL (7.4-10.4); MONOCYTES # (AUTO) 1.1 X 10^3 (0.0-1.0); MONOCYTES % (AUTO) 8 % (0-12); NEUTROPHILS % (AUTO) 81 % (42-75); PLATELET COUNT 406 10^3/uL (130-400); RED BLOOD COUNT 3.35 10^6/uL (4.35-5.85); RED CELL DISTRIBUTION WIDTH 12.4 % (10.0-14.5); WHITE BLOOD COUNT 14.8 10^3/uL (4.3-11.0)
[2016-07-28 05:35] LABS: ALANINE AMINOTRANSFERASE 152 U/L (0-55); ALBUMIN 2.7 G/DL (3.2-4.5); ANION GAP 8 MMOL/L (5-14); ASPARTATE AMINO TRANSFERASE 97 U/L (5-34); BILIRUBIN,TOTAL 0.6 MG/DL (0.1-1.0); BLOOD UREA NITROGEN 21 MG/DL (7-18); BUN/CREATININE RATIO 38; CALCIUM 7.7 MG/DL (8.5-10.1); CARBON DIOXIDE 23 MMOL/L (21-32); CHLORIDE 108 MMOL/L (98-107); CREATININE SERUM 0.55 MG/DL (0.60-1.30); GFR ESTIMATED > 60; GLUCOSE 98 MG/DL (70-105); MAGNESIUM 1.9 MG/DL (1.8-2.4); PHOSPHORUS 2.8 MG/DL (2.3-4.7); POTASSIUM 3.5 MMOL/L (3.6-5.0); SODIUM 139 MMOL/L (135-145); TOTAL PROTEIN 4.8 G/DL (6.4-8.2)
[2016-07-28] MEDS: FUROSEMIDE 40 MG/4 ML INJ (LASIX) IVP SCH (06:42)
--- NOTE | 2016-07-28 07:07 | Pulmonary Progress Note ---
Subjective Subjective/Events-last exam No complications noted. Exam Exam Vital Signs Date Time Temp Pulse Resp B/P Pulse Ox O2 Delivery O2 Flow Rate FiO2 07/28/16 04:00 98.1 92 20 134/73 97 Nasal Cannula 3.00 07/28/16 02:36 Nasal Cannula 3.00 07/28/16 01:00 75 07/27/16 23:45 97.8 80 20 126/72 97 Nasal Cannula 3.00 07/27/16 20:17 99.1 107 20 131/70 94 High Flow NC 2.00 07/27/16 20:10 98 Nasal Cannula 2.00 07/27/16 19:00 98 07/27/16 18:56 98 Room Air 07/27/16 16:00 98.6 89 20 123/67 94 High Flow NC 2.00 07/27/16 15:20 91 Room Air 07/27/16 13:00 75 07/27/16 12:00 98.5 82 16 111/67 96 High Flow NC 2.00 07/27/16 10:46 96 Nasal Cannula 3.00 07/27/16 08:00 98.8 90 16 162/79 96 High Flow NC 2.00 07/27/16 08:00 98 Nasal Cannula 2.00 07/27/16 07:31 97 Nasal Cannula 3.00 I & O 07/28/16 07:00 Intake Total 2765 ml Output Total 5100 ml Balance -2335 ml General Appearance: No Apparent Distress HEENT: PERRL/EOMI Pharynx Normal Neck: Supple Respiratory: Lungs Clear Decreased Breath Sounds Cardiovascular: Regular Rate, Rhythm Gallop/S3 Peripheral Pulses: 2+ Dorsalis Pedis (R), 2+ Left Dors-Pedis (L), 2+ Radial Pulses (R), 2+ Radial Pulses (L) Gastrointestinal: normal bowel sounds non tender soft Extremity: No Calf Tenderness Swelling (anasarca) Neurologic/Psychiatric: Alert Oriented x3 Skin: Warm/Dry Lymphatic: No Adenopathy Results Lab Laboratory Tests 07/27/16 06:00 07/28/16 05:05 Assessment/Plan Assessment/Plan Acute respiratory distress with ARDS Pa02/Fi02 = 324 ARDS IS NOW RESOLVED -oxygen to maintain sats >92% -I/S -PT/OT - rehab eval change to prednisone taper Severe sepsis with Strep pneumonia - [place] pulmonary edema -Hep lock IVF -lasix 40mg IV Q12 HTN -lisinopril, norvasc, lopressor -PRN hydralazine, and vasotec Hypothyroidism Home meds DVT prophylactic -lovenox debility -PT/OT -rehab consult -D/C flores -increase activity Tobacco use Hypernatremia - RESOLVED - IVF D5 W -250cc of free water per OG Q 6hrs Anemia with thrombocytopenia - RESOLVED metabolic acidosis with lactic acidosis -- RESOLVED -D/C bicarb gtt Septic shock r/o DIC -RESOLVED Acute renal failure - RESOLVED -IVF Hypotension - resolved Clinical Quality Measures DVT/VTE Risk/Contraindication: Risk Factor Score Per Nursin RFS Level Per Nursing on Admit: 3=High KIKO FREED DO Jul 28, 2016 07:07
[2016-07-28 08:00] VITALS: BP 150/88
--- NOTE | 2016-07-28 08:51 | Diagnostic Imaging Report ---
INDICATION: Pneumonia. COMPARISON: 07/27/2016. FINDINGS: The right PICC is at the SVC. There are bilateral infiltrates, greatest in the lower lobes, unchanged. There is no pneumothorax. The basilar effusions have not obviously changed. IMPRESSION: No change in the bilateral pleural/parenchymal opacities and support apparatus. Dictated by: Dictated on workstation # [id number]
[2016-07-28] MEDS ORDERED: ENOX40DI8 SC (11:47)
[2016-07-28] MEDS ORDERED: FURO10VI IVP (11:47)
[2016-07-28] MEDS ORDERED: LORA2VIA3 IVP (11:47)
[2016-07-28] MEDS ORDERED: IPRA3AMP INH (11:47)
[2016-07-28] MEDS ORDERED: METO5VIA26 IV (11:47)
[2016-07-28] MEDS ORDERED: FAMO20VI8 IVP (11:47)
[2016-07-28] MEDS ORDERED: ONDA4VIA28 IVP (11:47)
[2016-07-28] MEDS ORDERED: LISI-552 PO (11:47)
[2016-07-28] MEDS ORDERED: POTA10TA6 PO (11:47)
[2016-07-28] MEDS ORDERED: SUCR1TAB PO (11:47)
[2016-07-28] MEDS ORDERED: AMLO5TAB2 PO (11:47)
[2016-07-28] MEDS ORDERED: IBUP-1773 PO (11:47)
[2016-07-28] MEDS ORDERED: CALC200T40 PO (11:47)
[2016-07-28] MEDS ORDERED: HYDR20VI7 IV (11:47)
[2016-07-28] MEDS ORDERED: HYDR-3812 PO (11:47)
[2016-07-28] MEDS ORDERED: ACID1TAB PO (11:47)
[2016-07-28] MEDS ORDERED: LINE600T5 PO (11:47)
[2016-07-28] MEDS ORDERED: NORM2DIS3 IV (11:47)
[2016-07-28] MEDS ORDERED: PRD10T PO (11:47)
[2016-07-28] MEDS ORDERED: METO50TA2 PO (11:47)
[2016-07-28] MEDS: lisINopril 20 MG (ZESTRIL) TAB PO SCH (12:13)
[2016-07-28] MEDS: predniSONE 10 MG TAB PO SCH (12:13)
[2016-07-28] MEDS: meTOprolol TARTRATE 50 MG (LOPRESSOR) TAB PO SCH (12:13)
[2016-07-28] MEDS: LEVOTHYROXINE 50 MCG (LEVOTHROID) TAB PO SCH (12:14)
[2016-07-28] MEDS: amLODIPine 5 MG (NORVASC) TAB PO SCH (12:14)
[2016-07-28] MEDS: LINEZOLID (ZYVOX) 600 MG TAB PO SCH (12:14)
[2016-07-28] MEDS: FAMOTIDINE 20MG/2ML IV (PEPCID) IVP SCH (12:14)
[2016-07-28] MEDS: HYDROcodone/APAP 5 MG/325 MG (LORTAB) TAB PO PRN (12:21)
[2016-07-29] MEDS ORDERED: KCL 10 MEQ TAB (MICRO K) PO SCH (07:00)
[2016-08-13] MEDS ORDERED: LISI-552 PO (13:35)
[2016-08-13] MEDS ORDERED: FURO40TA4 PO (13:35)
[2016-08-13] MEDS ORDERED: POTA20TA8 PO (13:35)
[2016-08-13] MEDS ORDERED: METO50TA2 PO (13:35)
--- NOTE | 2016-08-19 19:30 | Discharge Summary ---
Diagnosis/Chief Complaint Date of Admission Jul 13, 2016 at 18:40 Date of Discharge Jul 28, 2016 at 12:45 Discharge Date: Jul 28, 2016 Admission Diagnosis Admission Diagnosis 1. Left Upper Lobe Pneumonia with Sepsis--Transfer to ICU on Sepsis Protocol, Given IV Rocephin and Doxycline 2. Hypotensive--aggressive IVF rehydration and monitor BP 3. Acute Renal Failure--monitor Cr with hydration, treatment of infection 4. Hypothyroidism--resume home dose 5. Tobacco Abuse--continues to smoke 6. COPD--start MAT protocol Discharge Diagnosis 1. Pneumonia with Strep pneumoniae Sepsis 2. Acute Respiratory Failure with ARDs 3. Septic Shock 4. Acute Renal Failure 5. Metabolic Acidosis 6. Pulmonary Edema/Anasarca 7. Weakness 8. Hypotension 9. Hypertension 10. Hypothyroidism 11. Acute Anemia due to Sepsis 12. Thrombocytopenia due to Sepsis 13. Elevated LFTs due to Sepsis 14. Tobacco Abuse 15. 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. She did not go to work today because when she awakened, she had chills and weakness. 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 The CXR showed a left upper lobe pneumonia and admission was recommended. However, she wanted to attempt treatment at home so Levaquin was called out for her. She became weaker as the day progressed and started having nausea and vomiting as well as pain in her left chest and rib area so I was called by her employer and asked to direct admit her for pneumonia. Upon arrival to the hospital, the patient was weak and hypotensive so a lactic acid was added to her labs and did come back elevated. It was decided she should be transferred to the ICU and the sepsis protocol started. 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. She did not go to work on the day of her admission, because when she awakened, she had chills and weakness. 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 The CXR showed a left upper lobe pneumonia and admission was recommended. However, she wanted to attempt treatment at home so Levaquin was called out for her. She became weaker as the day progressed and started having nausea and vomiting as well as pain in her left chest and rib area so I was called by her employer and asked to direct admit her for pneumonia. Upon arrival to the hospital, the patient was weak and hypotensive so a lactic acid was added to her labs and did come back elevated. It was decided she should be transferred to the ICU and the sepsis protocol started. The following morning Dr. Guzmán was consulted. The patient was having worsening respiratory distress and it was felt that intubation was inevitable so she was intubated. Her antibiotics were changed to triple antibiotic therapy with Vancomycin, Levaquin and Cefepime. She went into septic shock requiring IV pressors of levophed and vasopressin . She also went into ARDS. She had metabolic acidosis requiring a bicarb drip. She was able to be weaned off her pressors by hospital day number 3 however she continued to have ARDs and require heavy sedation to tolerate the ventilator. She did develop anemia and thrombocytopenia with a low hemoglobin of 8.9 and platelet count of 73 on 07/16/16. After 07/16/16, her hemoglobin isreal to 10.6 and platelets slowly isreal to 406 by the day of discharge. On 07/16/16, her vancomycin and levaquin were discontinued and she was continued on cefepime. However, her sputum culture grew out Strep pneumoniae so on 07/19/16, she was restarted on Vancomycin, Levaquin and the cefepime was changed to Merrem and she was re-pancultured. She was initially given solucortef for her septic shock but this was then changed to IV solumedrol. She continued to have an elevated WBC count which was felt to be partly due to the IV steroids. Due to her prolonged ventilator course, tracheostomy with transfer to a shelter care facility was considered. However, the patient clinically started to improve and was able to be weaned from the ventilator on 07/22/16 and transitioned to BIPAP. She did require IV lasix for pulmonary edema as well as for anasarca. She also required a cardene drip until she was able to be restarted back on her home blood pressure medications orally. Due to her ongoing elevated WBC count, her antibiotics were changed on 07/24/16 to Zyvox and Merrem and her IV solumedrol was weaned. Due to weakness, PT was started. She was able to be transferred to the medical floor 24hrs after she was off the ventilator. It was decided she would need rehab and the patient did qualify so she was transferred to rehab on 07/28/16. Procedures Ventilator placement Central Line Placement Consultations Dr. Guzmán Discharge Physical Examination Allergies: Coded Allergies: azithromycin (Unverified Allergy, Severe, BLISTERS, 05/18/10) General Appearance: Alert, Oriented X3, Cooperative, No Acute Distress Respiratory: Other (bibasilar crackles) Cardiovascular: Regular Rate Abdominal: Normal Bowel Sounds, Soft, No Tenderness Extremities: Other (anasarca) Neuro: Other (generalized weakness) Psych/Mental Status: Mental Status NL Discharge Home Medications Reviewed and agree with Discharge Medication list on patient's Discharge Instruction sheet Instructions to Patient/Family Please see electonic discharge instructions given to patient. Clinical Quality Measures DVT/VTE Risk/Contraindication: Risk Factor Score Per Nursin RFS Level Per Nursing on Admit: 3=High KINDRA RHODES DO Aug 19, 2016 19:30
== END 2016-07-28 12:45 | DRG 870 ==
LOC: 4TH 18:40 → ICU 21:21 → 4TH 07-26 09:05
PROVIDERS: ADMIT Family Medicine; ATTEND Family Medicine
PROC: 5A1955Z Respiratory Ventilation, Greater than 96 Consecutive Hours (ICD-10-PCS; principal; 2016-07-14)
DX: A41.9 Sepsis, unspecified organism (principal); R65.21 Severe sepsis with septic shock; J80 Acute respiratory distress syndrome; J13 Pneumonia due to Streptococcus pneumoniae; N17.9 Acute kidney failure, unspecified; K72.00 Acute and subacute hepatic failure without coma; E87.1 Hypo-osmolality and hyponatremia; J44.9 Chronic obstructive pulmonary disease, unspecified; I10 Essential (primary) hypertension; K21.9 Gastro-esophageal reflux disease without esophagitis; E03.9 Hypothyroidism, unspecified; F17.210 Nicotine dependence, cigarettes, uncomplicated; D64.9 Anemia, unspecified; D69.6 Thrombocytopenia, unspecified; F41.9 Anxiety disorder, unspecified; R44.2 Other hallucinations; T42.4X5A Adverse effect of benzodiazepines, initial encounter
CPT/HCPCS: 36415; 36569; 71010; 71020; 76937; 80048; 80053; 80202; 81000; 82040; 82330; 82805; 82962; 83605; 83690; 83735; 83880; 84100; 84450; 84460; 84478; 84484; 85007; 85018; 85025; 85027; 85045; 85379; 85384; 85610; 85730; 87040; 87070; 87077; 87088; 87205; 87324; 87449; 87804; 87899; 93306; 93970; 94002; 94003; 94640; 94660; 94664; 94760; 94799

== ENCOUNTER 2016-07-28 11:57 | Inpatient (IN) | payer BC ==
[~2016-07-28] VITALS: Ht 157.5 cm; Wt 74.8 kg
[~2016-07-28 11:57] MED LIST changes: +ACID1TAB PO; +AMLO5TAB2 PO; +CALC200T40 PO; +CALC600T12 PO; +CHOL10007 PO; +ENOX40DI8 SC; +FAMO20VI8 IVP; +FURO10VI IVP; +HYDR-3812 PO; +HYDR20VI7 IV; +IBUP-1773 PO; +IPRA3AMP INH; +LINE600T5 PO; +LISI-552 PO; +LORA2VIA3 IVP; +MAGN400T29 PO; +METO50TA2 PO; +METO5VIA26 IV; +NF-DICLOTA PO; +NORM2DIS3 IV; +ONDA4VIA28 IVP; +POTA10TA6 PO; +PRD10T PO; +SUCR1TAB PO; +VITA150T PO
[2016-07-28 13:00] VITALS: BP 131/76
--- OUTSIDE RECORDS SUMMARY | 2016-07-28 13:02 | XMS REPORT | Continuity of Care Document ---
Author Author [facility] Organization [facility] Address Unknown Phone Unavailable Care Team Providers Care Line Supervisor Name Role Phone KINDRA RHODES DO PCP Insurance Providers Payer Name Policy Number Subscriber Name Relationship [facility] [id number] Kristin Hopper 16 Self / Same As Patient Advance Directives Directive Response Recorded Date/Time Advance Directives No 09/24/15 7:45am Health Care Power of Equipment Service Technician No 09/24/15 7:45am Organ Donor Yes 09/24/15 [...] Day as needed for Pain 05/12/10 Discontinued [place]-3 Fatty Acids/Fish Oil 1 Each Capsule, 1000 [...] Type Severity Reaction Status Last Updated azithromycin ([id number]) Allergy Severe BLISTERS Active 05/18/10 Immunizations No [...] Discharge/Depart Date Attending Provider Discharged Recurring [facility] 12/31/15 8:54am 11:59pm SANDRA TOBIN
[2016-07-28] MEDS ORDERED: FLU TRIvalent (5 YOA+) 2016-17 (AFLURIA) 0.5 ML IM ONE (14:30)
--- NOTE | 2016-07-28 14:38 | Physical Therapy Evaluation ---
PT Evaluation-General Medical Diagnosis Admission Date Jul 28, 2016 at 12:30 Medical Diagnosis: severe sepsis/pneumonia Onset Date: Jul 13, 2016 Therapy Diagnosis Therapy Diagnosis: impaired strength, mobility, endurance Height/Weight Height (Feet): 5 Height (Inches): 2.00 Weight (Pounds): 202 Weight (Ounces): 3.0 Precautions Precautions/Isolations: Fall Prevention, Standard Precautions Referral Physician: Fausto Reason for Referral: Evaluation/Treatment Medical History Pertinent Medical History: Arthritis, COPD, Hypothroidism, Smoking Current History increase with SOA, N&V and elevated lactic acid; on vent x 7 days Reviewed History: Yes Social History Home: Single Level Current Living Status: Spouse Entry Into Home: Stairs Without Railing PT Steps Into Home: 2 Prior/Core FIM Prior Level of Function Functional [place] Measure 0=Not Assessed/NA 4=Minimal Assistance 1=Total Assistance 5=Supervision or Setup 2=Maximal Assistance 6=Modified [place] 3=Moderate Assistance 7=Complete [place] Bed Mobility: 7 Transfers (B,C,W/C) (FIM): 7 Gait: 7 PT Evaluation-Current Subjective Patient in recliner pre tx, agrees to PT. Will be co-treating with OT after evaluation due to patient having severe impairments in mobility, strength, and activity tolerance. Patient states she does not have any pain at rest but does when people touch the skin on her legs. Pt/Family Goals "to get back to work" Objective Patient Orientation: Normal For Age ROM/Strength ROM Lower Extremities generally impaired in both lower extremities due to significant edema Strenght Lower Extremities right lower extremity (hip flexion 3-/5, knee extension 4-/5, knee flexion 4-/5 , dorsiflexion 0/5, plantarflexion 0/5), left lower extremity (hip flexion 3-/5 , knee extension 4-/5, knee flexion 4-/5, dorsiflexion 0/5, plantarflexion 0/5) Integumentary/Posture Bowel Incontinence: Yes Bladder Incontinence: Yes Neuromuscular (Tone, Coordination, Reflexes) decreased tone in general in both lower extremities Sensory Vision: Wears Glasses Hearing: Functional Sensation Right Lower Extremit: Intact Sensation Left Lower Extremity: Intact Sensation Lower Extremities Patient has intact light touch sensation in both lower extremities but it is decreased below the knees Transfers Functional [place] Measure 0=Not Assessed/NA 4=Minimal Assistance 1=Total Assistance 5=Supervision or Setup 2=Maximal Assistance 6=Modified [place] 3=Moderate Assistance 7=Complete IndependenceIRFPAI Quality Coding Scale 6 Independent with activity with or without an assistive device 5 Patient requires set up or clean up by helper. Patient completes activity by themselves 4 Supervision or touching assist (CGA). [place] provide cues , steadying assist 3 The helper provides less than half the effort to complete the activity 2 The helper provides more than half the effort to complete the activity 1 Dependent. The helper does all the effort to complete an activity 7 Patient refused to complete or attempt activity 9 The patient did not perform the activity before the current illness or injury 88 Not attempted due to Medical conditions or safety concerns Transfers (B, C, W/C) (FIM): 2 Scootin Rollin Roll Left to Right (QC): 3 Supine to/from Sit: 3 Sit to/from Stand: 2 bed t/f WC(FIM only if WC use): 2 Sit to Lying (QC): 3 Lying to Sitting/Side of Bed(Q: 3 Sit to Stand (QC): 2 Chair/Zir-ga-Zozkf Xfer(QC): 2 Car Transfer (QC): 88 Patient needs min assist with her legs getting into and out of bed. She needs max assist for a stand pivot transfer, she can push from the surface she is sitting on and then grabs the therapists arms and she is able to shuffle her feet a little. Gait Does the Patient Walk?: No and Walking Goal IS indicated Mode of Locomotion: Wheelchair Anticipated Mode of Locomotion: Both Gait (FIM): 0 Walk 10 feet (QC): 88 Walk 50 ft with 2 Turns(QC): 88 Walk 150 ft (QC): 88 Walking 10ft on uneven surface: 88 Wheelchair Training Does the Pt Use a Wheelchair?: Yes Wheelchair (FIM): 1 Distance: 15' Wheelchair Level of Assist: 4 Wheel 50 ft with 2 turns (QC): 88 Wheel 150 ft (QC): 88 Type of Wheelchair: Manual Patient has poor strength in her arms and hands and has a very hard time pushing the wheels, she does not have enough strength to turn. Stairs Stairs (FIM): 0 1 Step (curb) (QC): 88 4 Steps (QC): 88 12 Steps (QC): 88 If not tested on admit;explain Patient did not attempt stairs because her weakness and poor mobility make this unsafe to attempt. Balance Sitting Static: Good Sitting Dynamic: Good Standing Static: Poor Standing Dynamic: Poor Picking up an Object (QC): 88 Treatment Co-treated with OT. OT assisted with transfers, performed a shower with patient in the shower room and performed grooming with patient. PT performed bed mobility and transfers, got her wheelchair ready and adjusted during the time OT was doing the shower. Patient was transferred from recliner to shower chair, then taken to shower room, afterward she was dressed and transferred to her wheelchair and then to her room for a transfer to her bed and grooming. Assessment/Needs Patient has impaired mobility in general, poor endurance and strength. Rehab Potential: Fair PT Short Term Goals Short Term Goals Time Frame: Aug 04, 2016 Transfers (B,C,W/C) (FIM): 3 Gait (FIM): 1 Gait Distance Comment: 20' Gait Level of Assist: 3 Gait Assistive Device: FWW PT Trust Clerk Goals Retirement Goals PT Trust Clerk Goals Time Frame: Aug 18, 2016 Transfers (B,C,W/C) (FIM): 4 Sit to Lying (QC): 4 Lying-Sitting on Side/Bed(QC): 4 Sit to Stand (QC): 3 Rollin Roll Left to Right (QC): 4 Chair/Fxx-tn-Ooplm Xfer(QC): 3 Car Transfer (QC): 3 Gait (FIM): 2 Distance: 50' Walk 10 feet (QC): 3 Walk 10ft-Uneven Surface(QC): 3 Walk 50ft with 2 Turns (QC): 3 Walk 150 ft (QC): 88 Gait Level of Assist: 4 Gait Assistive Device: FWW # of Steps: 1 1 Step (curb) (QC): 3 4 Steps (QC): 88 12 Steps (QC): 88 Stairs Level Of Assist: 4 Picking up an Object (QC): 88 PT Plan Problem List Problem List: Activity Tolerance, Functional Strength, Safety, Balance, Gait, Transfer, Bed Mobility, ROM Treatment/Plan Treatment Plan: Continue Plan of Care Treatment Plan: Bed Mobility, Education, Functional Activity Zeina, Functional Strength, Group Therapy, Gait, Safety, Therapeutic Exercise, Transfers Treatment Duration: Aug 18, 2016 # of days/week 5-6 Visits Per Week: 10-11 Minutes/Day (M-F): 60-90 Minutes/Day (Sat/Bunch): 15-30 Pt/Family Agrees w/Plan: Yes Safety Risks/Education Patient Education: Gait Training, Transfer Techniques, Correct Positioning, W/ C Management, Safety Issues Teaching Recipient: Patient Teaching Methods: Demonstration, Discussion Response to Teaching: Reinforcement Needed Discharge Recommendations Plan Patient will perform bed mobility and transfers, balance and endurance training , functional strengthening, gait training, wheelchair training, stair training, education, to improve functional mobility and independence at home. Therapy D/C Recommendations: Home w/ Family Support Time/GCodes Time In: 1300 Time Out: 1430 Total Billed Treatment Time: 80 Total Billed Treatment 1 visit EVM 10 min WCH 10 min FA 60 min Patient was evaluated by PT from [id number] and by OT from [id number]. Co- treatment was from [id number] NOREEN DIAZ PT Jul 28, 2016 14:38
--- NOTE | 2016-07-28 14:58 | Occupational Therapy Eval ---
OT Evaluation-General/PLF Medical Diagnosis Admission Date Jul 28, 2016 at 12:30 Medical Diagnosis: severe sepsis/pneumonia Onset Date: Jul 13, 2016 Therapy Diagnosis Therapy Diagnosis: weakness, decreased self care, decreased activity tolerance , decr funct mob Height/Weight Height (Feet): 5 Height (Inches): 2.00 Weight (Pounds): 202 Weight (Ounces): 3.0 Precautions Precautions/Isolations: Fall Prevention, Standard Precautions Referral Physician: Fausto Referral Reason: Evaluation/Treatment Medical History Pertinent Medical History: Arthritis, COPD, GERD, Hypothroidism, Smoking Additional Medical History Chronic bronchitis, stress incontinence Current History Admitted to ICU, on vent 7 days. 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 [employer]. 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 Pain reported as 5/10 in low back, which she thought was from being up in w/c Appearance Alert, cooperative Mental Status/Objective Attachments: Central Line, Telemetry Current Glasses/Contacts: Yes Hearing Aids: No Dentures/Partials: No Hand Dominance: Right Upper Extremity ROM PROM grossly WFL bilat. For active range, see strength Upper Extremity Coordination Impaired bilaterally due to decreased strength and edema Upper Extremity Sensation Impaired due to edema Upper Extremity Strength Bilateral: Shoulders 3-/5 flex and abd. Elbow flex/ext 3/5 (limited by edema). Pron/sup 3/5. Wrist flex and ext 3/5. Fingers - unable to make full fist. Unable to touch thumb to finger tips on R, can only touch index finger on L Edema: Significant edema ADL-Treatment Functional [place] Measure 0=Not Assessed/NA 4=Minimal Assistance 1=Total Assistance 5=Supervision or Setup 2=Maximal Assistance 6=Modified [place] 3=Moderate Assistance 7=Complete IndependenceIRFPAI Quality Coding Scale 6 Independent with activity with or without an assistive device 5 Patient requires set up or clean up by helper. Patient completes activity by themselves 4 Supervision or touching assist (CGA). [place] provide cues , steadying assist 3 The helper provides less than half the effort to complete the activity 2 The helper provides more than half the effort to complete the activity 1 Dependent. The helper does all the effort to complete an activity 7 Patient refused to complete or attempt activity 9 The patient did not perform the activity before the current illness or injury 88 Not attempted due to Medical conditions or safety concerns Eating (FIM): 2 (max assist due to decreased car checker and AROM arms. Able to sip from straw but not hold cup or reach for it) Eating (QC): 2 Grooming (FIM): 3 (Min assist to brush teeth with electric toothbrush. Was able to get small cup to mouth to get drink to rinse mouth. Unable to comb hair. Washed face and hands in shower. Did not do makeup) Oral Hygiene (QC): 3 Bathing (FIM): 1 (Needed assist to raise arms to wash them. Difficulty holding on to wash cloth. Rolling shower chair, hand held shower, grab bars.) Bathing Location: L Arm, R Arm, Chest Shower/Bathe Self (QC): 2 Upper Body Dressing (FIM): 2 (Help threading arms, getting shirt over head, pulling shirt down) Upper Body Dressing (QC): 2 Lower Body Dressing (FIM): 1 (Help threading legs, pulling briefs up over thighs. Two people to stand her max assist to pull pants up over bottom. Unable to doff or don slipper socks due to decreased grasp and sitting balance) Lower Body Dressing (QC): 1 On/Off Footwear (QC): 1 Shower Transfer (FIM): 1 (Max assist, two people. Pt unable to stand more than a few seconds for stand pivot transfer) Pt was not incontinent during ADLs. Co-tx with PT due to decreased activity tolerance, need for help with multiple body parts, decreased mobility. PT worked on mobility, transfers, LEs, balance, OT worked on ADLs incl dressing, bathing, grooming, eating, UE function Other Treatments Pt has weeping edema L wrist. Pt education edema management in UEs - elevation, compression, exercise. Isotoner gloves adjusted and reapplied, as well as Tubigrip size D to forearms. Arms elevated on pillows. Pt instructed to use yellow foam gripper (light resistance) for exercise fingers. Also set up red foam handle on spoon for pt to attempt to feed herself later. Pt left up in bed , 4 rails up, touch call button accessible. Education OT Patient Education: Modified ADL techniques, Purpose of tx/functional activities, Rehab process, Transfer techniques, Use of adapted equipment, Other (edema management) Teaching Recipient: Patient Teaching Methods: Demonstration, Discussion Response to Teaching: Verbalize Understanding OT Short Term Goals Short Term Goals Time Frame: Aug 04, 2016 Eating(FIM): 4 Grooming(FIM): 5 Bathing(FIM): 3 Upper Body Dressing(FIM): 4 Toilet/Commode Transfer(FIM): 3 1=Demonstrate adherence to instructed precautions during ADL tasks. 2=Patient will verbalize/demonstrate understanding of assistive devices/ modifications for ADL. 3=Patient will improve strength/tolerance for activity to enable patient to perform ADL's. OT Senior Care Goals Access Database Developer Goals Time Frame: Aug 18, 2016 Eating (FIM): 6 Eating (QC): 6 Oral Hygiene (QC): 6 Grooming(FIM): 6 Bathing(FIM): 5 (setup) Shower/Bathe Self (QC): 5 (setup) Upper Body Dressing(FIM): 5 (setup) Upper Body Dressing (QC): 5 Lower Body Dressing(FIM): 5 Lower Body Dressing (QC): 5 On/Off Footwear (QC): 5 Toileting(FIM): 5 (setup) Toileting Hygiene (QC): 5 Toilet/Commode Transfer(FIM): 5 (setup) Toilet/Commode Transfer (QC): 5 Shower Transfer(FIM): 5 (SBA) Increase bilat UE strength to 4+/5 Increase car checker strength 50% Decreased edema bilat UEs to normal limits Additional Goals: 2-Verbalize Understanding, 3-ImproveStrength/Zeina 1=Demonstrate adherence to instructed precautions during ADL tasks. 2=Patient will verbalize/demonstrate understanding of assistive devices/ modifications for ADL. 3=Patient will improve strength/tolerance for activity to enable patient to perform ADL's. OT Education/Plan Problem List/Assessment Assessment: Decreased Activ Tolerance, Decreased UE Strength, Dependent Transfers, Edema, Impaired Bed Mobility, Impaired Coordination, Impaired Funct Balance, Impaired Self-Care Skills, Restricted Funct UE ROM Pt would benefit from skilled OT to increase her independence in basic self care to allow her to safely return home with family support after sepsis/ pneumonia with resultant weakness and decreased self care Discharge Recommendations Plan/Recommendations: Continue POC Treatment Plan/Plan of Care Treatment,Training & Education: Yes Patient would benefit from OT for education, treatment and training to promote independence in ADL's, mobility, safety and/or upper extremity function for ADL' s. Plan of Care: ADL Retraining, Functional Mobility, Group Exercise/Act as Ind ( education, exercise, activity tolerance, functional activities, socialization), UE Funct Exercise/Act, UE Neuromus Re-Ed/Coord, OTHER (edema management) Treatment Duration: Aug 18, 2016 # of days/week 5-6 Visits Per Week: 10-11 Minutes/Day (M-F): 75-90 Minutes/Day (Sat/Bunch): PRN Agreement: Yes Rehab Potential: Good Time/GCodes Start Time: 13:10 Stop Time: 14:45 Total Time Billed (hr/min): 95 Billed Treatment Time visit, evaluation complex 10 minutes, then co-tx with PT 1320 to 1430 (70 minutes), neuromotor 15 minutes NIKI BRENNAN OT Jul 28, 2016 14:58
[2016-07-28] MEDS: RT-ALBUTEROL/IPRATROPIUM 3 ML (DUONEB) VIAL INH SCH ×2 (15:16→23:20)
--- NOTE | 2016-07-28 15:25 | ST Cognitive Linguistic Eval ---
Speech Evaluation-General Medical Diagnosis severe sepsis/pneumonia Onset Date: Jul 13, 2016 Therapy Diagnosis Therapy Diagnosis: Questionable Cognitive Impairment Precautions Precautions/Isolations: Fall Prevention, Standard Precautions Referral Referring Physician: Dr. Darion Lambert Reason for Referral: Evaluation/Treatment Cognitive Screen Medical History Pertinent Medical History: Arthritis, COPD, Hypothroidism, Smoking Reviewed History: Yes Social History Current Living Status: Spouse Speech PLF-Current Status Prior Level of Function The patient denied cognitive, speech, or language deficits prior to admission. Subjective The patient was recently admitted to [facility] following pneumonia and severe sepsis. The patient greeted the clinician appropriately and agreed to participate in the cognitive screen on this date. Language Eval: Auditory Comprehends Simple Yes/No Ques: Functional Indent/Objects Multiple Real: Functional Ident/Pics in Multiple Real: Functional Follows 1-Step Commands: Functional Follows Complex Directions: Functional Follows General Conversations: Functional Language Eval: Verbal Language Completes Spontaneous Greeting: Functional Produces Auto, Serial Info: Functional Imitates Simple Words/Phrases: Functional Word Finding: Functional Requests Basic Needs: Functional States Basic Personal Info: Functional Expresses Complex Ideas: Functional Cognitive Patient Orientation The patient was alert and oriented x3. Objective Cognitive Domain Attention: WNL Memory: WNL Problem Solving: Functional Executive Functions: WNL Objective Impression The patient demonstrated cognitive linguistic skills within normal limits for completion of ADL's. Communication/Social Cognition Comprehension: 6 Expression: 6 Social Interaction: 6 Problem Solvin Memory: 6 Speech Patient Assess Expression of Ideas/Wants: Expression (4) Understanding [place] Content: Understands (4) Brief Interview-Mental Status: Yes Repetition of Three Words: Three (3) Temporal Orientation: Year: Correct (3) Temporal Orientation: Month: Accurate within 5 days(2) Temporal Orientation: Day: Correct (1) Recall : Wear: Yes, no cue required (2) Recall : Color: Yes, no cue required (2) Recall : Bed: Yes, no cue required (2) Speech-Plan Treatment Plan Speech Therapy Treatment Plan: Discontinue ST (Eval, only.) Rehab Potential: Fair Safety Risks/Education Teaching Recipient: Patient Teaching Methods: Discussion Response to Teaching: Verbalize Understanding Education Topics Provided: Plan of Care Time Speech Therapy Time In: 14:55 Speech Therapy Time Out: 15:10 Total Billed Time: 15 Billed Treatment Time 1SHIRAZ ELIZABETH ST Jan 11, 2017 15:25
[2016-07-28] MEDS: LACTOBACILLUS Acidoph/Bulgar (LACTINEX/FLORANEX) TAB PO SCH (17:48)
[2016-07-28] MEDS: FUROSEMIDE 40 MG (LASIX) TAB PO SCH (17:48)
[2016-07-28] MEDS: SUCRALFATE 1 GM (CARAFATE) TAB PO SCH ×2 (17:48→20:16)
[2016-07-28 17:50] VITALS: BP 132/77
[2016-07-28] MEDS ORDERED: MEROPENEM 500 MG in NORMAL SALINE (BAXTER MINI) 100 ML IV SCH (18:00)
[2016-07-28] MEDS: meTOprolol TARTRATE 50 MG (LOPRESSOR) TAB PO SCH (20:16)
[2016-07-28] MEDS: ENOXAPARIN 40 MG/0.4 ML (LOVENOX) SYR SC SCH (20:17)
[2016-07-28] MEDS ORDERED: LINEZOLID (ZYVOX) 600 MG TAB PO SCH (21:00)
[2016-07-29] MEDS: RT-ALBUTEROL/IPRATROPIUM 3 ML (DUONEB) VIAL INH SCH ×6 (02:46→22:23)
[2016-07-29 06:00] VITALS: BP 138/74
[2016-07-29 06:16] LABS: BASOPHILS % (AUTO) 0 % (0-10); EOSINOPHILS # (AUTO) 0.1 10^3/uL (0.0-0.3); EOSINOPHILS % (AUTO) 1 % (0-10); LYMPHOCYTES # (AUTO) 1.9 X 10^3 (1.0-4.0); LYMPHOCYTES % (AUTO) 18 % (12-44); MEAN CORPUSCULAR HEMOGLOBIN 32 PG (25-34); MEAN CORPUSCULAR HGB CONC 34 G/DL (32-36); MEAN CORPUSCULAR VOLUME 94 FL (80-99); MEAN PLATELET VOLUME 10.2 FL (7.4-10.4); MONOCYTES # (AUTO) 0.9 X 10^3 (0.0-1.0); MONOCYTES % (AUTO) 8 % (0-12); NEUTROPHILS # (AUTO) 7.7 X 10^3 (1.8-7.8); NEUTROPHILS % (AUTO) 73 % (42-75); PLATELET COUNT 356 10^3/uL (130-400); RED BLOOD COUNT 3.19 10^6/uL (4.35-5.85); RED CELL DISTRIBUTION WIDTH 12.1 % (10.0-14.5); WHITE BLOOD COUNT 10.6 10^3/uL (4.3-11.0)
[2016-07-29 06:41] LABS: ALANINE AMINOTRANSFERASE 121 U/L (0-55); ALBUMIN 2.7 G/DL (3.2-4.5); ANION GAP 7 MMOL/L (5-14); ASPARTATE AMINO TRANSFERASE 72 U/L (5-34); BILIRUBIN,TOTAL 0.6 MG/DL (0.1-1.0); BLOOD UREA NITROGEN 17 MG/DL (7-18); BUN/CREATININE RATIO 34; CALCIUM 7.7 MG/DL (8.5-10.1); CARBON DIOXIDE 23 MMOL/L (21-32); CHLORIDE 108 MMOL/L (98-107); GFR ESTIMATED > 60; GLUCOSE 95 MG/DL (70-105); POTASSIUM 3.4 MMOL/L (3.6-5.0); SODIUM 138 MMOL/L (135-145); TOTAL PROTEIN 4.6 G/DL (6.4-8.2)
[2016-07-29] MEDS: predniSONE 10 MG TAB PO SCH (06:41)
[2016-07-29] MEDS: LACTOBACILLUS Acidoph/Bulgar (LACTINEX/FLORANEX) TAB PO SCH ×3 (06:41→16:34)
[2016-07-29] MEDS: LEVOTHYROXINE 50 MCG (LEVOTHROID) TAB PO SCH (06:41)
[2016-07-29] MEDS: SUCRALFATE 1 GM (CARAFATE) TAB PO SCH ×4 (06:41→21:10)
[2016-07-29] MEDS: FUROSEMIDE 40 MG (LASIX) TAB PO SCH ×2 (06:41→16:35)
[2016-07-29] MEDS ORDERED: KCL 20 MEQ TAB (K-DUR) PO SCH (07:00)
[2016-07-29] MEDS: amLODIPine 10 MG (NORVASC) TAB PO SCH (08:23)
[2016-07-29] MEDS: meTOprolol TARTRATE 50 MG (LOPRESSOR) TAB PO SCH ×2 (08:23→21:10)
[2016-07-29] MEDS: lisINopril 20 MG (ZESTRIL) TAB PO SCH (08:23)
--- NOTE | 2016-07-29 09:23 | PM & R (SOAP) Progress Note ---
Subjective Subjective/Events-last exam Patient was seen in her room this AM Isotoner gloves on for edema in hands Ashish wraps ordered for edema in legs.Patient adjusting well to unit Patient mod assist for transfers,Current labs reviewed Serum K borderline low -replace Review of Systems General: Fatigue Cardiovascular: : Edema Neurological: : Weakness Objective Exam Last Set of Vital Signs Vital Signs Date Time Temp Pulse Resp B/P Pulse Ox O2 Delivery O2 Flow Rate FiO2 07/29/16 08:27 Room Air 07/29/16 06:30 92 07/29/16 06:00 98.6 84 18 138/74 Capillary Refill : I&O Bad tableGeneral: Alert, Oriented X3, Cooperative, No Acute Distress HEENT: Atraumatic, PERRLA, EOMI, Mucous Memb Moist/[place] Neck: Supple, No JVD Lungs: Clear to Auscultation Heart: Regular Rate Abdomen: Normal Bowel Sounds, Soft, No Tenderness Extremities: Other (+ edma hands and feet) Neuro: Other (generalized weakness) Results Lab Laboratory Tests 07/29/16 06:00: Alanine Aminotransferase (ALT/SGPT) 121H, Albumin 2.7L, Alkaline Phosphatase 101 , Anion Gap 7, Aspartate Amino Transf (AST/SGOT) 72H, BUN/Creatinine Ratio 34, Basophils # (Auto) 0.0, Basophils (%) (Auto) 0, Blood Urea Nitrogen 17, Calcium Level 7.7L, Carbon Dioxide Level 23, Chloride Level 108H, Creatinine 0.50L, Eosinophils # (Auto) 0.1, Eosinophils (%) (Auto) 1, Estimat Glomerular Filtration Rate > 60, Glucose Level 95, Hematocrit 30L, Hemoglobin 10.1L, Lymphocytes # (Auto) 1.9, Lymphocytes (%) (Auto) 18, Mean Corpuscular Hemoglobin 32, Mean Corpuscular Hemoglobin Concent 34, Mean Corpuscular Volume 94, Mean Platelet Volume 10.2, Monocytes # (Auto) 0.9, Monocytes (%) (Auto) 8, Neutrophils # (Auto) 7.7, Neutrophils (%) (Auto) 73, Platelet Count 356, Potassium Level 3.4L, Red Blood Count 3.19L, Red Cell Distribution Width 12.1, Sodium Level 138, Total Bilirubin 0.6, Total Protein 4.6L, White Blood Count 10.6 Assessment/Plan Assessment General debil/probable Critical care illness s/p Pneumonia and resp failure associated with sepsis and Vent support for 7 days Peripheral edma related to above Hypokalemia Plan Continue PT/OT ST has assessed and signed off Isotoner gloves for hand edema and Wraps for edema in legs Replace K F/U with Dr Travis al. Patient completed course of antibiotics yesterday-Discussed case with Clinical Pharmacist yesterday RAUL COLLIER MD Jul 29, 2016 09:23
--- NOTE | 2016-07-29 09:50 | HISTORY AND PHYSICAL ---
DATE OF ADMISSION: 07/28/2016 CHIEF COMPLAINT: Difficulty with walking. 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 She became worse, was admitted. She became ventilator dependent with respiratory failure, developed sepsis. This was all treated by Dr. Fish PCP, Dr. Guzmán pulmonology and seen by cardiology as well. The patient now is completing a course of IV antibiotics today as well as and Zyvox for pneumonia. She is left with general debilitation from this. She has fairly diffuse weakness and has had a decline in functional independence. She was on a vent for 7 days and it may certainly be a consideration for some critical care illness contributing to her diffuse weakness. Currently she is mod to max assist for transfers. She is min assist for wheelchair propulsion. Her standing balance is poor. Ambulation was not attempted at this point. She is max assist for eating, due to decreased plate keeper and range of motion of the upper limbs. Mod assist for grooming, oral hygiene, dependent for bathing. Max assist for showering, bathing and dressing. She is reported to have some incontinence of bowel and bladder and reports decreased sensation in both ankles and hands, which may be at least partially due to peripheral edema present. PAST MEDICAL HISTORY: 1. Arthritis. 2. COPD. 3. Hypothyroidism on replacement. 4. Tobaccoism. 5. There is a history of chronic bronchitis. 6. Stress incontinence as well. PAST SURGICAL HISTORY: Noncontributory. ALLERGIES: Z-Tyler. FAMILY HISTORY: Noncontributory. SOCIAL HISTORY: Lives in a multilevel home, but stays on one level. 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 She lives with her spouse in [place]. REVIEW OF SYSTEMS: Ten-point review of systems significant for some shortness uncertain, some swelling in the hands and feet and easy fatigue. MEDICATIONS: 1. Norvasc 10 mg p.o. daily. 2. Lisinopril 40 mg p.o. daily. 3. K-Dur 60 mEq p.o. daily. 4. Prednisone 40 mg taper. 5. Levothyroxine 50 mcg p.o. daily. 6. Lopressor 100 milligrams p.o. b.i.d. 7. Zyvox 600 mg p.o. b.i.d.; last dose this evening. 8. Lovenox 40 mg subcutaneous at bedtime. 9. DuoNeb treatments q.4 hours. 10. Meropenem q.6 h. IV; last dose this evening. 11. Furosemide 40 mg p.o. b.i.d. 12. Carafate 1 gram p.o. q.i.d. with meals and at bedtime. 13. Lactinex 1 tablet p.o. before meals. 14. Ibuprofen 600 mg p.o. q.6 h. p.r.n. pain. 15. Lortab 5 one tablet p.o. q.4 hours p.r.n. moderate pain. PHYSICAL EXAMINATION: Significant for a pleasant female, appearing her stated age, appearing quite fatigued lying in bed in no acute distress. O2 sat 93% on room air. Blood pressure 137/64, pulse is 90, respirations 20. HEENT: Vision, speech, hearing, grossly intact. No oral lesion is noted. NECK: Supple without mass. HEART: Regular rhythm. LUNGS: Clear. ABDOMEN: Soft, nontender. Bowel sounds present. EXTREMITIES: The patient has peripheral edema present in both hands and feet. MUSCULOSKELETAL: The patient has functional passive range of motion in all 4 extremities. NEUROLOGIC: Sensation is diminished to touch and hands and feet partially contributed to by edema I believe. Cognitively she is intact and has been seen by speech therapy already. She has diminished plate keeper strength bilaterally. Shoulder strength and flexion abduction treatment 3-/5, elbow flexion-extension 3/5. wrist flexion and extension 3/5. Hip flexion 3-/5 bilaterally. Knee extension 4-/5, as well as knee flexion and dorsi flexion at 0/5 bilaterally, plantar flexion 0/5. IMPRESSION: 1. General debilitation secondary to pneumonia, associated with sepsis, respiratory failure on vent for 7 days. A component of critical care illness most likely contributing to her diffuse weakness. 2. COPD with history of tobaccoism. 3. Hypothyroidism on replacement. 4. GERD. 5. Arthritis 6. Metabolic acidosis, associated with acute renal failure due to sepsis, treated. 7. Pulmonary edema/anasarca on Lasix b.i.d. with residual peripheral edema as per above. 8. Acute respiratory failure on vent for 7 days associated with ARDS. resolved. PLAN: The patient is admitted to the Inpatient Rehabilitation Unit for a comprehensive program of inpatient rehabilitation with goal of maximizing level of functional dependence prior to discharge home with spouse and home health care. The patient will have PT/OT 90 minutes per day, each discipline, 5 days a week for gait strengthening, conditioning, balance, ADLs, any patient/family/caregiver training necessary, any adaptive equipment and training necessary. Speech therapy do cognitive assessment and treat as indicated; they have already found her to be functional and signed off. Rehabilitation nursing assist with bowel, bladder, skin care, medication administration. guest services agent to assist with discharge planning, community reentry. Respiratory therapy to assist with small-volume nebulizer treatments and monitoring O2 sats as needed followed by Dr. Fish. Dr. Guzmán and cardiology as per their schedules. Routine admission labs. Therapy with cardiac and fall precautions. Continue Lovenox subcutaneous for DVT prophylaxis. ESTIMATED LENGTH OF STAY: 3 weeks. PROGNOSIS: Rehab prognosis appears good for goal of discharging home with spouse with home health care modified independent to supervision of ADLs and mobility skills. DIET: Regular. CODE STATUS: Full code. POST ADMISSION PHYSICIAN ASSESSMENT: The preadmission screen agrees with the post admission assessment that the patient is a good candidate patient for inpatient rehabilitation and she appears to be well motivated to participate in 3 hours of therapy a day. She should be able tolerate 3 hours of therapy a day from a medical standpoint. She should benefit from the 3 hours of therapy a day. She may need a few days to build up for the full 3 hours due to her limited endurance. She has various comorbidities that need to be closely monitored with medications and treatments adjusted on a daily basis as needed. These include her ongoing treatment of pneumonia and pulmonary edema associated with anasarca and peripheral edema. Barriers to discharge for this patient who had been independent working full-time are for her to be modified independent to supervision for ADLs and mobility skills prior to discharge home with spouse. Risks for this patient include: 1. Recurrent respiratory failure. 2. Aspiration. 3. Recurrent pneumonia. 4. Falls. 5. Fracture. 6. DVT. 7. Pulmonary embolism. 8. Urinary retention. 9. UTI. Job ID: [id number] Dictated Date: 07/28/2016 16:17:59 Rock [employer] Date: 07/29/2016 09:19:31/jimmie MACIEL
--- NOTE | 2016-07-29 09:54 | Occupational Ther Daily Note ---
OT Current Status-Daily Note Subjective Pt sitting in recliner. No pain mentioned. Agreed to treatment. Appearance Cooperative, alert Mental Status/Objective Functional [place] Measure 0=Not Assessed/NA 4=Minimal Assistance 1=Total Assistance 5=Supervision or Setup 2=Maximal Assistance 6=Modified [place] 3=Moderate Assistance 7=Complete [place] ADL-Treatment Pt brushed teeth using electric toothbrush, setup, using L hand. Able to hold glass to rinse mouth and hold basin to spit. Washed face with washcloth while sitting in recliner, setup, holding washcloth with L side. Pt reported that she was able to feed herself grits using built up handled spoon but she couldn't stab the sausage with a fork, setup. Functional [place] Measure 0=Not Assessed/NA 4=Minimal Assistance 1=Total Assistance 5=Supervision or Setup 2=Maximal Assistance 6=Modified [place] 3=Moderate Assistance 7=Complete IndependenceIRFPAI Quality Coding Scale 6 Independent with activity with or without an assistive device 5 Patient requires set up or clean up by helper. Patient completes activity by themselves 4 Supervision or touching assist (CGA). [place] provide cues , steadying assist 3 The helper provides less than half the effort to complete the activity 2 The helper provides more than half the effort to complete the activity 1 Dependent. The helper does all the effort to complete an activity 7 Patient refused to complete or attempt activity 9 The patient did not perform the activity before the current illness or injury 88 Not attempted due to Medical conditions or safety concerns Eating (FIM): 5 Grooming (FIM): 5 Other Treatment Edema present on LE and both hands. R leg measured 45 inches, L leg 44 inches, measured around calves 4 inches from knee crease. Lower legs were helen wrapped using the figure 8 pattern, to knees. Isotonor gloves removed and washed, tubigrip left on forearms. Edema decreased in UEs and L forearm not oozing. Retrograde massage on both hands and forearms and pillows placed underneath each arm to help decrease edema. Pt used yellow (light) resistance sponge 2 sets, 10 reps, with more difficulty squeezing with R hand.. Skilled facilitation techniques used including place and hold, working on bilat grasp. Difficulty getting index fingers to touch palm. AAROM to increase strength on shoulders and biceps 2 sets, 5 reps. Pt left sitting up in recliner, legs elevated with pillow placed underneath legs. Call light in reach. All needs met. Education OT Patient Education: Modified ADL techniques, Progress toward Goal/Update tx plan, Other (edema management) Teaching Recipient: Patient Teaching Methods: Discussion Response to Teaching: Verbalize Understanding, Return Demonstration OT Short Term Goals Short Term Goals Time Frame: Aug 04, 2016 Eating(FIM): 4 Grooming(FIM): 5 Bathing(FIM): 3 Upper Body Dressing(FIM): 4 Toilet/Commode Transfer(FIM): 3 1=Demonstrate adherence to instructed precautions during ADL tasks. 2=Patient will verbalize/demonstrate understanding of assistive devices/ modifications for ADL. 3=Patient will improve strength/tolerance for activity to enable patient to perform ADL's. OT Shelter Goals Framing Mill Operator Helper Goals Time Frame: Aug 18, 2016 Eating (FIM): 6 Eating (QC): 6 Oral Hygiene (QC): 6 Grooming(FIM): 6 Bathing(FIM): 5 (setup) Shower/Bathe Self (QC): 5 (setup) Upper Body Dressing(FIM): 5 (setup) Upper Body Dressing (QC): 5 Lower Body Dressing(FIM): 5 Lower Body Dressing (QC): 5 On/Off Footwear (QC): 5 Toileting(FIM): 5 (setup) Toileting Hygiene (QC): 5 Toilet/Commode Transfer(FIM): 5 (setup) Toilet/Commode Transfer (QC): 5 Shower Transfer(FIM): 5 (SBA) Increase bilat UE strength to 4+/5 Increase flame channeler strength 50% Decreased edema bilat UEs to normal limits Additional Goals: 2-Verbalize Understanding, 3-ImproveStrength/[place] 1=Demonstrate adherence to instructed precautions during ADL tasks. 2=Patient will verbalize/demonstrate understanding of assistive devices/ modifications for ADL. 3=Patient will improve strength/tolerance for activity to enable patient to perform ADL's. OT Education/Plan Problem List/Assessment Pt would benefit from skilled OT to increase her independence in basic self care to allow her to safely return home with family support after sepsis/ pneumonia with resultant weakness and decreased self care Discharge Recommendations Plan/Recommendations: Continue POC Treatment Plan/Plan of Care Patient would benefit from OT for education, treatment and training to promote independence in ADL's, mobility, safety and/or upper extremity function for ADL' s. Plan of Care: ADL Retraining, Functional Mobility, Group Exercise/Act as Ind ( education, exercise, activity tolerance, functional activities, socialization), UE Funct Exercise/Act, UE Neuromus Re-Ed/Coord, OTHER (edema management) Treatment Duration: Aug 18, 2016 Visits Per Week: 10-11 Minutes/Day (M-F): 75-90 Minutes/Day (Sat/Bunch): PRN Agreement: Yes Rehab Potential: Good Time/GCodes Start Time: 08:30 Stop Time: 09:30 Total Time Billed (hr/min): 60 Billed Treatment Time visit, neuromotor 45 min, ADL 15 min NIKI BRENNAN OT Jul 29, 2016 09:54
--- NOTE | 2016-07-29 11:03 | Physical Therapy Daily Note ---
PT Daily Note-Current Subjective Patient in recliner pre tx, agrees to PT, states she only has some minor pain 1- 2/10 in both legs below the knees. Appearance Patient in recliner post tx with legs elevated, father in the room, has nurse call, phone, tray, all needs met. Mental Status Patient Orientation: Normal For Age Transfers Functional [place] Measure 0=Not Assessed/NA 4=Minimal Assistance 1=Total Assistance 5=Supervision or Setup 2=Maximal Assistance 6=Modified [place] 3=Moderate Assistance 7=Complete IndependenceIRFPAI Quality Coding Scale 6 Independent with activity with or without an assistive device 5 Patient requires set up or clean up by helper. Patient completes activity by themselves 4 Supervision or touching assist (CGA). [place] provide cues , steadying assist 3 The helper provides less than half the effort to complete the activity 2 The helper provides more than half the effort to complete the activity 1 Dependent. The helper does all the effort to complete an activity 7 Patient refused to complete or attempt activity 9 The patient did not perform the activity before the current illness or injury 88 Not attempted due to Medical conditions or safety concerns Transfers (B, C, W/C) (FIM): 2 Sit to/from Stand: 2 Bed to/from Chair: 2 Once standing, patient can assist more, can more her legs a bit. Wheelchair Training Does the Pt Use a Wheelchair?: Yes Wheelchair (FIM): 2 Distance: 100' Wheelchair Level of Assist: 4 (min assist for pushing and helping to turn) Wheel 50 ft with 2 turns (QC): 3 Type of Wheelchair: Manual Exercises Seated Therapy Exercises: Ankle pumps, Hip flexion, Hip abd/add Seated Reps: 20 ankle pumps were actually plantarflexion, patient performed LAQ alternating for 5 min Neuromuscular Patient stood in the parallel bars x5 for about 30 seconds each time Treatments functional strengthening, transfers, wheelchair mobility, standing in parallel bars Assessment Current Status: Fair Progress Patient is making progress with mobility and strength, but she does fatigue very quickly and needs frequent rest breaks, gets SOB quickly PT Short Term Goals Short Term Goals Time Frame: Aug 04, 2016 Gait (FIM): 1 Gait Distance Comment: 20' Gait Level of Assist: 3 Gait Assistive Device: FWW Wheelchair Distance: 15' PT Telecom Sales Consultant Goals Telecom Sales Consultant Goals PT Fdc Goals Time Frame: Aug 18, 2016 Transfers (B,C,W/C) (FIM): 4 Sit to Lying (QC): 4 Lying-Sitting on Side/Bed(QC): 4 Sit to Stand (QC): 3 Rollin Roll Left to Right (QC): 4 Chair/[place]-ub-[place]obop Xfer(QC): 3 Car Transfer (QC): 3 Gait (FIM): 2 Distance: 50' Walk 10 feet (QC): 3 Walk 10ft-Uneven Surface(QC): 3 Walk 50ft with 2 Turns (QC): 3 Walk 150 ft (QC): 88 Gait Level of Assist: 4 Gait Assistive Device: FWW # of Steps: 1 1 Step (curb) (QC): 3 4 Steps (QC): 88 12 Steps (QC): 88 Stairs Level Of Assist: 4 Picking up an Object (QC): 88 PT Plan Problem List Problem List: Activity Tolerance, Functional Strength, Safety, Balance, Gait, Transfer, Bed Mobility, ROM Treatment/Plan Treatment Plan: Continue Plan of Care Treatment Plan: Bed Mobility, Education, Functional Activity [place], Functional Strength, Group Therapy, Gait, Safety, Therapeutic Exercise, Transfers Treatment Duration: Aug 18, 2016 Visits Per Week: 10-11 Minutes/Day (M-F): 60-90 Minutes/Day (Sat/Bunch): 15-30 Safety Risks/Education Patient Education: Transfer Techniques, Correct Positioning, W/C Management, Safety Issues Teaching Recipient: Patient Teaching Methods: Demonstration, Discussion Response to Teaching: Reinforcement Needed Time/GCodes Time In: 1000 Time Out: 1100 Total Billed Treatment Time: 60 Total Billed Treatment 1 visit [facility] 15 min EX 15 min FA 30 min NOREEN DIAZ PT Jul 29, 2016 11:03
--- NOTE | 2016-07-29 12:32 | Progress Note (SOAP) ---
Subjective Subjective/Events-last exam Fwup respiratory failure, pneumonia with Strep pneumo sepsis, septic shock with hypotension/renal failure and elevated LFTs. Edema improving with continued diuresis. Appetite little bit better. C/O sinus congestion. Objective Exam Vital Signs Date Time Temp Pulse Resp B/P Pulse Ox O2 Delivery O2 Flow Rate FiO2 07/29/16 08:27 Room Air 07/29/16 06:30 92 Room Air 07/29/16 06:00 98.6 84 18 138/74 95 Room Air 07/29/16 02:46 93 Room Air 07/28/16 23:20 90 Room Air 07/28/16 20:30 Room Air 07/28/16 17:50 99.0 95 20 132/77 96 Room Air 07/28/16 15:16 93 Room Air 07/28/16 15:12 92 Room Air 07/28/16 13:00 99.2 113 18 131/76 92 Room Air I & O 07/29/16 07:00 Intake Total 410 ml Output Total 650 ml Balance -240 ml Capillary Refill : General Appearance: No Apparent Distress Neck: Supple Respiratory: Crackles Decreased Breath Sounds Cardiovascular: Regular Rate, Rhythm Gallop/S3 Gastrointestinal: normal bowel sounds non tender soft Extremity: Non Tender No Calf Tenderness Swelling Neurologic/Psychiatric: Alert Oriented x3 Results Lab Laboratory Tests 07/29/16 06:00: Alanine Aminotransferase (ALT/SGPT) 121H, Albumin 2.7L, Alkaline Phosphatase 101 , Anion Gap 7, Aspartate Amino Transf (AST/SGOT) 72H, BUN/Creatinine Ratio 34, Basophils # (Auto) 0.0, Basophils (%) (Auto) 0, Blood Urea Nitrogen 17, Calcium Level 7.7L, Carbon Dioxide Level 23, Chloride Level 108H, Creatinine 0.50L, Eosinophils # (Auto) 0.1, Eosinophils (%) (Auto) 1, Estimat Glomerular Filtration Rate > 60, Glucose Level 95, Hematocrit 30L, Hemoglobin 10.1L, Lymphocytes # (Auto) 1.9, Lymphocytes (%) (Auto) 18, Mean Corpuscular Hemoglobin 32, Mean Corpuscular Hemoglobin Concent 34, Mean Corpuscular Volume 94, Mean Platelet Volume 10.2, Monocytes # (Auto) 0.9, Monocytes (%) (Auto) 8, Neutrophils # (Auto) 7.7, Neutrophils (%) (Auto) 73, Platelet Count 356, Potassium Level 3.4L, Red Blood Count 3.19L, Red Cell Distribution Width 12.1, Sodium Level 138, Total Bilirubin 0.6, Total Protein 4.6L, White Blood Count 10.6 Assessment/Plan Assessment/Plan Assess & Plan/Chief Complaint 1. Pneumonia with Strep Pneumo--still on Meropenem and Zyvox 2. Anasarca--continue diuresis and focus on nutrition, arms and legs wrapped 3. Hypertension--stable on home meds 4. Weakness--continue PT/OT 5. Allergic Rhinitis--add flonase 6. Hypokalemia--increase potassium dose Diagnosis/Problems: Clinical Quality Measures DVT/VTE Risk/Contraindication: Risk Factor Score Per Nursin RFS Level Per Nursing on Admit: 4+=Very High KINDRA RHODES DO Jul 29, 2016 12:32
--- NOTE | 2016-07-29 14:06 | Occupational Ther Daily Note ---
OT Current Status-Daily Note Subjective Pt sitting in recliner. Pt stated she does not feel any shooting pain through legs like she did this morning, thanks to the wraps. Agreeable to OT. Appearance Cooperative, alert. Mental Status/Objective Functional [place] Measure 0=Not Assessed/NA 4=Minimal Assistance 1=Total Assistance 5=Supervision or Setup 2=Maximal Assistance 6=Modified [place] 3=Moderate Assistance 7=Complete [place] ADL-Treatment Functional [place] Measure 0=Not Assessed/NA 4=Minimal Assistance 1=Total Assistance 5=Supervision or Setup 2=Maximal Assistance 6=Modified [place] 3=Moderate Assistance 7=Complete IndependenceIRFPAI Quality Coding Scale 6 Independent with activity with or without an assistive device 5 Patient requires set up or clean up by helper. Patient completes activity by themselves 4 Supervision or touching assist (CGA). [place] provide cues , steadying assist 3 The helper provides less than half the effort to complete the activity 2 The helper provides more than half the effort to complete the activity 1 Dependent. The helper does all the effort to complete an activity 7 Patient refused to complete or attempt activity 9 The patient did not perform the activity before the current illness or injury 88 Not attempted due to Medical conditions or safety concerns Other Treatment Pt worked on bilat reaching, grasping, releasing, stacking 10 cones to increase AROM, eye hand coordination. Pt had more difficulty grasping and holding cones on R arm due to decrease in strength. Pt did 4 reps AAROM for shoulder and elbow and was able to get complete elbow extension on the right. When same movement done with arms , she could not get full ext on the R. Pt left sitting in recliner, pillow placed underneath both legs and arms to help decrease swelling/edema. Call light in hand. All needs met in room. Standardized Testing Grasp R 1,1,1 lb L 2,1,1 lb Lateral Pinch 3 Jaw Miguel Tip R 0 0 Unable L trace trace Unable Education OT Patient Education: Exercise program Teaching Recipient: Patient Teaching Methods: Demonstration, Discussion Response to Teaching: Verbalize Understanding, Return Demonstration OT Short Term Goals Short Term Goals Time Frame: Aug 04, 2016 Eating(FIM): 4 Grooming(FIM): 5 Bathing(FIM): 3 Upper Body Dressing(FIM): 4 Toilet/Commode Transfer(FIM): 3 1=Demonstrate adherence to instructed precautions during ADL tasks. 2=Patient will verbalize/demonstrate understanding of assistive devices/ modifications for ADL. 3=Patient will improve strength/tolerance for activity to enable patient to perform ADL's. OT Alf Goals Alf Goals Time Frame: Aug 18, 2016 Eating (FIM): 6 Eating (QC): 6 Oral Hygiene (QC): 6 Grooming(FIM): 6 Bathing(FIM): 5 (setup) Shower/Bathe Self (QC): 5 (setup) Upper Body Dressing(FIM): 5 (setup) Upper Body Dressing (QC): 5 Lower Body Dressing(FIM): 5 Lower Body Dressing (QC): 5 On/Off Footwear (QC): 5 Toileting(FIM): 5 (setup) Toileting Hygiene (QC): 5 Toilet/Commode Transfer(FIM): 5 (setup) Toilet/Commode Transfer (QC): 5 Shower Transfer(FIM): 5 (SBA) Increase bilat UE strength to 4+/5 Increase electric range preparer strength 50% Decreased edema bilat UEs to normal limits Additional Goals: 2-Verbalize Understanding, 3-ImproveStrength/Zeina 1=Demonstrate adherence to instructed precautions during ADL tasks. 2=Patient will verbalize/demonstrate understanding of assistive devices/ modifications for ADL. 3=Patient will improve strength/tolerance for activity to enable patient to perform ADL's. OT Education/Plan Problem List/Assessment Pt would benefit from skilled OT to increase her independence in basic self care to allow her to safely return home with family support after sepsis/ pneumonia with resultant weakness and decreased self care Discharge Recommendations Plan/Recommendations: Continue POC Treatment Plan/Plan of Care Patient would benefit from OT for education, treatment and training to promote independence in ADL's, mobility, safety and/or upper extremity function for ADL' s. Plan of Care: ADL Retraining, Functional Mobility, Group Exercise/Act as Ind ( education, exercise, activity tolerance, functional activities, socialization), UE Funct Exercise/Act, UE Neuromus Re-Ed/Coord, OTHER (edema management) Treatment Duration: Aug 18, 2016 Visits Per Week: 10-11 Minutes/Day (M-F): 75-90 Minutes/Day (Sat/Bunch): PRN Agreement: Yes Rehab Potential: Good Time/GCodes Start Time: 13:00 Stop Time: 13:30 Total Time Billed (hr/min): 30 Billed Treatment Time visit, neuromotor 30 min NIKI BRENNAN OT Jul 29, 2016 14:06
--- NOTE | 2016-07-29 15:22 | Physical Therapy Daily Note ---
PT Daily Note-Current Subjective Patient in recliner pre tx, agrees to PT, pleasant and cooperative. Pain Numeric Pain Scale: 0-No Pain Appearance Patient in recliner post tx with feet elevated, has nurse call, phone, tray, all needs met. Mental Status Patient Orientation: Normal For Age Transfers Functional [place] Measure 0=Not Assessed/NA 4=Minimal Assistance 1=Total Assistance 5=Supervision or Setup 2=Maximal Assistance 6=Modified [place] 3=Moderate Assistance 7=Complete IndependenceIRFPAI Quality Coding Scale 6 Independent with activity with or without an assistive device 5 Patient requires set up or clean up by helper. Patient completes activity by themselves 4 Supervision or touching assist (CGA). Conley provide cues , steadying assist 3 The helper provides less than half the effort to complete the activity 2 The helper provides more than half the effort to complete the activity 1 Dependent. The helper does all the effort to complete an activity 7 Patient refused to complete or attempt activity 9 The patient did not perform the activity before the current illness or injury 88 Not attempted due to Medical conditions or safety concerns Transfers (B, C, W/C) (FIM): 2 Scootin Rollin Supine to/from Sit: 3 Sit to/from Stand: 2 Bed to/from Chair: 2 Patient perform a stand pivot transfer x 4 Exercises Supine Ex: Ankle pumps, Quad Set, Glut sets, Heel Slides, Short Arc Quads Supine Reps: 20 Treatments transfers, bed mobility, functional strengthening Assessment Current Status: Fair Progress already improving transfers PT Short Term Goals Short Term Goals Time Frame: Aug 04, 2016 Gait (FIM): 1 Gait Distance Comment: 20' Gait Level of Assist: 3 Gait Assistive Device: FWW Wheelchair Distance: 100' PT Detention Goals Detention Goals PT Balancing Machine Set Up Worker Goals Time Frame: Aug 18, 2016 Transfers (B,C,W/C) (FIM): 4 Sit to Lying (QC): 4 Lying-Sitting on Side/Bed(QC): 4 Sit to Stand (QC): 3 Rollin Roll Left to Right (QC): 4 Chair/Kqz-cj-Gbiut Xfer(QC): 3 Car Transfer (QC): 3 Gait (FIM): 2 Distance: 50' Walk 10 feet (QC): 3 Walk 10ft-Uneven Surface(QC): 3 Walk 50ft with 2 Turns (QC): 3 Walk 150 ft (QC): 88 Gait Level of Assist: 4 Gait Assistive Device: FWW # of Steps: 1 1 Step (curb) (QC): 3 4 Steps (QC): 88 12 Steps (QC): 88 Stairs Level Of Assist: 4 Picking up an Object (QC): 88 PT Plan Problem List Problem List: Activity Tolerance, Functional Strength, Safety, Balance, Gait, Transfer, Bed Mobility Treatment/Plan Treatment Plan: Continue Plan of Care Treatment Plan: Bed Mobility, Education, Functional Activity Zeina, Functional Strength, Group Therapy, Gait, Safety, Therapeutic Exercise, Transfers Treatment Duration: Aug 18, 2016 Visits Per Week: 10-11 Minutes/Day (M-F): 60-90 Minutes/Day (Sat/Bunch): 15-30 Safety Risks/Education Patient Education: Transfer Techniques, Correct Positioning, Safety Issues Teaching Recipient: Patient Teaching Methods: Demonstration, Discussion Response to Teaching: Reinforcement Needed Time/GCodes Time In: 1445 Time Out: 1515 Total Billed Treatment Time: 30 Total Billed Treatment 1 visit EX 15 min FA 15 min NOREEN DIAZ PT Jul 29, 2016 15:22
[2016-07-29] MEDS: KCL 20 MEQ TAB (K-DUR) PO SCH (16:34)
[2016-07-29 18:32] VITALS: BP 171/73
[2016-07-29] MEDS: ENOXAPARIN 40 MG/0.4 ML (LOVENOX) SYR SC SCH (21:10)
[2016-07-30] MEDS: RT-ALBUTEROL/IPRATROPIUM 3 ML (DUONEB) VIAL INH SCH ×6 (02:26→21:54)
[2016-07-30 05:51] VITALS: BP 132/74
[2016-07-30] MEDS: LEVOTHYROXINE 50 MCG (LEVOTHROID) TAB PO SCH (06:27)
[2016-07-30] MEDS: LACTOBACILLUS Acidoph/Bulgar (LACTINEX/FLORANEX) TAB PO SCH ×3 (06:27→16:08)
[2016-07-30] MEDS: SUCRALFATE 1 GM (CARAFATE) TAB PO SCH ×4 (06:27→22:03)
[2016-07-30] MEDS: FUROSEMIDE 40 MG (LASIX) TAB PO SCH ×2 (06:27→17:25)
[2016-07-30] MEDS: predniSONE 10 MG TAB PO SCH (06:30)
[2016-07-30] MEDS: KCL 20 MEQ TAB (K-DUR) PO SCH ×2 (06:30→17:25)
[2016-07-30 06:44] LABS: BASOPHILS % (AUTO) 0 % (0-10); EOSINOPHILS # (AUTO) 0.2 10^3/uL (0.0-0.3); EOSINOPHILS % (AUTO) 2 % (0-10); LYMPHOCYTES # (AUTO) 2.4 X 10^3 (1.0-4.0); LYMPHOCYTES % (AUTO) 17 % (12-44); MEAN CORPUSCULAR HEMOGLOBIN 32 PG (25-34); MEAN CORPUSCULAR HGB CONC 34 G/DL (32-36); MEAN CORPUSCULAR VOLUME 95 FL (80-99); MEAN PLATELET VOLUME 10.5 FL (7.4-10.4); MONOCYTES # (AUTO) 0.9 X 10^3 (0.0-1.0); MONOCYTES % (AUTO) 7 % (0-12); NEUTROPHILS # (AUTO) 10.2 X 10^3 (1.8-7.8); NEUTROPHILS % (AUTO) 74 % (42-75); PLATELET COUNT 373 10^3/uL (130-400); RED BLOOD COUNT 3.38 10^6/uL (4.35-5.85); RED CELL DISTRIBUTION WIDTH 12.6 % (10.0-14.5); WHITE BLOOD COUNT 13.7 10^3/uL (4.3-11.0)
[2016-07-30 07:15] LABS: ALANINE AMINOTRANSFERASE 137 U/L (0-55); ANION GAP 9 MMOL/L (5-14); ASPARTATE AMINO TRANSFERASE 79 U/L (5-34); BILIRUBIN,TOTAL 0.6 MG/DL (0.1-1.0); BLOOD UREA NITROGEN 14 MG/DL (7-18); BUN/CREATININE RATIO 27; CALCIUM 8.2 MG/DL (8.5-10.1); CARBON DIOXIDE 21 MMOL/L (21-32); CHLORIDE 106 MMOL/L (98-107); CREATININE SERUM 0.51 MG/DL (0.60-1.30); GFR ESTIMATED > 60; GLUCOSE 90 MG/DL (70-105); POTASSIUM 3.9 MMOL/L (3.6-5.0); SODIUM 136 MMOL/L (135-145); TOTAL PROTEIN 5.2 G/DL (6.4-8.2)
[2016-07-30] MEDS: amLODIPine 10 MG (NORVASC) TAB PO SCH (08:12)
[2016-07-30] MEDS: lisINopril 20 MG (ZESTRIL) TAB PO SCH (08:12)
[2016-07-30] MEDS: meTOprolol TARTRATE 50 MG (LOPRESSOR) TAB PO SCH ×2 (08:12→22:03)
--- NOTE | 2016-07-30 08:39 | PM & R (SOAP) Progress Note ---
Subjective Subjective/Events-last exam Patient was seen in her room this AM Appreciate Dr West note and orders. K replaced Isotoner gloves and leg wraps being used for peripheral edema.Patient mod assist for transfers Objective Exam Last Set of Vital Signs Vital Signs Date Time Temp Pulse Resp B/P Pulse Ox O2 Delivery O2 Flow Rate FiO2 07/30/16 08:22 Room Air 07/30/16 07:05 97 07/30/16 05:51 99.4 85 20 132/74 Capillary Refill : I&O Intake and Output 07/30/16 00:00 Intake Total 850 ml Output Total 350 ml Balance 500 ml Intake Oral 850 ml Output Urine Total 350 ml # Voids 5 # Bowel Movements 1 General: Alert, Oriented X3, Cooperative, No Acute Distress HEENT: Atraumatic, PERRLA, EOMI, Mucous Memb Moist/[place] Neck: Supple, No JVD Lungs: Clear to Auscultation Heart: Regular Rate Abdomen: Normal Bowel Sounds, Soft, No Tenderness Extremities: Other Neuro: Other Results Lab Laboratory Tests 07/29/16 06:00: Alanine Aminotransferase (ALT/SGPT) 121H, Albumin 2.7L, Alkaline Phosphatase 101 , Anion Gap 7, Aspartate Amino Transf (AST/SGOT) 72H, BUN/Creatinine Ratio 34, Basophils # (Auto) 0.0, Basophils (%) (Auto) 0, Blood Urea Nitrogen 17, Calcium Level 7.7L, Carbon Dioxide Level 23, Chloride Level 108H, Creatinine 0.50L, Eosinophils # (Auto) 0.1, Eosinophils (%) (Auto) 1, Estimat Glomerular Filtration Rate > 60, Glucose Level 95, Hematocrit 30L, Hemoglobin 10.1L, Lymphocytes # (Auto) 1.9, Lymphocytes (%) (Auto) 18, Mean Corpuscular Hemoglobin 32, Mean Corpuscular Hemoglobin Concent 34, Mean Corpuscular Volume 94, Mean Platelet Volume 10.2, Monocytes # (Auto) 0.9, Monocytes (%) (Auto) 8, Neutrophils # (Auto) 7.7, Neutrophils (%) (Auto) 73, Platelet Count 356, Potassium Level 3.4L, Red Blood Count 3.19L, Red Cell Distribution Width 12.1, Sodium Level 138, Total Bilirubin 0.6, Total Protein 4.6L, White Blood Count 10.6 07/30/16 06:20: Alanine Aminotransferase (ALT/SGPT) 137H, Albumin 3.0L, Alkaline Phosphatase 99 , Anion Gap 9, Aspartate Amino Transf (AST/SGOT) 79H, BUN/Creatinine Ratio 27, Basophils # (Auto) 0.0, Basophils (%) (Auto) 0, Blood Urea Nitrogen 14, Calcium Level 8.2L, Carbon Dioxide Level 21, Chloride Level 106, Creatinine 0.51L, Eosinophils # (Auto) 0.2, Eosinophils (%) (Auto) 2, Estimat Glomerular Filtration Rate > 60, Glucose Level 90, Hematocrit 32L, Hemoglobin 10.8L, Lymphocytes # (Auto) 2.4, Lymphocytes (%) (Auto) 17, Mean Corpuscular Hemoglobin 32, Mean Corpuscular Hemoglobin Concent 34, Mean Corpuscular Volume 95, Mean Platelet Volume 10.5H, Monocytes # (Auto) 0.9, Monocytes (%) (Auto) 7, Neutrophils # (Auto) 10.2H, Neutrophils (%) (Auto) 74, Platelet Count 373, Potassium Level 3.9, Red Blood Count 3.38L, Red Cell Distribution Width 12.6, Sodium Level 136, Total Bilirubin 0.6, Total Protein 5.2L, White Blood Count 13.7H Assessment/Plan Assessment General debil/probable Critical care illness s/p Pneumonia and resp failure associated with sepsis and Vent support for 7 days Anasarca with Peripheral edma related to above being treated as per above Hypokalemia-replaced Plan Continue PT/OT ST has assessed and signed off Isotoner gloves for hand edema and Wraps for edema in legs Replace K -done F/U with Dr Abe reid. Patient completed course of antibiotics yesterday-Discussed case with Clinical Pharmacist earlier this week RAUL COLLIER MD Jul 30, 2016 08:39
--- NOTE | 2016-07-30 10:14 | Individualized Plan of Care ---
Individualized Plan of Care Rehab Nursing IPOC Order Admission Date Jul 28, 2016 at 12:30 Current Orders Orders-RAUL COLLIER MD Request Ot Evaluate & Treat (07/28/16 14:06) Influenza Vac Order Indicated (07/28/16 14:12) Admission-Acute Rehab Unit (07/28/16 14:15) Vital Signs: Routine 08,16,00 (07/28/16 14:15) Social Service (07/28/16 14:15) Rehab Nursing Orders-Ipoc (07/28/16 14:15) Physical Therapy Rehab Orders (07/28/16 14:15) Occupational Therapy Rehab Ord (07/28/16 14:15) Speech Therapy Rehab Orders (07/28/16 14:15) General/Regular (07/28/16 Dinner) Turn And Reposition Q2HR (07/28/16 14:15) Intake & Output Shift Assessme 06,14,22 (07/28/16 14:15) Precautions (Aru) (07/28/16 14:15) Weekly Weight (Lbs) WEEK (07/28/16 14:15) Consult Physician (07/28/16 14:20) Influenza Trivalent [id number] (Afluria ( (07/28/16 14:30) Cbc With Automated Diff (07/29/16 06:00) Comprehensive Metabolic Panel (07/29/16 06:00) Albuterol/Ipra Inhalation Soln (Duoneb I (07/28/16 18:00) Meropenem (Merrem 500 Mg) (07/28/16 18:00) Furosemide Tablet (Lasix Tablet) (07/28/16 17:00) Ibuprofen Tablet (Motrin Tablet) (07/28/16 14:45) Hydrocodone/Apap 5/325 Tablet (Lortab 5 (07/28/16 14:45) Amlodipine Tablet (Norvasc Tablet) (07/29/16 09:00) Levothyroxine Tablet (Synthroid Tablet) (07/29/16 06:30) Sucralfate Tablet (Carafate Tablet) (07/28/16 16:00) Metoprolol Tartrate (Ir) Tab (Lopressor (07/28/16 21:00) Lactobacillus/Bulgaricus Tab (Lactinex (07/28/16 16:00) Lisinopril Tablet (Zestril Tablet) (07/29/16 09:00) Linezolid Tablet (Zyvox Tablet) (07/28/16 21:00) Pharmacy Communication (Pharmacy Communi (07/28/16 14:45) Potassium Chloride (Tablet) (K Dur Table (07/29/16 07:00) Enoxaparin Injection (Lovenox Injection) (07/28/16 21:00) Admission-Acute Rehab Unit (07/28/16 14:34) Vital Signs: Routine 08,16,00 (07/28/16 14:34) Case Management Consult (07/28/16 14:34) Social Service (07/28/16 14:34) Prednisone Tablet (Deltasone Tablet) (07/29/16 07:00) Patient Visit (07/28/16 ) Speech Sound Lang Comp (07/28/16 ) Patient Visit (07/28/16 ) Pt Eval Moderate Complexity (07/28/16 ) Wheelchair Mgmt/Propulsn 15min (07/28/16 ) Functional Activities, Ea 15 (07/28/16 ) Patient Visit (07/29/16 ) Functional Activities, Ea 15 (07/29/16 ) Wheelchair Mgmt/Propulsn 15min (07/29/16 ) Exercise Therap, Ea 15 Min (07/29/16 ) PT IPOC Problem List: Activity Tolerance, Functional Strength, Safety, Balance, Gait, Transfer, Bed Mobility Treatment Plan: Continue Plan of Care Bed Mobility, Education, Functional Activity Zeina, Functional Strength, Group Therapy, Gait, Safety, Therapeutic Exercise, Transfers Treatment Duration: Aug 18, 2016 Visits Per Week: 10-11 Minutes/Day (M-F): 60-90 Minutes/Day (Sat/Bunch): 15-30 OT IPOC Problems: Decreased Activ Tolerance, Decreased UE Strength, Dependent Transfers , Edema, Impaired Bed Mobility, Impaired Coordination, Impaired Funct Balance, Impaired Self-Care Skills, Restricted Funct UE ROM OT Problems Pt would benefit from skilled OT to increase her independence in basic self care to allow her to safely return home with family support after sepsis/ pneumonia with resultant weakness and decreased self care Plan of Care: ADL Retraining, Functional Mobility, Group Exercise/Act as Ind ( education, exercise, activity tolerance, functional activities, socialization), UE Funct Exercise/Act, UE Neuromus Re-Ed/Coord, OTHER (edema management) Treatment Duration: Aug 18, 2016 Visits Per Week: 10-11 Minutes/Day (M-F): 75-90 Minutes/Day (Sat/Bunch): PRN ST IPOC Speech Therapy Treatment Plan: Discontinue ST (Eval, only.) Physician IPOC Medical Issues being managed closely and that require the 24 hour availability of a physician:diffuse weakness s/p resp failure secondary to Strep pneumonia completed course of antibiotics Anasarca with peripheral edema on leg wraps and isotoner gloves HTN controlled Hypokalemia -replace Medical Issues: DVT Prophylaxis, Falls Precautions, Fluid/Electrolyte/ Nutrition Balance, Infection Protection, Pain Management, Other (List) (as per above) Brief Synthesis of Preadmission Screen, Post-Admission Evaluation, and Therapy Evaluations: 55 yo female who had been Independent and workin at a local [facility] who developed Strep pnuemonia associated with sepsis and resp failure requiring vent support for several days.Now left with general debil and anasarca with periheral edema with a resulting decline in functional [place].Dr Fish PCP following Treatmetns as per above Medical Prognosis: good Anticipated Length of Stay: 3 weeks Rehab Goals Modified [place] for adls and mobility skills reduce peripheral edema Anticipated discharge destinat: Home with family and [facility] RAUL COLLIER MD Jul 30, 2016 10:14
--- NOTE | 2016-07-30 11:02 | Physical Therapy Daily Note ---
PT Daily Note-Current Subjective Patient in recliner pre tx, agrees to PT, pleasant and cooperative. Pain Numeric Pain Scale: 0-No Pain Appearance Patient in recliner post tx with legs elevated, has nurse call, phone, tray, in the room. Mental Status Patient Orientation: Normal For Age Transfers Functional [place] Measure 0=Not Assessed/NA 4=Minimal Assistance 1=Total Assistance 5=Supervision or Setup 2=Maximal Assistance 6=Modified [place] 3=Moderate Assistance 7=Complete IndependenceIRFPAI Quality Coding Scale 6 Independent with activity with or without an assistive device 5 Patient requires set up or clean up by helper. Patient completes activity by themselves 4 Supervision or touching assist (CGA). [place] provide cues , steadying assist 3 The helper provides less than half the effort to complete the activity 2 The helper provides more than half the effort to complete the activity 1 Dependent. The helper does all the effort to complete an activity 7 Patient refused to complete or attempt activity 9 The patient did not perform the activity before the current illness or injury 88 Not attempted due to Medical conditions or safety concerns Transfers (B, C, W/C) (FIM): 2 Sit to/from Stand: 2 needs cues to scoot forward and to push up from the armrests with every transfer Wheelchair Training Does the Pt Use a Wheelchair?: Yes Wheelchair (FIM): 2 Distance: 100' Wheelchair Level of Assist: 4 Type of Wheelchair: Manual has very weak hands and arms, needs assist with turning Exercises sit to industry analyst the parallel bars x 5, patient was able to stand about 30 seconds each time with rest breaks between NuStep Minutes: 15 NuStep Workload: 3 Treatments transfer training, functional strengthening, wheelchair mobility Assessment Current Status: Fair Progress patient was able to industry analyst the parallel bars for about the same amount of time but she stood much easier PT Short Term Goals Short Term Goals Time Frame: Aug 04, 2016 Gait (FIM): 1 Gait Distance Comment: 20' Gait Level of Assist: 3 Gait Assistive Device: FWW Wheelchair Distance: 100' PT Tablet Making Machine Operator Goals Residential Goals PT Residential Goals Time Frame: Aug 18, 2016 Transfers (B,C,W/C) (FIM): 4 Sit to Lying (QC): 4 Lying-Sitting on Side/Bed(QC): 4 Sit to Stand (QC): 3 Rollin Roll Left to Right (QC): 4 Chair/Wok-fs-Noqql Xfer(QC): 3 Car Transfer (QC): 3 Gait (FIM): 2 Distance: 50' Walk 10 feet (QC): 3 Walk 10ft-Uneven Surface(QC): 3 Walk 50ft with 2 Turns (QC): 3 Walk 150 ft (QC): 88 Gait Level of Assist: 4 Gait Assistive Device: FWW # of Steps: 1 1 Step (curb) (QC): 3 4 Steps (QC): 88 12 Steps (QC): 88 Stairs Level Of Assist: 4 Picking up an Object (QC): 88 PT Plan Problem List Problem List: Activity Tolerance, Functional Strength, Safety, Balance, Gait, Transfer, Bed Mobility Treatment/Plan Treatment Plan: Continue Plan of Care Treatment Plan: Bed Mobility, Education, Functional Activity Zeina, Functional Strength, Group Therapy, Gait, Safety, Therapeutic Exercise, Transfers Treatment Duration: Aug 18, 2016 Visits Per Week: 10-11 Minutes/Day (M-F): 60-90 Minutes/Day (Sat/Bunch): 15-30 Safety Risks/Education Patient Education: Transfer Techniques, Correct Positioning, W/C Management, Safety Issues Teaching Recipient: Patient Teaching Methods: Demonstration, Discussion Response to Teaching: Reinforcement Needed Time/GCodes Time In: 1000 Time Out: 1100 Total Billed Treatment Time: 60 Total Billed Treatment 1 visit [facility] 15 min EX 30 min FA 15 min NOREEN DIAZ PT Jul 30, 2016 11:02
--- NOTE | 2016-07-30 11:38 | Progress Note (SOAP) ---
Subjective Subjective/Events-last exam Fwup respiratory failure, pneumonia with Strep pneumo sepsis, septic shock with hypotension/renal failure and elevated LFTs. Edema improving with continued diuresis. Still weak. Off oxygen. Objective Exam Vital Signs Date Time Temp Pulse Resp B/P Pulse Ox O2 Delivery O2 Flow Rate FiO2 07/30/16 08:22 Room Air 07/30/16 07:05 97 Room Air 07/30/16 05:51 99.4 85 20 132/74 96 Room Air 07/30/16 02:27 Room Air 07/29/16 22:23 Room Air 07/29/16 21:00 Room Air 07/29/16 18:46 Room Air 07/29/16 18:32 97.6 96 14 171/73 94 07/29/16 14:27 94 Room Air I & O 07/30/16 07:00 Intake Total 900 ml Balance 900 ml Capillary Refill : General Appearance: No Apparent Distress Neck: Supple Respiratory: Crackles Decreased Breath Sounds Cardiovascular: Regular Rate, Rhythm Systolic Murmur Gallop/S3 Gastrointestinal: normal bowel sounds non tender soft Extremity: Non Tender No Calf Tenderness Swelling (legs and hands) Neurologic/Psychiatric: Alert Oriented x3 Results Lab Laboratory Tests 07/30/16 06:20: Alanine Aminotransferase (ALT/SGPT) 137H, Albumin 3.0L, Alkaline Phosphatase 99 , Anion Gap 9, Aspartate Amino Transf (AST/SGOT) 79H, BUN/Creatinine Ratio 27, Basophils # (Auto) 0.0, Basophils (%) (Auto) 0, Blood Urea Nitrogen 14, Calcium Level 8.2L, Carbon Dioxide Level 21, Chloride Level 106, Creatinine 0.51L, Eosinophils # (Auto) 0.2, Eosinophils (%) (Auto) 2, Estimat Glomerular Filtration Rate > 60, Glucose Level 90, Hematocrit 32L, Hemoglobin 10.8L, Lymphocytes # (Auto) 2.4, Lymphocytes (%) (Auto) 17, Mean Corpuscular Hemoglobin 32, Mean Corpuscular Hemoglobin Concent 34, Mean Corpuscular Volume 95, Mean Platelet Volume 10.5H, Monocytes # (Auto) 0.9, Monocytes (%) (Auto) 7, Neutrophils # (Auto) 10.2H, Neutrophils (%) (Auto) 74, Platelet Count 373, Potassium Level 3.9, Red Blood Count 3.38L, Red Cell Distribution Width 12.6, Sodium Level 136, Total Bilirubin 0.6, Total Protein 5.2L, White Blood Count 13.7H Assessment/Plan Assessment/Plan Assess & Plan/Chief Complaint 1. Pneumonia with Strep Pneumo--abx stopped, WBC count has gone up slightly but clinically doing well so will recheck CBC in AM 2. Anasarca--continue diuresis and focus on nutrition, arms and legs wrapped 3. Hypertension--stable on home meds 4. Weakness--continue PT/OT 5. Allergic Rhinitis--added flonase 6. Hypokalemia--improved with increased potassium dose Diagnosis/Problems: Clinical Quality Measures DVT/VTE Risk/Contraindication: Risk Factor Score Per Nursin RFS Level Per Nursing on Admit: 4+=Very High KINDRA RHODES DO Jul 30, 2016 11:38
--- NOTE | 2016-07-30 12:57 | Occupational Ther Daily Note ---
OT Current Status-Daily Note Subjective Pt seen in room, up in recliner, agreeable to OT. No pain mentioned Appearance Alert, cooperative Mental Status/Objective Functional [place] Measure 0=Not Assessed/NA 4=Minimal Assistance 1=Total Assistance 5=Supervision or Setup 2=Maximal Assistance 6=Modified [place] 3=Moderate Assistance 7=Complete [place] ADL-Treatment Pt agreeable to sponge bath and ADLs. Pt needed mod assist to doff and don sweatshirt, with help threading hands through sleeves and pulling shirt down. She was able to get shirt over head with L UE. Pt needed assist of two people to stand to get her pants down over hips (one to stand, one to manage clothing) . Pt could kick pants off feet and raise feet to help put them in her pants but could not bend over, holding briefs, to place her feet in pants. Two people needed to stand. Bathing - pt was able to wash both arms and chest, thighs, lower legs but not feet. Unable to wash [place], bottom, feet, abdomen - 50% Two people needed to stand to wash [place] and bottom. Pt could also wash face and hands. Functional [place] Measure 0=Not Assessed/NA 4=Minimal Assistance 1=Total Assistance 5=Supervision or Setup 2=Maximal Assistance 6=Modified [place] 3=Moderate Assistance 7=Complete IndependenceIRFPAI Quality Coding Scale 6 Independent with activity with or without an assistive device 5 Patient requires set up or clean up by helper. Patient completes activity by themselves 4 Supervision or touching assist (CGA). [place] provide cues , steadying assist 3 The helper provides less than half the effort to complete the activity 2 The helper provides more than half the effort to complete the activity 1 Dependent. The helper does all the effort to complete an activity 7 Patient refused to complete or attempt activity 9 The patient did not perform the activity before the current illness or injury 88 Not attempted due to Medical conditions or safety concerns Other Treatment Ashish wraps removed from lower legs. Edema has decreased but is still present. Gentle retrograde massage done to both lower legs, followed by application of ashish wraps in figure of 8 pattern, to knees. Tubigrip and isotonor gloves removed from bilat arms. Gentle retrograde massage done on each hand and forearm. Pt education to on how he can do the massage on her hands over the weekend, with return demo. Will leave gloves off so pt can eat easier. Pt left up in recliner, with present, all needs met. Education OT Patient Education: Modified ADL techniques, Progress toward Goal/Update tx plan, Purpose of tx/functional activities, Transfer techniques, Other (massage) Teaching Recipient: Patient, Family Teaching Methods: Demonstration, Discussion Response to Teaching: Verbalize Understanding, Return Demonstration OT Short Term Goals Short Term Goals Time Frame: Aug 04, 2016 Eating(FIM): 4 Grooming(FIM): 5 Bathing(FIM): 3 Upper Body Dressing(FIM): 4 Toilet/Commode Transfer(FIM): 3 1=Demonstrate adherence to instructed precautions during ADL tasks. 2=Patient will verbalize/demonstrate understanding of assistive devices/ modifications for ADL. 3=Patient will improve strength/tolerance for activity to enable patient to perform ADL's. OT Mcfp Goals Procurement Specialist Goals Time Frame: Aug 18, 2016 Eating (FIM): 6 Eating (QC): 6 Oral Hygiene (QC): 6 Grooming(FIM): 6 Bathing(FIM): 5 (setup) Shower/Bathe Self (QC): 5 (setup) Upper Body Dressing(FIM): 5 (setup) Upper Body Dressing (QC): 5 Lower Body Dressing(FIM): 5 Lower Body Dressing (QC): 5 On/Off Footwear (QC): 5 Toileting(FIM): 5 (setup) Toileting Hygiene (QC): 5 Toilet/Commode Transfer(FIM): 5 (setup) Toilet/Commode Transfer (QC): 5 Shower Transfer(FIM): 5 (SBA) Increase bilat UE strength to 4+/5 Increase rental clerk tool and equipment strength 50% Decreased edema bilat UEs to normal limits Additional Goals: 2-Verbalize Understanding, 3-ImproveStrength/Zeina 1=Demonstrate adherence to instructed precautions during ADL tasks. 2=Patient will verbalize/demonstrate understanding of assistive devices/ modifications for ADL. 3=Patient will improve strength/tolerance for activity to enable patient to perform ADL's. OT Education/Plan Problem List/Assessment Pt would benefit from skilled OT to increase her independence in basic self care to allow her to safely return home with family support after sepsis/ pneumonia with resultant weakness and decreased self care Discharge Recommendations Plan/Recommendations: Continue POC Treatment Plan/Plan of Care Patient would benefit from OT for education, treatment and training to promote independence in ADL's, mobility, safety and/or upper extremity function for ADL' s. Plan of Care: ADL Retraining, Functional Mobility, Group Exercise/Act as Ind ( education, exercise, activity tolerance, functional activities, socialization), UE Funct Exercise/Act, UE Neuromus Re-Ed/Coord, OTHER (edema management) Treatment Duration: Aug 18, 2016 Visits Per Week: 10-11 Minutes/Day (M-F): 75-90 Minutes/Day (Sat/Bunch): PRN Agreement: Yes Rehab Potential: Good Time/GCodes Start Time: 08:30 Stop Time: 09:30 Total Time Billed (hr/min): 60 Billed Treatment Time visit, 45 minutes ADL, 15 minutes neuromotor NIKI BRENNAN OT Jul 30, 2016 12:57
--- NOTE | 2016-07-30 13:09 | Occ Therapy Progress Note ---
Therapy Progress Note 1150 Pt assisted with toileting prior to group. Required two person assist to transfer to BSC and then to w/c and also two person assist for managing clothing and hygiene. Toileting FIM 1, toilet transfer FIM 1, Toilet hygiene and toilet transfer QC 1 NIKI BRENNAN OT Jul 30, 2016 13:08
--- NOTE | 2016-07-30 14:03 | Therapy Group Daily Note ---
Therapy Daily Group Note Patient Education Topic Other List Below (Home Safety techniques during inclement weather) Other/Notes Pt. attended group PT OT session. Pt. quiet, did introduce herself but did not make conversation etc. Pts. were reviewed on ARU practices. Lunch group session with topics begun by therapists to create socialization and have pts share their experiences with home safety during inclement weather. Pt. to room after group, requested BSC, Mod to max assist of 2 required. Pt. then TRFd to recliner with pressure call llanos close at hand. Start Time: 12:00 Stop Time: 13:00 Total Billed Treatment Time: 60 Total Billed Treatment 1,GRP MORENA CORREA GEOSPATIAL PROGRAM MANAGEMENT OFFICER Jul 30, 2016 14:03
[2016-07-30 18:38] VITALS: BP 118/74
[2016-07-30] MEDS: ENOXAPARIN 40 MG/0.4 ML (LOVENOX) SYR SC SCH (22:03)
[2016-07-31] MEDS: RT-ALBUTEROL/IPRATROPIUM 3 ML (DUONEB) VIAL INH SCH ×6 (04:15→22:31)
[2016-07-31 04:53] LABS: BASOPHILS % (AUTO) 0 % (0-10); EOSINOPHILS # (AUTO) 0.2 10^3/uL (0.0-0.3); EOSINOPHILS % (AUTO) 1 % (0-10); LYMPHOCYTES # (AUTO) 2.9 X 10^3 (1.0-4.0); LYMPHOCYTES % (AUTO) 23 % (12-44); MEAN CORPUSCULAR HEMOGLOBIN 32 PG (25-34); MEAN CORPUSCULAR HGB CONC 34 G/DL (32-36); MEAN CORPUSCULAR VOLUME 94 FL (80-99); MEAN PLATELET VOLUME 10.4 FL (7.4-10.4); MONOCYTES # (AUTO) 0.8 X 10^3 (0.0-1.0); MONOCYTES % (AUTO) 7 % (0-12); NEUTROPHILS # (AUTO) 8.9 X 10^3 (1.8-7.8); NEUTROPHILS % (AUTO) 69 % (42-75); PLATELET COUNT 316 10^3/uL (130-400); RED BLOOD COUNT 3.42 10^6/uL (4.35-5.85); RED CELL DISTRIBUTION WIDTH 12.6 % (10.0-14.5); WHITE BLOOD COUNT 12.8 10^3/uL (4.3-11.0)
[2016-07-31] MEDS: KCL 20 MEQ TAB (K-DUR) PO SCH ×2 (05:52→17:18)
[2016-07-31] MEDS: FUROSEMIDE 40 MG (LASIX) TAB PO SCH ×2 (05:52→17:18)
[2016-07-31] MEDS: LEVOTHYROXINE 50 MCG (LEVOTHROID) TAB PO SCH (05:53)
[2016-07-31] MEDS: SUCRALFATE 1 GM (CARAFATE) TAB PO SCH ×4 (05:53→21:41)
[2016-07-31] MEDS: LACTOBACILLUS Acidoph/Bulgar (LACTINEX/FLORANEX) TAB PO SCH ×3 (05:53→17:18)
[2016-07-31] MEDS: predniSONE 10 MG TAB PO SCH (05:55)
[2016-07-31] MEDS: HYDROcodone/APAP 5 MG/325 MG (LORTAB) TAB PO PRN (05:58)
[2016-07-31 06:00] VITALS: BP 128/76
[2016-07-31] MEDS: amLODIPine 10 MG (NORVASC) TAB PO SCH (08:19)
[2016-07-31] MEDS: lisINopril 20 MG (ZESTRIL) TAB PO SCH (08:19)
[2016-07-31] MEDS: meTOprolol TARTRATE 50 MG (LOPRESSOR) TAB PO SCH ×2 (08:19→21:41)
[2016-07-31] MEDS: ETODOLAC 300 MG (LODINE) CAP PO SCH ×2 (08:49→21:41)
--- NOTE | 2016-07-31 11:17 | Physical Therapy Daily Note ---
PT Daily Note-Current Subjective Pt. agrees to Rx. C/o she is having hot flashed and hopes the restarting her hormone medication will help. "still cant feel my feet, hope that comes back soon" Pain Numeric Pain Scale: 0-No Pain Mental Status Patient Orientation: Normal For Age Transfers Functional [place] Measure 0=Not Assessed/NA 4=Minimal Assistance 1=Total Assistance 5=Supervision or Setup 2=Maximal Assistance 6=Modified [place] 3=Moderate Assistance 7=Complete IndependenceIRFPAI Quality Coding Scale 6 Independent with activity with or without an assistive device 5 Patient requires set up or clean up by helper. Patient completes activity by themselves 4 Supervision or touching assist (CGA). [place] provide cues , steadying assist 3 The helper provides less than half the effort to complete the activity 2 The helper provides more than half the effort to complete the activity 1 Dependent. The helper does all the effort to complete an activity 7 Patient refused to complete or attempt activity 9 The patient did not perform the activity before the current illness or injury 88 Not attempted due to Medical conditions or safety concerns Transfers (B, C, W/C) (FIM): 3 Scootin Rollin Supine to/from Sit: 5 Sit to/from Stand: 3 Bed to/from Chair: 3 SPTs left and right w/c to Rx table and back etc assist of 2. Wheelchair Training Does the Pt Use a Wheelchair?: Yes Wheelchair (FIM): 2 Wheelchair Distance: 5=010-44 ft (50,25) Wheelchair Level of Assist: 2 Type of Wheelchair: Manual unable to lock brakes and push very far at a time secondary to hand wrist weakness Exercises Supine Ex: Bridging, Ankle pumps (assisted), Quad Set, Rolling, Glut sets, Lower trunk rotation, Heel Slides, Short Arc Quads, Scooting, Straight leg raise , Hip abd/add Supine Reps: 15 Treatments sit to stand perches at hi lo Rx table, stood 45sec x3, fatigued easily Assessment Current Status: Good Progress PT Short Term Goals Short Term Goals Time Frame: Aug 04, 2016 Gait (FIM): 1 Gait Distance Comment: 20' Gait Level of Assist: 3 Gait Assistive Device: FWW Wheelchair Distance: 100' PT Assisted Goals Assisted Goals PT Braid Folder Goals Time Frame: Aug 18, 2016 Transfers (B,C,W/C) (FIM): 4 Sit to Lying (QC): 4 Lying-Sitting on Side/Bed(QC): 4 Sit to Stand (QC): 3 Rollin Roll Left to Right (QC): 4 Chair/Kyl-as-Spkzi Xfer(QC): 3 Car Transfer (QC): 3 Gait (FIM): 2 Distance: 50' Walk 10 feet (QC): 3 Walk 10ft-Uneven Surface(QC): 3 Walk 50ft with 2 Turns (QC): 3 Walk 150 ft (QC): 88 Gait Level of Assist: 4 Gait Assistive Device: FWW # of Steps: 1 1 Step (curb) (QC): 3 4 Steps (QC): 88 12 Steps (QC): 88 Stairs Level Of Assist: 4 Picking up an Object (QC): 88 PT Plan Treatment/Plan Treatment Plan: Continue Plan of Care Treatment Plan: Bed Mobility, Education, Functional Activity Zeina, Functional Strength, Group Therapy, Gait, Safety, Therapeutic Exercise, Transfers Treatment Duration: Aug 18, 2016 Visits Per Week: 10-11 Minutes/Day (M-F): 60-90 Minutes/Day (Sat/Bunch): 15-30 Safety Risks/Education Patient Education: Transfer Techniques, Issued Written HEP Teaching Recipient: Patient Teaching Methods: Demonstration, Discussion Response to Teaching: Verbalize Understanding, Return Demonstration, Reinforcement Needed Time/GCodes Time In: 930 Time Out: 955 Total Billed Treatment Time: 25 Total Billed Treatment 1,EX10m,FA15m G Codes Necessary: MORENA Grady SECONDS INSPECTOR Jul 31, 2016 11:17
[2016-07-31 17:16] VITALS: BP 126/74
[2016-07-31 21:38] VITALS: BP 114/68
[2016-07-31] MEDS: ENOXAPARIN 40 MG/0.4 ML (LOVENOX) SYR SC SCH (21:41)
[2016-07-31] MEDS: LORATADINE (CLARITIN) 10 MG TAB PO SCH (21:41)
[2016-07-31] MEDS: ESTRADIOL 1 MG TAB (ESTRACE) PO SCH (21:41)
[2016-08-01] MEDS: RT-ALBUTEROL/IPRATROPIUM 3 ML (DUONEB) VIAL INH SCH ×5 (02:37→19:59)
[2016-08-01 05:18] VITALS: BP 118/78
[2016-08-01] MEDS: LEVOTHYROXINE 50 MCG (LEVOTHROID) TAB PO SCH (06:55)
[2016-08-01] MEDS: SUCRALFATE 1 GM (CARAFATE) TAB PO SCH ×4 (06:55→20:51)
[2016-08-01] MEDS: predniSONE 10 MG TAB PO SCH (06:55)
[2016-08-01] MEDS: KCL 20 MEQ TAB (K-DUR) PO SCH ×2 (06:55→16:44)
[2016-08-01] MEDS: LACTOBACILLUS Acidoph/Bulgar (LACTINEX/FLORANEX) TAB PO SCH ×3 (06:55→16:44)
[2016-08-01] MEDS: FUROSEMIDE 40 MG (LASIX) TAB PO SCH ×2 (06:55→16:44)
[2016-08-01] MEDS: ETODOLAC 300 MG (LODINE) CAP PO SCH ×2 (08:19→20:51)
[2016-08-01] MEDS: lisINopril 20 MG (ZESTRIL) TAB PO SCH (08:19)
[2016-08-01] MEDS: amLODIPine 10 MG (NORVASC) TAB PO SCH (08:19)
[2016-08-01] MEDS: meTOprolol TARTRATE 50 MG (LOPRESSOR) TAB PO SCH ×2 (08:19→20:52)
[2016-08-01] MEDS: HYDROcodone/APAP 5 MG/325 MG (LORTAB) TAB PO PRN (16:44)
[2016-08-01 17:53] VITALS: BP 107/65
[2016-08-01] MEDS: ESTRADIOL 1 MG TAB (ESTRACE) PO SCH (20:51)
[2016-08-01] MEDS: LORATADINE (CLARITIN) 10 MG TAB PO SCH (20:51)
[2016-08-01] MEDS: ENOXAPARIN 40 MG/0.4 ML (LOVENOX) SYR SC SCH (20:51)
[2016-08-02] MEDS: RT-ALBUTEROL/IPRATROPIUM 3 ML (DUONEB) VIAL INH SCH ×7 (01:13→22:45)
[2016-08-02 04:29] VITALS: BP 110/71
[2016-08-02] MEDS: LEVOTHYROXINE 50 MCG (LEVOTHROID) TAB PO SCH (06:30)
[2016-08-02] MEDS: LACTOBACILLUS Acidoph/Bulgar (LACTINEX/FLORANEX) TAB PO SCH ×3 (06:30→16:29)
[2016-08-02] MEDS: FUROSEMIDE 40 MG (LASIX) TAB PO SCH ×2 (06:30→16:28)
[2016-08-02] MEDS: SUCRALFATE 1 GM (CARAFATE) TAB PO SCH ×4 (06:30→20:27)
[2016-08-02] MEDS: KCL 20 MEQ TAB (K-DUR) PO SCH ×2 (06:31→16:28)
[2016-08-02] MEDS: lisINopril 20 MG (ZESTRIL) TAB PO SCH (09:00)
[2016-08-02] MEDS: ETODOLAC 300 MG (LODINE) CAP PO SCH ×2 (09:00→20:26)
[2016-08-02] MEDS: meTOprolol TARTRATE 50 MG (LOPRESSOR) TAB PO SCH ×2 (09:01→20:27)
[2016-08-02] MEDS: amLODIPine 10 MG (NORVASC) TAB PO SCH (09:01)
--- NOTE | 2016-08-02 10:59 | Physical Therapy Daily Note ---
PT Daily Note-Current Subjective Patient in wheelchair pre tx, agrees to PT, pleasant and cooperative. Patient has some rib pain on the left side, nursing is aware of it. Appearance Patient in recliner post tx, has nurse call, phone, tray, all needs met. Mental Status Patient Orientation: Normal For Age Transfers Functional [place] Measure 0=Not Assessed/NA 4=Minimal Assistance 1=Total Assistance 5=Supervision or Setup 2=Maximal Assistance 6=Modified [place] 3=Moderate Assistance 7=Complete IndependenceIRFPAI Quality Coding Scale 6 Independent with activity with or without an assistive device 5 Patient requires set up or clean up by helper. Patient completes activity by themselves 4 Supervision or touching assist (CGA). [place] provide cues , steadying assist 3 The helper provides less than half the effort to complete the activity 2 The helper provides more than half the effort to complete the activity 1 Dependent. The helper does all the effort to complete an activity 7 Patient refused to complete or attempt activity 9 The patient did not perform the activity before the current illness or injury 88 Not attempted due to Medical conditions or safety concerns Transfers (B, C, W/C) (FIM): 3 Sit to/from Stand: 3 Patient performed much better with sit to stand and was able to move legs during the transfers. Gait Training Gait (FIM): 1 Distance: 8'x3 Gait Level of Assist: 3 Gait Persons Needed: 1 Gait Assistive Device: Parallel Bars wheelchair follow, patient fatigues quickly and 8' is about as far as she can go at one time, she has to lift her legs significantly because she cannot dorsiflex her feet Wheelchair Training Does the Pt Use a Wheelchair?: Yes Wheelchair (FIM): 4 Distance: 150' Wheelchair Level of Assist: 4 Type of Wheelchair: Manual help with turning due to arm and hand weakness Exercises Seated Therapy Exercises: Hip flexion, Hip abd/add Seated Reps: 20 LAQ alternating for 5 min NuStep Minutes: 15 NuStep Workload: 2 Treatments functional strengthening, ambulation, transfers, wheelchair mobility Assessment Current Status: Fair Progress patient was able to ambulate in the parallel bars today and she improved with transfers PT Short Term Goals Short Term Goals Time Frame: Aug 04, 2016 Gait (FIM): 1 Gait Distance Comment: 20' Gait Level of Assist: 3 Gait Assistive Device: FWW Wheelchair Distance: 100' PT Detention Goals Detention Goals PT Detention Goals Time Frame: Aug 18, 2016 Transfers (B,C,W/C) (FIM): 4 Sit to Lying (QC): 4 Lying-Sitting on Side/Bed(QC): 4 Sit to Stand (QC): 3 Rollin Roll Left to Right (QC): 4 Chair/Xos-bq-Vpiql Xfer(QC): 3 Car Transfer (QC): 3 Gait (FIM): 2 Distance: 50' Walk 10 feet (QC): 3 Walk 10ft-Uneven Surface(QC): 3 Walk 50ft with 2 Turns (QC): 3 Walk 150 ft (QC): 88 Gait Level of Assist: 4 Gait Assistive Device: FWW # of Steps: 1 1 Step (curb) (QC): 3 4 Steps (QC): 88 12 Steps (QC): 88 Stairs Level Of Assist: 4 Picking up an Object (QC): 88 PT Plan Problem List Problem List: Activity Tolerance, Functional Strength, Safety, Balance, Gait, Transfer, Bed Mobility Treatment/Plan Treatment Plan: Continue Plan of Care Treatment Plan: Bed Mobility, Education, Functional Activity Zeina, Functional Strength, Group Therapy, Gait, Safety, Therapeutic Exercise, Transfers Treatment Duration: Aug 18, 2016 Visits Per Week: 10-11 Minutes/Day (M-F): 60-90 Minutes/Day (Sat/Bunch): 15-30 Safety Risks/Education Patient Education: Gait Training, Transfer Techniques, Correct Positioning, W/ C Management, Safety Issues Teaching Recipient: Patient Teaching Methods: Demonstration, Discussion Response to Teaching: Reinforcement Needed Time/GCodes Time In: 1000 Time Out: 1100 Total Billed Treatment Time: 60 Total Billed Treatment 1 visit GT 15 min WCH 15 min EX 30 min NOREEN DIAZ PT Aug 02, 2016 10:59
--- NOTE | 2016-08-02 12:03 | Occupational Ther Daily Note ---
OT Current Status-Daily Note Subjective Pt sitting in w/c. Pt stated she is experiencing pain on L leg. Pain level 7 out 10 but not described, nursing already notified. Pt agreeable to OT. Appearance Alert, Cooperative Mental Status/Objective Functional [place] Measure 0=Not Assessed/NA 4=Minimal Assistance 1=Total Assistance 5=Supervision or Setup 2=Maximal Assistance 6=Modified [place] 3=Moderate Assistance 7=Complete [place] ADL-Treatment Toilet transfer w/c to [facility], two person assist, with her taking several steps. Toileting required two people to stand to manage clothing, she managed hygiene. Pt transferred from [facility] to w/, 2 person transfer. Pt propelled self to bathroom. Pt brushed teeth, washed face and hands, set up, w/c level at sink. Pt propelled back to room. Ashish wraps removed from LEs and edema well managed except over dorsum of foot. Gentle massage done to feet fo decrease edema and reapplied ashish wraps to help reduce swelling over feet only. Discussed with nursing putting on TOÑA hose to help manage edema. Functional [place] Measure 0=Not Assessed/NA 4=Minimal Assistance 1=Total Assistance 5=Supervision or Setup 2=Maximal Assistance 6=Modified [place] 3=Moderate Assistance 7=Complete IndependenceIRFPAI Quality Coding Scale 6 Independent with activity with or without an assistive device 5 Patient requires set up or clean up by helper. Patient completes activity by themselves 4 Supervision or touching assist (CGA). [place] provide cues , steadying assist 3 The helper provides less than half the effort to complete the activity 2 The helper provides more than half the effort to complete the activity 1 Dependent. The helper does all the effort to complete an activity 7 Patient refused to complete or attempt activity 9 The patient did not perform the activity before the current illness or injury 88 Not attempted due to Medical conditions or safety concerns Grooming (FIM): 5 Toileting (FIM): 1 Toilet/Commode Transfer (FIM): 1 Other Treatment Pt worked on bilat reaching, grasping, releasing, stacking 20 cones to increase AROM, (increased by 10 cones) previous date 07/29/16 pt used 10 cones. Pt demonstrated increased speed as well as repetitions. Pt worked on shoulder strength using arc activity x 2 sets, with several brief recovery breaks. Pt returned to room, up in w/c, all needs met. Education OT Patient Education: Progress toward Goal/Update tx plan, Purpose of tx/ functional activities, Transfer techniques Teaching Recipient: Patient Teaching Methods: Demonstration Response to Teaching: Verbalize Understanding, Return Demonstration OT Short Term Goals Short Term Goals Time Frame: Aug 04, 2016 Eating(FIM): 4 Grooming(FIM): 5 Bathing(FIM): 3 Upper Body Dressing(FIM): 4 Toilet/Commode Transfer(FIM): 3 1=Demonstrate adherence to instructed precautions during ADL tasks. 2=Patient will verbalize/demonstrate understanding of assistive devices/ modifications for ADL. 3=Patient will improve strength/tolerance for activity to enable patient to perform ADL's. OT Donation Specialist Goals Long-Term Goals Time Frame: Aug 18, 2016 Eating (FIM): 6 Eating (QC): 6 Oral Hygiene (QC): 6 Grooming(FIM): 6 Bathing(FIM): 5 (setup) Shower/Bathe Self (QC): 5 (setup) Upper Body Dressing(FIM): 5 (setup) Upper Body Dressing (QC): 5 Lower Body Dressing(FIM): 5 Lower Body Dressing (QC): 5 On/Off Footwear (QC): 5 Toileting(FIM): 5 (setup) Toileting Hygiene (QC): 5 Toilet/Commode Transfer(FIM): 5 (setup) Toilet/Commode Transfer (QC): 5 Shower Transfer(FIM): 5 (SBA) Increase bilat UE strength to 4+/5 Increase last model department supervisor strength 50% Decreased edema bilat UEs to normal limits Additional Goals: 2-Verbalize Understanding, 3-ImproveStrength/Zeina 1=Demonstrate adherence to instructed precautions during ADL tasks. 2=Patient will verbalize/demonstrate understanding of assistive devices/ modifications for ADL. 3=Patient will improve strength/tolerance for activity to enable patient to perform ADL's. OT Education/Plan Problem List/Assessment Pt would benefit from skilled OT to increase her independence in basic self care to allow her to safely return home with family support after sepsis/ pneumonia with resultant weakness and decreased self care Discharge Recommendations Plan/Recommendations: Continue POC Treatment Plan/Plan of Care Patient would benefit from OT for education, treatment and training to promote independence in ADL's, mobility, safety and/or upper extremity function for ADL' s. Plan of Care: ADL Retraining, Functional Mobility, Group Exercise/Act as Ind ( education, exercise, activity tolerance, functional activities, socialization), UE Funct Exercise/Act, UE Neuromus Re-Ed/Coord, OTHER (edema management) Treatment Duration: Aug 18, 2016 Visits Per Week: 10-11 Minutes/Day (M-F): 75-90 Minutes/Day (Sat/Bunch): PRN Agreement: Yes Rehab Potential: Good Time/GCodes Start Time: 08:30 Stop Time: 09:30 Total Time Billed (hr/min): 60 Billed Treatment Time visit, ADL 20 min, EX 30, Neuromuscular 10 min NIKI BRENNAN OT Aug 02, 2016 12:03
[2016-08-02] MEDS: BACLOFEN 10 MG (LIORESAL) TAB PO PRN (12:50)
--- NOTE | 2016-08-02 13:01 | Progress Note (SOAP) ---
Subjective Subjective/Events-last exam Fwup respiratory failure, pneumonia with Strep pneumo sepsis, septic shock with hypotension/renal failure and elevated LFTs. Edema improving with continued diuresis--puffy on tops of feet but arms and hands much better. Appetite improved. C/O pain to left lateral side area. Objective Exam Vital Signs Date Time Temp Pulse Resp B/P Pulse Ox O2 Delivery O2 Flow Rate FiO2 08/02/16 10:58 92 Room Air 08/02/16 09:55 Room Air 08/02/16 06:39 93 Room Air 08/02/16 04:29 98.8 85 18 110/71 95 Room Air 08/02/16 03:28 95 Room Air 08/01/16 20:15 Room Air 08/01/16 19:59 92 Room Air 08/01/16 17:53 98.0 89 18 107/65 95 Room Air 08/01/16 15:02 92 Room Air I & O 08/02/16 07:00 Intake Total 1060 ml Balance 1060 ml Capillary Refill : General Appearance: No Apparent Distress Neck: Supple Respiratory: Crackles (left base) Decreased Breath Sounds Cardiovascular: Regular Rate, Rhythm Gastrointestinal: normal bowel sounds non tender soft Extremity: Non Tender No Calf Tenderness Swelling (bilateral tops of feet) Neurologic/Psychiatric: Alert Oriented x3 Assessment/Plan Assessment/Plan Assess & Plan/Chief Complaint 1. Pneumonia with Strep Pneumo--off abx since last week, recheck CXR due to left lateral side pain, may be atelectesis so encouraged to use IS hourly while awake 2. Anasarca--continue diuresis and focus on nutrition, improving except for tops of feet 3. Hypertension--stable on home meds 4. Weakness--continue PT/OT 5. Allergic Rhinitis--added flonase 6. Hypokalemia--improved with increased potassium dose, recheck lab in AM 7. Left Flank Pain--check UA, add baclofen for spasm Diagnosis/Problems: Clinical Quality Measures DVT/VTE Risk/Contraindication: Risk Factor Score Per Nursin RFS Level Per Nursing on Admit: 4+=Very High KINDRA RHODES DO Aug 02, 2016 13:01
--- NOTE | 2016-08-02 14:22 | Diagnostic Imaging Report ---
CLINICAL INDICATION: Patient started having pain on left side like when she had pneumonia. EXAM: Chest x-ray PA and lateral views. COMPARISONS: Chest x-ray dated 07/28/2016. FINDINGS: Again seen right IJ central line with tip in the distal superior vena cava. Lungs/pleura: There is improved aeration compared to the prior study with residual mild bibasilar infiltrates and/or atelectasis. There is no pneumothorax. There is no pleural effusion. Mediastinum: Unremarkable. Pulmonary vasculature: Unremarkable. Heart: Unremarkable. Bones/extrathoracic soft tissue: Unremarkable. IMPRESSION: There is interval improved aeration of both lungs with residual mild bibasilar atelectasis versus infiltrates. Dictated by: Dictated on workstation # [id number]
[2016-08-02 14:44] LABS: KETONES,URINE NEGATIVE (NEGATIVE); LEUKOCYTE ESTERASE ,URINE 1+ (NEGATIVE); NITRITE,URINE NEGATIVE (NEGATIVE); PH,URINE 7 (5-9); PROTEIN,URINE NEGATIVE (NEGATIVE); UROBILINOGEN,URINE NORMAL (NORMAL)
--- NOTE | 2016-08-02 14:54 | Occupational Ther Daily Note ---
OT Current Status-Daily Note Subjective Pt sitting in w/c. No pain mentioned. Agreeable to OT. Appearance Alert, Cooperative Mental Status/Objective Functional [place] Measure 0=Not Assessed/NA 4=Minimal Assistance 1=Total Assistance 5=Supervision or Setup 2=Maximal Assistance 6=Modified [place] 3=Moderate Assistance 7=Complete [place] ADL-Treatment Functional [place] Measure 0=Not Assessed/NA 4=Minimal Assistance 1=Total Assistance 5=Supervision or Setup 2=Maximal Assistance 6=Modified [place] 3=Moderate Assistance 7=Complete IndependenceIRFPAI Quality Coding Scale 6 Independent with activity with or without an assistive device 5 Patient requires set up or clean up by helper. Patient completes activity by themselves 4 Supervision or touching assist (CGA). [place] provide cues , steadying assist 3 The helper provides less than half the effort to complete the activity 2 The helper provides more than half the effort to complete the activity 1 Dependent. The helper does all the effort to complete an activity 7 Patient refused to complete or attempt activity 9 The patient did not perform the activity before the current illness or injury 88 Not attempted due to Medical conditions or safety concerns Other Treatment Pt propelled self to gym. Pt used arm bike 7 min 5 kasper for strengthening, taking several small recovery breaks. By the end she had difficulty holding on to handles of arm bike, leigh with R hand. Pt worked on grasping, placing and releasing 1" pegs, with more trouble with R hand. Pt propelled self half way to room. OT assisted less than half way. Pt left in w/c, call light in reach. All needs met. Education OT Patient Education: Exercise program, Progress toward Goal/Update tx plan Teaching Recipient: Patient Teaching Methods: Demonstration Response to Teaching: Verbalize Understanding, Return Demonstration OT Short Term Goals Short Term Goals Time Frame: Aug 04, 2016 Eating(FIM): 4 Grooming(FIM): 5 Bathing(FIM): 3 Upper Body Dressing(FIM): 4 Toilet/Commode Transfer(FIM): 3 1=Demonstrate adherence to instructed precautions during ADL tasks. 2=Patient will verbalize/demonstrate understanding of assistive devices/ modifications for ADL. 3=Patient will improve strength/tolerance for activity to enable patient to perform ADL's. OT Avionics Mechanic Goals Mcc Goals Time Frame: Aug 18, 2016 Eating (FIM): 6 Eating (QC): 6 Oral Hygiene (QC): 6 Grooming(FIM): 6 Bathing(FIM): 5 (setup) Shower/Bathe Self (QC): 5 (setup) Upper Body Dressing(FIM): 5 (setup) Upper Body Dressing (QC): 5 Lower Body Dressing(FIM): 5 Lower Body Dressing (QC): 5 On/Off Footwear (QC): 5 Toileting(FIM): 5 (setup) Toileting Hygiene (QC): 5 Toilet/Commode Transfer(FIM): 5 (setup) Toilet/Commode Transfer (QC): 5 Shower Transfer(FIM): 5 (SBA) Increase bilat UE strength to 4+/5 Increase brinell tester strength 50% Decreased edema bilat UEs to normal limits Additional Goals: 2-Verbalize Understanding, 3-ImproveStrength/Zeina 1=Demonstrate adherence to instructed precautions during ADL tasks. 2=Patient will verbalize/demonstrate understanding of assistive devices/ modifications for ADL. 3=Patient will improve strength/tolerance for activity to enable patient to perform ADL's. OT Education/Plan Problem List/Assessment Pt would benefit from skilled OT to increase her independence in basic self care to allow her to safely return home with family support after sepsis/ pneumonia with resultant weakness and decreased self care Discharge Recommendations Plan/Recommendations: Continue POC Treatment Plan/Plan of Care Patient would benefit from OT for education, treatment and training to promote independence in ADL's, mobility, safety and/or upper extremity function for ADL' s. Plan of Care: ADL Retraining, Functional Mobility, Group Exercise/Act as Ind ( education, exercise, activity tolerance, functional activities, socialization), UE Funct Exercise/Act, UE Neuromus Re-Ed/Coord, OTHER (edema management) Treatment Duration: Aug 18, 2016 Visits Per Week: 10-11 Minutes/Day (M-F): 75-90 Minutes/Day (Sat/Bunch): PRN Agreement: Yes Rehab Potential: Good Time/GCodes Start Time: 13:00 Stop Time: 13:30 Total Time Billed (hr/min): 30 Billed Treatment Time visit, EX 30 min NIKI BRENNAN OT Aug 02, 2016 14:54
[2016-08-02 15:04] LABS: BILIRUBIN,URINE 3+ (NEGATIVE)
--- NOTE | 2016-08-02 15:26 | Physical Therapy Daily Note ---
PT Daily Note-Current Subjective Pt sitting in W/C upon arrival. Pt reports pain in L side when taking a deep breath as 7/10. Per nursing, pt has already been given pain med approx. 1 hour before. Pt agreed to PT. Pain Numeric Pain Scale: 7 Location: Left Location Body Site: Side Pain Description: Ache Mental Status Patient Orientation: Person, Normal For Age Transfers Functional [place] Measure 0=Not Assessed/NA 4=Minimal Assistance 1=Total Assistance 5=Supervision or Setup 2=Maximal Assistance 6=Modified [place] 3=Moderate Assistance 7=Complete IndependenceIRFPAI Quality Coding Scale 6 Independent with activity with or without an assistive device 5 Patient requires set up or clean up by helper. Patient completes activity by themselves 4 Supervision or touching assist (CGA). [place] provide cues , steadying assist 3 The helper provides less than half the effort to complete the activity 2 The helper provides more than half the effort to complete the activity 1 Dependent. The helper does all the effort to complete an activity 7 Patient refused to complete or attempt activity 9 The patient did not perform the activity before the current illness or injury 88 Not attempted due to Medical conditions or safety concerns Scootin Sit to/from Stand: 3 Sit to Stand (QC): 3 Weight Bearing Weight Bearing Restriction: Full Weight Bearing Location Restriction: LE Bilateral Exercises NuStep Minutes: 8 NuStep Workload: 2 Treatments Pt propelled W/C to Therapy Gym. Pt transferred from W/C to NuStep at [facility] at [facility]. Pt used NuStep for 8.5m at Workload 2. Pt had to stop at that point just due to fatigue and pain in L hip. Pt transferred back to W/C at [facility] at [facility]. Pt again propelled W/C to room. Nursing needed sterile UA so PT assisted Nursing with transferring and holding pt at [facility] in squatting position to get sample. Pt then transferred back to W/C to get back to bed. Pt transferred from W/C to EOB at [facility]. Pt transferred to supine in bed SBA but needed assistance in scooting up the bed. Pt was left with all needs met at end of tx and nursing still present. Assessment Current Status: Fair Progress Pt continues to fatigue easy and need assistance with transfers and standing. PT Short Term Goals Short Term Goals Time Frame: Aug 04, 2016 Gait (FIM): 1 Gait Distance Comment: 20' Gait Level of Assist: 3 Gait Assistive Device: FWW Wheelchair Distance: 150' PT Jail Goals Director Life Sales Goals PT Jail Goals Time Frame: Aug 18, 2016 Transfers (B,C,W/C) (FIM): 4 Sit to Lying (QC): 4 Lying-Sitting on Side/Bed(QC): 4 Sit to Stand (QC): 3 Rollin Roll Left to Right (QC): 4 Chair/Dxl-dy-[place] Xfer(QC): 3 Car Transfer (QC): 3 Gait (FIM): 2 Distance: 50' Walk 10 feet (QC): 3 Walk 10ft-Uneven Surface(QC): 3 Walk 50ft with 2 Turns (QC): 3 Walk 150 ft (QC): 88 Gait Level of Assist: 4 Gait Assistive Device: FWW # of Steps: 1 1 Step (curb) (QC): 3 4 Steps (QC): 88 12 Steps (QC): 88 Stairs Level Of Assist: 4 Picking up an Object (QC): 88 PT Plan Problem List Problem List: Activity Tolerance, Functional Strength, Safety, Balance, Gait, Transfer, Bed Mobility Treatment/Plan Treatment Plan: Continue Plan of Care Treatment Plan: Bed Mobility, Education, Functional Activity Ze[place], Functional Strength, Group Therapy, Gait, Safety, Therapeutic Exercise, Transfers Treatment Duration: Aug 18, 2016 Visits Per Week: 10-11 Minutes/Day (M-F): 60-90 Minutes/Day (Sat/Bunch): 15-30 Safety Risks/Education Patient Education: Transfer Techniques, Correct Positioning, W/C Management, Safety Issues Teaching Recipient: Patient Teaching Methods: Discussion Response to Teaching: Verbalize Understanding Time/GCodes Time In: 1400 Time Out: 1430 Total Billed Treatment Time: 30 Total Billed Treatment visit, EX (15m) & FA (15m) EASTON SOLIS PTA Aug 02, 2016 15:25
[2016-08-02 18:04] VITALS: BP 105/68
[2016-08-02] MEDS: LORATADINE (CLARITIN) 10 MG TAB PO SCH (20:26)
[2016-08-02] MEDS: ENOXAPARIN 40 MG/0.4 ML (LOVENOX) SYR SC SCH (20:26)
[2016-08-02] MEDS: ESTRADIOL 1 MG TAB (ESTRACE) PO SCH (20:27)
--- NOTE | 2016-08-02 20:42 | PM & R (SOAP) Progress Note ---
Subjective Subjective/Events-last exam Patient was seen in her room this evening Patient progressing well with therapies Patient moderate asistance for transfers.Edema dwon in hands and only in feet at this time Appreciate DR West notes and orders. Objective Exam Last Set of Vital Signs Vital Signs Date Time Temp Pulse Resp B/P Pulse Ox O2 Delivery O2 Flow Rate FiO2 08/02/16 19:10 91 Room Air 08/02/16 18:04 98.0 91 16 105/68 Capillary Refill : I&O Intake and Output 08/02/16 00:00 Intake Total 1050 ml Balance 1050 ml Intake Oral 1050 ml # Voids 9 General: Alert, Oriented X3, Cooperative, No Acute Distress HEENT: Atraumatic, PERRLA, EOMI, Mucous Memb Moist/[place] Neck: Supple, No JVD Lungs: Clear to Auscultation Heart: Regular Rate Abdomen: Normal Bowel Sounds, Soft, No Tenderness Extremities: Other Neuro: Other Results Lab Laboratory Tests 07/31/16 04:30: Basophils # (Auto) 0.0, Basophils (%) (Auto) 0, Eosinophils # (Auto) 0.2, Eosinophils (%) (Auto) 1, Hematocrit 32L, Hemoglobin 11.0L, Lymphocytes # (Auto ) 2.9, Lymphocytes (%) (Auto) 23, Mean Corpuscular Hemoglobin 32, Mean Corpuscular Hemoglobin Concent 34, Mean Corpuscular Volume 94, Mean Platelet Volume 10.4, Monocytes # (Auto) 0.8, Monocytes (%) (Auto) 7, Neutrophils # (Auto ) 8.9H, Neutrophils (%) (Auto) 69, Platelet Count 316, Red Blood Count 3.42L, Red Cell Distribution Width 12.6, White Blood Count 12.8H 08/02/16 14:35: Urine Bacteria TRACE, Urine Bilirubin 3+H, Urine Casts PRESENT, Urine Clarity CLEAR, Urine Color YELLOW, Urine Crystals NONE, Urine Culture Indicated YES, Urine Glucose (UA) NEGATIVE, Urine Hyaline Casts 2-5H, Urine Ketones NEGATIVE, Urine Leukocyte Esterase 1+H, Urine Mucus SMALLH, Urine Nitrite NEGATIVE, Urine Protein NEGATIVE, Urine RBC RARE, Urine RBC (Auto) NEGATIVE, Urine Specific [place] 1.005L, Urine Squamous Epithelial Cells 10-25H, Urine Urobilinogen NORMAL, Urine WBC 2-5, Urine pH 7 Assessment/Plan Assessment General debil/probable Critical care illness s/p Pneumonia and resp failure associated with sepsis and Vent support for 7 days Anasarca with Peripheral edma related to above being treated as per above Hypokalemia-replaced Plan Continue PT/OT ST has assessed and signed off Isotoner gloves for hand edema -done with improvement and Wraps for edema in legs-improving Replace K -done F/U with Dr Abe reid. Patient completed course of antibiotics last week-Discussed case with Clinical Pharmacist last week RAUL COLLIER MD Aug 02, 2016 20:42
[2016-08-03] MEDS: RT-ALBUTEROL/IPRATROPIUM 3 ML (DUONEB) VIAL INH SCH ×6 (02:48→22:05)
[2016-08-03] MEDS: KCL 20 MEQ TAB (K-DUR) PO SCH ×2 (05:52→16:07)
[2016-08-03] MEDS: LEVOTHYROXINE 50 MCG (LEVOTHROID) TAB PO SCH (05:52)
[2016-08-03] MEDS: LACTOBACILLUS Acidoph/Bulgar (LACTINEX/FLORANEX) TAB PO SCH ×3 (05:52→16:06)
[2016-08-03] MEDS: FUROSEMIDE 40 MG (LASIX) TAB PO SCH ×2 (05:52→16:06)
[2016-08-03] MEDS: SUCRALFATE 1 GM (CARAFATE) TAB PO SCH ×4 (05:52→20:29)
[2016-08-03 05:57] LABS: BASOPHILS % (AUTO) 0 % (0-10); EOSINOPHILS # (AUTO) 0.2 10^3/uL (0.0-0.3); EOSINOPHILS % (AUTO) 3 % (0-10); LYMPHOCYTES # (AUTO) 1.8 X 10^3 (1.0-4.0); LYMPHOCYTES % (AUTO) 19 % (12-44); MEAN CORPUSCULAR HEMOGLOBIN 32 PG (25-34); MEAN CORPUSCULAR HGB CONC 33 G/DL (32-36); MEAN CORPUSCULAR VOLUME 96 FL (80-99); MEAN PLATELET VOLUME 10.2 FL (7.4-10.4); MONOCYTES # (AUTO) 0.5 X 10^3 (0.0-1.0); MONOCYTES % (AUTO) 5 % (0-12); NEUTROPHILS # (AUTO) 6.9 X 10^3 (1.8-7.8); NEUTROPHILS % (AUTO) 73 % (42-75); PLATELET COUNT 146 10^3/uL (130-400); RED BLOOD COUNT 3.57 10^6/uL (4.35-5.85); WHITE BLOOD COUNT 9.4 10^3/uL (4.3-11.0)
[2016-08-03 06:00] VITALS: BP 116/79
[2016-08-03 06:14] LABS: ALANINE AMINOTRANSFERASE 99 U/L (0-55); ALBUMIN 3.3 G/DL (3.2-4.5); ANION GAP 12 MMOL/L (5-14); ASPARTATE AMINO TRANSFERASE 37 U/L (5-34); BILIRUBIN,TOTAL 0.5 MG/DL (0.1-1.0); BLOOD UREA NITROGEN 15 MG/DL (7-18); BUN/CREATININE RATIO 25; CALCIUM 8.9 MG/DL (8.5-10.1); CARBON DIOXIDE 23 MMOL/L (21-32); CHLORIDE 103 MMOL/L (98-107); CREATININE SERUM 0.59 MG/DL (0.60-1.30); GFR ESTIMATED > 60; GLUCOSE 97 MG/DL (70-105); POTASSIUM 4.2 MMOL/L (3.6-5.0); SODIUM 138 MMOL/L (135-145); TOTAL PROTEIN 5.6 G/DL (6.4-8.2)
[2016-08-03] MEDS: ETODOLAC 300 MG (LODINE) CAP PO SCH ×2 (07:43→20:32)
[2016-08-03] MEDS: amLODIPine 10 MG (NORVASC) TAB PO SCH (07:43)
[2016-08-03] MEDS: lisINopril 20 MG (ZESTRIL) TAB PO SCH (07:44)
[2016-08-03] MEDS: meTOprolol TARTRATE 50 MG (LOPRESSOR) TAB PO SCH ×2 (07:44→20:29)
[2016-08-03] MEDS: BACLOFEN 10 MG (LIORESAL) TAB PO PRN (07:46)
[2016-08-03] MEDS: IBUPROFEN 600 MG (MOTRIN) TAB PO PRN ×3 (07:46→20:29)
--- NOTE | 2016-08-03 10:58 | Physical Therapy Daily Note ---
PT Daily Note-Current Subjective Patient in wheelchair pre tx, agrees to PT, pleasant and cooperative, no complaints. Pain Numeric Pain Scale: 0-No Pain Appearance Patient in wheelchair post tx at bedside, has nurse call, phone, tray, all needs met. Mental Status Patient Orientation: Normal For Age Transfers Functional [place] Measure 0=Not Assessed/NA 4=Minimal Assistance 1=Total Assistance 5=Supervision or Setup 2=Maximal Assistance 6=Modified [place] 3=Moderate Assistance 7=Complete IndependenceIRFPAI Quality Coding Scale 6 Independent with activity with or without an assistive device 5 Patient requires set up or clean up by helper. Patient completes activity by themselves 4 Supervision or touching assist (CGA). [place] provide cues , steadying assist 3 The helper provides less than half the effort to complete the activity 2 The helper provides more than half the effort to complete the activity 1 Dependent. The helper does all the effort to complete an activity 7 Patient refused to complete or attempt activity 9 The patient did not perform the activity before the current illness or injury 88 Not attempted due to Medical conditions or safety concerns Transfers (B, C, W/C) (FIM): 3 Sit to/from Stand: 3 Bed to/from Chair: 3 needs cues for hand placement with almost every stand pivot transfer, but she is getting a little better with this Gait Training Gait (FIM): 1 Distance: 10'x4 Gait Level of Assist: 3 Gait Persons Needed: 1 Gait Assistive Device: FWW wheelchair follow, besides having weak legs, she also has a weak trunk and sometimes tends to collapse over at the waist Wheelchair Training Does the Pt Use a Wheelchair?: Yes Wheelchair (FIM): 5 Distance: 150'x2 Wheelchair Level of Assist: 5 Type of Wheelchair: Manual improving hand and arm strength, able to turn much more effectively Exercises NuStep Minutes: 15 NuStep Workload: 2 Treatments functional strengthening, gait training, transfers, wheelchair mobility Assessment Current Status: Fair Progress patient ambulated with a rolling walker for the first time today PT Short Term Goals Short Term Goals Time Frame: Aug 04, 2016 Gait (FIM): 1 Gait Distance Comment: 20' Gait Level of Assist: 3 Gait Assistive Device: FWW Wheelchair Distance: 150' PT Clean Up Helper Banquet Goals Clean Up Helper Banquet Goals PT Nursing Home Goals Time Frame: Aug 18, 2016 Transfers (B,C,W/C) (FIM): 4 Sit to Lying (QC): 4 Lying-Sitting on Side/Bed(QC): 4 Sit to Stand (QC): 3 Rollin Roll Left to Right (QC): 4 Chair/Yaq-nl-Mpxzd Xfer(QC): 3 Car Transfer (QC): 3 Gait (FIM): 2 Distance: 50' Walk 10 feet (QC): 3 Walk 10ft-Uneven Surface(QC): 3 Walk 50ft with 2 Turns (QC): 3 Walk 150 ft (QC): 88 Gait Level of Assist: 4 Gait Assistive Device: FWW # of Steps: 1 1 Step (curb) (QC): 3 4 Steps (QC): 88 12 Steps (QC): 88 Stairs Level Of Assist: 4 Picking up an Object (QC): 88 PT Plan Problem List Problem List: Activity Tolerance, Functional Strength, Safety, Balance, Gait, Transfer, Bed Mobility Treatment/Plan Treatment Plan: Continue Plan of Care Treatment Plan: Bed Mobility, Education, Functional Activity [place], Functional Strength, Group Therapy, Gait, Safety, Therapeutic Exercise, Transfers Treatment Duration: Aug 18, 2016 Visits Per Week: 10-11 Minutes/Day (M-F): 60-90 Minutes/Day (Sat/Bunch): 15-30 Safety Risks/Education Patient Education: Gait Training, Transfer Techniques, Correct Positioning, W/ C Management, Safety Issues Teaching Recipient: Patient Teaching Methods: Demonstration, Discussion Response to Teaching: Reinforcement Needed Time/GCodes Time In: 1000 Time Out: 1100 Total Billed Treatment Time: 60 Total Billed Treatment 1 visit [facility] 15 min EX 15 min GT 30 min NOREEN DIAZ PT Aug 03, 2016 10:58
--- NOTE | 2016-08-03 12:30 | Progress Note (SOAP) ---
Subjective Subjective/Events-last exam Fwup recent vent-dependent respiratory failure, recent pneumonia with Strep pneumo sepsis, recent septic shock with hypotension/renal failure and elevated LFTs, edema, HTN. Still puffy in feet. Left side/lung pain not as severe today. Looks like atelectesis on CXR. Objective Exam Vital Signs Date Time Temp Pulse Resp B/P Pulse Ox O2 Delivery O2 Flow Rate FiO2 08/03/16 07:50 92 Room Air 08/03/16 07:43 Room Air 08/03/16 06:00 97.4 94 19 116/79 96 Room Air 08/03/16 02:48 92 Room Air 08/02/16 22:45 92 Room Air 08/02/16 21:00 Room Air 08/02/16 19:10 91 Room Air 08/02/16 18:04 98.0 91 16 105/68 95 Room Air 08/02/16 14:53 92 Room Air I & O 08/03/16 07:00 Intake Total 790 ml Output Total 2500 ml Balance -1710 ml Capillary Refill : General Appearance: No Apparent Distress Neck: Supple Respiratory: Lungs Clear Decreased Breath Sounds (bases but not as many crackles in left base today) Cardiovascular: Regular Rate, Rhythm Gallop/S3 Gastrointestinal: normal bowel sounds non tender soft Extremity: Non Tender No Calf Tenderness Pedal Edema (lower legs and tops of feet) Neurologic/Psychiatric: Alert Oriented x3 Results Lab Laboratory Tests 08/02/16 14:35: Urine Bacteria TRACE, Urine Bilirubin 3+H, Urine Casts PRESENT, Urine Clarity CLEAR, Urine Color YELLOW, Urine Crystals NONE, Urine Culture Indicated YES, Urine Glucose (UA) NEGATIVE, Urine Hyaline Casts 2-5H, Urine Ketones NEGATIVE, Urine Leukocyte Esterase 1+H, Urine Mucus SMALLH, Urine Nitrite NEGATIVE, Urine Protein NEGATIVE, Urine RBC RARE, Urine RBC (Auto) NEGATIVE, Urine Specific [place] 1.005L, Urine Squamous Epithelial Cells 10-25H, Urine Urobilinogen NORMAL, Urine WBC 2-5, Urine pH 7 08/03/16 05:50: Alanine Aminotransferase (ALT/SGPT) 99H, Albumin 3.3, Alkaline Phosphatase 108, Anion Gap 12, Aspartate Amino Transf (AST/SGOT) 37H, BUN/Creatinine Ratio 25, Basophils # (Auto) 0.0, Basophils (%) (Auto) 0, Blood Urea Nitrogen 15, Calcium Level 8.9, Carbon Dioxide Level 23, Chloride Level 103, Creatinine 0.59L, Eosinophils # (Auto) 0.2, Eosinophils (%) (Auto) 3, Estimat Glomerular Filtration Rate > 60, Glucose Level 97, Hematocrit 34L, Hemoglobin 11.4L, Lymphocytes # (Auto) 1.8, Lymphocytes (%) (Auto) 19, Mean Corpuscular Hemoglobin 32, Mean Corpuscular Hemoglobin Concent 33, Mean Corpuscular Volume 96, Mean Platelet Volume 10.2, Monocytes # (Auto) 0.5, Monocytes (%) (Auto) 5, Neutrophils # (Auto) 6.9, Neutrophils (%) (Auto) 73, Platelet Count 146, Potassium Level 4.2, Red Blood Count 3.57L, Red Cell Distribution Width 13.0, Sodium Level 138, Total Bilirubin 0.5, Total Protein 5.6L, White Blood Count 9.4 Microbiology 08/02/16 Urine Culture - Preliminary, Resulted NO GROWTH Assessment/Plan Assessment/Plan Assess & Plan/Chief Complaint 1. Pneumonia with Strep Pneumo--off abx since last week, CXR show bibasilar atelectesis 2. Anasarca--continue diuresis and focus on nutrition, improving except for tops of feet, continue lasix with potassium 3. Hypertension--stable on home meds 4. Weakness--continue PT/OT 5. Allergic Rhinitis--added flonase 6. Hypokalemia--improved with increased potassium dose 7. Left Flank Pain--likely from atelectesis so will focus on IS Diagnosis/Problems: Clinical Quality Measures DVT/VTE Risk/Contraindication: Risk Factor Score Per Nursin RFS Level Per Nursing on Admit: 4+=Very High KINDRA RHODES DO Aug 03, 2016 12:30
--- NOTE | 2016-08-03 12:43 | Occupational Ther Daily Note ---
OT Current Status-Daily Note Subjective Pt seen in room, up in w/c, agreeable to OT. No pain mentioned. Appearance Alert, cooperative Mental Status/Objective Functional [place] Measure 0=Not Assessed/NA 4=Minimal Assistance 1=Total Assistance 5=Supervision or Setup 2=Maximal Assistance 6=Modified [place] 3=Moderate Assistance 7=Complete [place] ADL-Treatment Pt was agreeable to showering and ADLs, Transfer from w/c to shower bench was mod I, with pt holding on to grab bars and able to stand long enough for pants to be pulled down by OT to undress for shower. Pt washed and dried all parts except bottom (leaned to side for help) and feet. 70%. Shower bench, grab bars, hand held shower. Was able to safely lean forward to wash lower legs and unable to wash feet when legs crossed. Pt also assisted more than 50% with washing hair , including shampooing with both hands. Sit to stand to transfer off shower bench required assist of two people as she had difficulty grabbing hold of grab bars to pull up. SPT to w/c mod assist, with grab bars. Pt was able to take t shirt off with min assist to get shirt over head mod technique and donned large t shirt with setup. Pt helped place feet in pants legs but couldn't hold pants to do it herself. Pulled pants up to thighs. Required assist of two to stand and pull pants up (in shower). Pt brushed teeth mod I at w/c level but needed min assist to comb out her hair after washing it. Washed face and hands in shower. Functional [place] Measure 0=Not Assessed/NA 4=Minimal Assistance 1=Total Assistance 5=Supervision or Setup 2=Maximal Assistance 6=Modified [place] 3=Moderate Assistance 7=Complete IndependenceIRFPAI Quality Coding Scale 6 Independent with activity with or without an assistive device 5 Patient requires set up or clean up by helper. Patient completes activity by themselves 4 Supervision or touching assist (CGA). [place] provide cues , steadying assist 3 The helper provides less than half the effort to complete the activity 2 The helper provides more than half the effort to complete the activity 1 Dependent. The helper does all the effort to complete an activity 7 Patient refused to complete or attempt activity 9 The patient did not perform the activity before the current illness or injury 88 Not attempted due to Medical conditions or safety concerns Grooming (FIM): 4 Bathing (FIM): 3 (70%) Bathing Location: L Arm, R Arm, L Upper Leg, R Upper Leg, Chest, Abdomen, Perineal Area Upper Body (FIM): 4 Lower Body Dressing (FIM): 1 Shower Transfer(FIM): 1 (two person to get off bench) Other Treatment Pt was able to do 10 reps squeezing yellow sponge with each hand. Also did AROM working on intrinsics. She had better isolated intrinsic control with L hand rather than R. Pt left up in w/c, all needs met. OT Short Term Goals Short Term Goals Time Frame: Aug 04, 2016 Eating(FIM): 4 Grooming(FIM): 5 Bathing(FIM): 3 Upper Body Dressing(FIM): 4 Toilet/Commode Transfer(FIM): 3 1=Demonstrate adherence to instructed precautions during ADL tasks. 2=Patient will verbalize/demonstrate understanding of assistive devices/ modifications for ADL. 3=Patient will improve strength/tolerance for activity to enable patient to perform ADL's. OT Senior Care Goals Computer Networking Instructor Goals Time Frame: Aug 18, 2016 Eating (FIM): 6 Eating (QC): 6 Oral Hygiene (QC): 6 Grooming(FIM): 6 Bathing(FIM): 5 (setup) Shower/Bathe Self (QC): 5 (setup) Upper Body Dressing(FIM): 5 (setup) Upper Body Dressing (QC): 5 Lower Body Dressing(FIM): 5 Lower Body Dressing (QC): 5 On/Off Footwear (QC): 5 Toileting(FIM): 5 (setup) Toileting Hygiene (QC): 5 Toilet/Commode Transfer(FIM): 5 (setup) Toilet/Commode Transfer (QC): 5 Shower Transfer(FIM): 5 (SBA) Increase bilat UE strength to 4+/5 Increase head of digital strength 50% Decreased edema bilat UEs to normal limits Additional Goals: 2-Verbalize Understanding, 3-ImproveStrength/Zeina 1=Demonstrate adherence to instructed precautions during ADL tasks. 2=Patient will verbalize/demonstrate understanding of assistive devices/ modifications for ADL. 3=Patient will improve strength/tolerance for activity to enable patient to perform ADL's. OT Education/Plan Problem List/Assessment Pt would benefit from skilled OT to increase her independence in basic self care to allow her to safely return home with family support after sepsis/ pneumonia with resultant weakness and decreased self care Discharge Recommendations Plan/Recommendations: Continue POC Treatment Plan/Plan of Care Patient would benefit from OT for education, treatment and training to promote independence in ADL's, mobility, safety and/or upper extremity function for ADL' s. Plan of Care: ADL Retraining, Functional Mobility, Group Exercise/Act as Ind ( education, exercise, activity tolerance, functional activities, socialization), UE Funct Exercise/Act, UE Neuromus Re-Ed/Coord, OTHER (edema management) Treatment Duration: Aug 18, 2016 Visits Per Week: 10-11 Minutes/Day (M-F): 75-90 Minutes/Day (Sat/Bunch): PRN Agreement: Yes Rehab Potential: Good Time/GCodes Start Time: 08:30 Stop Time: 09:30 Total Time Billed (hr/min): 60 Billed Treatment Time visit, 55 minutes ADL, 5 minutes neuromotor NIKI BRENNAN OT Aug 03, 2016 12:43
--- NOTE | 2016-08-03 14:30 | Occupational Ther Daily Note ---
OT Current Status-Daily Note Subjective Pt sitting in w/c. No pain reported. Agreeable to OT. Appearance Alert, cooperative Mental Status/Objective Functional [place] Measure 0=Not Assessed/NA 4=Minimal Assistance 1=Total Assistance 5=Supervision or Setup 2=Maximal Assistance 6=Modified [place] 3=Moderate Assistance 7=Complete [place] ADL-Treatment Functional [place] Measure 0=Not Assessed/NA 4=Minimal Assistance 1=Total Assistance 5=Supervision or Setup 2=Maximal Assistance 6=Modified [place] 3=Moderate Assistance 7=Complete IndependenceIRFPAI Quality Coding Scale 6 Independent with activity with or without an assistive device 5 Patient requires set up or clean up by helper. Patient completes activity by themselves 4 Supervision or touching assist (CGA). [place] provide cues , steadying assist 3 The helper provides less than half the effort to complete the activity 2 The helper provides more than half the effort to complete the activity 1 Dependent. The helper does all the effort to complete an activity 7 Patient refused to complete or attempt activity 9 The patient did not perform the activity before the current illness or injury 88 Not attempted due to Medical conditions or safety concerns Other Treatment Pt propelled self to gym. Pt participated in Standardized Testing. Pt had more difficulty grasping blocks/ pegs with R arm. Pt left sitting in w/c, call light in reach. All needs met. Box & Block L 23 blocks Norm 74.7 R 21 blocks Norm 73.6 Nine Hole Peg L 34 seconds Norm 19.4 R 1 min Norm 17.8 Education OT Patient Education: Progress toward Goal/Update tx plan Teaching Recipient: Patient Teaching Methods: Demonstration, Discussion Response to Teaching: Verbalize Understanding, Return Demonstration OT Short Term Goals Short Term Goals Time Frame: Aug 04, 2016 Eating(FIM): 4 Grooming(FIM): 5 Bathing(FIM): 3 Upper Body Dressing(FIM): 4 Toilet/Commode Transfer(FIM): 3 1=Demonstrate adherence to instructed precautions during ADL tasks. 2=Patient will verbalize/demonstrate understanding of assistive devices/ modifications for ADL. 3=Patient will improve strength/tolerance for activity to enable patient to perform ADL's. OT Marking Stitcher Goals Marking Stitcher Goals Time Frame: Aug 18, 2016 Eating (FIM): 6 Eating (QC): 6 Oral Hygiene (QC): 6 Grooming(FIM): 6 Bathing(FIM): 5 (setup) Shower/Bathe Self (QC): 5 (setup) Upper Body Dressing(FIM): 5 (setup) Upper Body Dressing (QC): 5 Lower Body Dressing(FIM): 5 Lower Body Dressing (QC): 5 On/Off Footwear (QC): 5 Toileting(FIM): 5 (setup) Toileting Hygiene (QC): 5 Toilet/Commode Transfer(FIM): 5 (setup) Toilet/Commode Transfer (QC): 5 Shower Transfer(FIM): 5 (SBA) Increase bilat UE strength to 4+/5 Increase cut out stitcher strength 50% Decreased edema bilat UEs to normal limits Additional Goals: 2-Verbalize Understanding, 3-ImproveStrength/[place] 1=Demonstrate adherence to instructed precautions during ADL tasks. 2=Patient will verbalize/demonstrate understanding of assistive devices/ modifications for ADL. 3=Patient will improve strength/tolerance for activity to enable patient to perform ADL's. OT Education/Plan Problem List/Assessment Pt would benefit from skilled OT to increase her independence in basic self care to allow her to safely return home with family support after sepsis/ pneumonia with resultant weakness and decreased self care Discharge Recommendations Plan/Recommendations: Continue POC Treatment Plan/Plan of Care Patient would benefit from OT for education, treatment and training to promote independence in ADL's, mobility, safety and/or upper extremity function for ADL' s. Plan of Care: ADL Retraining, Functional Mobility, Group Exercise/Act as Ind ( education, exercise, activity tolerance, functional activities, socialization), UE Funct Exercise/Act, UE Neuromus Re-Ed/Coord, OTHER (edema management) Treatment Duration: Aug 18, 2016 Visits Per Week: 10-11 Minutes/Day (M-F): 75-90 Minutes/Day (Sat/Bunch): PRN Agreement: Yes Rehab Potential: Good Time/GCodes Start Time: 13:00 Stop Time: 13:30 Total Time Billed (hr/min): 30 Billed Treatment Time visit, EX 30 min RYAN MELGAR Aug 03, 2016 14:30
--- NOTE | 2016-08-03 14:30 | Physical Therapy Daily Note ---
PT Daily Note-Current Subjective Patient in bed pre tx, patient states she is very worn out. Pain Numeric Pain Scale: 0-No Pain Appearance Patient BTB post tx with nurse call, phone, tray, all needs met. Mental Status Patient Orientation: Normal For Age Transfers Functional [place] Measure 0=Not Assessed/NA 4=Minimal Assistance 1=Total Assistance 5=Supervision or Setup 2=Maximal Assistance 6=Modified [place] 3=Moderate Assistance 7=Complete IndependenceIRFPAI Quality Coding Scale 6 Independent with activity with or without an assistive device 5 Patient requires set up or clean up by helper. Patient completes activity by themselves 4 Supervision or touching assist (CGA). [place] provide cues , steadying assist 3 The helper provides less than half the effort to complete the activity 2 The helper provides more than half the effort to complete the activity 1 Dependent. The helper does all the effort to complete an activity 7 Patient refused to complete or attempt activity 9 The patient did not perform the activity before the current illness or injury 88 Not attempted due to Medical conditions or safety concerns Transfers (B, C, W/C) (FIM): 3 Scootin Rollin Supine to/from Sit: 5 Sit to/from Stand: 3 Bed to/from Chair: 3 cues for safety and hand placement, patient had a harder time with transfers this afternoon due to fatigue Wheelchair Training Wheelchair (FIM): 5 Distance: 150'x2 Wheelchair Level of Assist: 5 Type of Wheelchair: Manual Exercises LAQ alternating for 5 min, standing in parallel bars for 1 min, patient was not able to attempt standing exercises due to weakness and fatigue Treatments wheelchair mobility, bed mobility and transfers, functional strengthening Assessment Current Status: Fair Progress patient very tired this afternoon, not as strong PT Short Term Goals Short Term Goals Time Frame: Aug 04, 2016 Gait (FIM): 1 Gait Distance Comment: 20' Gait Level of Assist: 3 Gait Assistive Device: FWW Wheelchair Distance: 150'x2 PT Manager Specialty Goals Manager Specialty Goals PT Group Home Goals Time Frame: Aug 18, 2016 Transfers (B,C,W/C) (FIM): 4 Sit to Lying (QC): 4 Lying-Sitting on Side/Bed(QC): 4 Sit to Stand (QC): 3 Rollin Roll Left to Right (QC): 4 Chair/Zsh-re-Szvjz Xfer(QC): 3 Car Transfer (QC): 3 Gait (FIM): 2 Distance: 50' Walk 10 feet (QC): 3 Walk 10ft-Uneven Surface(QC): 3 Walk 50ft with 2 Turns (QC): 3 Walk 150 ft (QC): 88 Gait Level of Assist: 4 Gait Assistive Device: FWW # of Steps: 1 1 Step (curb) (QC): 3 4 Steps (QC): 88 12 Steps (QC): 88 Stairs Level Of Assist: 4 Picking up an Object (QC): 88 PT Plan Problem List Problem List: Activity Tolerance, Functional Strength, Safety, Balance, Gait, Transfer, Bed Mobility Treatment/Plan Treatment Plan: Continue Plan of Care Treatment Plan: Bed Mobility, Education, Functional Activity [place], Functional Strength, Group Therapy, Gait, Safety, Therapeutic Exercise, Transfers Treatment Duration: Aug 18, 2016 Visits Per Week: 10-11 Minutes/Day (M-F): 60-90 Minutes/Day (Sat/Bunch): 15-30 Safety Risks/Education Patient Education: Transfer Techniques, Correct Positioning, W/C Management, Safety Issues Teaching Recipient: Patient Teaching Methods: Demonstration, Discussion Response to Teaching: Reinforcement Needed Time/GCodes Time In: 1400 Time Out: 1430 Total Billed Treatment Time: 30 Total Billed Treatment 1 visit [facility] 15 min FA 15 min NOREEN DIAZ PT Aug 03, 2016 14:30
[2016-08-03 17:53] VITALS: BP 94/52
--- NOTE | 2016-08-03 18:03 | PM & R (SOAP) Progress Note ---
Subjective Subjective/Events-last exam Patient was seen in her room this noonhour.Urine C&S negative.Patient Min asssist for transfers.SBA for gait.Edema down Objective Exam Last Set of Vital Signs Vital Signs Date Time Temp Pulse Resp B/P Pulse Ox O2 Delivery O2 Flow Rate FiO2 08/03/16 15:11 96 Room Air 08/03/16 06:00 97.4 94 19 116/79 Capillary Refill : I&O Intake and Output 08/03/16 00:00 Intake Total 600 ml Output Total 1000 ml Balance -400 ml Intake Oral 600 ml Output Urine Total 1000 ml # Voids 2 General: Alert, Oriented X3, Cooperative, No Acute Distress HEENT: Atraumatic, PERRLA, EOMI, Mucous Memb Moist/[place] Neck: Supple, No JVD Lungs: Clear to Auscultation Heart: Regular Rate Abdomen: Normal Bowel Sounds, Soft, No Tenderness Extremities: Other Neuro: Other Results Lab Laboratory Tests 08/02/16 14:35: Urine Bacteria TRACE, Urine Bilirubin 3+H, Urine Casts PRESENT, Urine Clarity CLEAR, Urine Color YELLOW, Urine Crystals NONE, Urine Culture Indicated YES, Urine Glucose (UA) NEGATIVE, Urine Hyaline Casts 2-5H, Urine Ketones NEGATIVE, Urine Leukocyte Esterase 1+H, Urine Mucus SMALLH, Urine Nitrite NEGATIVE, Urine Protein NEGATIVE, Urine RBC RARE, Urine RBC (Auto) NEGATIVE, Urine Specific [place] 1.005L, Urine Squamous Epithelial Cells 10-25H, Urine Urobilinogen NORMAL, Urine WBC 2-5, Urine pH 7 08/03/16 05:50: Alanine Aminotransferase (ALT/SGPT) 99H, Albumin 3.3, Alkaline Phosphatase 108, Anion Gap 12, Aspartate Amino Transf (AST/SGOT) 37H, BUN/Creatinine Ratio 25, Basophils # (Auto) 0.0, Basophils (%) (Auto) 0, Blood Urea Nitrogen 15, Calcium Level 8.9, Carbon Dioxide Level 23, Chloride Level 103, Creatinine 0.59L, Eosinophils # (Auto) 0.2, Eosinophils (%) (Auto) 3, Estimat Glomerular Filtration Rate > 60, Glucose Level 97, Hematocrit 34L, Hemoglobin 11.4L, Lymphocytes # (Auto) 1.8, Lymphocytes (%) (Auto) 19, Mean Corpuscular Hemoglobin 32, Mean Corpuscular Hemoglobin Concent 33, Mean Corpuscular Volume 96, Mean Platelet Volume 10.2, Monocytes # (Auto) 0.5, Monocytes (%) (Auto) 5, Neutrophils # (Auto) 6.9, Neutrophils (%) (Auto) 73, Platelet Count 146, Potassium Level 4.2, Red Blood Count 3.57L, Red Cell Distribution Width 13.0, Sodium Level 138, Total Bilirubin 0.5, Total Protein 5.6L, White Blood Count 9.4 Microbiology 08/02/16 Urine Culture - Preliminary, Resulted NO GROWTH Assessment/Plan Assessment General debil/probable Critical care illness s/p Pneumonia and resp failure associated with sepsis and Vent support for 7 days Anasarca with Peripheral edma related to above being treated as per above Hypokalemia-replaced Plan Continue PT/OT ST has assessed and signed off Isotoner gloves for hand edema -done with improvement and Wraps for edema in legs-improving Replace K -done F/U with Dr Abe reid. Patient completed course of antibiotics last week-Discussed case with Clinical Pharmacist last week-F/U UC&S shows no growth Team Conference tomorrow 08/04/16 RAUL COLLIER MD Aug 03, 2016 18:03
[2016-08-03] MEDS: HYDROcodone/APAP 5 MG/325 MG (LORTAB) TAB PO PRN (20:28)
[2016-08-03] MEDS: ENOXAPARIN 40 MG/0.4 ML (LOVENOX) SYR SC SCH (20:29)
[2016-08-03] MEDS: ESTRADIOL 1 MG TAB (ESTRACE) PO SCH (20:29)
[2016-08-03] MEDS: LORATADINE (CLARITIN) 10 MG TAB PO SCH (20:30)
[2016-08-04] MEDS: RT-ALBUTEROL/IPRATROPIUM 3 ML (DUONEB) VIAL INH SCH ×6 (02:08→23:32)
[2016-08-04 06:00] VITALS: BP 101/66
[2016-08-04] MEDS: KCL 20 MEQ TAB (K-DUR) PO SCH (06:07)
[2016-08-04] MEDS: LACTOBACILLUS Acidoph/Bulgar (LACTINEX/FLORANEX) TAB PO SCH ×3 (06:07→16:37)
[2016-08-04] MEDS: LEVOTHYROXINE 50 MCG (LEVOTHROID) TAB PO SCH (06:08)
[2016-08-04] MEDS: FUROSEMIDE 40 MG (LASIX) TAB PO SCH (06:08)
[2016-08-04] MEDS: SUCRALFATE 1 GM (CARAFATE) TAB PO SCH ×4 (06:08→20:20)
[2016-08-04 09:32] VITALS: BP 111/72
[2016-08-04] MEDS: ETODOLAC 300 MG (LODINE) CAP PO SCH ×2 (09:35→20:21)
[2016-08-04] MEDS: amLODIPine 10 MG (NORVASC) TAB PO SCH (09:35)
[2016-08-04] MEDS: meTOprolol TARTRATE 50 MG (LOPRESSOR) TAB PO SCH ×2 (09:35→20:21)
[2016-08-04] MEDS: lisINopril 20 MG (ZESTRIL) TAB PO SCH (09:36)
--- NOTE | 2016-08-04 10:54 | Physical Therapy Daily Note ---
PT Daily Note-Current Subjective Patient in wheelchair pre tx, agrees to PT, pleasant and cooperative, no complaints, no pain. Appearance Patient in wheelchair at bedside, has nurse call, phone, tray, in the room, all needs met. Mental Status Patient Orientation: Normal For Age Transfers Functional [place] Measure 0=Not Assessed/NA 4=Minimal Assistance 1=Total Assistance 5=Supervision or Setup 2=Maximal Assistance 6=Modified [place] 3=Moderate Assistance 7=Complete IndependenceIRFPAI Quality Coding Scale 6 Independent with activity with or without an assistive device 5 Patient requires set up or clean up by helper. Patient completes activity by themselves 4 Supervision or touching assist (CGA). [place] provide cues , steadying assist 3 The helper provides less than half the effort to complete the activity 2 The helper provides more than half the effort to complete the activity 1 Dependent. The helper does all the effort to complete an activity 7 Patient refused to complete or attempt activity 9 The patient did not perform the activity before the current illness or injury 88 Not attempted due to Medical conditions or safety concerns Transfers (B, C, W/C) (FIM): 4 Sit to/from Stand: 4 Bed to/from Chair: 4 much improved sit to stand and transfers, able to perform a stand pivot transfer with CGA using a rolling walker Gait Training Gait (FIM): 1 Distance: 20'x4 Gait Level of Assist: 4 (CGA) Gait Persons Needed: 1 Gait Assistive Device: FWW wheelchair follow Wheelchair Training Does the Pt Use a Wheelchair?: Yes Wheelchair (FIM): 4 Distance: 150'x2 Wheelchair Level of Assist: 4 Type of Wheelchair: Manual still needs occasional assist with turning due to weakness in arms and hands Exercises Seated Therapy Exercises: Ankle pumps, Long arc quads, Hip flexion Seated Reps: 20 NuStep Minutes: 15 NuStep Workload: 2 Treatments functional strengthening, gait training, transfers, wheelchair mobility Assessment Current Status: Good Progress much better transfers and ambulation PT Short Term Goals Short Term Goals Time Frame: Aug 04, 2016 Gait (FIM): 1 Gait Distance Comment: 20' Gait Level of Assist: 3 Gait Assistive Device: FWW Wheelchair Distance: 150'x2 PT Care Home Goals Care Home Goals PT Care Home Goals Time Frame: Aug 18, 2016 Transfers (B,C,W/C) (FIM): 4 Sit to Lying (QC): 4 Lying-Sitting on Side/Bed(QC): 4 Sit to Stand (QC): 3 Rollin Roll Left to Right (QC): 4 Chair/Ogs-uq-Jdufc Xfer(QC): 3 Car Transfer (QC): 3 Gait (FIM): 2 Distance: 50' Walk 10 feet (QC): 3 Walk 10ft-Uneven Surface(QC): 3 Walk 50ft with 2 Turns (QC): 3 Walk 150 ft (QC): 88 Gait Level of Assist: 4 Gait Assistive Device: FWW # of Steps: 1 1 Step (curb) (QC): 3 4 Steps (QC): 88 12 Steps (QC): 88 Stairs Level Of Assist: 4 Picking up an Object (QC): 88 PT Plan Problem List Problem List: Activity Tolerance, Functional Strength, Safety, Balance, Gait, Transfer Treatment/Plan Treatment Plan: Continue Plan of Care Treatment Plan: Bed Mobility, Education, Functional Activity [place], Functional Strength, Group Therapy, Gait, Safety, Therapeutic Exercise, Transfers Treatment Duration: Aug 18, 2016 Visits Per Week: 10-11 Minutes/Day (M-F): 60-90 Minutes/Day (Sat/Bunch): 15-30 Safety Risks/Education Patient Education: Gait Training, Transfer Techniques, W/C Management, Safety Issues Teaching Recipient: Patient Teaching Methods: Demonstration, Discussion Response to Teaching: Reinforcement Needed Time/GCodes Time In: 955 Time Out: 1055 Total Billed Treatment Time: 60 Total Billed Treatment 1 visit EX 15 min [facility] 15 min GT 30 min NOREEN DIAZ PT Aug 04, 2016 10:54
--- NOTE | 2016-08-04 11:05 | Occupational Ther Daily Note ---
OT Current Status-Daily Note Subjective Pt sitting in w/c. No pain reported. Agreeable to OT. Appearance Alert, cooperative Mental Status/Objective Functional [place] Measure 0=Not Assessed/NA 4=Minimal Assistance 1=Total Assistance 5=Supervision or Setup 2=Maximal Assistance 6=Modified [place] 3=Moderate Assistance 7=Complete [place] ADL-Treatment Pt seen in room, up in w/c. Agreeable to ADLs. Pt propelled w/c to bathroom, cues to lock brakes. Able to get cap off toothpaste and put it on toothbrush but unable to turn toothbrush on. She also was able to manage turning water on/ off and turned toothbrush off. Combed hair with pick, min assist to get hair in back, modified grasp of pick with R hand. Functional [place] Measure 0=Not Assessed/NA 4=Minimal Assistance 1=Total Assistance 5=Supervision or Setup 2=Maximal Assistance 6=Modified [place] 3=Moderate Assistance 7=Complete IndependenceIRFPAI Quality Coding Scale 6 Independent with activity with or without an assistive device 5 Patient requires set up or clean up by helper. Patient completes activity by themselves 4 Supervision or touching assist (CGA). [place] provide cues , steadying assist 3 The helper provides less than half the effort to complete the activity 2 The helper provides more than half the effort to complete the activity 1 Dependent. The helper does all the effort to complete an activity 7 Patient refused to complete or attempt activity 9 The patient did not perform the activity before the current illness or injury 88 Not attempted due to Medical conditions or safety concerns Grooming (FIM): 4 Other Treatment Pt propelled self to gym, about 45-50 feet. Pt used arm bike 10 min 5 kasper for strengthening, taking several small recovery breaks. (previous time completed was 7 min, 5 kasper on 08/02/16). Pt worked with graded resistance clothespins and was only able to pinch the yellow and red ones (light and medium resistance) , bilaterally. Able to do 5 reps x 3 sets light resistance hand gripper (1.5#) bilat. Pt did 5 reps bilat intrinsic hand exercises, requiring assistance with R hand for MP extension. Worked on grasp/release with mat on table and whiting bags. More accuracy with beanbag toss with L hand, placed at multiple distances. Pt returned to room, up in w/c, all needs met. Education OT Patient Education: Exercise program, Progress toward Goal/Update tx plan, Purpose of tx/functional activities Teaching Recipient: Patient Teaching Methods: Demonstration, Discussion Response to Teaching: Verbalize Understanding, Return Demonstration OT Short Term Goals Short Term Goals Time Frame: Aug 04, 2016 Eating(FIM): 4 Grooming(FIM): 5 Bathing(FIM): 3 Upper Body Dressing(FIM): 4 Toilet/Commode Transfer(FIM): 3 1=Demonstrate adherence to instructed precautions during ADL tasks. 2=Patient will verbalize/demonstrate understanding of assistive devices/ modifications for ADL. 3=Patient will improve strength/tolerance for activity to enable patient to perform ADL's. OT Bricklayer'S Assistant Goals Bricklayer'S Assistant Goals Time Frame: Aug 18, 2016 Eating (FIM): 6 Eating (QC): 6 Oral Hygiene (QC): 6 Grooming(FIM): 6 Bathing(FIM): 5 (setup) Shower/Bathe Self (QC): 5 (setup) Upper Body Dressing(FIM): 5 (setup) Upper Body Dressing (QC): 5 Lower Body Dressing(FIM): 5 Lower Body Dressing (QC): 5 On/Off Footwear (QC): 5 Toileting(FIM): 5 (setup) Toileting Hygiene (QC): 5 Toilet/Commode Transfer(FIM): 5 (setup) Toilet/Commode Transfer (QC): 5 Shower Transfer(FIM): 5 (SBA) Increase bilat UE strength to 4+/5 Increase informatica mdm developer strength 50% Decreased edema bilat UEs to normal limits Additional Goals: 2-Verbalize Understanding, 3-ImproveStrength/[place] 1=Demonstrate adherence to instructed precautions during ADL tasks. 2=Patient will verbalize/demonstrate understanding of assistive devices/ modifications for ADL. 3=Patient will improve strength/tolerance for activity to enable patient to perform ADL's. OT Education/Plan Problem List/Assessment Pt would benefit from skilled OT to increase her independence in basic self care to allow her to safely return home with family support after sepsis/ pneumonia with resultant weakness and decreased self care Discharge Recommendations Plan/Recommendations: Continue POC Treatment Plan/Plan of Care Patient would benefit from OT for education, treatment and training to promote independence in ADL's, mobility, safety and/or upper extremity function for ADL' s. Plan of Care: ADL Retraining, Functional Mobility, Group Exercise/Act as Ind ( education, exercise, activity tolerance, functional activities, socialization), UE Funct Exercise/Act, UE Neuromus Re-Ed/Coord, OTHER (edema management) Treatment Duration: Aug 18, 2016 Visits Per Week: 10-11 Minutes/Day (M-F): 75-90 Minutes/Day (Sat/Bunch): PRN Agreement: Yes Rehab Potential: Good Time/GCodes Start Time: 08:15 Stop Time: 09:15 Total Time Billed (hr/min): 60 Billed Treatment Time visit, ADL 15 minutes, exercise 15 minutes, neuromotor 30 minutes NIKI BRENNAN OT Aug 04, 2016 11:05
--- NOTE | 2016-08-04 12:01 | PM & R (SOAP) Progress Note ---
Subjective Subjective/Events-last exam Patient was seen in her room this AM Progressing well with therapies Patient min assist for transfers Objective Exam Last Set of Vital Signs Vital Signs Date Time Temp Pulse Resp B/P Pulse Ox O2 Delivery O2 Flow Rate FiO2 08/04/16 09:32 111/72 08/04/16 06:58 92 Room Air 08/04/16 06:00 97.1 94 18 Capillary Refill : I&O Intake and Output 08/04/16 00:00 Intake Total 860 ml Output Total 2500 ml Balance -1640 ml Intake Oral 860 ml Output Urine Total 2500 ml General: Alert, Oriented X3, Cooperative, No Acute Distress HEENT: Atraumatic, PERRLA, EOMI, Mucous Memb Moist/[place] Neck: Supple, No JVD Lungs: Clear to Auscultation Heart: Regular Rate Abdomen: Normal Bowel Sounds, Soft, No Tenderness Extremities: Other Neuro: Other Results Lab Laboratory Tests 08/02/16 14:35: Urine Bacteria TRACE, Urine Bilirubin 3+H, Urine Casts PRESENT, Urine Clarity CLEAR, Urine Color YELLOW, Urine Crystals NONE, Urine Culture Indicated YES, Urine Glucose (UA) NEGATIVE, Urine Hyaline Casts 2-5H, Urine Ketones NEGATIVE, Urine Leukocyte Esterase 1+H, Urine Mucus SMALLH, Urine Nitrite NEGATIVE, Urine Protein NEGATIVE, Urine RBC RARE, Urine RBC (Auto) NEGATIVE, Urine Specific [place] 1.005L, Urine Squamous Epithelial Cells 10-25H, Urine Urobilinogen NORMAL, Urine WBC 2-5, Urine pH 7 08/03/16 05:50: Alanine Aminotransferase (ALT/SGPT) 99H, Albumin 3.3, Alkaline Phosphatase 108, Anion Gap 12, Aspartate Amino Transf (AST/SGOT) 37H, BUN/Creatinine Ratio 25, Basophils # (Auto) 0.0, Basophils (%) (Auto) 0, Blood Urea Nitrogen 15, Calcium Level 8.9, Carbon Dioxide Level 23, Chloride Level 103, Creatinine 0.59L, Eosinophils # (Auto) 0.2, Eosinophils (%) (Auto) 3, Estimat Glomerular Filtration Rate > 60, Glucose Level 97, Hematocrit 34L, Hemoglobin 11.4L, Lymphocytes # (Auto) 1.8, Lymphocytes (%) (Auto) 19, Mean Corpuscular Hemoglobin 32, Mean Corpuscular Hemoglobin Concent 33, Mean Corpuscular Volume 96, Mean Platelet Volume 10.2, Monocytes # (Auto) 0.5, Monocytes (%) (Auto) 5, Neutrophils # (Auto) 6.9, Neutrophils (%) (Auto) 73, Platelet Count 146, Potassium Level 4.2, Red Blood Count 3.57L, Red Cell Distribution Width 13.0, Sodium Level 138, Total Bilirubin 0.5, Total Protein 5.6L, White Blood Count 9.4 Microbiology 08/02/16 Urine Culture - Final, Complete NO GROWTH Assessment/Plan Assessment General debil/probable Critical care illness s/p Pneumonia and resp failure associated with sepsis and Vent support for 7 days Anasarca with Peripheral edma related to above being treated as per above- improved Hypokalemia-replaced Plan Continue PT/OT ST has assessed and signed off Isotoner gloves for hand edema -done with improvement and Wraps for edema in legs-improving Replace K -done F/U with Dr Abe reid. Patient completed course of antibiotics last week-Discussed case with Clinical Pharmacist last week-F/U UC&S shows no growth Team Conference later today - See report for full functional update and POC and RAUL RAMOS MD Aug 04, 2016 12:01
--- NOTE | 2016-08-04 12:50 | Progress Note (SOAP) ---
Subjective Subjective/Events-last exam Fwup recent vent-dependent respiratory failure, recent pneumonia with Strep pneumo sepsis, recent septic shock with hypotension/renal failure and elevated LFTs, edema, HTN. Getting stronger. Swelling in legs/feet improving slowly. Objective Exam Vital Signs Date Time Temp Pulse Resp B/P Pulse Ox O2 Delivery O2 Flow Rate FiO2 08/04/16 09:32 111/72 08/04/16 06:58 92 Room Air 08/04/16 06:00 97.1 94 18 101/66 94 Room Air 08/04/16 02:08 94 Room Air 08/03/16 22:06 92 Room Air 08/03/16 21:10 Room Air 08/03/16 18:16 94 Room Air 08/03/16 17:53 97.6 97 16 94/52 96 08/03/16 15:11 96 Room Air I & O 08/04/16 07:00 Intake Total 920 ml Output Total 2100 ml Balance -1180 ml Capillary Refill : General Appearance: No Apparent Distress Neck: Supple Respiratory: Lungs Clear Cardiovascular: Regular Rate, Rhythm Gallop/S3 Gastrointestinal: normal bowel sounds non tender soft Extremity: Non Tender No Calf Tenderness Pedal Edema (1 plus) Neurologic/Psychiatric: Alert Oriented x3 Results Lab Microbiology 08/02/16 Urine Culture - Final, Complete NO GROWTH Assessment/Plan Assessment/Plan Assess & Plan/Chief Complaint 1. Pneumonia with Strep Pneumo--off abx since last week, CXR show bibasilar atelectesis 2. Anasarca--improved, decrease lasix and potassium 3. Hypertension with some hypotension--decrease amlodopine dose 4. Weakness--continue PT/OT 5. Allergic Rhinitis--added flonase 6. Hypokalemia--improved with increased potassium dose 7. Left Flank Pain--likely from atelectesis so will focus on IS Diagnosis/Problems: Clinical Quality Measures DVT/VTE Risk/Contraindication: Risk Factor Score Per Nursin RFS Level Per Nursing on Admit: 4+=Very High KINDRA RHODES DO Aug 04, 2016 12:50
--- NOTE | 2016-08-04 14:46 | Therapy Group Daily Note ---
Therapy Daily Group Note Patient Education Topic Home Safety, Exercises, Other List Below (ARU expectations and description) Exercises LE Seated Exercise, UE Exercise Other/Notes Pt propelled self to therapy [facility] area, FWW, SBA. Pt participated in peer interaction, socializing by introducing self and place of currently living. Problem solving used to answer questions to complete cognitive activity. UE,LE exercise seated in chair. Balloon used for eye hand coordination. Pt propelled back to room. Call light in reach, all needs met. Start Time: 13:00 Stop Time: 14:00 Total Billed Treatment Time: 60 Total Billed Treatment 1-GRP RYAN MELGAR Aug 04, 2016 14:46
[2016-08-04 16:36] VITALS: BP 100/65
[2016-08-04] MEDS: LORATADINE (CLARITIN) 10 MG TAB PO SCH (20:21)
[2016-08-04] MEDS: ESTRADIOL 1 MG TAB (ESTRACE) PO SCH (20:21)
[2016-08-04] MEDS: ENOXAPARIN 40 MG/0.4 ML (LOVENOX) SYR SC SCH (20:22)
[2016-08-05] MEDS: RT-ALBUTEROL/IPRATROPIUM 3 ML (DUONEB) VIAL INH SCH ×4 (03:16→19:42)
[2016-08-05 06:00] VITALS: BP 102/62
[2016-08-05] MEDS: LEVOTHYROXINE 50 MCG (LEVOTHROID) TAB PO SCH (06:15)
[2016-08-05] MEDS: FUROSEMIDE 40 MG (LASIX) TAB PO SCH (06:15)
[2016-08-05] MEDS: SUCRALFATE 1 GM (CARAFATE) TAB PO SCH ×4 (06:15→20:06)
[2016-08-05] MEDS: LACTOBACILLUS Acidoph/Bulgar (LACTINEX/FLORANEX) TAB PO SCH ×3 (06:15→16:56)
[2016-08-05 08:03] VITALS: BP 111/69
[2016-08-05] MEDS: lisINopril 20 MG (ZESTRIL) TAB PO SCH (08:05)
[2016-08-05] MEDS: KCL 20 MEQ TAB (K-DUR) PO SCH (08:05)
[2016-08-05] MEDS: ETODOLAC 300 MG (LODINE) CAP PO SCH ×2 (08:05→20:06)
[2016-08-05] MEDS: meTOprolol TARTRATE 50 MG (LOPRESSOR) TAB PO SCH ×2 (08:05→20:06)
[2016-08-05] MEDS: amLODIPine 5 MG (NORVASC) TAB PO SCH (08:06)
--- NOTE | 2016-08-05 10:00 | Physical Therapy Daily Note ---
PT Daily Note-Current Subjective Patient in wheelchair pre tx, agrees to PT, pleasant and cooperative, no complaints of pain. Appearance Patient in wheelchair at bedside post tx, has nurse call, phone, tray, all needs met, has OT right after PT. Mental Status Patient Orientation: Normal For Age Transfers Functional [place] Measure 0=Not Assessed/NA 4=Minimal Assistance 1=Total Assistance 5=Supervision or Setup 2=Maximal Assistance 6=Modified [place] 3=Moderate Assistance 7=Complete IndependenceIRFPAI Quality Coding Scale 6 Independent with activity with or without an assistive device 5 Patient requires set up or clean up by helper. Patient completes activity by themselves 4 Supervision or touching assist (CGA). [place] provide cues , steadying assist 3 The helper provides less than half the effort to complete the activity 2 The helper provides more than half the effort to complete the activity 1 Dependent. The helper does all the effort to complete an activity 7 Patient refused to complete or attempt activity 9 The patient did not perform the activity before the current illness or injury 88 Not attempted due to Medical conditions or safety concerns Transfers (B, C, W/C) (FIM): 4 Sit to/from Stand: 4 sit to stand improving, now just min assist, still needs cues for hand placement Gait Training Gait (FIM): 1 Distance: 40'x3, 20' Gait Level of Assist: 4 Gait Persons Needed: 1 Gait Assistive Device: FWW improving endurance, she was too fatigued on the last walk to go 40' Wheelchair Training Does the Pt Use a Wheelchair?: Yes Wheelchair (FIM): 5 Distance: 150'x2 Wheelchair Level of Assist: 5 Type of Wheelchair: Manual Exercises Standing: Mini squats Standing Reps: 10 NuStep Minutes: 15 NuStep Workload: 2 Treatments wheelchair mobility, transfers, ambulation, functional strengthening Assessment Current Status: Fair Progress improving endurance and strength PT Short Term Goals Short Term Goals Time Frame: Aug 04, 2016 Gait (FIM): 1 Gait Distance Comment: 20' Gait Level of Assist: 3 Gait Assistive Device: FWW Wheelchair Distance: 150' PT Glove Wrapper Goals Fpc Goals PT Fpc Goals Time Frame: Aug 18, 2016 Transfers (B,C,W/C) (FIM): 4 Sit to Lying (QC): 4 Lying-Sitting on Side/Bed(QC): 4 Sit to Stand (QC): 3 Rollin Roll Left to Right (QC): 4 Chair/Yuk-cy-Tuhnp Xfer(QC): 3 Car Transfer (QC): 3 Gait (FIM): 2 Distance: 50' Walk 10 feet (QC): 3 Walk 10ft-Uneven Surface(QC): 3 Walk 50ft with 2 Turns (QC): 3 Walk 150 ft (QC): 88 Gait Level of Assist: 4 Gait Assistive Device: FWW # of Steps: 1 1 Step (curb) (QC): 3 4 Steps (QC): 88 12 Steps (QC): 88 Stairs Level Of Assist: 4 Picking up an Object (QC): 88 PT Plan Problem List Problem List: Activity Tolerance, Functional Strength, Safety, Balance, Gait, Transfer Treatment/Plan Treatment Plan: Continue Plan of Care Treatment Plan: Bed Mobility, Education, Functional Activity Zeina, Functional Strength, Group Therapy, Gait, Safety, Therapeutic Exercise, Transfers Treatment Duration: Aug 18, 2016 Visits Per Week: 10-11 Minutes/Day (M-F): 60-90 Minutes/Day (Sat/Bunch): 15-30 Safety Risks/Education Patient Education: Gait Training, Transfer Techniques, W/C Management, Safety Issues Teaching Recipient: Patient Teaching Methods: Demonstration, Discussion Response to Teaching: Reinforcement Needed Time/GCodes Time In: 900 Time Out: 1000 Total Billed Treatment Time: 60 Total Billed Treatment 1 visit GT 30 min [facility] 10 min EX 20 min NOREEN DIAZ PT Aug 05, 2016 10:00
--- NOTE | 2016-08-05 11:10 | Occupational Ther Daily Note ---
OT Current Status-Daily Note Subjective Pt sitting in w/c. No pain reported. Agreeable to OT. Appearance Alert, Cooperative Mental Status/Objective Functional [place] Measure 0=Not Assessed/NA 4=Minimal Assistance 1=Total Assistance 5=Supervision or Setup 2=Maximal Assistance 6=Modified [place] 3=Moderate Assistance 7=Complete [place] ADL-Treatment Functional [place] Measure 0=Not Assessed/NA 4=Minimal Assistance 1=Total Assistance 5=Supervision or Setup 2=Maximal Assistance 6=Modified [place] 3=Moderate Assistance 7=Complete IndependenceIRFPAI Quality Coding Scale 6 Independent with activity with or without an assistive device 5 Patient requires set up or clean up by helper. Patient completes activity by themselves 4 Supervision or touching assist (CGA). [place] provide cues , steadying assist 3 The helper provides less than half the effort to complete the activity 2 The helper provides more than half the effort to complete the activity 1 Dependent. The helper does all the effort to complete an activity 7 Patient refused to complete or attempt activity 9 The patient did not perform the activity before the current illness or injury 88 Not attempted due to Medical conditions or safety concerns Other Treatment Pt propelled self to gym. Pt used Theraputty (medium resistance) to work on finger, wrist and forearm ROM/strength. Placing pegs on mat to increase grasping to complete functional tasks. Pt used shoe lace to thread different shapes/size beads for bilateral extremity use and coordination. Pt transported back to room. Pt left sitting in w/c call light in hand. All needs met. Education OT Patient Education: Progress toward Goal/Update tx plan, Purpose of tx/ functional activities Teaching Recipient: Patient Teaching Methods: Demonstration Response to Teaching: Verbalize Understanding, Return Demonstration OT Short Term Goals Short Term Goals Time Frame: Aug 04, 2016 Eating(FIM): 4 Grooming(FIM): 5 Bathing(FIM): 3 Upper Body Dressing(FIM): 4 Toilet/Commode Transfer(FIM): 3 1=Demonstrate adherence to instructed precautions during ADL tasks. 2=Patient will verbalize/demonstrate understanding of assistive devices/ modifications for ADL. 3=Patient will improve strength/tolerance for activity to enable patient to perform ADL's. OT English Adjunct Faculty Goals Halfway Goals Time Frame: Aug 18, 2016 Eating (FIM): 6 Eating (QC): 6 Oral Hygiene (QC): 6 Grooming(FIM): 6 Bathing(FIM): 5 (setup) Shower/Bathe Self (QC): 5 (setup) Upper Body Dressing(FIM): 5 (setup) Upper Body Dressing (QC): 5 Lower Body Dressing(FIM): 5 Lower Body Dressing (QC): 5 On/Off Footwear (QC): 5 Toileting(FIM): 5 (setup) Toileting Hygiene (QC): 5 Toilet/Commode Transfer(FIM): 5 (setup) Toilet/Commode Transfer (QC): 5 Shower Transfer(FIM): 5 (SBA) Increase bilat UE strength to 4+/5 Increase ortho tech strength 50% Decreased edema bilat UEs to normal limits Additional Goals: 2-Verbalize Understanding, 3-ImproveStrength/Zeina 1=Demonstrate adherence to instructed precautions during ADL tasks. 2=Patient will verbalize/demonstrate understanding of assistive devices/ modifications for ADL. 3=Patient will improve strength/tolerance for activity to enable patient to perform ADL's. OT Education/Plan Problem List/Assessment Pt would benefit from skilled OT to increase her independence in basic self care to allow her to safely return home with family support after sepsis/ pneumonia with resultant weakness and decreased self care Discharge Recommendations Plan/Recommendations: Continue POC Treatment Plan/Plan of Care Patient would benefit from OT for education, treatment and training to promote independence in ADL's, mobility, safety and/or upper extremity function for ADL' s. Plan of Care: ADL Retraining, Functional Mobility, Group Exercise/Act as Ind ( education, exercise, activity tolerance, functional activities, socialization), UE Funct Exercise/Act, UE Neuromus Re-Ed/Coord, OTHER (edema management) Treatment Duration: Aug 18, 2016 Visits Per Week: 10-11 Minutes/Day (M-F): 75-90 Minutes/Day (Sat/Bunch): PRN Agreement: Yes Rehab Potential: Good Time/GCodes Start Time: 10:00 Stop Time: 11:00 Total Time Billed (hr/min): 60 Billed Treatment Time visit, ADL 15 min, EX 45 min RYAN MELGAR Aug 05, 2016 11:10
--- NOTE | 2016-08-05 11:54 | PM & R (SOAP) Progress Note ---
Subjective Subjective/Events-last exam Patient was seen in her room this AM Progressing well with therapies Meds adjusted yesterday for Hypotension and peripheral edema with normalization of Blood pressure and decreased peripheral edema.Patient min assist for transfers and gait Objective Exam Last Set of Vital Signs Vital Signs Date Time Temp Pulse Resp B/P Pulse Ox O2 Delivery O2 Flow Rate FiO2 08/05/16 09:00 Room Air 08/05/16 08:03 94 111/69 08/05/16 06:29 96 08/05/16 06:00 97.1 18 94 Capillary Refill : I&O Intake and Output 08/05/16 00:00 Intake Total 1330 ml Output Total 2400 ml Balance -1070 ml Intake Oral 1330 ml Output Urine Total 2400 ml # Bowel Movements 1 General: Alert, Oriented X3, Cooperative, No Acute Distress HEENT: Atraumatic, PERRLA, EOMI, Mucous Memb Moist/[place] Neck: Supple, No JVD Lungs: Clear to Auscultation Heart: Regular Rate Abdomen: Normal Bowel Sounds, Soft, No Tenderness Extremities: Other Neuro: Other Results Lab Laboratory Tests 08/02/16 14:35: Urine Bacteria TRACE, Urine Bilirubin 3+H, Urine Casts PRESENT, Urine Clarity CLEAR, Urine Color YELLOW, Urine Crystals NONE, Urine Culture Indicated YES, Urine Glucose (UA) NEGATIVE, Urine Hyaline Casts 2-5H, Urine Ketones NEGATIVE, Urine Leukocyte Esterase 1+H, Urine Mucus SMALLH, Urine Nitrite NEGATIVE, Urine Protein NEGATIVE, Urine RBC RARE, Urine RBC (Auto) NEGATIVE, Urine Specific [place] 1.005L, Urine Squamous Epithelial Cells 10-25H, Urine Urobilinogen NORMAL, Urine WBC 2-5, Urine pH 7 08/03/16 05:50: Alanine Aminotransferase (ALT/SGPT) 99H, Albumin 3.3, Alkaline Phosphatase 108, Anion Gap 12, Aspartate Amino Transf (AST/SGOT) 37H, BUN/Creatinine Ratio 25, Basophils # (Auto) 0.0, Basophils (%) (Auto) 0, Blood Urea Nitrogen 15, Calcium Level 8.9, Carbon Dioxide Level 23, Chloride Level 103, Creatinine 0.59L, Eosinophils # (Auto) 0.2, Eosinophils (%) (Auto) 3, Estimat Glomerular Filtration Rate > 60, Glucose Level 97, Hematocrit 34L, Hemoglobin 11.4L, Lymphocytes # (Auto) 1.8, Lymphocytes (%) (Auto) 19, Mean Corpuscular Hemoglobin 32, Mean Corpuscular Hemoglobin Concent 33, Mean Corpuscular Volume 96, Mean Platelet Volume 10.2, Monocytes # (Auto) 0.5, Monocytes (%) (Auto) 5, Neutrophils # (Auto) 6.9, Neutrophils (%) (Auto) 73, Platelet Count 146, Potassium Level 4.2, Red Blood Count 3.57L, Red Cell Distribution Width 13.0, Sodium Level 138, Total Bilirubin 0.5, Total Protein 5.6L, White Blood Count 9.4 Microbiology 08/02/16 Urine Culture - Final, Complete NO GROWTH Assessment/Plan Assessment General debil/probable Critical care illness s/p Pneumonia and resp failure associated with sepsis and Vent support for 7 days Anasarca with Peripheral edma related to above being treated as per above- improved Hypokalemia-replaced hypertension with episodes of hypotension improved with adjustment of meds Plan Continue PT/OT ST has assessed and signed off Isotoner gloves for hand edema -done with improvement and Wraps for edema in legs-improving Replace K -done F/U with Dr Fish prn. Patient completed course of antibiotics last week-Discussed case with Clinical Pharmacist last week-F/U UC&S shows no growth Team Conference hedl yesterday - See report for full functional update and POC and ELOS Monitor Blood pressure and edema and adjust meds as appropriate RAUL COLLIER MD Aug 05, 2016 11:54
--- NOTE | 2016-08-05 12:47 | Progress Note (SOAP) ---
Subjective Subjective/Events-last exam Fwup recent vent-dependent respiratory failure, recent pneumonia with Strep pneumo sepsis, recent septic shock with hypotension/renal failure and elevated LFTs, edema, HTN. Getting stronger. Swelling in legs/feet improving slowly. Objective Exam Vital Signs Date Time Temp Pulse Resp B/P Pulse Ox O2 Delivery O2 Flow Rate FiO2 08/05/16 09:00 Room Air 08/05/16 08:03 94 111/69 08/05/16 06:29 Room Air 96 08/05/16 06:00 97.1 84 18 102/62 94 Room Air 08/04/16 23:32 Room Air 94 08/04/16 21:12 Room Air 08/04/16 19:30 Room Air 92 08/04/16 16:36 98.3 89 20 100/65 96 Room Air 08/04/16 15:14 Room Air I & O 08/05/16 07:00 Intake Total 1170 ml Output Total 1300 ml Balance -130 ml Capillary Refill : General Appearance: No Apparent Distress Neck: Supple Respiratory: Lungs Clear Decreased Breath Sounds Cardiovascular: Regular Rate, Rhythm Gallop/S3 Extremity: Non Tender No Calf Tenderness Pedal Edema (improving) Neurologic/Psychiatric: Alert Oriented x3 Results Lab Microbiology 08/02/16 Urine Culture - Final, Complete NO GROWTH Assessment/Plan Assessment/Plan Assess & Plan/Chief Complaint 1. Pneumonia with Strep Pneumo--off abx since last week, CXR shows bibasilar atelectesis 2. Anasarca--improved, decreased lasix and potassium dose yesterday and will plan decrease again possibly this 3. Hypertension with some hypotension--decreased amlodopine dose yesterday and BP stable 4. Weakness--continue PT/OT 5. Allergic Rhinitis--added flonase 6. Hypokalemia--improved with increased potassium dose 7. Left Flank Pain--improving, likely from atelectesis so will focus on IS Diagnosis/Problems: Clinical Quality Measures DVT/VTE Risk/Contraindication: Risk Factor Score Per Nursin RFS Level Per Nursing on Admit: 4+=Very High KINDRA RHODES DO Aug 05, 2016 12:47
--- NOTE | 2016-08-05 13:41 | Occupational Ther Daily Note ---
OT Current Status-Daily Note Subjective Pt sitting in w/c. No pain reported. Agreeable to OT. Appearance Alert, cooperative Mental Status/Objective Functional [place] Measure 0=Not Assessed/NA 4=Minimal Assistance 1=Total Assistance 5=Supervision or Setup 2=Maximal Assistance 6=Modified [place] 3=Moderate Assistance 7=Complete [place] ADL-Treatment Functional [place] Measure 0=Not Assessed/NA 4=Minimal Assistance 1=Total Assistance 5=Supervision or Setup 2=Maximal Assistance 6=Modified [place] 3=Moderate Assistance 7=Complete IndependenceIRFPAI Quality Coding Scale 6 Independent with activity with or without an assistive device 5 Patient requires set up or clean up by helper. Patient completes activity by themselves 4 Supervision or touching assist (CGA). [place] provide cues , steadying assist 3 The helper provides less than half the effort to complete the activity 2 The helper provides more than half the effort to complete the activity 1 Dependent. The helper does all the effort to complete an activity 7 Patient refused to complete or attempt activity 9 The patient did not perform the activity before the current illness or injury 88 Not attempted due to Medical conditions or safety concerns Other Treatment Pt propelled to gym. Pt used Arc activity to increase shoulder strength with 1/ 2lb wrist weights on both wrists. Pt took increased time to complete activity. Pt stated she needed to go to bathroom. Pt propelled residential back to room OT transported rest of the way. Pt changed mind, Pt used R hand to sweet pickled fruit maker items from floor, no loss of balance. Pt left in room sitting in w/c. Call light in reach. All needs met. Education OT Patient Education: Progress toward Goal/Update tx plan, Purpose of tx/ functional activities Teaching Recipient: Patient Teaching Methods: Demonstration, Discussion Response to Teaching: Verbalize Understanding, Return Demonstration OT Short Term Goals Short Term Goals Time Frame: Aug 04, 2016 Eating(FIM): 4 Grooming(FIM): 5 Bathing(FIM): 3 Upper Body Dressing(FIM): 4 Toilet/Commode Transfer(FIM): 3 1=Demonstrate adherence to instructed precautions during ADL tasks. 2=Patient will verbalize/demonstrate understanding of assistive devices/ modifications for ADL. 3=Patient will improve strength/tolerance for activity to enable patient to perform ADL's. OT Manager Concrete Goals Manager Concrete Goals Time Frame: Aug 18, 2016 Eating (FIM): 6 Eating (QC): 6 Oral Hygiene (QC): 6 Grooming(FIM): 6 Bathing(FIM): 5 (setup) Shower/Bathe Self (QC): 5 (setup) Upper Body Dressing(FIM): 5 (setup) Upper Body Dressing (QC): 5 Lower Body Dressing(FIM): 5 Lower Body Dressing (QC): 5 On/Off Footwear (QC): 5 Toileting(FIM): 5 (setup) Toileting Hygiene (QC): 5 Toilet/Commode Transfer(FIM): 5 (setup) Toilet/Commode Transfer (QC): 5 Shower Transfer(FIM): 5 (SBA) Increase bilat UE strength to 4+/5 Increase correctional supply supervisor strength 50% Decreased edema bilat UEs to normal limits Additional Goals: 2-Verbalize Understanding, 3-ImproveStrength/[place] 1=Demonstrate adherence to instructed precautions during ADL tasks. 2=Patient will verbalize/demonstrate understanding of assistive devices/ modifications for ADL. 3=Patient will improve strength/tolerance for activity to enable patient to perform ADL's. OT Education/Plan Problem List/Assessment Pt would benefit from skilled OT to increase her independence in basic self care to allow her to safely return home with family support after sepsis/ pneumonia with resultant weakness and decreased self care Discharge Recommendations Plan/Recommendations: Continue POC Treatment Plan/Plan of Care Patient would benefit from OT for education, treatment and training to promote independence in ADL's, mobility, safety and/or upper extremity function for ADL' s. Plan of Care: ADL Retraining, Functional Mobility, Group Exercise/Act as Ind ( education, exercise, activity tolerance, functional activities, socialization), UE Funct Exercise/Act, UE Neuromus Re-Ed/Coord, OTHER (edema management) Treatment Duration: Aug 18, 2016 Visits Per Week: 10-11 Minutes/Day (M-F): 75-90 Minutes/Day (Sat/Bunch): PRN Agreement: Yes Rehab Potential: Good Time/GCodes Start Time: 13:00 Stop Time: 13:30 Total Time Billed (hr/min): 30 Billed Treatment Time visit, EX 30 min RYAN MELGAR Aug 05, 2016 13:41
--- NOTE | 2016-08-05 14:03 | Physical Therapy Daily Note ---
PT Daily Note-Current Subjective Patient in wheelchair pre tx, agrees to PT, no complaints. Pain Numeric Pain Scale: 0-No Pain Appearance Patient in wheelchair post tx at bedside with nurse call, phone, tray, all needs met. Mental Status Patient Orientation: Normal For Age Transfers Functional [place] Measure 0=Not Assessed/NA 4=Minimal Assistance 1=Total Assistance 5=Supervision or Setup 2=Maximal Assistance 6=Modified [place] 3=Moderate Assistance 7=Complete IndependenceIRFPAI Quality Coding Scale 6 Independent with activity with or without an assistive device 5 Patient requires set up or clean up by helper. Patient completes activity by themselves 4 Supervision or touching assist (CGA). [place] provide cues , steadying assist 3 The helper provides less than half the effort to complete the activity 2 The helper provides more than half the effort to complete the activity 1 Dependent. The helper does all the effort to complete an activity 7 Patient refused to complete or attempt activity 9 The patient did not perform the activity before the current illness or injury 88 Not attempted due to Medical conditions or safety concerns Wheelchair Training Wheelchair (FIM): 5 Distance: 150' Wheelchair Level of Assist: 5 Type of Wheelchair: Manual Exercises Seated Therapy Exercises: Ankle pumps, Hip flexion Seated Reps: 20 Standing: Heel/toe raises, Mini squats Standing Reps: 10 LAQ alternating for 5 min Treatments wheelchair mobility, functional strengthening to improve ambulation and mobility Assessment Current Status: Fair Progress PT Short Term Goals Short Term Goals Time Frame: Aug 04, 2016 Gait (FIM): 1 Gait Distance Comment: 20' Gait Level of Assist: 3 Gait Assistive Device: FWW Wheelchair Distance: 150'x2 PT Retirement Goals Retirement Goals PT Administrative Manager Goals Time Frame: Aug 18, 2016 Transfers (B,C,W/C) (FIM): 4 Sit to Lying (QC): 4 Lying-Sitting on Side/Bed(QC): 4 Sit to Stand (QC): 3 Rollin Roll Left to Right (QC): 4 Chair/Yzg-qz-Tazyv Xfer(QC): 3 Car Transfer (QC): 3 Gait (FIM): 2 Distance: 50' Walk 10 feet (QC): 3 Walk 10ft-Uneven Surface(QC): 3 Walk 50ft with 2 Turns (QC): 3 Walk 150 ft (QC): 88 Gait Level of Assist: 4 Gait Assistive Device: FWW # of Steps: 1 1 Step (curb) (QC): 3 4 Steps (QC): 88 12 Steps (QC): 88 Stairs Level Of Assist: 4 Picking up an Object (QC): 88 PT Plan Problem List Problem List: Activity Tolerance, Functional Strength, Safety, Balance, Gait, Transfer, Bed Mobility Treatment/Plan Treatment Plan: Continue Plan of Care Treatment Plan: Bed Mobility, Education, Functional Activity [place], Functional Strength, Group Therapy, Gait, Safety, Therapeutic Exercise, Transfers Treatment Duration: Aug 18, 2016 Visits Per Week: 10-11 Minutes/Day (M-F): 60-90 Minutes/Day (Sat/Bunch): 15-30 Safety Risks/Education Patient Education: Transfer Techniques, W/C Management, Safety Issues Teaching Recipient: Patient Teaching Methods: Demonstration, Discussion Response to Teaching: Reinforcement Needed Time/GCodes Time In: 1330 Time Out: 1400 Total Billed Treatment Time: 30 Total Billed Treatment 1 visit [facility] 10 min EX 20 min NOREEN DIAZ PT Aug 05, 2016 14:03
[2016-08-05 18:43] VITALS: BP 109/75
[2016-08-05] MEDS: ESTRADIOL 1 MG TAB (ESTRACE) PO SCH (20:06)
[2016-08-05] MEDS: LORATADINE (CLARITIN) 10 MG TAB PO SCH (20:06)
[2016-08-05] MEDS: ENOXAPARIN 40 MG/0.4 ML (LOVENOX) SYR SC SCH (20:06)
[2016-08-05] MEDS ORDERED: ANTACID SUSP 30 ML UDC (MYLANTA) PO PRN (20:45)
[2016-08-05] MEDS: FAMOTIDINE 20 MG (PEPCID) TABLET PO SCH (21:00)
[2016-08-06 06:00] VITALS: BP 126/77
[2016-08-06] MEDS: LACTOBACILLUS Acidoph/Bulgar (LACTINEX/FLORANEX) TAB PO SCH ×3 (06:11→16:51)
[2016-08-06] MEDS: FUROSEMIDE 40 MG (LASIX) TAB PO SCH (06:11)
[2016-08-06] MEDS: LEVOTHYROXINE 50 MCG (LEVOTHROID) TAB PO SCH (06:11)
[2016-08-06] MEDS: SUCRALFATE 1 GM (CARAFATE) TAB PO SCH ×4 (06:11→21:33)
--- NOTE | 2016-08-06 07:57 | PM & R (SOAP) Progress Note ---
Subjective Subjective/Events-last exam Patient was seen in her room this AM C/O dyspepsia.Mylanta and pepcid ordered last evening bu patient claims she didnt receive it Discussed with RN She will f /u Patient min assist for transfers Objective Exam Last Set of Vital Signs Vital Signs Date Time Temp Pulse Resp B/P Pulse Ox O2 Delivery O2 Flow Rate FiO2 08/05/16 20:45 Room Air 08/05/16 19:42 97 08/05/16 18:43 97.7 92 20 109/75 08/05/16 06:29 96 Capillary Refill : I&O Intake and Output 08/06/16 00:00 Intake Total 1260 ml Balance 1260 ml Intake Oral 1260 ml # Voids 7 # Bowel Movements 2 General: Alert, Oriented X3, Cooperative, No Acute Distress HEENT: Atraumatic, PERRLA, EOMI, Mucous Memb Moist/[place] Neck: Supple, No JVD Lungs: Clear to Auscultation Heart: Regular Rate Abdomen: Normal Bowel Sounds, Soft, No Tenderness Extremities: Other Neuro: Other Results Lab Microbiology 08/02/16 Urine Culture - Final, Complete NO GROWTH Assessment/Plan Assessment General debil/probable Critical care illness s/p Pneumonia and resp failure associated with sepsis and Vent support for 7 days Anasarca with Peripheral edma related to above being treated as per above- improved Hypokalemia-replaced hypertension with episodes of hypotension improved with adjustment of meds Dyspepsia Plan Continue PT/OT ST has assessed and signed off Isotoner gloves for hand edema -done with improvement and Wraps for edema in legs-improving Replace K -done F/U with Dr Abe reid. Patient completed course of antibiotics last week-Discussed case with Clinical Pharmacist last week-F/U UC&S shows no growth Team Conference held 08/04/16 - See report for full functional update and POC and ELOS Monitor Blood pressure and edema and adjust meds as appropriate Pepcid and Mylanta for dyspepsia RAUL COLLIER MD Aug 06, 2016 07:57
[2016-08-06] MEDS: meTOprolol TARTRATE 50 MG (LOPRESSOR) TAB PO SCH ×2 (08:00→21:33)
[2016-08-06] MEDS: ETODOLAC 300 MG (LODINE) CAP PO SCH ×2 (08:00→21:34)
[2016-08-06] MEDS: amLODIPine 5 MG (NORVASC) TAB PO SCH (08:00)
[2016-08-06] MEDS: FAMOTIDINE 20 MG (PEPCID) TABLET PO SCH ×2 (08:00→21:33)
[2016-08-06] MEDS: lisINopril 20 MG (ZESTRIL) TAB PO SCH (08:00)
[2016-08-06] MEDS: KCL 20 MEQ TAB (K-DUR) PO SCH (08:03)
[2016-08-06] MEDS: RT-ALBUTEROL/IPRATROPIUM 3 ML (DUONEB) VIAL INH SCH ×3 (08:27→20:25)
--- NOTE | 2016-08-06 10:00 | Physical Therapy Daily Note ---
PT Daily Note-Current Subjective Patient in wheelchair pre tx, ready for PT. No pain, pleasant and cooperative. Appearance Patient in wheelchair at bedside post tx, has nurse call, phone, tray, in the room, all needs met. Mental Status Patient Orientation: Normal For Age Transfers Functional [place] Measure 0=Not Assessed/NA 4=Minimal Assistance 1=Total Assistance 5=Supervision or Setup 2=Maximal Assistance 6=Modified [place] 3=Moderate Assistance 7=Complete IndependenceIRFPAI Quality Coding Scale 6 Independent with activity with or without an assistive device 5 Patient requires set up or clean up by helper. Patient completes activity by themselves 4 Supervision or touching assist (CGA). [place] provide cues , steadying assist 3 The helper provides less than half the effort to complete the activity 2 The helper provides more than half the effort to complete the activity 1 Dependent. The helper does all the effort to complete an activity 7 Patient refused to complete or attempt activity 9 The patient did not perform the activity before the current illness or injury 88 Not attempted due to Medical conditions or safety concerns Transfers (B, C, W/C) (FIM): 4 Sit to/from Stand: 4 CGA, cues for hand placement Gait Training Gait (FIM): 2 Distance: 100'x4 Gait Level of Assist: 4 (CGA) Gait Persons Needed: 1 Gait Assistive Device: FWW smoother, more steady ambulation Wheelchair Training Does the Pt Use a Wheelchair?: Yes Wheelchair (FIM): 5 Distance: 150'x2 Wheelchair Level of Assist: 5 Type of Wheelchair: Manual Exercises NuStep Minutes: 15 NuStep Workload: 3 Treatments transfers, ambulation, functional strengthening, wheelchair mobility Assessment Current Status: Good Progress Patient has improved with transfers and ambulation, strength and endurance improving PT Short Term Goals Short Term Goals Time Frame: Aug 04, 2016 Gait (FIM): 1 Gait Distance Comment: 20' Gait Level of Assist: 3 Gait Assistive Device: FWW Wheelchair Distance: 150' PT Director Of Cloud Services Goals [facility]itentiary Goals PT Penitentiary Goals Time Frame: Aug 18, 2016 Transfers (B,C,W/C) (FIM): 4 Sit to Lying (QC): 4 Lying-Sitting on Side/Bed(QC): 4 Sit to Stand (QC): 3 Rollin Roll Left to Right (QC): 4 Chair/Hga-je-Ptoby Xfer(QC): 3 Car Transfer (QC): 3 Gait (FIM): 2 Distance: 50' Walk 10 feet (QC): 3 Walk 10ft-Uneven Surface(QC): 3 Walk 50ft with 2 Turns (QC): 3 Walk 150 ft (QC): 88 Gait Level of Assist: 4 Gait Assistive Device: FWW # of Steps: 1 1 Step (curb) (QC): 3 4 Steps (QC): 88 12 Steps (QC): 88 Stairs Level Of Assist: 4 Picking up an Object (QC): 88 PT Plan Problem List Problem List: Activity Tolerance, Functional Strength, Safety, Balance, Gait, Transfer Treatment/Plan Treatment Plan: Continue Plan of Care Treatment Plan: Bed Mobility, Education, Functional Activity Zeina, Functional Strength, Group Therapy, Gait, Safety, Therapeutic Exercise, Transfers Treatment Duration: Aug 18, 2016 Visits Per Week: 10-11 Minutes/Day (M-F): 60-90 Minutes/Day (Sat/Bunch): 15-30 Safety Risks/Education Patient Education: Gait Training, Transfer Techniques, W/C Management, Safety Issues Teaching Recipient: Patient Teaching Methods: Demonstration, Discussion Response to Teaching: Reinforcement Needed Time/GCodes Time In: 900 Time Out: 1000 Total Billed Treatment Time: 60 Total Billed Treatment 1 visit [facility] 15 min EX 15 min GT 30 min NOREEN DIAZ PT Aug 06, 2016 10:00
--- NOTE | 2016-08-06 11:24 | Occupational Ther Daily Note ---
OT Current Status-Daily Note Subjective Pt sitting in w/c. Pt stated she would like a shower. No pain mentioned. Agreeable to OT. Appearance Alert, Cooperative Mental Status/Objective Functional [place] Measure 0=Not Assessed/NA 4=Minimal Assistance 1=Total Assistance 5=Supervision or Setup 2=Maximal Assistance 6=Modified [place] 3=Moderate Assistance 7=Complete [place] ADL-Treatment Pt propelled to bathroom, without help. Pt transferred to shower bench from w/c , SBA. Pt used grab bars to stand and doff pants, brief, SBA. Pt sat on shower bench to doff blouse, slipper socks. Pt washed and dried all body parts except hair. Pt used grab bars to stand and wash front/back [place] area, shower bench, hand held shower, grab bars. Pt donned brief, pants while sitting on shower bench and using grab bars to stand to pull up brief, pants, set up. Pt sat back down on shower bench to don blouse. Pt used grab bars to transfer from shower bench to w/c. Pt propelled in front of sink to brush teeth and hair. Pt then propelled back to room, without help. Pt's both feet were bilaterally wrapped using the figure 8 to help decrease edema. Pt used Theraputty (medium) resistance to work on finger and ROM strength. Pt left sitting in w/c. Call light in hand. All needs met in room. Functional [place] Measure 0=Not Assessed/NA 4=Minimal Assistance 1=Total Assistance 5=Supervision or Setup 2=Maximal Assistance 6=Modified [place] 3=Moderate Assistance 7=Complete IndependenceIRFPAI Quality Coding Scale 6 Independent with activity with or without an assistive device 5 Patient requires set up or clean up by helper. Patient completes activity by themselves 4 Supervision or touching assist (CGA). [place] provide cues , steadying assist 3 The helper provides less than half the effort to complete the activity 2 The helper provides more than half the effort to complete the activity 1 Dependent. The helper does all the effort to complete an activity 7 Patient refused to complete or attempt activity 9 The patient did not perform the activity before the current illness or injury 88 Not attempted due to Medical conditions or safety concerns Grooming (FIM): 5 Bathing (FIM): 5 Bathing Location: L Arm, R Arm, L Upper Leg, R Upper Leg, L Lower Leg ( including foot), R Lower Leg (including foot), Chest, Abdomen, Buttocks, Perineal Area Upper Body (FIM): 5 Lower Body Dressing (FIM): 5 Transfers (B, C, W/C) (FIM): 5 Shower Transfer(FIM): 5 Education OT Patient Education: Exercise program, Progress toward Goal/Update tx plan, Purpose of tx/functional activities Teaching Recipient: Patient Teaching Methods: Demonstration, Discussion Response to Teaching: Verbalize Understanding, Return Demonstration OT Short Term Goals Short Term Goals Time Frame: Aug 04, 2016 Eating(FIM): 4 Grooming(FIM): 5 Bathing(FIM): 3 Upper Body Dressing(FIM): 4 Toilet/Commode Transfer(FIM): 3 1=Demonstrate adherence to instructed precautions during ADL tasks. 2=Patient will verbalize/demonstrate understanding of assistive devices/ modifications for ADL. 3=Patient will improve strength/tolerance for activity to enable patient to perform ADL's. OT Skidder Driver Goals [facility] Goals Time Frame: Aug 18, 2016 Eating (FIM): 6 Eating (QC): 6 Oral Hygiene (QC): 6 Grooming(FIM): 6 Bathing(FIM): 5 (setup) Shower/Bathe Self (QC): 5 (setup) Upper Body Dressing(FIM): 5 (setup) Upper Body Dressing (QC): 5 Lower Body Dressing(FIM): 5 Lower Body Dressing (QC): 5 On/Off Footwear (QC): 5 Toileting(FIM): 5 (setup) Toileting Hygiene (QC): 5 Toilet/Commode Transfer(FIM): 5 (setup) Toilet/Commode Transfer (QC): 5 Shower Transfer(FIM): 5 (SBA) Increase bilat UE strength to 4+/5 Increase dialysis registered nurse strength 50% Decreased edema bilat UEs to normal limits Additional Goals: 2-Verbalize Understanding, 3-ImproveStrength/Zeina 1=Demonstrate adherence to instructed precautions during ADL tasks. 2=Patient will verbalize/demonstrate understanding of assistive devices/ modifications for ADL. 3=Patient will improve strength/tolerance for activity to enable patient to perform ADL's. OT Education/Plan Problem List/Assessment Pt would benefit from skilled OT to increase her independence in basic self care to allow her to safely return home with family support after sepsis/ pneumonia with resultant weakness and decreased self care Discharge Recommendations Plan/Recommendations: Continue POC Treatment Plan/Plan of Care Patient would benefit from OT for education, treatment and training to promote independence in ADL's, mobility, safety and/or upper extremity function for ADL' s. Plan of Care: ADL Retraining, Functional Mobility, Group Exercise/Act as Ind ( education, exercise, activity tolerance, functional activities, socialization), UE Funct Exercise/Act, UE Neuromus Re-Ed/Coord, OTHER (edema management) Treatment Duration: Aug 18, 2016 Visits Per Week: 10-11 Minutes/Day (M-F): 75-90 Minutes/Day (Sat/Bunch): PRN Agreement: Yes Rehab Potential: Good Time/GCodes Start Time: 10:00 Stop Time: 11:00 Total Time Billed (hr/min): 60 Billed Treatment Time Visit, ADL,50 min, EX 10 min RYAN MELGAR Aug 06, 2016 11:24
--- NOTE | 2016-08-06 14:37 | Therapy Group Daily Note ---
Therapy Daily Group Note Exercises Fine Motor Other/Notes Pt participated socially by introducing self by name, place of and to describe favorite childhood games. Problem solving applied to ask and answer questions to complete cognitive activity. Fine motor activity used to increased dexterity,coordination and strengthening for daily functional tasks. Pt propelled back to room. Call light in reach, all needs met. Start Time: 13:00 Stop Time: 14:00 Total Billed Treatment Time: 60 Total Billed Treatment 1-GRP RYAN MELGAR Aug 06, 2016 14:37
[2016-08-06 18:14] VITALS: BP 109/61
[2016-08-06] MEDS: LORATADINE (CLARITIN) 10 MG TAB PO SCH (21:33)
[2016-08-06] MEDS: ESTRADIOL 1 MG TAB (ESTRACE) PO SCH (21:33)
[2016-08-06] MEDS: ENOXAPARIN 40 MG/0.4 ML (LOVENOX) SYR SC SCH (21:34)
[2016-08-07 06:00] VITALS: BP 113/71
[2016-08-07] MEDS: SUCRALFATE 1 GM (CARAFATE) TAB PO SCH ×4 (06:28→20:08)
[2016-08-07] MEDS: FUROSEMIDE 40 MG (LASIX) TAB PO SCH (06:28)
[2016-08-07] MEDS: LEVOTHYROXINE 50 MCG (LEVOTHROID) TAB PO SCH (06:28)
[2016-08-07] MEDS: LACTOBACILLUS Acidoph/Bulgar (LACTINEX/FLORANEX) TAB PO SCH ×3 (06:28→16:24)
[2016-08-07] MEDS: RT-ALBUTEROL/IPRATROPIUM 3 ML (DUONEB) VIAL INH SCH ×3 (06:37→19:39)
[2016-08-07] MEDS: KCL 20 MEQ TAB (K-DUR) PO SCH (08:10)
[2016-08-07] MEDS: meTOprolol TARTRATE 50 MG (LOPRESSOR) TAB PO SCH ×2 (08:10→20:08)
[2016-08-07] MEDS: FAMOTIDINE 20 MG (PEPCID) TABLET PO SCH ×2 (08:10→20:08)
[2016-08-07] MEDS: amLODIPine 5 MG (NORVASC) TAB PO SCH (08:10)
[2016-08-07] MEDS: lisINopril 20 MG (ZESTRIL) TAB PO SCH (08:10)
[2016-08-07] MEDS: ETODOLAC 300 MG (LODINE) CAP PO SCH ×2 (08:10→20:09)
--- NOTE | 2016-08-07 08:53 | Physical Therapy Daily Note ---
PT Daily Note-Current Subjective Agrees. Going on a home pass today. Has 2 steps to get into her house Mental Status Patient Orientation: Person, Place, Time, Situation Transfers Functional [place] Measure 0=Not Assessed/NA 4=Minimal Assistance 1=Total Assistance 5=Supervision or Setup 2=Maximal Assistance 6=Modified [place] 3=Moderate Assistance 7=Complete IndependenceIRFPAI Quality Coding Scale 6 Independent with activity with or without an assistive device 5 Patient requires set up or clean up by helper. Patient completes activity by themselves 4 Supervision or touching assist (CGA). [place] provide cues , steadying assist 3 The helper provides less than half the effort to complete the activity 2 The helper provides more than half the effort to complete the activity 1 Dependent. The helper does all the effort to complete an activity 7 Patient refused to complete or attempt activity 9 The patient did not perform the activity before the current illness or injury 88 Not attempted due to Medical conditions or safety concerns Pt sitting EOB when PT entered. Pt is CGA with sit to stand transfers all attempts. Pt tends to transfer stand to sit without reaching back for chair and drops into the chair. Education on safety with this transfer. Gait Training Pt ambulated 100 ft x 2, 50 ft x 1 and 200 ft x 1 with FWW with CGA. Up/down 2 steps with close CGA and to descend the steps, she did it backwards. Unable to go additional steps due to LE fatigue. Assessment Current Status: Good Progress Functional gait and transfers are improving. Fatigues quickly. Poor foot clearance bilaterally with gait. Difficulty on stairs due to LE weakness. PT Short Term Goals Short Term Goals Time Frame: Aug 04, 2016 Gait (FIM): 1 (met ) Gait Distance Comment: 20' Gait Level of Assist: 3 Gait Assistive Device: FWW Wheelchair Distance: 150'x2 PT Snf Goals Ceramic Tile Mechanic Goals PT Ceramic Tile Mechanic Goals Time Frame: Aug 18, 2016 Transfers (B,C,W/C) (FIM): 4 Sit to Lying (QC): 4 Lying-Sitting on Side/Bed(QC): 4 Sit to Stand (QC): 3 Rollin Roll Left to Right (QC): 4 Chair/Xcr-ct-Itcwz Xfer(QC): 3 Car Transfer (QC): 3 Gait (FIM): 2 Distance: 50' Walk 10 feet (QC): 3 Walk 10ft-Uneven Surface(QC): 3 Walk 50ft with 2 Turns (QC): 3 Walk 150 ft (QC): 88 Gait Level of Assist: 4 Gait Assistive Device: FWW # of Steps: 1 1 Step (curb) (QC): 3 4 Steps (QC): 88 12 Steps (QC): 88 Stairs Level Of Assist: 4 Picking up an Object (QC): 88 PT Plan Problem List Problem List: Activity Tolerance, Functional Strength, Safety, Gait, Transfer Treatment/Plan Treatment Plan: Continue Plan of Care Treatment Plan: Bed Mobility, Education, Functional Activity [place], Functional Strength, Group Therapy, Gait, Safety, Therapeutic Exercise, Transfers Treatment Duration: Aug 18, 2016 Visits Per Week: 10-11 Minutes/Day (M-F): 60-90 Minutes/Day (Sat/Bunch): 15-30 Safety Risks/Education Patient Education: Transfer Techniques, Safety Issues Teaching Recipient: Patient Teaching Methods: Discussion Response to Teaching: Reinforcement Needed Time/GCodes Time In: 800 Time Out: 830 Total Billed Treatment Time: 30 Total Billed Treatment visit GT 30 RYAN PEREZ PT Aug 07, 2016 08:53
--- NOTE | 2016-08-07 12:48 | Progress Note (SOAP) ---
Subjective Subjective/Events-last exam Fwup recent vent-dependent respiratory failure, recent pneumonia with Strep pneumo sepsis, recent septic shock with hypotension/renal failure and elevated LFTs, edema, HTN. Swelling much improved. Objective Exam Vital Signs Date Time Temp Pulse Resp B/P Pulse Ox O2 Delivery O2 Flow Rate FiO2 08/07/16 09:00 Room Air 08/07/16 06:37 93 08/07/16 06:00 96.6 86 20 113/71 96 Room Air 08/06/16 21:00 Room Air 08/06/16 20:25 92 08/06/16 18:14 97.8 98 18 109/61 95 Room Air 08/06/16 14:39 93 I & O 08/07/16 07:00 Intake Total 1560 ml Balance 1560 ml Capillary Refill : General Appearance: No Apparent Distress Neck: Supple Respiratory: Lungs Clear Cardiovascular: Regular Rate, Rhythm Gallop/S3 Gastrointestinal: normal bowel sounds non tender soft Extremity: Non Tender No Calf Tenderness Swelling (much improved ) Neurologic/Psychiatric: Alert Oriented x3 Results Lab Microbiology 08/02/16 Urine Culture - Final, Complete NO GROWTH Assessment/Plan Assessment/Plan Assess & Plan/Chief Complaint 1. Pneumonia with Strep Pneumo--off abx since last week, CXR shows bibasilar atelectesis 2. Anasarca--improved, decrease lasix and potassium dose 3. Hypertension with some hypotension--continue decreased amlodopine dose and monitor BP with decreased dose of lasix 4. Weakness--continue PT/OT 5. Allergic Rhinitis--added flonase 6. Hypokalemia--improved with increased potassium dose, repeat CMP in AM 7. Left Flank Pain--improving, likely from atelectesis so will focus on IS Diagnosis/Problems: Clinical Quality Measures DVT/VTE Risk/Contraindication: Risk Factor Score Per Nursin RFS Level Per Nursing on Admit: 4+=Very High KINDRA RHODES DO Aug 07, 2016 12:48
[2016-08-07 18:49] VITALS: BP 115/72
[2016-08-07] MEDS: LORATADINE (CLARITIN) 10 MG TAB PO SCH (20:08)
[2016-08-07] MEDS: ESTRADIOL 1 MG TAB (ESTRACE) PO SCH (20:08)
[2016-08-07] MEDS: ENOXAPARIN 40 MG/0.4 ML (LOVENOX) SYR SC SCH (20:09)
[2016-08-08 04:23] VITALS: BP 106/71
[2016-08-08] MEDS: SUCRALFATE 1 GM (CARAFATE) TAB PO SCH ×4 (06:11→20:30)
[2016-08-08] MEDS: LACTOBACILLUS Acidoph/Bulgar (LACTINEX/FLORANEX) TAB PO SCH ×3 (06:11→18:39)
[2016-08-08] MEDS: FUROSEMIDE 40 MG (LASIX) TAB PO SCH (06:11)
[2016-08-08] MEDS: LEVOTHYROXINE 50 MCG (LEVOTHROID) TAB PO SCH (06:11)
[2016-08-08 06:25] LABS: ALANINE AMINOTRANSFERASE 48 U/L (0-55); ALBUMIN 3.4 G/DL (3.2-4.5); ANION GAP 11 MMOL/L (5-14); ASPARTATE AMINO TRANSFERASE 22 U/L (5-34); BILIRUBIN,TOTAL 0.4 MG/DL (0.1-1.0); BLOOD UREA NITROGEN 13 MG/DL (7-18); BUN/CREATININE RATIO 21; CALCIUM 8.8 MG/DL (8.5-10.1); CARBON DIOXIDE 20 MMOL/L (21-32); CHLORIDE 107 MMOL/L (98-107); CREATININE SERUM 0.63 MG/DL (0.60-1.30); GFR ESTIMATED > 60; GLUCOSE 95 MG/DL (70-105); POTASSIUM 4.2 MMOL/L (3.6-5.0); SODIUM 138 MMOL/L (135-145)
[2016-08-08] MEDS: RT-ALBUTEROL/IPRATROPIUM 3 ML (DUONEB) VIAL INH SCH ×3 (07:46→19:15)
[2016-08-08] MEDS: ETODOLAC 300 MG (LODINE) CAP PO SCH ×2 (08:00→20:30)
[2016-08-08] MEDS: lisINopril 20 MG (ZESTRIL) TAB PO SCH (08:01)
[2016-08-08] MEDS: meTOprolol TARTRATE 50 MG (LOPRESSOR) TAB PO SCH ×2 (08:01→20:30)
[2016-08-08] MEDS: FAMOTIDINE 20 MG (PEPCID) TABLET PO SCH ×2 (08:01→20:30)
[2016-08-08] MEDS: amLODIPine 5 MG (NORVASC) TAB PO SCH (08:01)
[2016-08-08] MEDS: KCL 20 MEQ TAB (K-DUR) PO SCH (08:01)
[2016-08-08 18:00] VITALS: BP 101/60
[2016-08-08] MEDS: ENOXAPARIN 40 MG/0.4 ML (LOVENOX) SYR SC SCH (20:30)
[2016-08-08] MEDS: ESTRADIOL 1 MG TAB (ESTRACE) PO SCH (20:30)
[2016-08-08] MEDS: LORATADINE (CLARITIN) 10 MG TAB PO SCH (20:30)
[2016-08-09 05:54] VITALS: BP 100/65
[2016-08-09] MEDS: LEVOTHYROXINE 50 MCG (LEVOTHROID) TAB PO SCH (06:58)
[2016-08-09] MEDS: SUCRALFATE 1 GM (CARAFATE) TAB PO SCH ×4 (06:58→20:33)
[2016-08-09] MEDS: FUROSEMIDE 40 MG (LASIX) TAB PO SCH (06:58)
[2016-08-09] MEDS: LACTOBACILLUS Acidoph/Bulgar (LACTINEX/FLORANEX) TAB PO SCH ×3 (06:58→15:57)
[2016-08-09] MEDS: RT-ALBUTEROL/IPRATROPIUM 3 ML (DUONEB) VIAL INH SCH ×2 (07:46→15:54)
[2016-08-09] MEDS: FAMOTIDINE 20 MG (PEPCID) TABLET PO SCH ×2 (08:31→20:33)
[2016-08-09] MEDS: ETODOLAC 300 MG (LODINE) CAP PO SCH ×2 (08:31→20:35)
[2016-08-09] MEDS: amLODIPine 5 MG (NORVASC) TAB PO SCH (08:31)
[2016-08-09] MEDS: lisINopril 20 MG (ZESTRIL) TAB PO SCH (08:31)
[2016-08-09] MEDS: KCL 20 MEQ TAB (K-DUR) PO SCH (08:31)
[2016-08-09] MEDS: meTOprolol TARTRATE 50 MG (LOPRESSOR) TAB PO SCH ×2 (08:31→20:33)
--- NOTE | 2016-08-09 09:13 | Physical Therapy Daily Note ---
PT Daily Note-Current Subjective Pt. agrees to Rx. States she is making slow progress but still has weak dorsiflexion and tight calves. Pt. states she went home both Sat and Sun and fell both days. States she picked her up one day and the other time she scooted to the next room on her bottom Pain Numeric Pain Scale: 0-No Pain Mental Status Patient Orientation: Normal For Age Transfers Functional [place] Measure 0=Not Assessed/NA 4=Minimal Assistance 1=Total Assistance 5=Supervision or Setup 2=Maximal Assistance 6=Modified [place] 3=Moderate Assistance 7=Complete IndependenceIRFPAI Quality Coding Scale 6 Independent with activity with or without an assistive device 5 Patient requires set up or clean up by helper. Patient completes activity by themselves 4 Supervision or touching assist (CGA). [place] provide cues , steadying assist 3 The helper provides less than half the effort to complete the activity 2 The helper provides more than half the effort to complete the activity 1 Dependent. The helper does all the effort to complete an activity 7 Patient refused to complete or attempt activity 9 The patient did not perform the activity before the current illness or injury 88 Not attempted due to Medical conditions or safety concerns Transfers (B, C, W/C) (FIM): 5 Scootin Rollin Supine to/from Sit: 6 Sit to/from Stand: 5 Bed to/from Chair: 5 Gait Training Does the Patient Walk?: Yes Gait (FIM): 2 Distance (FIM): 4=480-53 ft (100x3) Gait Level of Assist: 4 Gait Persons Needed: 1 Gait Assistive Device: FWW foot drop noted, gait CGA with w/c behind as pt. spoke of right knee buckling. Pt. educated in broader CARIE and warned against the crossovers that this MEDICAL PRACTICE MANAGER observed with turning. Wheelchair Training Does the Pt Use a Wheelchair?: Yes Wheelchair (FIM): 5 Wheelchair Distance: 3=150 ft (150) Wheelchair Level of Assist: 5 Type of Wheelchair: Manual Exercises Supine Ex: Bridging, Ankle pumps, Quad Set, Rolling, Glut sets, Heel Slides, Short Arc Quads, Scooting, Straight leg raise, Hip abd/add Supine Reps: 15 Seated Therapy Exercises: Ankle pumps (HC stretches and PAAROM bilat DF), Sit to stand, Long arc quads, Hip flexion, Hip abd/add Seated Reps: 12 sidelying clam shells and abd x 8 (pt fatiguing quickly) NuStep Minutes: 10 NuStep Workload: 3 Treatments pt. also performed leg presses x 12 on nustep with this MEDICAL PRACTICE MANAGER holding lever up so pt could do so Assessment Current Status: Good Progress will plan to cont emphasis on right knee stability , stair safety and gait safety as well as DF PT Short Term Goals Short Term Goals Time Frame: Aug 04, 2016 Gait (FIM): 1 (met ) Gait Distance Comment: 20' Gait Level of Assist: 3 Gait Assistive Device: FWW Wheelchair Distance: 150'x2 PT [facility] Goals Heel Cementer Goals PT Heel Cementer Goals Time Frame: Aug 18, 2016 Transfers (B,C,W/C) (FIM): 4 Sit to Lying (QC): 4 Lying-Sitting on Side/Bed(QC): 4 Sit to Stand (QC): 3 Rollin Roll Left to Right (QC): 4 Chair/Zgu-ex-Hmxcb Xfer(QC): 3 Car Transfer (QC): 3 Gait (FIM): 2 Distance: 50' Walk 10 feet (QC): 3 Walk 10ft-Uneven Surface(QC): 3 Walk 50ft with 2 Turns (QC): 3 Walk 150 ft (QC): 88 Gait Level of Assist: 4 Gait Assistive Device: FWW # of Steps: 1 1 Step (curb) (QC): 3 4 Steps (QC): 88 12 Steps (QC): 88 Stairs Level Of Assist: 4 Picking up an Object (QC): 88 PT Plan Treatment/Plan Treatment Plan: Continue Plan of Care Treatment Plan: Bed Mobility, Education, Functional Activity Ze[place], Functional Strength, Group Therapy, Gait, Safety, Therapeutic Exercise, Transfers Treatment Duration: Aug 18, 2016 Visits Per Week: 10-11 Minutes/Day (M-F): 60-90 Minutes/Day (Sat/Bunch): 15-30 Safety Risks/Education Patient Education: Gait Training, Transfer Techniques, Correct Positioning, W/ C Management, Disease Process, Safety Issues Teaching Recipient: Patient Teaching Methods: Demonstration, Discussion Response to Teaching: Verbalize Understanding, Return Demonstration, Reinforcement Needed Time/GCodes Time In: 815 Time Out: 915 Total Billed Treatment Time: 60 Total Billed Treatment 1,EX30m,FA30m G Codes Necessary: MORENA Grady MEDICAL PRACTICE MANAGER Aug 09, 2016 09:13
--- NOTE | 2016-08-09 11:41 | Occupational Ther Daily Note ---
OT Current Status-Daily Note Subjective Pt sitting in w/c. Pt stated she would like to shower. Agreeable to OT. Appearance Alert, Cooperative Mental Status/Objective Functional [place] Measure 0=Not Assessed/NA 4=Minimal Assistance 1=Total Assistance 5=Supervision or Setup 2=Maximal Assistance 6=Modified [place] 3=Moderate Assistance 7=Complete [place] ADL-Treatment Pt stated she had already brushed her teeth prior to therapy. Pt transferred from w/c to shower bench, mod I, with pt holding on to grab bars and pulling down pants half way. Pt sat back down on shower bench to complete doffing pants , briefs. Pt washed/dried all body parts using hand held shower, grab bars, shower bench. Pt transferred from shower bench to w/c, mod I. Pt propelled self back to room to don blouse, pants, socks while sitting in w/c. Pt used FWW for balance to pull pants, brief over buttocks then min A due to assisting pulling pants and brief over abdomen. Functional [place] Measure 0=Not Assessed/NA 4=Minimal Assistance 1=Total Assistance 5=Supervision or Setup 2=Maximal Assistance 6=Modified [place] 3=Moderate Assistance 7=Complete IndependenceIRFPAI Quality Coding Scale 6 Independent with activity with or without an assistive device 5 Patient requires set up or clean up by helper. Patient completes activity by themselves 4 Supervision or touching assist (CGA). [place] provide cues , steadying assist 3 The helper provides less than half the effort to complete the activity 2 The helper provides more than half the effort to complete the activity 1 Dependent. The helper does all the effort to complete an activity 7 Patient refused to complete or attempt activity 9 The patient did not perform the activity before the current illness or injury 88 Not attempted due to Medical conditions or safety concerns Grooming (FIM): 6 Bathing (FIM): 6 Bathing Location: L Arm, R Arm, L Upper Leg, R Upper Leg, L Lower Leg ( including foot), R Lower Leg (including foot), Chest, Abdomen, Buttocks, Perineal Area Upper Body (FIM): 5 Lower Body Dressing (FIM): 4 Transfers (B, C, W/C) (FIM): 6 Shower Transfer(FIM): 6 Other Treatment Pt used arm bike for strengthening 12 min 10 kasper resistance (time increased by 2 minutes, previous time 10 min 10 kasper resistance 08/03/16). Pt worked on grasping, by placing and releasing 1" pegs. Pt worked on pincer grasp using Nuts and Bolts wearing 1/2# wrists weights on each wrist. Pt propelled self back to room. Pt left in w/c, call light in reach. All needs met. Education OT Patient Education: Exercise program, Progress toward Goal/Update tx plan, Purpose of tx/functional activities Teaching Recipient: Patient Teaching Methods: Demonstration, Discussion Response to Teaching: Verbalize Understanding, Return Demonstration OT Short Term Goals Short Term Goals Time Frame: Aug 04, 2016 Eating(FIM): 4 Grooming(FIM): 5 Bathing(FIM): 3 Upper Body Dressing(FIM): 4 Toilet/Commode Transfer(FIM): 3 1=Demonstrate adherence to instructed precautions during ADL tasks. 2=Patient will verbalize/demonstrate understanding of assistive devices/ modifications for ADL. 3=Patient will improve strength/tolerance for activity to enable patient to perform ADL's. OT Custodial Goals Plastic Battery Assembler Goals Time Frame: Aug 18, 2016 Eating (FIM): 6 Eating (QC): 6 Oral Hygiene (QC): 6 Grooming(FIM): 6 Bathing(FIM): 5 (setup) Shower/Bathe Self (QC): 5 (setup) Upper Body Dressing(FIM): 5 (setup) Upper Body Dressing (QC): 5 Lower Body Dressing(FIM): 5 Lower Body Dressing (QC): 5 On/Off Footwear (QC): 5 Toileting(FIM): 5 (setup) Toileting Hygiene (QC): 5 Toilet/Commode Transfer(FIM): 5 (setup) Toilet/Commode Transfer (QC): 5 Shower Transfer(FIM): 5 (SBA) Increase bilat UE strength to 4+/5 Increase ad clerk strength 50% Decreased edema bilat UEs to normal limits Additional Goals: 2-Verbalize Understanding, 3-ImproveStrength/[place] 1=Demonstrate adherence to instructed precautions during ADL tasks. 2=Patient will verbalize/demonstrate understanding of assistive devices/ modifications for ADL. 3=Patient will improve strength/tolerance for activity to enable patient to perform ADL's. OT Education/Plan Problem List/Assessment Pt would benefit from skilled OT to increase her independence in basic self care to allow her to safely return home with family support after sepsis/ pneumonia with resultant weakness and decreased self care Discharge Recommendations Plan/Recommendations: Continue POC Treatment Plan/Plan of Care Patient would benefit from OT for education, treatment and training to promote independence in ADL's, mobility, safety and/or upper extremity function for ADL' s. Plan of Care: ADL Retraining, Functional Mobility, Group Exercise/Act as Ind ( education, exercise, activity tolerance, functional activities, socialization), UE Funct Exercise/Act, UE Neuromus Re-Ed/Coord, OTHER (edema management) Treatment Duration: Aug 18, 2016 Visits Per Week: 10-11 Minutes/Day (M-F): 75-90 Minutes/Day (Sat/Bunch): PRN Agreement: Yes Rehab Potential: Good Time/GCodes Start Time: 10:00 Stop Time: 11:00 Total Time Billed (hr/min): 60 Billed Treatment Time visit, ADL 30 min, EX 30 min RYAN MELGAR Aug 09, 2016 11:41
--- NOTE | 2016-08-09 15:00 | Therapy Group Daily Note ---
Therapy Daily Group Note Patient Education Topic Exercises, Other List Below (education on transfers and equipment) Exercises LE Seated Exercise, UE Exercise Other/Notes Pt propelled self to therapy, without assistance. Pt participated socially by introducing self, currently living and to describe her biggest fear. Pt held a conversation by describing how she would manage her fears. UE/LE seated exercises were completed, education on benefits of LE exercises to decrease blood clots and increase circulation. UE/LE light resistance theraband completed while seated to promote safe transfers. Transfer techniques and equipment used to assist with transfers were discussed and examples were given on how to properly transfer from surface to surface. Pt propelled back to room. Call light in hand. All needs met. Start Time: 13:00 Stop Time: 14:20 Total Billed Treatment Time: 80 Total Billed Treatment 1-RYAN CASTELLON Aug 09, 2016 15:00
[2016-08-09] MEDS ORDERED: RT-ALBUTEROL/IPRATROPIUM 3 ML (DUONEB) VIAL INH PRN (18:00)
[2016-08-09 18:30] VITALS: BP 114/69
--- NOTE | 2016-08-09 20:23 | PM & R (SOAP) Progress Note ---
Subjective Subjective/Events-last exam Patient was seen in her room this evening Discussed case with RN Patient had day pass this weekend to home and reports falling twice-reports that her rt knee gave out Denies any injury Patient SBA for transfers and can active hip flex and SLR on rt Objective Exam Last Set of Vital Signs Vital Signs Date Time Temp Pulse Resp B/P Pulse Ox O2 Delivery O2 Flow Rate FiO2 08/09/16 18:30 98.7 109 22 114/69 94 Room Air 08/05/16 06:29 96 Capillary Refill : I&O Intake and Output 08/09/16 00:00 Intake Total 240 ml Balance 240 ml Intake Oral 240 ml # Voids 4 General: Alert, Oriented X3, Cooperative, No Acute Distress HEENT: Atraumatic, PERRLA, EOMI, Mucous Memb Moist/[place] Neck: Supple, No JVD Lungs: Clear to Auscultation Heart: Regular Rate Abdomen: Normal Bowel Sounds, Soft, No Tenderness Extremities: Other Neuro: Other Results Lab Laboratory Tests 08/08/16 05:55: Alanine Aminotransferase (ALT/SGPT) 48, Albumin 3.4, Alkaline Phosphatase 91, Anion Gap 11, Aspartate Amino Transf (AST/SGOT) 22, BUN/Creatinine Ratio 21, Blood Urea Nitrogen 13, Calcium Level 8.8, Carbon Dioxide Level 20L, Chloride Level 107, Creatinine 0.63, Estimat Glomerular Filtration Rate > 60, Glucose Level 95, Potassium Level 4.2, Sodium Level 138, Total Bilirubin 0.4, Total Protein 6.0L Microbiology 08/02/16 Urine Culture - Final, Complete NO GROWTH Assessment/Plan Assessment General debil/probable Critical care illness s/p Pneumonia and resp failure associated with sepsis and Vent support for 7 days Anasarca with Peripheral edma related to above being treated as per above- improved Hypokalemia-replaced hypertension with episodes of hypotension improved with adjustment of meds Dyspepsia-improved Fall at home during day pass no injury sustained Plan Continue PT/OT ST has assessed and signed off Isotoner gloves for hand edema -done with improvement and Wraps for edema in legs-improving Replace K -done F/U with Dr Abe reid. Patient completed course of antibiotics last week-Discussed case with Clinical Pharmacist last week-F/U UC&S shows no grow Monitor Blood pressure and edema and adjust meds as appropriate Pepcid and Mylanta for dyspepsia-done F/U with staff re fall risk issues Team Conference 08/11/16 RAUL COLLIER MD Aug 09, 2016 20:23
[2016-08-09] MEDS: LORATADINE (CLARITIN) 10 MG TAB PO SCH (20:33)
[2016-08-09] MEDS: ESTRADIOL 1 MG TAB (ESTRACE) PO SCH (20:34)
[2016-08-09] MEDS: ENOXAPARIN 40 MG/0.4 ML (LOVENOX) SYR SC SCH (20:34)
[2016-08-10 06:00] VITALS: BP 117/76
[2016-08-10] MEDS: FUROSEMIDE 40 MG (LASIX) TAB PO SCH (06:54)
[2016-08-10] MEDS: LACTOBACILLUS Acidoph/Bulgar (LACTINEX/FLORANEX) TAB PO SCH ×3 (06:54→16:43)
[2016-08-10] MEDS: SUCRALFATE 1 GM (CARAFATE) TAB PO SCH ×4 (06:54→20:49)
[2016-08-10] MEDS: LEVOTHYROXINE 50 MCG (LEVOTHROID) TAB PO SCH (06:54)
[2016-08-10] MEDS: FAMOTIDINE 20 MG (PEPCID) TABLET PO SCH ×2 (08:03→20:49)
[2016-08-10] MEDS: ETODOLAC 300 MG (LODINE) CAP PO SCH ×2 (08:04→20:49)
[2016-08-10] MEDS: lisINopril 20 MG (ZESTRIL) TAB PO SCH (08:04)
[2016-08-10] MEDS: meTOprolol TARTRATE 50 MG (LOPRESSOR) TAB PO SCH ×2 (08:04→20:49)
[2016-08-10] MEDS: KCL 20 MEQ TAB (K-DUR) PO SCH (08:04)
[2016-08-10] MEDS: amLODIPine 5 MG (NORVASC) TAB PO SCH (08:04)
--- NOTE | 2016-08-10 08:34 | Occupational Ther Daily Note ---
OT Current Status-Daily Note Subjective Pt alert, sitting in w/c. Pt agreed to therapy. Pt stated that she didn't sleep very well last night. No c/o pain at this time. Mental Status/Objective Patient Orientation: Person, Place, Time, Situation Functional [place] Measure 0=Not Assessed/NA 4=Minimal Assistance 1=Total Assistance 5=Supervision or Setup 2=Maximal Assistance 6=Modified [place] 3=Moderate Assistance 7=Complete [place] ADL-Treatment Pt had already gotten ready for the day prior to OT. Pt requested to go to therapy gym. Functional [place] Measure 0=Not Assessed/NA 4=Minimal Assistance 1=Total Assistance 5=Supervision or Setup 2=Maximal Assistance 6=Modified [place] 3=Moderate Assistance 7=Complete IndependenceIRFPAI Quality Coding Scale 6 Independent with activity with or without an assistive device 5 Patient requires set up or clean up by helper. Patient completes activity by themselves 4 Supervision or touching assist (CGA). [place] provide cues , steadying assist 3 The helper provides less than half the effort to complete the activity 2 The helper provides more than half the effort to complete the activity 1 Dependent. The helper does all the effort to complete an activity 7 Patient refused to complete or attempt activity 9 The patient did not perform the activity before the current illness or injury 88 Not attempted due to Medical conditions or safety concerns Other Treatment Pt maneuvered w/c to therapy gym by self. Arm bike completed for 12 min at 10 kasper resistance to increase strength and activity tolerance for daily functional tasks (no breaks). Pt then completed fine motor tasks to increase strength, coordination and dexterity while completing functional tasks. Pt worked on fluency of writing name since she has voiced concerns about not being able to write legibly. Pt was able to print name legibly with paper flat on table with marker for decreased resistance while writing. Pt given exercises to work on in down time to increase strength and coordination for fine motor skills. After therapy, pt sitting in w/c with call light/phone in reach. All needs met in room. OT Short Term Goals Short Term Goals Time Frame: Aug 04, 2016 Eating(FIM): 4 Grooming(FIM): 5 Bathing(FIM): 3 Upper Body Dressing(FIM): 4 Toilet/Commode Transfer(FIM): 3 1=Demonstrate adherence to instructed precautions during ADL tasks. 2=Patient will verbalize/demonstrate understanding of assistive devices/ modifications for ADL. 3=Patient will improve strength/tolerance for activity to enable patient to perform ADL's. OT Repairer And Checker Goals Jail Goals Time Frame: Aug 18, 2016 Eating (FIM): 6 Eating (QC): 6 Oral Hygiene (QC): 6 Grooming(FIM): 6 Bathing(FIM): 5 (setup) Shower/Bathe Self (QC): 5 (setup) Upper Body Dressing(FIM): 5 (setup) Upper Body Dressing (QC): 5 Lower Body Dressing(FIM): 5 Lower Body Dressing (QC): 5 On/Off Footwear (QC): 5 Toileting(FIM): 5 (setup) Toileting Hygiene (QC): 5 Toilet/Commode Transfer(FIM): 5 (setup) Toilet/Commode Transfer (QC): 5 Shower Transfer(FIM): 5 (SBA) Increase bilat UE strength to 4+/5 Increase corporate technical recruiter strength 50% Decreased edema bilat UEs to normal limits Additional Goals: 2-Verbalize Understanding, 3-ImproveStrength/[place] 1=Demonstrate adherence to instructed precautions during ADL tasks. 2=Patient will verbalize/demonstrate understanding of assistive devices/ modifications for ADL. 3=Patient will improve strength/tolerance for activity to enable patient to perform ADL's. OT Education/Plan Problem List/Assessment Pt would benefit from skilled OT to increase her independence in basic self care to allow her to safely return home with family support after sepsis/ pneumonia with resultant weakness and decreased self care Discharge Recommendations Plan/Recommendations: Continue POC Treatment Plan/Plan of Care Patient would benefit from OT for education, treatment and training to promote independence in ADL's, mobility, safety and/or upper extremity function for ADL' s. Plan of Care: ADL Retraining, Functional Mobility, Group Exercise/Act as Ind ( education, exercise, activity tolerance, functional activities, socialization), UE Funct Exercise/Act, UE Neuromus Re-Ed/Coord, OTHER (edema management) Treatment Duration: Aug 18, 2016 Visits Per Week: 10-11 Minutes/Day (M-F): 75-90 Minutes/Day (Sat/Bunch): PRN Agreement: Yes Rehab Potential: Good Time/GCodes Start Time: 07:00 Stop Time: 08:00 Total Time Billed (hr/min): 60 Billed Treatment Time 1 visit-EX 4 (60 min) RYAN MELGAR Aug 10, 2016 08:34
--- NOTE | 2016-08-10 09:18 | Physical Therapy Daily Note ---
PT Daily Note-Current Subjective Pt. agrees to Rx. Willing to try to wear her shoes today. Feels she is making continued progress, slowly Pain Numeric Pain Scale: 0-No Pain Mental Status Patient Orientation: Normal For Age Transfers Functional [place] Measure 0=Not Assessed/NA 4=Minimal Assistance 1=Total Assistance 5=Supervision or Setup 2=Maximal Assistance 6=Modified [place] 3=Moderate Assistance 7=Complete IndependenceIRFPAI Quality Coding Scale 6 Independent with activity with or without an assistive device 5 Patient requires set up or clean up by helper. Patient completes activity by themselves 4 Supervision or touching assist (CGA). [place] provide cues , steadying assist 3 The helper provides less than half the effort to complete the activity 2 The helper provides more than half the effort to complete the activity 1 Dependent. The helper does all the effort to complete an activity 7 Patient refused to complete or attempt activity 9 The patient did not perform the activity before the current illness or injury 88 Not attempted due to Medical conditions or safety concerns Transfers (B, C, W/C) (FIM): 5 Scootin Rollin Supine to/from Sit: 5 Sit to/from Stand: 5 TRFd on off mat table set at high level like her bed at home Gait Training Does the Patient Walk?: Yes Gait (FIM): 2 Distance (FIM): 5=395-34 ft (100x3) Gait Level of Assist: 4 Gait Persons Needed: 1 Gait Assistive Device: FWW CGA secondary to pts. reports and history of melting during gait. Pt. wore her athletic shoes for gait for the first time today and this seemed to improve her DF somewhat Wheelchair Training Does the Pt Use a Wheelchair?: Yes Wheelchair (FIM): 4 Wheelchair Distance: 3=150 ft Wheelchair Level of Assist: 4 Type of Wheelchair: Manual pt. needs assist on ramp Exercises Supine Ex: Bridging, Ankle pumps, Pelvic tilt, Quad Set, Rolling, Glut sets, Lower trunk rotation, Heel Slides, Short Arc Quads, Scooting, Straight leg raise , Hip abd/add Supine Reps: 15 Seated Therapy Exercises: Ankle pumps, Sit to stand, Long arc quads, Hip flexion, Hip abd/add Seated Reps: 10 concentrated on bilat ankle DF and PAAROM, HC stretches x 3 x 20s ea Assessment Current Status: Good Progress PT Short Term Goals Short Term Goals Time Frame: Aug 04, 2016 Gait (FIM): 1 (met ) Gait Distance Comment: 20' Gait Level of Assist: 3 Gait Assistive Device: FWW Wheelchair Distance: 150'x2 PT Half-Way Goals Labor And Delivery Registered Nurse Goals PT Half-Way Goals Time Frame: Aug 18, 2016 Transfers (B,C,W/C) (FIM): 4 Sit to Lying (QC): 4 Lying-Sitting on Side/Bed(QC): 4 Sit to Stand (QC): 3 Rollin Roll Left to Right (QC): 4 Chair/Rfu-vf-Pvizq Xfer(QC): 3 Car Transfer (QC): 3 Gait (FIM): 2 Distance: 50' Walk 10 feet (QC): 3 Walk 10ft-Uneven Surface(QC): 3 Walk 50ft with 2 Turns (QC): 3 Walk 150 ft (QC): 88 Gait Level of Assist: 4 Gait Assistive Device: FWW # of Steps: 1 1 Step (curb) (QC): 3 4 Steps (QC): 88 12 Steps (QC): 88 Stairs Level Of Assist: 4 Picking up an Object (QC): 88 PT Plan Treatment/Plan Treatment Plan: Continue Plan of Care Treatment Plan: Bed Mobility, Education, Functional Activity [place], Functional Strength, Group Therapy, Gait, Safety, Therapeutic Exercise, Transfers Treatment Duration: Aug 18, 2016 Visits Per Week: 10-11 Minutes/Day (M-F): 60-90 Minutes/Day (Sat/Bunch): 15-30 Safety Risks/Education Patient Education: Gait Training, Transfer Techniques, Correct Positioning, W/ C Management (consistent brake locking), Disease Process (educated RE: nueropathies), Safety Issues (educa RE: broader CARIE leigh with turns) Teaching Recipient: Patient Teaching Methods: Demonstration, Discussion Response to Teaching: Verbalize Understanding, Return Demonstration, Reinforcement Needed Time/GCodes Time In: 815 Time Out: 915 Total Billed Treatment Time: 60 Total Billed Treatment 1,GT30m,EX30m G Codes Necessary: MORENA Grady CAR SEAT MAKER Aug 10, 2016 09:18
--- NOTE | 2016-08-10 11:49 | PM & R (SOAP) Progress Note ---
Subjective Subjective/Events-last exam Patient was seen in Gym this AM Doing hand /road packer operator strengthening exercises with OT.Patient SBA for transfers. Review of Systems Neurological: : Weakness Objective Exam Last Set of Vital Signs Vital Signs Date Time Temp Pulse Resp B/P Pulse Ox O2 Delivery O2 Flow Rate FiO2 08/10/16 09:00 Room Air 08/10/16 06:00 97.3 93 18 117/76 97 08/05/16 06:29 96 Capillary Refill : I&O Intake and Output 08/10/16 00:00 Intake Total 1320 ml Balance 1320 ml Intake Oral 1320 ml # Voids 7 # Bowel Movements 1 General: Alert, Oriented X3, Cooperative, No Acute Distress HEENT: Atraumatic, PERRLA, EOMI, Mucous Memb Moist/[place] Neck: Supple, No JVD Lungs: Clear to Auscultation Heart: Regular Rate Abdomen: Normal Bowel Sounds, Soft, No Tenderness Extremities: Other Neuro: Other Results Lab Laboratory Tests 08/08/16 05:55: Alanine Aminotransferase (ALT/SGPT) 48, Albumin 3.4, Alkaline Phosphatase 91, Anion Gap 11, Aspartate Amino Transf (AST/SGOT) 22, BUN/Creatinine Ratio 21, Blood Urea Nitrogen 13, Calcium Level 8.8, Carbon Dioxide Level 20L, Chloride Level 107, Creatinine 0.63, Estimat Glomerular Filtration Rate > 60, Glucose Level 95, Potassium Level 4.2, Sodium Level 138, Total Bilirubin 0.4, Total Protein 6.0L Microbiology 08/02/16 Urine Culture - Final, Complete NO GROWTH Assessment/Plan Assessment General debil/probable Critical care illness s/p Pneumonia and resp failure associated with sepsis and Vent support for 7 days Anasarca with Peripheral edma related to above being treated as per above- improved Hypokalemia-replaced hypertension with episodes of hypotension improved with adjustment of meds Dyspepsia-improved Fall at home during day pass no injury sustained Plan Continue PT/OT ST has assessed and signed off Isotoner gloves for hand edema -done with improvement and Wraps for edema in legs-improving Replace K -done F/U with Dr Abe reid. Patient completed course of antibiotics last week-Discussed case with Clinical Pharmacist last week-F/U UC&S shows no grow Monitor Blood pressure and edema and adjust meds as appropriate Pepcid and Mylanta for dyspepsia-done F/U with staff re fall risk issues Next Team Conference tomorrow 08/11/16 RAUL COLLIER MD Aug 10, 2016 11:48
--- NOTE | 2016-08-10 14:38 | Physical Therapy Daily Note ---
PT Daily Note-Current Subjective Pt. and present. attends Rx session Pain Numeric Pain Scale: 0-No Pain Mental Status Patient Orientation: Normal For Age Transfers Functional [place] Measure 0=Not Assessed/NA 4=Minimal Assistance 1=Total Assistance 5=Supervision or Setup 2=Maximal Assistance 6=Modified [place] 3=Moderate Assistance 7=Complete IndependenceIRFPAI Quality Coding Scale 6 Independent with activity with or without an assistive device 5 Patient requires set up or clean up by helper. Patient completes activity by themselves 4 Supervision or touching assist (CGA). [place] provide cues , steadying assist 3 The helper provides less than half the effort to complete the activity 2 The helper provides more than half the effort to complete the activity 1 Dependent. The helper does all the effort to complete an activity 7 Patient refused to complete or attempt activity 9 The patient did not perform the activity before the current illness or injury 88 Not attempted due to Medical conditions or safety concerns sit to stands and sit to sup all SBA and much effort for pt. Gait Training Gait Assistive Device: FWW FWW 100ft,75ft CGA improved gait pattern Wheelchair Training 75ft Mod I Stair Training Stair Training: Handrails/: 2 handrails Stairs (FIM): 2 #of Steps: 4 Stairs: Pattern: Step to Level of Assist: 4 in parallel bars at pink step platform with education to pt and on safe step/stair ascending descending and sequence Exercises leg presses on Nustep x12 with this SENIOR IOS DEVELOPER holding lever to allow so NuStep Minutes: 8 NuStep Workload: 2 Treatments in bed after Rx, fatigued Assessment Current Status: Good Progress progress noted every day PT Short Term Goals Short Term Goals Time Frame: Aug 04, 2016 Gait (FIM): 1 (met ) Gait Distance Comment: 20' Gait Level of Assist: 3 Gait Assistive Device: FWW Wheelchair Distance: 150'x2 PT Retirement Goals Retirement Goals PT Inventory Control/Shipping Receiving Goals Time Frame: Aug 18, 2016 Transfers (B,C,W/C) (FIM): 4 Sit to Lying (QC): 4 Lying-Sitting on Side/Bed(QC): 4 Sit to Stand (QC): 3 Rollin Roll Left to Right (QC): 4 Chair/Fel-pd-Ygddh Xfer(QC): 3 Car Transfer (QC): 3 Gait (FIM): 2 Distance: 50' Walk 10 feet (QC): 3 Walk 10ft-Uneven Surface(QC): 3 Walk 50ft with 2 Turns (QC): 3 Walk 150 ft (QC): 88 Gait Level of Assist: 4 Gait Assistive Device: FWW # of Steps: 1 1 Step (curb) (QC): 3 4 Steps (QC): 88 12 Steps (QC): 88 Stairs Level Of Assist: 4 Picking up an Object (QC): 88 PT Plan Treatment/Plan Treatment Plan: Continue Plan of Care Treatment Plan: Bed Mobility, Education, Functional Activity [place], Functional Strength, Group Therapy, Gait, Safety, Therapeutic Exercise, Transfers Treatment Duration: Aug 18, 2016 Visits Per Week: 10-11 Minutes/Day (M-F): 60-90 Minutes/Day (Sat/Bunch): 15-30 Safety Risks/Education Patient Education: Gait Training, Transfer Techniques, Steps, Correct Positioning, W/C Management, Safety Issues Teaching Recipient: Patient, Primary Caregiver, Family, Significant Other Teaching Methods: Demonstration, Discussion Response to Teaching: Verbalize Understanding, Return Demonstration, Reinforcement Needed Time/GCodes Time In: 1400 Time Out: 1430 Total Billed Treatment Time: 30 Total Billed Treatment 1,FA20,EX10 G Codes Necessary: MORENA Grady SENIOR IOS DEVELOPER Aug 10, 2016 14:38
--- NOTE | 2016-08-10 15:40 | Occupational Ther Daily Note ---
OT Current Status-Daily Note Subjective Pt sitting in w/c. No pain reported. Agreeable to OT. Appearance Alert, Cooperative Mental Status/Objective Functional [place] Measure 0=Not Assessed/NA 4=Minimal Assistance 1=Total Assistance 5=Supervision or Setup 2=Maximal Assistance 6=Modified [place] 3=Moderate Assistance 7=Complete [place] ADL-Treatment Functional [place] Measure 0=Not Assessed/NA 4=Minimal Assistance 1=Total Assistance 5=Supervision or Setup 2=Maximal Assistance 6=Modified [place] 3=Moderate Assistance 7=Complete IndependenceIRFPAI Quality Coding Scale 6 Independent with activity with or without an assistive device 5 Patient requires set up or clean up by helper. Patient completes activity by themselves 4 Supervision or touching assist (CGA). [place] provide cues , steadying assist 3 The helper provides less than half the effort to complete the activity 2 The helper provides more than half the effort to complete the activity 1 Dependent. The helper does all the effort to complete an activity 7 Patient refused to complete or attempt activity 9 The patient did not perform the activity before the current illness or injury 88 Not attempted due to Medical conditions or safety concerns Other Treatment Pt propelled self to gym. Pt participated in Standardized Testing. Present date and previous test dates included for comparison. Pt left sitting in w/c, call light in reach. All needs met. Box & Blocks-08/10/16 Box & Block Previous Date 08/03/16 L 48 blocks L 23 blocks Norm 74.7 R 41 blocks R 21 blocks Norm 73.6 Nine Hole Peg-08/10/16 L 22 seconds L 34 seconds Norm 19.4 R 26 seconds R 1 min Norm 17.8 Grasp Grasp Previous Date 07-30-16 R 9,9,9 lb R 1,1,1 lb L 10,9,10 lb L 2,1,1 lb Lateral Pinch 3 Jaw Miguel Tip Lateral Pinch 3-Jaw Miguel Tip R 0 0 Unable R 6 lb 4 lb 4 lb L trace trace Unable L 6 lb 6 lb 6 lb On 07/30/16 pt attempted the Grooved Pegboard test and unable to complete activity due to impaired coordination. On 08/10/16 Pt completed the Grooved Pegboard test successfully with scores as followed: L 23.5 seconds R 22.3 seconds Education OT Patient Education: Progress toward Goal/Update tx plan Teaching Recipient: Patient Teaching Methods: Demonstration, Discussion Response to Teaching: Verbalize Understanding, Return Demonstration OT Short Term Goals Short Term Goals Time Frame: Aug 04, 2016 Eating(FIM): 4 Grooming(FIM): 5 Bathing(FIM): 3 Upper Body Dressing(FIM): 4 Toilet/Commode Transfer(FIM): 3 1=Demonstrate adherence to instructed precautions during ADL tasks. 2=Patient will verbalize/demonstrate understanding of assistive devices/ modifications for ADL. 3=Patient will improve strength/tolerance for activity to enable patient to perform ADL's. OT Obiee Report Developer Goals Custodial Goals Time Frame: Aug 18, 2016 Eating (FIM): 6 Eating (QC): 6 Oral Hygiene (QC): 6 Grooming(FIM): 6 Bathing(FIM): 5 (setup) Shower/Bathe Self (QC): 5 (setup) Upper Body Dressing(FIM): 5 (setup) Upper Body Dressing (QC): 5 Lower Body Dressing(FIM): 5 Lower Body Dressing (QC): 5 On/Off Footwear (QC): 5 Toileting(FIM): 5 (setup) Toileting Hygiene (QC): 5 Toilet/Commode Transfer(FIM): 5 (setup) Toilet/Commode Transfer (QC): 5 Shower Transfer(FIM): 5 (SBA) Increase bilat UE strength to 4+/5 Increase metal fitter strength 50% Decreased edema bilat UEs to normal limits Additional Goals: 2-Verbalize Understanding, 3-ImproveStrength/[place] 1=Demonstrate adherence to instructed precautions during ADL tasks. 2=Patient will verbalize/demonstrate understanding of assistive devices/ modifications for ADL. 3=Patient will improve strength/tolerance for activity to enable patient to perform ADL's. OT Education/Plan Problem List/Assessment Pt would benefit from skilled OT to increase her independence in basic self care to allow her to safely return home with family support after sepsis/ pneumonia with resultant weakness and decreased self care Discharge Recommendations Plan/Recommendations: Continue POC Treatment Plan/Plan of Care Patient would benefit from OT for education, treatment and training to promote independence in ADL's, mobility, safety and/or upper extremity function for ADL' s. Plan of Care: ADL Retraining, Functional Mobility, Group Exercise/Act as Ind ( education, exercise, activity tolerance, functional activities, socialization), UE Funct Exercise/Act, UE Neuromus Re-Ed/Coord, OTHER (edema management) Treatment Duration: Aug 18, 2016 Visits Per Week: 10-11 Minutes/Day (M-F): 75-90 Minutes/Day (Sat/Bunch): PRN Agreement: Yes Rehab Potential: Good Time/GCodes Start Time: 13:00 Stop Time: 13:30 Total Time Billed (hr/min): 30 Billed Treatment Time visit, Neuromuscular 30 min GEO SALCIDO OT Aug 10, 2016 15:40
[2016-08-10 18:33] VITALS: BP 116/73
[2016-08-10] MEDS: LORATADINE (CLARITIN) 10 MG TAB PO SCH (20:49)
[2016-08-10] MEDS: ENOXAPARIN 40 MG/0.4 ML (LOVENOX) SYR SC SCH (20:49)
[2016-08-10] MEDS: ESTRADIOL 1 MG TAB (ESTRACE) PO SCH (20:49)
[2016-08-11 06:00] VITALS: BP 100/67
[2016-08-11] MEDS: LEVOTHYROXINE 50 MCG (LEVOTHROID) TAB PO SCH (06:05)
[2016-08-11] MEDS: SUCRALFATE 1 GM (CARAFATE) TAB PO SCH ×4 (06:05→21:39)
[2016-08-11] MEDS: FUROSEMIDE 40 MG (LASIX) TAB PO SCH (06:05)
[2016-08-11] MEDS: LACTOBACILLUS Acidoph/Bulgar (LACTINEX/FLORANEX) TAB PO SCH ×3 (06:05→16:11)
--- NOTE | 2016-08-11 08:54 | Occupational Ther Daily Note ---
OT Current Status-Daily Note Subjective Pt alert, sitting in w/c. Agreed to therapy. No c/o pain at this time. Mental Status/Objective Patient Orientation: Person, Place, Time, Situation Functional [place] Measure 0=Not Assessed/NA 4=Minimal Assistance 1=Total Assistance 5=Supervision or Setup 2=Maximal Assistance 6=Modified [place] 3=Moderate Assistance 7=Complete [place] Attachments: IV ADL-Treatment Pt unable to maneuver w/c to get to closet due to small spaces. Pt maneuvered w/ c into bathroom by self then transferred into/out of the shower with SBA using grabbars, shower bench. Pt bathed self using bench, grabbars and hand held shower. Pt was able was able to don/doff all clothing by self after set up, SBA when standing to hike pants over hips. Functional [place] Measure 0=Not Assessed/NA 4=Minimal Assistance 1=Total Assistance 5=Supervision or Setup 2=Maximal Assistance 6=Modified [place] 3=Moderate Assistance 7=Complete IndependenceIRFPAI Quality Coding Scale 6 Independent with activity with or without an assistive device 5 Patient requires set up or clean up by helper. Patient completes activity by themselves 4 Supervision or touching assist (CGA). [place] provide cues , steadying assist 3 The helper provides less than half the effort to complete the activity 2 The helper provides more than half the effort to complete the activity 1 Dependent. The helper does all the effort to complete an activity 7 Patient refused to complete or attempt activity 9 The patient did not perform the activity before the current illness or injury 88 Not attempted due to Medical conditions or safety concerns Grooming (FIM): 6 (sitting at sink, pt completes by self.) Bathing (FIM): 5 (Completes with SBA only when standing for safety.) Upper Body (FIM): 5 Lower Body Dressing (FIM): 5 On/Off Footwear (QC): 6 Transfers (B, C, W/C) (FIM): 5 (SBA) Shower Transfer(FIM): 5 (SBA using grabbars and shower bench) Other Treatment Pt completed arm bike 15 min at 10 kasper resistance to increase strength and activity tolerance, no breaks, for daily functional tasks. Pt then maneuvered w /c to room by self. After therapy, pt sitting in w/c with call light/phone in reach. All needs met in reach. Education OT Patient Education: Progress toward Goal/Update tx plan, Purpose of tx/ functional activities Teaching Recipient: Patient Teaching Methods: Discussion Response to Teaching: Verbalize Understanding, Return Demonstration OT Short Term Goals Short Term Goals Time Frame: Aug 04, 2016 Eating(FIM): 4 (met-08/11/16) Grooming(FIM): 5 (met-08/11/16) Bathing(FIM): 3 (met-08/11/16) Upper Body Dressing(FIM): 4 (met-08/11/16) Toilet/Commode Transfer(FIM): 3 (met-08/11/16) 1=Demonstrate adherence to instructed precautions during ADL tasks. 2=Patient will verbalize/demonstrate understanding of assistive devices/ modifications for ADL. 3=Patient will improve strength/tolerance for activity to enable patient to perform ADL's. OT [facility] Goals Sap Hana Architect Goals Time Frame: Aug 18, 2016 Eating (FIM): 6 Eating (QC): 6 Oral Hygiene (QC): 6 Grooming(FIM): 6 Bathing(FIM): 5 (setup) Shower/Bathe Self (QC): 5 (setup) Upper Body Dressing(FIM): 5 (setup) Upper Body Dressing (QC): 5 Lower Body Dressing(FIM): 5 (met-08/11/16) Lower Body Dressing (QC): 5 (met-08/11/16) On/Off Footwear (QC): 5 Toileting(FIM): 5 (setup) Toileting Hygiene (QC): 5 Toilet/Commode Transfer(FIM): 5 (setup) Toilet/Commode Transfer (QC): 5 Shower Transfer(FIM): 5 (SBA) Increase bilat UE strength to 4+/5 Increase turf and grounds supervisor strength 50% Decreased edema bilat UEs to normal limits Additional Goals: 2-Verbalize Understanding, 3-ImproveStrength/Zeina 1=Demonstrate adherence to instructed precautions during ADL tasks. 2=Patient will verbalize/demonstrate understanding of assistive devices/ modifications for ADL. 3=Patient will improve strength/tolerance for activity to enable patient to perform ADL's. OT Education/Plan Problem List/Assessment Pt would benefit from skilled OT to increase her independence in basic self care to allow her to safely return home with family support after sepsis/ pneumonia with resultant weakness and decreased self care Discharge Recommendations Plan/Recommendations: Continue POC Treatment Plan/Plan of Care Patient would benefit from OT for education, treatment and training to promote independence in ADL's, mobility, safety and/or upper extremity function for ADL' s. Plan of Care: ADL Retraining, Functional Mobility, Group Exercise/Act as Ind ( education, exercise, activity tolerance, functional activities, socialization), UE Funct Exercise/Act, UE Neuromus Re-Ed/Coord, OTHER (edema management) Treatment Duration: Aug 18, 2016 Visits Per Week: 10-11 Minutes/Day (M-F): 75-90 Minutes/Day (Sat/Bunch): PRN Agreement: Yes Rehab Potential: Good Time/GCodes Start Time: 07:00 Stop Time: 08:00 Total Time Billed (hr/min): 60 Billed Treatment Time 1 visit-ADL 3 (45 min) EX 1 (15 min) RYAN MELGAR Aug 11, 2016 08:54
[2016-08-11] MEDS: ETODOLAC 300 MG (LODINE) CAP PO SCH ×2 (09:06→21:39)
[2016-08-11] MEDS: KCL 20 MEQ TAB (K-DUR) PO SCH (09:06)
[2016-08-11] MEDS: lisINopril 20 MG (ZESTRIL) TAB PO SCH (09:06)
[2016-08-11] MEDS: amLODIPine 5 MG (NORVASC) TAB PO SCH (09:06)
[2016-08-11] MEDS: meTOprolol TARTRATE 50 MG (LOPRESSOR) TAB PO SCH ×2 (09:07→21:39)
[2016-08-11] MEDS: FAMOTIDINE 20 MG (PEPCID) TABLET PO SCH ×2 (09:07→21:39)
--- NOTE | 2016-08-11 09:10 | Physical Therapy Daily Note ---
PT Daily Note-Current Subjective Pt. agrees to Rx. States she still isnt sleeping well but getting better Pain Numeric Pain Scale: 0-No Pain Mental Status Patient Orientation: Normal For Age Transfers Functional [place] Measure 0=Not Assessed/NA 4=Minimal Assistance 1=Total Assistance 5=Supervision or Setup 2=Maximal Assistance 6=Modified [place] 3=Moderate Assistance 7=Complete IndependenceIRFPAI Quality Coding Scale 6 Independent with activity with or without an assistive device 5 Patient requires set up or clean up by helper. Patient completes activity by themselves 4 Supervision or touching assist (CGA). [place] provide cues , steadying assist 3 The helper provides less than half the effort to complete the activity 2 The helper provides more than half the effort to complete the activity 1 Dependent. The helper does all the effort to complete an activity 7 Patient refused to complete or attempt activity 9 The patient did not perform the activity before the current illness or injury 88 Not attempted due to Medical conditions or safety concerns Transfers (B, C, W/C) (FIM): 5 Scootin Rollin Supine to/from Sit: 5 Sit to/from Stand: 5 Bed to/from Chair: 5 Gait Training Does the Patient Walk?: Yes Gait (FIM): 2 Distance (FIM): 4=930-07 ft (100,50x2) Gait Level of Assist: 5 Gait Persons Needed: 1 Gait Assistive Device: FWW Pt.requested FWW be fitted height again, now pleased. gait improving, still needs cues for CARIE broader etc Wheelchair Training Does the Pt Use a Wheelchair?: Yes Wheelchair (FIM): 4 (assist with foot rests) Wheelchair Distance: 3=150 ft Wheelchair Level of Assist: 4 Type of Wheelchair: Manual Stair Training Stair Training: Handrails/: 2 handrails Stairs (FIM): 2 #of Steps: 4 Stairs: Pattern: Step to Level of Assist: 4 inside parallel bars with pink step and many cues for sequence Exercises Supine Ex: Bridging, Ankle pumps, Quad Set, Rolling, Glut sets, Heel Slides, Short Arc Quads, Scooting, Straight leg raise, Hip abd/add Supine Reps: 12 Standing: Hip Abduction, Heel/toe raises, Marching, Mini squats, Sit to Stand Standing Reps: 12 Assessment Current Status: Good Progress PT Short Term Goals Short Term Goals Time Frame: Aug 04, 2016 Gait (FIM): 1 (met ) Gait Distance Comment: 20' Gait Level of Assist: 3 Gait Assistive Device: FWW Wheelchair Distance: 150'x2 PT Ripshear Operator Goals Usp Goals PT Ripshear Operator Goals Time Frame: Aug 18, 2016 Transfers (B,C,W/C) (FIM): 4 Sit to Lying (QC): 4 Lying-Sitting on Side/Bed(QC): 4 Sit to Stand (QC): 3 Rollin Roll Left to Right (QC): 4 Chair/Ubz-cs-Qjpxk Xfer(QC): 3 Car Transfer (QC): 3 Gait (FIM): 2 Distance: 50' Walk 10 feet (QC): 3 Walk 10ft-Uneven Surface(QC): 3 Walk 50ft with 2 Turns (QC): 3 Walk 150 ft (QC): 88 Gait Level of Assist: 4 Gait Assistive Device: FWW # of Steps: 1 1 Step (curb) (QC): 3 4 Steps (QC): 88 12 Steps (QC): 88 Stairs Level Of Assist: 4 Picking up an Object (QC): 88 PT Plan Treatment/Plan Treatment Plan: Continue Plan of Care Treatment Plan: Bed Mobility, Education, Functional Activity Zeina, Functional Strength, Group Therapy, Gait, Safety, Therapeutic Exercise, Transfers Treatment Duration: Aug 18, 2016 Visits Per Week: 10-11 Minutes/Day (M-F): 60-90 Minutes/Day (Sat/Bunch): 15-30 Safety Risks/Education Patient Education: Gait Training, Transfer Techniques, Steps Teaching Recipient: Patient Teaching Methods: Demonstration, Discussion Response to Teaching: Verbalize Understanding, Return Demonstration, Reinforcement Needed Time/GCodes Time In: 815 Time Out: 915 Total Billed Treatment Time: 60 Total Billed Treatment 1,FA30m,EX30m G Codes Necessary: MORENA Grady SUPERVISOR PRODUCT INSPECTION Aug 11, 2016 09:10
--- NOTE | 2016-08-11 09:26 | PM & R (SOAP) Progress Note ---
Subjective Subjective/Events-last exam Patient was seen in her room this AM Infrastructure Architect strength gradually improving Patient SBA for transfers Objective Exam Last Set of Vital Signs Vital Signs Date Time Temp Pulse Resp B/P Pulse Ox O2 Delivery O2 Flow Rate FiO2 08/11/16 06:00 97.1 91 18 100/67 95 Room Air 08/05/16 06:29 96 Capillary Refill : I&O Intake and Output 08/11/16 00:00 Intake Total 2140 ml Balance 2140 ml Intake Oral 2140 ml # Voids 6 General: Alert, Oriented X3, Cooperative, No Acute Distress HEENT: Atraumatic, PERRLA, EOMI, Mucous Memb Moist/[place] Neck: Supple, No JVD Lungs: Clear to Auscultation Heart: Regular Rate Abdomen: Normal Bowel Sounds, Soft, No Tenderness Extremities: Other Neuro: Other Results Lab Microbiology 08/02/16 Urine Culture - Final, Complete NO GROWTH Assessment/Plan Assessment General debil/probable Critical care illness s/p Pneumonia and resp failure associated with sepsis and Vent support for 7 days Anasarca with Peripheral edma related to above being treated as per above- improved Hypokalemia-replaced hypertension with episodes of hypotension improved with adjustment of meds Dyspepsia-improved Fall at home during day pass no injury sustained Plan Continue PT/OT ST has assessed and signed off Isotoner gloves for hand edema -done with improvement and Wraps for edema in legs-improving Replace K -done F/U with Dr Abe reid. Patient completed course of antibiotics last week-Discussed case with Clinical Pharmacist last week-F/U UC&S shows no grow Monitor Blood pressure and edema and adjust meds as appropriate Pepcid and Mylanta for [id number] F/U with staff re fall risk issues Team Conference to be held later today -See report for full functional update and POC and RAUL RAMOS MD Aug 11, 2016 09:26
--- NOTE | 2016-08-11 12:52 | Progress Note (SOAP) ---
Subjective Subjective/Events-last exam Fwup recent vent-dependent respiratory failure, recent pneumonia with Strep pneumo sepsis, recent septic shock with hypotension/renal failure and elevated LFTs, edema, HTN. Still with some swelling in ankles/feet. Objective Exam Vital Signs Date Time Temp Pulse Resp B/P Pulse Ox O2 Delivery O2 Flow Rate FiO2 08/11/16 09:00 Room Air 08/11/16 06:00 97.1 91 18 100/67 95 Room Air 08/10/16 20:20 Room Air 08/10/16 18:33 97.0 98 14 116/73 95 I & O 08/11/16 07:00 Intake Total 2120 ml Balance 2120 ml Capillary Refill : General Appearance: No Apparent Distress Neck: Supple Cardiovascular: Regular Rate, Rhythm Gallop/S3 Extremity: Non Tender No Calf Tenderness Swelling (ankles/tops of feet) Neurologic/Psychiatric: Alert Oriented x3 Results Lab Microbiology 08/02/16 Urine Culture - Final, Complete NO GROWTH Assessment/Plan Assessment/Plan Assess & Plan/Chief Complaint 1. Pneumonia with Strep Pneumo--resolved 2. Anasarca--improved, continue low dose lasix 3. Hypertension with some hypotension--DC amlodopine to see if swelling improves even more, Decrease lisinopril dose, Increase metoprolol dose due to tachycardia 4. Weakness--continue PT/OT 5. Allergic Rhinitis--added flonase 6. Hypokalemia--improved with increased potassium dose 7. Left Flank Pain--resolved Diagnosis/Problems: Clinical Quality Measures DVT/VTE Risk/Contraindication: Risk Factor Score Per Nursin RFS Level Per Nursing on Admit: 4+=Very High KINDRA RHODES DO Aug 11, 2016 12:52
--- NOTE | 2016-08-11 15:22 | Therapy Group Daily Note ---
Therapy Daily Group Note Patient Education Topic Exercises, Other List Below (Education on arthritis, benefits of using a paraffin bath, different types of built up utensils ) Exercises Stretching, UE Exercise Other/Notes Pt participated socially by introducing self and describing what she likes to do to help her relax. Topic of discussion was arthritis, carpal tunnel and the benefits of using a paraffin bath, different types of AE for arthritis. Pt was able to place both hands in the paraffin bath. Pt then completed nerve glide exercise. Pt propelled self back to room. Pt left sitting in w/c. Call light in hand. All needs met. Start Time: 13:00 Stop Time: 14:10 Total Billed Treatment Time: 70 Total Billed Treatment 1-GRP RYAN MELGAR Aug 11, 2016 15:22
[2016-08-11 18:45] VITALS: BP 100/64
[2016-08-11] MEDS: ENOXAPARIN 40 MG/0.4 ML (LOVENOX) SYR SC SCH (21:39)
[2016-08-11] MEDS: ESTRADIOL 1 MG TAB (ESTRACE) PO SCH (21:39)
[2016-08-11] MEDS: LORATADINE (CLARITIN) 10 MG TAB PO SCH (21:39)
[2016-08-12 06:00] VITALS: BP 116/77
[2016-08-12] MEDS: SUCRALFATE 1 GM (CARAFATE) TAB PO SCH ×4 (06:14→21:19)
[2016-08-12] MEDS: FUROSEMIDE 40 MG (LASIX) TAB PO SCH (06:14)
[2016-08-12] MEDS: LACTOBACILLUS Acidoph/Bulgar (LACTINEX/FLORANEX) TAB PO SCH ×3 (06:14→16:14)
[2016-08-12] MEDS: LEVOTHYROXINE 50 MCG (LEVOTHROID) TAB PO SCH (06:14)
[2016-08-12] MEDS: meTOprolol TARTRATE 50 MG (LOPRESSOR) TAB PO SCH ×2 (08:01→21:19)
[2016-08-12] MEDS: FAMOTIDINE 20 MG (PEPCID) TABLET PO SCH ×2 (08:01→21:19)
[2016-08-12] MEDS: lisINopril 20 MG (ZESTRIL) TAB PO SCH (08:01)
[2016-08-12] MEDS: KCL 20 MEQ TAB (K-DUR) PO SCH (08:01)
[2016-08-12] MEDS: ETODOLAC 300 MG (LODINE) CAP PO SCH ×2 (08:02→21:18)
--- NOTE | 2016-08-12 08:07 | Physical Therapy Daily Note ---
PT Daily Note-Current Subjective Pt. agrees to Rx. States she has had a bit of a crazy night and her has been admitted to ICU. Pt. feels she is continuing good progress Pain Numeric Pain Scale: 3 Location: Dorsal Location Body Site: Toe (all toes) Pain Description: Pressure Comment: in prone pt. states she has pain in top of toes "pressure" Mental Status Patient Orientation: Normal For Age Transfers Functional [place] Measure 0=Not Assessed/NA 4=Minimal Assistance 1=Total Assistance 5=Supervision or Setup 2=Maximal Assistance 6=Modified [place] 3=Moderate Assistance 7=Complete IndependenceIRFPAI Quality Coding Scale 6 Independent with activity with or without an assistive device 5 Patient requires set up or clean up by helper. Patient completes activity by themselves 4 Supervision or touching assist (CGA). [place] provide cues , steadying assist 3 The helper provides less than half the effort to complete the activity 2 The helper provides more than half the effort to complete the activity 1 Dependent. The helper does all the effort to complete an activity 7 Patient refused to complete or attempt activity 9 The patient did not perform the activity before the current illness or injury 88 Not attempted due to Medical conditions or safety concerns Transfers (B, C, W/C) (FIM): 5 Scootin Rollin Supine to/from Sit: 6 Sit to/from Stand: 6 Bed to/from Chair: 5 Gait Training Does the Patient Walk?: Yes Distance (FIM): 3=150 ft Gait Level of Assist: 5 Gait Persons Needed: 1 Gait Assistive Device: FWW pt. states she still feels her right knee could melt, w/c f/u for this reason Wheelchair Training Does the Pt Use a Wheelchair?: Yes Wheelchair (FIM): 5 Wheelchair Distance: 3=150 ft (x2) Wheelchair Level of Assist: 5 Type of Wheelchair: Manual not able yet to manage of ramps or grades indep Stair Training Stair Training: Handrails/: 2 handrails Stairs (FIM): 2 #of Steps: 2 Stairs: Pattern: Step to Level of Assist: 4 parallel bars pink step scenario Exercises Supine Ex: Bridging, Ankle pumps, Quad Set, Rolling, Glut sets, Lower trunk rotation, Heel Slides, Knee to chest, Scooting, Straight leg raise, Hip abd/add Supine Reps: 15 Seated Therapy Exercises: Ankle pumps, Sit to stand, Long arc quads, Chair press-ups, Hip flexion Seated Reps: 15 prone and sidelying clam shells and ham curls and hip ext NuStep Minutes: 10 NuStep Workload: 5 Treatments nu step with and without hands and then leg presses x15. Assessment Current Status: Good Progress PT Short Term Goals Short Term Goals Time Frame: Aug 04, 2016 Gait (FIM): 1 (met ) Gait Distance Comment: 20' Gait Level of Assist: 3 Gait Assistive Device: FWW Wheelchair Distance: 150'x2 PT Senior Security Analyst Goals Senior Security Analyst Goals PT Detention Goals Time Frame: Aug 18, 2016 Transfers (B,C,W/C) (FIM): 4 Sit to Lying (QC): 4 Lying-Sitting on Side/Bed(QC): 4 Sit to Stand (QC): 3 Rollin Roll Left to Right (QC): 4 Chair/Ddr-lk-Plziz Xfer(QC): 3 Car Transfer (QC): 3 Gait (FIM): 2 Distance: 50' Walk 10 feet (QC): 3 Walk 10ft-Uneven Surface(QC): 3 Walk 50ft with 2 Turns (QC): 3 Walk 150 ft (QC): 88 Gait Level of Assist: 4 Gait Assistive Device: FWW # of Steps: 1 1 Step (curb) (QC): 3 4 Steps (QC): 88 12 Steps (QC): 88 Stairs Level Of Assist: 4 Picking up an Object (QC): 88 PT Plan Treatment/Plan Treatment Plan: Continue Plan of Care Treatment Plan: Bed Mobility, Education, Functional Activity Zeina, Functional Strength, Group Therapy, Gait, Safety, Therapeutic Exercise, Transfers Treatment Duration: Aug 18, 2016 Visits Per Week: 10-11 Minutes/Day (M-F): 60-90 Minutes/Day (Sat/Bunch): 15-30 Safety Risks/Education Patient Education: Gait Training, Transfer Techniques, Steps, Correct Positioning, W/C Management, Disease Process, Safety Issues Teaching Recipient: Patient Teaching Methods: Demonstration, Discussion Response to Teaching: Verbalize Understanding, Return Demonstration, Reinforcement Needed Time/GCodes Time In: 715 Time Out: 815 Total Billed Treatment Time: 60 Total Billed Treatment 1,EX30m,FA15m,GT15m G Codes Necessary: MORENA Grady PTA Aug 12, 2016 08:07
--- NOTE | 2016-08-12 08:37 | PM & R (SOAP) Progress Note ---
Subjective Subjective/Events-last exam Patient was seen in her room this AM Patient SBA for transfers Appreciate Dr West note and orders Objective Exam Last Set of Vital Signs Vital Signs Date Time Temp Pulse Resp B/P Pulse Ox O2 Delivery O2 Flow Rate FiO2 08/12/16 06:00 96.5 88 20 116/77 94 Room Air Capillary Refill : I&O Intake and Output 08/12/16 00:00 Intake Total 1060 ml Balance 1060 ml Intake Oral 1060 ml # Voids 4 General: Alert, Oriented X3, Cooperative, No Acute Distress HEENT: Atraumatic, PERRLA, EOMI, Mucous Memb Moist/[place] Neck: Supple, No JVD Lungs: Clear to Auscultation Heart: Regular Rate Abdomen: Normal Bowel Sounds, Soft, No Tenderness Extremities: Other Neuro: Other Results Lab Microbiology 08/02/16 Urine Culture - Final, Complete NO GROWTH Assessment/Plan Assessment General debil/probable Critical care illness s/p Pneumonia and resp failure associated with sepsis and Vent support for 7 days Anasarca with Peripheral edma related to above being treated as per above- improved Hypokalemia-replaced hypertension with episodes of hypotension improved with adjustment of meds Dyspepsia-improved Fall at home during day pass no injury sustained Allergic rhinitis Flonase ordered Plan Continue PT/OT ST has assessed and signed off Isotoner gloves for hand edema -done with improvement and Wraps for edema in legs-improving Replace K -done F/U with Dr Fish prn. Patient completed course of antibiotics last week-Discussed case with Clinical Pharmacist last week-F/U UC&S shows no grow Monitor Blood pressure and edema and adjust meds as appropriate Pepcid and Mylanta for [id number] F/U with staff re fall risk issues Team Conference held yesterday -See report for full functional update and POC and ELOS Discharge set for end of week RAUL COLLIER MD Aug 12, 2016 08:36
--- NOTE | 2016-08-12 10:30 | Physical Therapy Daily Note ---
PT Daily Note-Current Subjective Agrees to Rx. Pain Numeric Pain Scale: 3 Location: Right Location Body Site: Knee Pain Description: Burning Comment: right knee pain with gait and wt bearing Mental Status Patient Orientation: Normal For Age Transfers Functional [place] Measure 0=Not Assessed/NA 4=Minimal Assistance 1=Total Assistance 5=Supervision or Setup 2=Maximal Assistance 6=Modified [place] 3=Moderate Assistance 7=Complete IndependenceIRFPAI Quality Coding Scale 6 Independent with activity with or without an assistive device 5 Patient requires set up or clean up by helper. Patient completes activity by themselves 4 Supervision or touching assist (CGA). [place] provide cues , steadying assist 3 The helper provides less than half the effort to complete the activity 2 The helper provides more than half the effort to complete the activity 1 Dependent. The helper does all the effort to complete an activity 7 Patient refused to complete or attempt activity 9 The patient did not perform the activity before the current illness or injury 88 Not attempted due to Medical conditions or safety concerns now can sit to stand using only arms on w/c, done 5-6 reps ea Gait Training Gait Assistive Device: FWW 125ft, 100ft CGA no LOB Stair Training Stair Training: Handrails/: 2 handrails Stairs (FIM): 2 #of Steps: 6 Stairs: Pattern: Step to Level of Assist: 4 up down pink step in parallel bars Treatments static standing balance challenges x4 at 25 sec ea, SBA, pt. sways but no LOB Assessment Current Status: Good Progress PT Short Term Goals Short Term Goals Time Frame: Aug 04, 2016 Gait (FIM): 1 (met ) Gait Distance Comment: 20' Gait Level of Assist: 3 Gait Assistive Device: FWW Wheelchair Distance: 150'x2 PT Assisted Goals Assisted Goals PT Assisted Goals Time Frame: Aug 18, 2016 Transfers (B,C,W/C) (FIM): 4 Sit to Lying (QC): 4 Lying-Sitting on Side/Bed(QC): 4 Sit to Stand (QC): 3 Rollin Roll Left to Right (QC): 4 Chair/Tvp-sk-Saenf Xfer(QC): 3 Car Transfer (QC): 3 Gait (FIM): 2 Distance: 50' Walk 10 feet (QC): 3 Walk 10ft-Uneven Surface(QC): 3 Walk 50ft with 2 Turns (QC): 3 Walk 150 ft (QC): 88 Gait Level of Assist: 4 Gait Assistive Device: FWW # of Steps: 1 1 Step (curb) (QC): 3 4 Steps (QC): 88 12 Steps (QC): 88 Stairs Level Of Assist: 4 Picking up an Object (QC): 88 PT Plan Treatment/Plan Treatment Plan: Continue Plan of Care Treatment Plan: Bed Mobility, Education, Functional Activity Zeina, Functional Strength, Group Therapy, Gait, Safety, Therapeutic Exercise, Transfers Treatment Duration: Aug 18, 2016 Visits Per Week: 10-11 Minutes/Day (M-F): 60-90 Minutes/Day (Sat/Bunch): 15-30 Safety Risks/Education Patient Education: Gait Training, Transfer Techniques, Steps Teaching Recipient: Patient Teaching Methods: Demonstration, Discussion Response to Teaching: Verbalize Understanding, Return Demonstration, Reinforcement Needed Time/GCodes Time In: 1000 Time Out: 1030 Total Billed Treatment Time: 30 Total Billed Treatment 1,FA15m,GT15m G Codes Necessary: MORENA Grady HARNESS BRUSHER Aug 12, 2016 10:29
--- NOTE | 2016-08-12 14:25 | Occupational Ther Daily Note ---
OT Current Status-Daily Note Subjective Pt sitting in w/c. No pain reported. Agreeable to therapy. Appearance Alert, Cooperative Mental Status/Objective Functional [place] Measure 0=Not Assessed/NA 4=Minimal Assistance 1=Total Assistance 5=Supervision or Setup 2=Maximal Assistance 6=Modified [place] 3=Moderate Assistance 7=Complete [place] ADL-Treatment Functional [place] Measure 0=Not Assessed/NA 4=Minimal Assistance 1=Total Assistance 5=Supervision or Setup 2=Maximal Assistance 6=Modified [place] 3=Moderate Assistance 7=Complete IndependenceIRFPAI Quality Coding Scale 6 Independent with activity with or without an assistive device 5 Patient requires set up or clean up by helper. Patient completes activity by themselves 4 Supervision or touching assist (CGA). Heaters provide cues , steadying assist 3 The helper provides less than half the effort to complete the activity 2 The helper provides more than half the effort to complete the activity 1 Dependent. The helper does all the effort to complete an activity 7 Patient refused to complete or attempt activity 9 The patient did not perform the activity before the current illness or injury 88 Not attempted due to Medical conditions or safety concerns Other Treatment Pt propelled self to gym. Pt used Theraputty (medium resistance) to work on finger, wrist and forearm ROM/strength. Pt used shoe lace to thread different shapes/size beads for bilateral extremity use and coordination. Pt then completed arm bike 15 min 10 kasper resistance with not recovery breaks to increase strength and activity tolerance. Paraffin bath was used on pt's both hands to help control arthritis pain. Pt propelled self back to room. Pt left sitting in w/c, call light in hand. All needs met. Education OT Patient Education: Progress toward Goal/Update tx plan, Purpose of tx/ functional activities Teaching Recipient: Patient Teaching Methods: Demonstration, Discussion Response to Teaching: Verbalize Understanding, Return Demonstration OT Short Term Goals Short Term Goals Time Frame: Aug 04, 2016 Eating(FIM): 4 (met-08/11/16) Grooming(FIM): 5 (met-08/11/16) Bathing(FIM): 3 (met-08/11/16) Upper Body Dressing(FIM): 4 (met-08/11/16) Toilet/Commode Transfer(FIM): 3 (met-08/11/16) 1=Demonstrate adherence to instructed precautions during ADL tasks. 2=Patient will verbalize/demonstrate understanding of assistive devices/ modifications for ADL. 3=Patient will improve strength/tolerance for activity to enable patient to perform ADL's. OT Nursing Home Goals Nursing Home Goals Time Frame: Aug 18, 2016 Eating (FIM): 6 Eating (QC): 6 Oral Hygiene (QC): 6 Grooming(FIM): 6 Bathing(FIM): 5 (setup) Shower/Bathe Self (QC): 5 (setup) Upper Body Dressing(FIM): 5 (setup) Upper Body Dressing (QC): 5 Lower Body Dressing(FIM): 5 (met-08/11/16) Lower Body Dressing (QC): 5 (met-08/11/16) On/Off Footwear (QC): 5 Toileting(FIM): 5 (setup) Toileting Hygiene (QC): 5 Toilet/Commode Transfer(FIM): 5 (setup) Toilet/Commode Transfer (QC): 5 Shower Transfer(FIM): 5 (SBA) Increase bilat UE strength to 4+/5 Increase electrical technician strength 50% Decreased edema bilat UEs to normal limits Additional Goals: 2-Verbalize Understanding, 3-ImproveStrength/Zeina 1=Demonstrate adherence to instructed precautions during ADL tasks. 2=Patient will verbalize/demonstrate understanding of assistive devices/ modifications for ADL. 3=Patient will improve strength/tolerance for activity to enable patient to perform ADL's. OT Education/Plan Problem List/Assessment Pt would benefit from skilled OT to increase her independence in basic self care to allow her to safely return home with family support after sepsis/ pneumonia with resultant weakness and decreased self care Discharge Recommendations Plan/Recommendations: Continue POC Treatment Plan/Plan of Care Patient would benefit from OT for education, treatment and training to promote independence in ADL's, mobility, safety and/or upper extremity function for ADL' s. Plan of Care: ADL Retraining, Functional Mobility, Group Exercise/Act as Ind ( education, exercise, activity tolerance, functional activities, socialization), UE Funct Exercise/Act, UE Neuromus Re-Ed/Coord, OTHER (edema management) Treatment Duration: Aug 18, 2016 Visits Per Week: 10-11 Minutes/Day (M-F): 75-90 Minutes/Day (Sat/Bunch): PRN Agreement: Yes Rehab Potential: Good Time/GCodes Start Time: 10:30 Stop Time: 12:00 Total Time Billed (hr/min): 90 Billed Treatment Time visit, Ex 70, FA 20 min GILBERT BATES OT Aug 12, 2016 14:25 GILBERT BATES OT Aug 12, 2016 14:25
[2016-08-12 19:46] VITALS: BP 113/73
[2016-08-12] MEDS: ENOXAPARIN 40 MG/0.4 ML (LOVENOX) SYR SC SCH (21:18)
[2016-08-12] MEDS: ESTRADIOL 1 MG TAB (ESTRACE) PO SCH (21:19)
[2016-08-12] MEDS: LORATADINE (CLARITIN) 10 MG TAB PO SCH (21:19)
[2016-08-13 06:00] VITALS: BP 110/72
[2016-08-13] MEDS: SUCRALFATE 1 GM (CARAFATE) TAB PO SCH ×4 (06:13→19:46)
[2016-08-13] MEDS: FUROSEMIDE 40 MG (LASIX) TAB PO SCH (06:13)
[2016-08-13] MEDS: LEVOTHYROXINE 50 MCG (LEVOTHROID) TAB PO SCH (06:13)
[2016-08-13] MEDS: LACTOBACILLUS Acidoph/Bulgar (LACTINEX/FLORANEX) TAB PO SCH ×3 (06:13→16:38)
[2016-08-13] MEDS: meTOprolol TARTRATE 50 MG (LOPRESSOR) TAB PO SCH ×2 (08:08→19:46)
--- NOTE | 2016-08-13 08:08 | Physical Therapy Daily Note ---
PT Daily Note-Current Subjective Pt. agrees to Rx. States she is going home tomorrow. Her had been hospitalized and is now DCd to home. She feels he will be able to help her at stairs and cooking etc. Pain Numeric Pain Scale: 0-No Pain Mental Status Patient Orientation: Normal For Age Transfers Functional [place] Measure 0=Not Assessed/NA 4=Minimal Assistance 1=Total Assistance 5=Supervision or Setup 2=Maximal Assistance 6=Modified [place] 3=Moderate Assistance 7=Complete IndependenceIRFPAI Quality Coding Scale 6 Independent with activity with or without an assistive device 5 Patient requires set up or clean up by helper. Patient completes activity by themselves 4 Supervision or touching assist (CGA). [place] provide cues , steadying assist 3 The helper provides less than half the effort to complete the activity 2 The helper provides more than half the effort to complete the activity 1 Dependent. The helper does all the effort to complete an activity 7 Patient refused to complete or attempt activity 9 The patient did not perform the activity before the current illness or injury 88 Not attempted due to Medical conditions or safety concerns Transfers (B, C, W/C) (FIM): 6 Scootin Rollin Roll Left to Right (QC): 6 Supine to/from Sit: 6 Sit to/from Stand: 6 Sit to Lying (QC): 6 Sit to Stand (QC): 6 Chair/Nzt-eu-Rsznh Xfer(QC): 6 Bed to/from Chair: 6 Gait Training Does the Patient Walk?: Yes Gait (FIM): 6 Distance (FIM): 3=150 ft (50, 100) Walk 10 feet (QC): 6 Walk 50 ft with 2 Turns(QC): 6 Walk 150 ft (QC): 6 Walking 10ft/uneven surface-QC: 6 Gait Level of Assist: 6 Gait Persons Needed: 0 Gait Assistive Device: FWW fig 8s and gait transitioning from carpet to tile no problem Stair Training Stair Training: Handrails/: 2 handrails Stairs (FIM): 5 #of Steps: 4 1 Step (curb) (QC): 5 4 Steps (QC): 5 Stairs: Pattern: Step to Level of Assist: 5 Balance Special Test Comments Pt. would be unsafe to attempt this and expressed this to this ELECTRONIC ASSEMBLER Exercises Supine Ex: Bridging, Ankle pumps, Quad Set, Rolling, Glut sets, Heel Slides, Short Arc Quads, Scooting, Straight leg raise, Hip abd/add Supine Reps: 15 Assessment Current Status: Excellent Progress meets goals, has assist for home with PT Short Term Goals Short Term Goals Time Frame: Aug 04, 2016 Gait (FIM): 1 (met ) Gait Distance Comment: 20' Gait Level of Assist: 3 Gait Assistive Device: FWW Wheelchair Distance: 150'x2 PT Long-Term Goals Branch Retail Executive Goals PT Long-Term Goals Time Frame: Aug 18, 2016 Transfers (B,C,W/C) (FIM): 4 Sit to Lying (QC): 4 Lying-Sitting on Side/Bed(QC): 4 Sit to Stand (QC): 3 Rollin Roll Left to Right (QC): 4 Chair/Rha-ag-Amjzk Xfer(QC): 3 Car Transfer (QC): 3 Gait (FIM): 2 Distance: 50' Walk 10 feet (QC): 3 Walk 10ft-Uneven Surface(QC): 3 Walk 50ft with 2 Turns (QC): 3 Walk 150 ft (QC): 88 Gait Level of Assist: 4 Gait Assistive Device: FWW # of Steps: 1 1 Step (curb) (QC): 3 4 Steps (QC): 88 12 Steps (QC): 88 Stairs Level Of Assist: 4 Picking up an Object (QC): 88 PT Plan Treatment/Plan Treatment Plan: Continue Plan of Care Treatment Plan: Bed Mobility, Education, Functional Activity Zeina, Functional Strength, Group Therapy, Gait, Safety, Therapeutic Exercise, Transfers Treatment Duration: Aug 18, 2016 Visits Per Week: 10-11 Minutes/Day (M-F): 60-90 Minutes/Day (Sat/Bunch): 15-30 Safety Risks/Education Patient Education: Gait Training, Transfer Techniques, Steps, Correct Positioning, Disease Process, Safety Issues Teaching Recipient: Patient Teaching Methods: Demonstration, Discussion Response to Teaching: Verbalize Understanding, Return Demonstration, Reinforcement Needed Time/GCodes Time In: 715 Time Out: 815 Total Billed Treatment Time: 60 Total Billed Treatment 1,GT20m,FA25m,EX15m G Codes Necessary: MORENA Grady ELECTRONIC ASSEMBLER Aug 13, 2016 08:08
--- NOTE | 2016-08-13 08:08 | PM & R (SOAP) Progress Note ---
Subjective Subjective/Events-last exam Patient was seen in her room this AM Patient practicing stairs with therapies Objective Exam Last Set of Vital Signs Vital Signs Date Time Temp Pulse Resp B/P Pulse Ox O2 Delivery O2 Flow Rate FiO2 08/13/16 06:00 97.1 86 20 110/72 94 Room Air Capillary Refill : I&O Intake and Output 08/13/16 00:00 Intake Total 940 ml Balance 940 ml Intake Oral 940 ml # Voids 7 # Bowel Movements 1 General: Alert, Oriented X3, Cooperative, No Acute Distress HEENT: Atraumatic, PERRLA, EOMI, Mucous Memb Moist/[place] Neck: Supple, No JVD Lungs: Clear to Auscultation Heart: Regular Rate Abdomen: Normal Bowel Sounds, Soft, No Tenderness Extremities: Other Neuro: Other Results Lab Microbiology 08/02/16 Urine Culture - Final, Complete NO GROWTH Assessment/Plan Assessment General debil/probable Critical care illness s/p Pneumonia and resp failure associated with sepsis and Vent support for 7 days Anasarca with Peripheral edma related to above being treated as per above- improved Hypokalemia-replaced hypertension with episodes of hypotension improved with adjustment of meds Dyspepsia-improved Fall at home during day pass no injury sustained Allergic rhinitis Flonase ordered Plan Continue PT/OT ST has assessed and signed off Isotoner gloves for hand edema -done with improvement and Wraps for edema in legs-improving Replace K -done F/U with Dr Abe reid. Patient completed course of antibiotics last week-Discussed case with Clinical Pharmacist last week-F/U UC&S shows no grow Monitor Blood pressure and edema and adjust meds as appropriate Pepcid and Mylanta for [id number] F/U with staff re fall risk issues Team Conference held 08-11-16 -See report for full functional update and POC and ELOS Discharge set for tpmorrow RAUL COLLIER MD Aug 13, 2016 08:08
[2016-08-13] MEDS: KCL 20 MEQ TAB (K-DUR) PO SCH (08:09)
[2016-08-13] MEDS: FAMOTIDINE 20 MG (PEPCID) TABLET PO SCH ×2 (08:09→19:46)
[2016-08-13] MEDS: ETODOLAC 300 MG (LODINE) CAP PO SCH ×2 (08:09→19:45)
[2016-08-13] MEDS: lisINopril 20 MG (ZESTRIL) TAB PO SCH (08:09)
--- NOTE | 2016-08-13 10:17 | Occupational Ther Daily Note ---
OT Current Status-Daily Note Subjective Pt sitting in w/c. Pt agreed to shower and complete ADLs. No pain reported Agreeable to OT. Appearance Alert, Cooperative Mental Status/Objective Functional [place] Measure 0=Not Assessed/NA 4=Minimal Assistance 1=Total Assistance 5=Supervision or Setup 2=Maximal Assistance 6=Modified [place] 3=Moderate Assistance 7=Complete [place] Attachments: IV ADL-Treatment Pt propelled self to bathroom and transferred from w/c to shower bench using grab bars for balance.Pt doffed blouse, slipper socks, pants and brief while sitting on shower bench. Pt washed/dried all body parts,pt retrieved towels from grab bars, hand held shower, grab bars, shower bench. Pt transferred from shower bench to w/c using grab bars for balance. Pt propelled self back to room and donned blouse, briefs, pants and house shoe while sitting in w/c. Pt used fww for balance to pull up brief and pants. Pt propelled back to bathroom to brush teeth, hair at w/c level. Pt propelled to gym. Functional [place] Measure 0=Not Assessed/NA 4=Minimal Assistance 1=Total Assistance 5=Supervision or Setup 2=Maximal Assistance 6=Modified [place] 3=Moderate Assistance 7=Complete IndependenceIRFPAI Quality Coding Scale 6 Independent with activity with or without an assistive device 5 Patient requires set up or clean up by helper. Patient completes activity by themselves 4 Supervision or touching assist (CGA). [place] provide cues , steadying assist 3 The helper provides less than half the effort to complete the activity 2 The helper provides more than half the effort to complete the activity 1 Dependent. The helper does all the effort to complete an activity 7 Patient refused to complete or attempt activity 9 The patient did not perform the activity before the current illness or injury 88 Not attempted due to Medical conditions or safety concerns Eating (FIM): 6 Eating (QC): 6 Grooming (FIM): 6 Oral Hygiene (QC): 6 Toileting Hygiene (QC): 6 Bathing (FIM): 6 Bathing Location: L Arm, R Arm, L Upper Leg, R Upper Leg, L Lower Leg ( including foot), R Lower Leg (including foot), Chest, Abdomen, Buttocks, Perineal Area Upper Body (FIM): 5 Upper Body Dressing (QC): 5 Lower Body Dressing (FIM): 5 Lower Body Dressing (QC): 5 On/Off Footwear (QC): 5 Toileting (FIM): 6 Transfers (B, C, W/C) (FIM): 6 Toilet/Commode Transfer (FIM): 6 Toilet Transfer (QC): 6 Shower Transfer(FIM): 6 Shower/Bathe Self (QC): 6 Other Treatment Pt completed active ROM to decrease pain and to increase daily functional tasks. Education OT Patient Education: Progress toward Goal/Update tx plan, Purpose of tx/ functional activities Teaching Recipient: Patient Teaching Methods: Discussion Response to Teaching: Verbalize Understanding, Return Demonstration OT Short Term Goals Short Term Goals Time Frame: Aug 04, 2016 Eating(FIM): 4 (met-08/11/16) Grooming(FIM): 5 (met-08/11/16) Bathing(FIM): 3 (met-08/11/16) Upper Body Dressing(FIM): 4 (met-08/11/16) Toilet/Commode Transfer(FIM): 3 (met-08/11/16) 1=Demonstrate adherence to instructed precautions during ADL tasks. 2=Patient will verbalize/demonstrate understanding of assistive devices/ modifications for ADL. 3=Patient will improve strength/tolerance for activity to enable patient to perform ADL's. OT Core Man Goals Core Man Goals Time Frame: Aug 18, 2016 Eating (FIM): 6 Eating (QC): 6 Oral Hygiene (QC): 6 Grooming(FIM): 6 Bathing(FIM): 5 (setup) Shower/Bathe Self (QC): 5 (setup) Upper Body Dressing(FIM): 5 (setup) Upper Body Dressing (QC): 5 Lower Body Dressing(FIM): 5 (met-08/11/16) Lower Body Dressing (QC): 5 (met-08/11/16) On/Off Footwear (QC): 5 Toileting(FIM): 5 (setup) Toileting Hygiene (QC): 5 Toilet/Commode Transfer(FIM): 5 (setup) Toilet/Commode Transfer (QC): 5 Shower Transfer(FIM): 5 (SBA) Increase bilat UE strength to 4+/5 Increase gas reverser strength 50% Decreased edema bilat UEs to normal limits Additional Goals: 2-Verbalize Understanding, 3-ImproveStrength/Zeina 1=Demonstrate adherence to instructed precautions during ADL tasks. 2=Patient will verbalize/demonstrate understanding of assistive devices/ modifications for ADL. 3=Patient will improve strength/tolerance for activity to enable patient to perform ADL's. OT Education/Plan Problem List/Assessment Pt would benefit from skilled OT to increase her independence in basic self care to allow her to safely return home with family support after sepsis/ pneumonia with resultant weakness and decreased self care Discharge Recommendations Plan/Recommendations: Continue POC Treatment Plan/Plan of Care Patient would benefit from OT for education, treatment and training to promote independence in ADL's, mobility, safety and/or upper extremity function for ADL' s. Plan of Care: ADL Retraining, Functional Mobility, Group Exercise/Act as Ind ( education, exercise, activity tolerance, functional activities, socialization), UE Funct Exercise/Act, UE Neuromus Re-Ed/Coord, OTHER (edema management) Treatment Duration: Aug 18, 2016 Visits Per Week: 10-11 Minutes/Day (M-F): 75-90 Minutes/Day (Sat/Bunch): PRN Agreement: Yes Rehab Potential: Good Time/GCodes Start Time: 09:00 Stop Time: 10:00 Total Time Billed (hr/min): 60 Billed Treatment Time visit, ADL 40 min, EX 20 min RYAN MELGAR Aug 13, 2016 10:17
[2016-08-13] MEDS ORDERED: POTA20TA8 PO (13:35)
[2016-08-13] MEDS ORDERED: LISI-552 PO (13:35)
[2016-08-13] MEDS ORDERED: METO50TA2 PO (13:35)
[2016-08-13] MEDS ORDERED: FURO40TA4 PO (13:35)
--- NOTE | 2016-08-13 14:55 | Therapy Group Daily Note ---
Therapy Daily Group Note Patient Education Topic Other List Below (arthritis and levels of pain, ARU descriptions/expectations) Exercises LE Seated Exercise, UE Exercise Other/Notes Pt transported self to OT/PT group with w/c. Pt actively participated in group. Group consisted of introductions (name, place living, what do you do to exercise), socialization, ARU description and expectations, arthritis education , education on how exercise can alleviate pain, UE/LE seated exercises and recall/memory activity. Pt was able to contribute to discussions for arthritis and pain. Pt tolerated UE/LE seated exercises well. Pt was able to complete the recall/memory activity without difficulty. After therapy, pt maneuvered self to room via w/c and sat in room with call light/phone in reach. All needs met in room. Start Time: 13:00 Stop Time: 14:30 Total Billed Treatment Time: 90 Total Billed Treatment 1-GRP RYAN MELGAR Aug 13, 2016 14:54
[2016-08-13 18:33] VITALS: BP 112/75
[2016-08-13] MEDS: ESTRADIOL 1 MG TAB (ESTRACE) PO SCH (19:45)
[2016-08-13] MEDS: ENOXAPARIN 40 MG/0.4 ML (LOVENOX) SYR SC SCH (19:45)
[2016-08-13] MEDS: LORATADINE (CLARITIN) 10 MG TAB PO SCH (19:45)
[2016-08-14 06:00] VITALS: BP 126/81
[2016-08-14] MEDS: FUROSEMIDE 40 MG (LASIX) TAB PO SCH (06:29)
[2016-08-14] MEDS: LEVOTHYROXINE 50 MCG (LEVOTHROID) TAB PO SCH (06:29)
[2016-08-14] MEDS: LACTOBACILLUS Acidoph/Bulgar (LACTINEX/FLORANEX) TAB PO SCH (06:29)
[2016-08-14] MEDS: SUCRALFATE 1 GM (CARAFATE) TAB PO SCH (06:29)
[2016-08-14] MEDS: FAMOTIDINE 20 MG (PEPCID) TABLET PO SCH (08:34)
[2016-08-14] MEDS: KCL 20 MEQ TAB (K-DUR) PO SCH (08:34)
[2016-08-14] MEDS: ETODOLAC 300 MG (LODINE) CAP PO SCH (08:34)
[2016-08-14] MEDS: meTOprolol TARTRATE 50 MG (LOPRESSOR) TAB PO SCH (08:34)
[2016-08-14] MEDS: lisINopril 20 MG (ZESTRIL) TAB PO SCH (08:34)
[2016-08-14 09:30] VITALS: BP 126/81
--- NOTE | 2016-08-14 12:29 | Physical Therapy Daily Note ---
PT Daily Note-Current Subjective Pt wants to perform stairs with her present. Transfers Functional [place] Measure 0=Not Assessed/NA 4=Minimal Assistance 1=Total Assistance 5=Supervision or Setup 2=Maximal Assistance 6=Modified [place] 3=Moderate Assistance 7=Complete IndependenceIRFPAI Quality Coding Scale 6 Independent with activity with or without an assistive device 5 Patient requires set up or clean up by helper. Patient completes activity by themselves 4 Supervision or touching assist (CGA). [place] provide cues , steadying assist 3 The helper provides less than half the effort to complete the activity 2 The helper provides more than half the effort to complete the activity 1 Dependent. The helper does all the effort to complete an activity 7 Patient refused to complete or attempt activity 9 The patient did not perform the activity before the current illness or injury 88 Not attempted due to Medical conditions or safety concerns Sit to/from Stand: 6 Bed to/from Chair: 6 Wheelchair Training Does the Pt Use a Wheelchair?: Yes Wheelchair Distance: 3=150 ft Distance: 200ft Stair Training Stair Training: Handrails/: No handrail #of Steps: 4 Stairs: Pattern: Step to Level of Assist: 3 Pt ascended with on (L) side. Descended with on lower side of stairs, supporting under (B) arms. Good performance, no issues. Assessment Good performance with transfers and with stairs. PT Short Term Goals Short Term Goals Time Frame: Aug 04, 2016 Gait (FIM): 1 (met ) Gait Distance Comment: 20' Gait Level of Assist: 3 Gait Assistive Device: FWW Wheelchair Distance: 150'x2 PT Alum Operator Goals Alum Operator Goals PT Senior Care Goals Time Frame: Aug 18, 2016 Transfers (B,C,W/C) (FIM): 4 Sit to Lying (QC): 4 Lying-Sitting on Side/Bed(QC): 4 Sit to Stand (QC): 3 Rollin Roll Left to Right (QC): 4 Chair/Joa-cc-Grehr Xfer(QC): 3 Car Transfer (QC): 3 Gait (FIM): 2 Distance: 50' Walk 10 feet (QC): 3 Walk 10ft-Uneven Surface(QC): 3 Walk 50ft with 2 Turns (QC): 3 Walk 150 ft (QC): 88 Gait Level of Assist: 4 Gait Assistive Device: FWW # of Steps: 1 1 Step (curb) (QC): 3 4 Steps (QC): 88 12 Steps (QC): 88 Stairs Level Of Assist: 4 Picking up an Object (QC): 88 PT Plan Treatment/Plan Treatment Plan: Continue Plan of Care Treatment Plan: Bed Mobility, Education, Functional Activity Zeina, Functional Strength, Group Therapy, Gait, Safety, Therapeutic Exercise, Transfers Treatment Duration: Aug 18, 2016 Visits Per Week: 10-11 Minutes/Day (M-F): 60-90 Minutes/Day (Sat/Bunch): 15-30 Time/GCodes Time In: 0900 Time Out: 0910 Total Billed Treatment Time: 10 Total Billed Treatment 1, fa 10' JALEN HASSAN PT Aug 14, 2016 12:29
--- NOTE | 2016-08-16 11:45 | Therapy Team Discharge Summary ---
Therapy Discharge Summary Discharge Recommendations Date of Discharge Aug 14, 2016 at 09:30 Therapy D/C Recommendations: Home w/ Family Support Occupational Therapy Pt was seen for skilled OT after hospitalization for pneumonia and sepsis, including 7 days on ventilatory support, with significant UE weakness. On admission she needed two person assist for transfers, toileting, lower body dressing, bathing. Max assistance eating and upper body dressing, mod assistance grooming. By discharge she progressed to modified independent with eating, grooming, bathing, toileting and setup for dressing. ADLs were done at W /C level or with FWW. Equipment also included shower bench, grab bars, BSC. She also demonstrated increased bilat UE strengtha nd coordination as shown by standardized testing. Pt discharged to home with family support. Would benefit from continued OT to increase strength in bilat UEs to allow her to return to work. See tx plan for goals met. PT Merchandise Flow Manager Goals Merchandise Flow Manager Goals PT Residential Goals Time Frame: Aug 18, 2016 Transfers (B,C,W/C) (FIM): 4 Roll Left to Right (QC): 4 Sit to Lying (QC): 4 Lying-Sitting on Side/Bed(QC): 4 Sit to Stand (QC): 3 Chair/Qcn-kr-Vbtwx Xfer(QC): 3 Car Transfer (QC): 3 Gait (FIM): 2 Distance: 50' Walk 10 feet (QC): 3 Walk 10ft-Uneven Surface(QC): 3 Walk 50ft with 2 Turns (QC): 3 Walk 150 ft (QC): 88 Gait Level of Assist: 4 Gait Assistive Device: FWW # of Steps: 1 1 Step (curb) (QC): 3 4 Steps (QC): 88 12 Steps (QC): 88 Stairs Level Of Assist: 4 Picking up an Object (QC): 88 OT Residential Goals Merchandise Flow Manager Goals Time Frame: Aug 18, 2016 Eating (FIM): 6 (Met 08-13-16) Eating (QC): 6 (Met 08-13-16) Oral Hygiene (QC): 6 (Met 08-13-16) Grooming(FIM): 6 (Met 08-13-16) Bathing(FIM): 5 (setup Met 08-13-16) Shower/Bathe Self (QC): 5 (setupMet 08-13-16) Upper Body Dressing(FIM): 5 (setupMet 08-13-16) Upper Body Dressing (QC): 5 (Met 08-13-16) Lower Body Dressing(FIM): 5 (met-08/11/16) Lower Body Dressing (QC): 5 (met-08/11/16) On/Off Footwear (QC): 5 (Met 08-13-16) Toileting(FIM): 5 (setupMet 08-13-16) Toileting Hygiene (QC): 5 (Met 08-13-16) Toilet/Commode Transfer(FIM): 5 (setupMet 08-13-16) Toilet/Commode Transfer (QC): 5 (Met 08-13-16) Shower Transfer(FIM): 5 (SBAMet 08-13-16) Increase bilat UE strength to 4+/5 Increase veterinary receptionist strength 50% met Decreased edema bilat UEs to normal limits met Additional Goals: 2-Verbalize Understanding, 3-ImproveStrength/Zeina 1=Demonstrate adherence to instructed precautions during ADL tasks. 2=Patient will verbalize/demonstrate understanding of assistive devices/ modifications for ADL. 3=Patient will improve strength/tolerance for activity to enable patient to perform ADL's. NIKI BRENNAN OT Aug 16, 2016 11:44
--- NOTE | 2016-08-17 15:36 | Therapy Team Discharge Summary ---
Therapy Discharge Summary Discharge Recommendations Date of Discharge Aug 14, 2016 at 09:30 Therapy D/C Recommendations: Home w/ Family Support Physical Therapy Patient came to rehab for severe sepsis/pneumonia. Upon admission patient performed bed mobility with mod to min assist, transfers with max assist, could propel a wheelchair 15' with min assist, and was not able to ambulate. Patient has been performing bed mobility and transfer training, balance and endurance training, functional strengthening, stair training, gait training, and education. 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 Now, patient performs bed mobility and transfers with mod I, ambulates 150' with a rolling walker with mod I, and can go up and down 4 steps using 2 handrails with SBA. Patient has been discharged from this facility and will be discharged from PT at this time. PT Garage Manager Goals Garage Manager Goals PT Garage Manager Goals Time Frame: Aug 18, 2016 Transfers (B,C,W/C) (FIM): 4 Roll Left to Right (QC): 4 Sit to Lying (QC): 4 Lying-Sitting on Side/Bed(QC): 4 Sit to Stand (QC): 3 Chair/Etw-wa-Hwwxz Xfer(QC): 3 Car Transfer (QC): 3 Gait (FIM): 2 Distance: 50' Walk 10 feet (QC): 3 Walk 10ft-Uneven Surface(QC): 3 Walk 50ft with 2 Turns (QC): 3 Walk 150 ft (QC): 88 Gait Level of Assist: 4 Gait Assistive Device: FWW # of Steps: 1 1 Step (curb) (QC): 3 4 Steps (QC): 88 12 Steps (QC): 88 Stairs Level Of Assist: 4 Picking up an Object (QC): 88 OT Garage Manager Goals Garage Manager Goals Time Frame: Aug 18, 2016 Eating (FIM): 6 (Met 08-13-16) Eating (QC): 6 (Met 08-13-16) Oral Hygiene (QC): 6 (Met 08-13-16) Grooming(FIM): 6 (Met 08-13-16) Bathing(FIM): 5 (setup Met 08-13-16) Shower/Bathe Self (QC): 5 (setupMet 08-13-16) Upper Body Dressing(FIM): 5 (setupMet 08-13-16) Upper Body Dressing (QC): 5 (Met 08-13-16) Lower Body Dressing(FIM): 5 (met-08/11/16) Lower Body Dressing (QC): 5 (met-08/11/16) On/Off Footwear (QC): 5 (Met 08-13-16) Toileting(FIM): 5 (setupMet 08-13-16) Toileting Hygiene (QC): 5 (Met 08-13-16) Toilet/Commode Transfer(FIM): 5 (setupMet 08-13-16) Toilet/Commode Transfer (QC): 5 (Met 08-13-16) Shower Transfer(FIM): 5 (SBAMet 08-13-16) Increase bilat UE strength to 4+/5 Increase office 365 consultant strength 50% met Decreased edema bilat UEs to normal limits met Additional Goals: 2-Verbalize Understanding, 3-ImproveStrength/Zeina 1=Demonstrate adherence to instructed precautions during ADL tasks. 2=Patient will verbalize/demonstrate understanding of assistive devices/ modifications for ADL. 3=Patient will improve strength/tolerance for activity to enable patient to perform ADL's. NOREEN DIAZ PT Aug 17, 2016 15:35
--- NOTE | 2016-08-25 15:09 | DISCHARGE SUMMARY ---
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 Her condition worsened and she was admitted to [facility]. She became ventilator dependent with respiratory failure, developed sepsis; this was all treated by Dr. Fish, PCP and Dr. Guzmán pulmonology. The patient was seen by cardiology as well. The patient completed a course of IV antibiotics and then was placed on Zyvox. She has fairly diffuse weakness and a decline in functional independence consistent with critical care illness. The patient was on a vent for 7 days and this certainly may have contributed to her diffuse weakness. She has significant anasarca, edema throughout and reports some decreased sensation in both ankles and hands, which may be related to the edema. PAST MEDICAL HISTORY: 1. Arthritis. 2. COPD. 3. Hypothyroidism on replacement. 4. Tobaccoism. 5. Chronic bronchitis. 6. Stress incontinence. She lives in a multilevel home but stays on one level; she lives with her spouse in [place]. MEDICAL COURSE: The patient was followed by Dr. Lambert and Dr. Fish while on rehab unit. Diuretics, potassium supplement were adjusted with good decrease in her peripheral edema, Isotoner gloves and Ashish wraps were used to decrease edema and hands and legs with good results. She was afebrile during her stay. Blood pressure was 126/81 on 08/14, respirations 18, pulse 86, O2 sat 95% on room air. CBC on 08/03 showed WBC 9.4. H&H on 9., platelet count 146,000, improved from 112 where WBC was 10.6, H&H was 2.1/30. Chemistry on 08/08 showed normal serum albumin, total protein mildly low at 6, CO2 low at 20, otherwise normal electrolytes, BUN and creatinine. Serum albumin had improved from 2.7 on 07/29. Total protein improved from 4.6 on 07/29. The patient had elevated ALT and AST of 72 and 121 on 07/29; they normalized by 08/08. Blood glucose was in the 90s. The patient had low serum calcium of 7.7 the patient provided with replacement. It was normalized to 8.8 on 08/08 and UA was abnormal on 08/04 but culture showed no growth on 08/04. The patient had some dyspepsia which responded to Pepcid and Mylanta. The patient had a chest x-ray on 08/01 revealing interval improved aeration of both lungs with residual mild bibasilar atelectasis and small infiltrates. The patient was provided with respiratory treatments with improvement. REHABILITATION COURSE: The patient progressed well with her therapy. She had increased strength and endurance. She was assessed by speech therapy upon admission and found her to be cognitively intact and signed off. PT notes upon admission, the patient performed bed mobility with min to mod assist and transfers with max assist, could propel a wheelchair 50 feet with min assist and was not able to ambulate. Upon discharge she has made good progress and she is modified independent for bed mobility and transfers. Could ambulate 50 with a wheeled walker with modified independence and go up and down 4 steps using 2 handrails to standby assist. OT notes upon admission, the patient needed to person assist for transfers, toileting, lower body dressing, bathing. Max assist for eating, and upper body dressing. Mod assist for grooming. By discharge she progressed to modified independence with eating, grooming, bathing, toileting and set up for dressing, ADLs were done at wheelchair level or front wheel walker. Equipment also included shower bench, grab bars, bedside commode. She also demonstrated increased bilateral upper body strength, coordination, electric train driver strength with decreased peripheral edema. DISCHARGE INSTRUCTIONS: The patient was discharged to home with spouse and with home health services. The patient will follow-up with Dr. Fish as per her schedule. Continue current diet. A prescription for a wheeled walker was provided to the patient upon discharge. DISCHARGE MEDICATIONS: 1. Furosemide 20 mg p.o. daily. 2. Lisinopril 20 mg p.o. daily. 3. Metoprolol 150 mg p.o. b.i.d. 4. KCL 20 mEq p.o. daily. 5. Calcium carbonate 600 mg p.o. daily. 6. Zyrtec 10 mg p.o. at bedtime. 7. Vitamin D 3000 units p.o. daily. 8. Diclofenac 100 mg p.o. b.i.d. 9. Estradiol 2 mg p.o. at bedtime. 10. Fenofibrate 134 mg p.o. daily. 11. Floranex 1 tablet p.o. q.i.d. with meals. 12. Levothyroxine 50 mcg p.o. daily. 13. Carafate 1 gram p.o. q.i.d. with meals and at bedtime. 14. Vitamin B complex and vitamin C 1 tablet p.o. daily. DISCHARGE DIAGNOSES: 1. Rehabilitation ambulatory dysfunction secondary to critical care illness associated with anasarca and diffuse weakness, improving. 2. Pneumonia, treated. 3. Sepsis, treated. 4. Septic shock, treated. 5. Respiratory failure, treated. 6. Incontinence of bowel continent. 7. Stress incontinence. 8. COPD. 9. Hypothyroidism on replacement. 10. Peripheral edema, improved. 11. Hypokalemia replaced. 12. Tobaccoism currently abstaining. 13. Allergic rhinitis, on medications. 14. Atelectasis treated by respiratory therapy. 15. Hypertension, controlled with medication. 16. Hypotension, resolved. 17. Dyspepsia, improved with Mylanta and Pepcid. 18. Anemia, improved, 19. Hypoalbuminemia improved. 20. Elevated liver function tests, resolved. CONDITION AT DISCHARGE: Improved and stable. PROGNOSIS: Rehab prognosis appears good for improvement at home, return to independent living. Hopefully should be able to return to work within the next several weeks. I will have follow-up with Dr. Fish regarding this. Job ID: [id number] Dictated Date: 08/24/2016 21:13:45 Immersion Metalcleaner Date: 08/25/2016 14:49:07/jimmie MACIEL
== END 2016-08-14 09:30 | disposition home health service (06) | DRG 91 ==
PROVIDERS: ADMIT Physical Medicine & Rehabilitation; ATTEND Physical Medicine & Rehabilitation
DX: G72.81 Critical illness myopathy (principal); J13 Pneumonia due to Streptococcus pneumoniae; R15.9 Full incontinence of feces; N39.3 Stress incontinence (female) (male); J44.9 Chronic obstructive pulmonary disease, unspecified; E03.9 Hypothyroidism, unspecified; R60.0 Localized edema; E87.6 Hypokalemia; F17.210 Nicotine dependence, cigarettes, uncomplicated; J30.9 Allergic rhinitis, unspecified; J98.11 Atelectasis; I10 Essential (primary) hypertension; I95.9 Hypotension, unspecified; R10.13 Epigastric pain
CPT/HCPCS: 36415; 71020; 80053; 81000; 85025; 87088; 94640; 94664; 94760

== ENCOUNTER → 2016-08-24 | Outpatient (CLI) | payer BC ==
[~2016-08-24] MED LIST changes: +FURO40TA4 PO; +POTA20TA8 PO
--- OUTSIDE RECORDS SUMMARY | 2016-08-24 10:44 | XMS REPORT | Continuity of Care Document ---
Author Author [facility] Organization [facility] Address Unknown Phone Unavailable Care Team Providers Care Oil Program Compliance Specialist Name Role Phone KINDRA RHODES DO PCP Insurance Providers Payer Name Policy Number Subscriber Name Relationship [facility] [id number] Kristin Hopper 18 Self / Same As Patient Advance Directives Directive Response Recorded Date/Time Advance Directives No 09/24/15 7:45am Health Care Power of Mapping Analyst No 09/24/15 7:45am Organ Donor Yes 09/24/15 [...] Day as needed for Pain 05/12/10 Discontinued [place]-3 Fatty Acids/Fish Oil 1 Each Capsule, 1000 [...] Type Severity Reaction Status Last Updated azithromycin ([id number]) Allergy Severe BLISTERS Active 05/18/10 Immunizations No [...] Discharge/Depart Date Attending Provider Discharged Recurring [facility] 12/31/15 8:54am 11:59pm SANDRA TOBIN
--- NOTE | 2016-08-24 16:37 | Diagnostic Imaging Report ---
PROCEDURE: CT chest without contrast. TECHNIQUE: Multiple contiguous axial images were obtained through the chest without the use of intravenous contrast. INDICATION: Pneumonia. History of smoking. COMPARISON: No prior similar studies are available for comparison. FINDINGS: Small peripheral subpleural blebs are seen in the lung apices. In the left upper lobe just above the hilar level, there is an 8 mm nodular density with surrounding spiculations which may relate to scarring. An early neoplasm is not entirely ruled out, however. The adjacent portion of the left major fissure is slightly thickened. The right lung demonstrates no significant consolidation or mass. Minimal anterior right middle lobe interstitial thickening is favored to be related to scarring. No pleural or pericardial effusion. The thoracic aorta is normal in caliber. No mediastinal mass. An 8 mm right paratracheal lymph node is seen with a preserved fatty hilum, suggestive of benign etiology. There is diffuse fatty infiltration of the liver. The adrenal glands appear unremarkable. The osseous structures appear grossly unremarkable. IMPRESSION: Indeterminate irregular nodule measuring 8 mm in the left upper lobe with surrounding fibrotic changes or spiculations. This could be a scar versus early neoplasm. Consider further evaluation with a PET/CT or a [address] chest. Report faxed to Dr. Guzmán at 4:38 p.m. 08/24/2016/cb Dictated by: Dictated on workstation # [id number]
== END ==
LOC: RAD 10:40
PROVIDERS: ATTEND Internal Medicine Critical Care Medicine
DX: R91.1 Solitary pulmonary nodule (principal); Z87.891 Personal history of nicotine dependence
CPT/HCPCS: 71250

== ENCOUNTER → 2016-09-01 | Outpatient (CLI) | payer BC ==
[~2016-09-01] MED LIST changes: +RT-ALBUTEROL SULF 2.5 MG/3 ML PRE-MIX VIAL INH ONE
--- OUTSIDE RECORDS SUMMARY | 2016-09-01 09:47 | XMS REPORT | Continuity of Care Document ---
Author Author [facility] Organization [facility] Address Unknown Phone Unavailable Care Team Providers Care Fruit Harvester Machine Operator Name Role Phone KINDRA RHODES DO PCP Insurance Providers Payer Name Policy Number Subscriber Name Relationship [facility] [id number] Kristin Hopper 18 Self / Same As Patient Advance Directives Directive Response Recorded Date/Time Advance Directives No 09/24/15 7:45am Health Care Power of Case Liner No 09/24/15 7:45am Organ Donor Yes 09/24/15 [...] Day as needed for Pain 05/12/10 Discontinued [place]-3 Fatty Acids/Fish Oil 1 Each Capsule, 1000 [...] Type Severity Reaction Status Last Updated azithromycin ([id number]) Allergy Severe BLISTERS Active 05/18/10 Immunizations No [...] Discharge/Depart Date Attending Provider Discharged Recurring [facility] 12/31/15 8:54am 11:59pm SANDRA TOBIN
== END ==
LOC: RT 09:43
PROVIDERS: ATTEND Internal Medicine Critical Care Medicine
DX: J18.9 Pneumonia, unspecified organism (principal); Z87.891 Personal history of nicotine dependence
CPT/HCPCS: 94060; 94640; 94726; 94729

== ENCOUNTER → 2016-09-28 | Outpatient (CLI) | payer BC ==
[~2016-09-28] MED LIST changes: -RT-ALBUTEROL SULF 2.5 MG/3 ML PRE-MIX VIAL INH ONE
--- OUTSIDE RECORDS SUMMARY | 2016-09-28 09:52 | XMS REPORT | Continuity of Care Document ---
Author Author [facility] Organization [facility] Address Unknown Phone Unavailable Care Team Providers Care Electrical Controls Assembler Name Role Phone KINDRA RHODES DO PCP Insurance Providers Payer Name Policy Number Subscriber Name Relationship [facility] [id number] Kristin Hopper 18 Self / Same As Patient Advance Directives Directive Response Recorded Date/Time Advance Directives No 09/24/15 7:45am Health Care Power of Application Security Developer No 09/24/15 7:45am Organ Donor Yes 09/24/15 [...] Day as needed for Pain 05/12/10 Discontinued [place]-3 Fatty Acids/Fish Oil 1 Each Capsule, 1000 [...] Type Severity Reaction Status Last Updated azithromycin ([id number]) Allergy Severe BLISTERS Active 05/18/10 Immunizations No [...] Discharge/Depart Date Attending Provider Discharged Recurring [facility] 12/31/15 8:54am 11:59pm SANDRA TOBIN
--- NOTE | 2016-09-28 15:52 | Diagnostic Imaging Report ---
PA and lateral views of the chest. INDICATION: Cough. FINDINGS: The lungs demonstrate minimal left infrahilar atelectasis, otherwise no significant consolidation is seen. The heart size is normal. There is no effusion or pneumothorax. Mediastinum and faith appear unremarkable. IMPRESSION: Minimal left infrahilar atelectasis. Dictated by: Dictated on workstation # [id number]
== END ==
LOC: RAD 09:48
PROVIDERS: ATTEND Urology
DX: R05 Cough (principal)
CPT/HCPCS: 71020

== ENCOUNTER → 2016-11-16 | Outpatient (CLI) | payer BC ==
--- NOTE | 2016-11-16 09:56 | Diagnostic Imaging Report ---
PROCEDURE: CT chest without contrast. TECHNIQUE: Multiple contiguous axial images were obtained through the chest without the use of intravenous contrast. INDICATION: Followup left upper lobe nodule. COMPARISON: 08/24/2016. FINDINGS: The previously seen irregular nodule in the left upper lobe is near completely resolved with very subtle and minimal groundglass opacity at this location. This is suggestive of treated pneumonia with no residual suspicious lesion seen. There is no significant consolidation at this time. There is no mass or suspicious nodule. The heart size is normal. The thoracic aorta is normal in caliber. No mediastinal mass or significantly enlarged nodes. No axillary lymphadenopathy. No pericardial or pleural effusion. Sections in the upper abdomen demonstrate diffuse steatosis. The osseous structures demonstrate mild degenerative changes in the mid thoracic spine. IMPRESSION: 1. Near-complete resolution of the left upper lobe pulmonary nodules compatible with a transient infectious process. No residual suspicious lesion. 2. Hepatic steatosis. Dictated by: Dictated on workstation # [id number]
== END ==
LOC: RAD 07:40
PROVIDERS: ATTEND Nurse Practitioner Family
DX: J18.9 Pneumonia, unspecified organism (principal); K76.0 Fatty (change of) liver, not elsewhere classified; Z87.891 Personal history of nicotine dependence
CPT/HCPCS: 71250

== ENCOUNTER → 2018-06-19 | Outpatient (CLI) | payer BC ==
[~2018-06-19] MED LIST changes: +ACHD5005 PO; -AMLO5TAB2 PO; +AMLO5TAB7 PO; +DICL100T3 PO; -HYDR-3812 PO; -IPRA3AMP INH; +IPRA3AMP31 INH; +METO50TA15 PO; -METO50TA2 PO; -NF-DICLOTA PO; +ONDA2VIACC IVP; -ONDA4VIA28 IVP; -OXYC-197 PO; +OXYC1TAB87 PO; -SPIR25TA3; +SPIR25TA5
--- NOTE | 2018-06-19 08:32 | Diagnostic Imaging Report ---
EXAM: CT CHEST SCREENING WO INDICATION: 45 pack year smoking history. Current smoker. COMPARISON: CT chest without contrast 11/16/2016. FINDINGS: Mild/moderate centrilobular emphysema. Scattered mild scarring. No pulmonary nodules. No endobronchial lesions. No mediastinal, hilar or axillary lymphadenopathy. Mild atherosclerotic calcifications including coronary and aortic. Normal heart size. No pericardial or pleural effusion. No pneumothorax. Chronic right lower rib fractures. No acute osseous findings. The visualized upper abdominal contents are unremarkable. IMPRESSION: 1. No pulmonary nodule or mass. Recommend continue screening with low dose chest CT in 12 months. 2. Mild to moderate centrilobular emphysema. 3. Mild atherosclerotic calcifications including coronary. Lung rads category: 1. Modifier: None Please note that the low-dose technique of this chest CT is of non-diagnostic quality. This study is only intended for lung cancer screening of high risk patients. Dictated by: Dictated on workstation # [id number]
== END ==
LOC: RAD 07:37
PROVIDERS: ATTEND Nurse Practitioner Family
DX: Z12.2 Encounter for screening for malignant neoplasm of respiratory organs (principal); J43.2 Centrilobular emphysema; I25.10 Atherosclerotic heart disease of native coronary artery without angina pectoris; J30.9 Allergic rhinitis, unspecified; Z87.891 Personal history of nicotine dependence

== ENCOUNTER → 2018-06-21 | Outpatient (CLI) | payer BC ==
[~2018-06-21] MED LIST changes: +RT-ALBUTEROL SULF 2.5 MG/3 ML PRE-MIX VIAL INH ONE
== END ==
LOC: RT 08:23
PROVIDERS: ATTEND Nurse Practitioner Family
DX: J44.9 Chronic obstructive pulmonary disease, unspecified (principal); J30.9 Allergic rhinitis, unspecified; R06.00 Dyspnea, unspecified; R94.2 Abnormal results of pulmonary function studies; F17.201 Nicotine dependence, unspecified, in remission
CPT/HCPCS: 94060; 94726; 94729

== ENCOUNTER 2018-07-27 20:11 | Outpatient (CLI) | payer BC ==
[~2018-07-27 20:11] MED LIST changes: -RT-ALBUTEROL SULF 2.5 MG/3 ML PRE-MIX VIAL INH ONE
== END 2018-07-28 04:18 | disposition home or self-care (01) ==
LOC: SLEEP 20:11
PROVIDERS: ATTEND Nurse Practitioner Family
DX: G47.34 Idiopathic sleep related nonobstructive alveolar hypoventilation (principal); J30.9 Allergic rhinitis, unspecified; R06.00 Dyspnea, unspecified; R94.2 Abnormal results of pulmonary function studies; F17.201 Nicotine dependence, unspecified, in remission
CPT/HCPCS: 95810

== ENCOUNTER → 2018-10-16 | Outpatient (CLI) | payer BC ==
[~2018-10-16] MED LIST changes: -AMLO5TAB7 PO; +AMLO5TAB9 PO; -DICL100T3 PO; +DICL100T83 PO
--- NOTE | 2018-10-16 09:35 | Diagnostic Imaging Report ---
INDICATION: Routine screening. Comparison is made with prior mammogram from 11/03/2015 and 09/23/2014. 2-D and 3-D bilateral screening mammography was performed with a Computer Aided Detection (CAD) system. FINDINGS: Both breasts are heterogeneously dense, limiting the sensitivity of mammography. No dominant mass or malignant appearing microcalcifications are seen. Axillae are unremarkable. IMPRESSION: No mammographic features suspicious for malignancy are identified. ACR BI-RADS Category 1: Negative. Result letter will be mailed to the patient. Note: At least 10% of breast cancer is not imaged by mammography. Dictated by: Dictated on workstation # [id number]
== END ==
LOC: RAD 07:41
PROVIDERS: ATTEND Obstetrics & Gynecology
DX: Z12.31 Encounter for screening mammogram for malignant neoplasm of breast (principal)
CPT/HCPCS: 77067

== ENCOUNTER → 2018-12-22 | Outpatient (CLI) | payer BC ==
--- NOTE | 2018-12-22 08:30 | Diagnostic Imaging Report ---
PROCEDURE: CT chest with contrast only. TECHNIQUE: Multiple contiguous axial images were obtained through the chest after administration of intravenous contrast. Auto Exposure Controls were utilized during the CT exam to meet ALARA standards for radiation dose reduction. INDICATION: Abnormal chest x-ray. Comparison is made with screening chest CT study from 06/19/2018. No axillary lymphadenopathy is seen. Normal sized lymph nodes in the mediastinum are seen. No hilar or mediastinal lymphadenopathy is detected. No pericardial or pleural fluid is identified. Parenchymal evaluation does show some scarring or atelectasis in the right middle lobe and lingula. No parenchymal mass, nodule or infiltrate is detected. Upper abdomen does demonstrate diffuse hepatic steatosis. Bony structures are nonacute. IMPRESSION: 1. Essentially unremarkable CT of the chest apart from mild scarring in the right middle lobe and lingula. No infiltrate, nodule or mass is detected. 2. Hepatic steatosis. Dictated by: Dictated on workstation # [id number]
== END ==
LOC: RAD 12-20 07:38
PROVIDERS: ATTEND Nurse Practitioner Family
DX: K76.0 Fatty (change of) liver, not elsewhere classified (principal); J98.4 Other disorders of lung
CPT/HCPCS: 71260

== ENCOUNTER → 2019-12-12 | Outpatient (CLI) | payer BC ==
[~2019-12-12] MED LIST changes: -CETI10TA20 PO; +CETI10TA21 PO; +LINE600T12 PO; -LINE600T5 PO
--- NOTE | 2019-12-12 07:55 | Diagnostic Imaging Report ---
PROCEDURE: US Hepatic (Liver). TECHNIQUE: Multiple real-time grayscale images were obtained over the right upper quadrant in various projections. INDICATION: Elevated liver enzymes. The liver appears enlarged measuring 21 cm it has increased echogenicity. The echo pattern is homogeneous. Portal vein is patent with hepatopedal flow. Gallbladder is clear with no stones or wall thickening. Common duct is not dilated. Pancreas is ischemic bowel gas. Aorta and IVC appear normal. Right kidney measures 11.5 cm in length and appears normal. There is no ascites. IMPRESSION: Hepatic steatosis Dictated by: Dictated on workstation # [id number]
--- NOTE | 2019-12-12 08:06 | Diagnostic Imaging Report ---
PROCEDURE: US Thyroid. TECHNIQUE: Multiple real-time grayscale images were obtained of the thyroid in various projections. INDICATION: Hyperthyroidism There are no prior ultrasound examinations available for comparison. The CT chest exam performed on 12/22/2018 failed to show any abnormality of the thyroid gland. On this study the thyroid gland is not enlarged. The right lobe measures 4.5 x 1.1 x 1.5 cm and the left lobe is estimated to be 3.2 x 1.4 x 1.3 cm (normal gland size 4-5 x 2 x 2 cm or less). The vascularity in each lobe is somewhat prominent but not necessarily abnormal. There is no discrete solid or cystic mass within either lobe. IMPRESSION: 1. The thyroid gland is not enlarged and there is no focal abnormality involving either lobe. 2. If further evaluation of the thyroid gland function is desired, then a nuclear medicine thyroid study would be recommended. Dictated by: Dictated on workstation # [id number]
== END ==
LOC: RAD 06:36
PROVIDERS: ATTEND Family Medicine
DX: E03.9 Hypothyroidism, unspecified (principal); K76.0 Fatty (change of) liver, not elsewhere classified
CPT/HCPCS: 76536; 76705

== ENCOUNTER → 2020-06-18 | Outpatient (CLI) | payer BC ==
[~2020-06-18] MED LIST changes: +AMLO-250 PO; -AMLO5TAB9 PO; -CALC600T12 PO; -CETI10TA21 PO; +CETI10TA49 PO; +CLC600T PO; +RT-ALBUTEROL SULF 2.5 MG/3 ML PRE-MIX VIAL INH ONE
== END ==
LOC: RT 08:00
PROVIDERS: ATTEND Nurse Practitioner Family
DX: Z87.891 Personal history of nicotine dependence (principal)
CPT/HCPCS: 94060; 94726; 94729

== ENCOUNTER → 2020-10-09 | Outpatient (CLI) | payer BC ==
[~2020-10-09] MED LIST changes: -LISI-552 PO; +LISI20TA26 PO; -OXYC-471 PO; +OXYC1TAB11 PO; -RT-ALBUTEROL SULF 2.5 MG/3 ML PRE-MIX VIAL INH ONE
--- NOTE | 2020-10-09 08:37 | Diagnostic Imaging Report ---
CT Lung Screening INDICATION:40 pack-year smoking history TECHNIQUE: Noncontrast, low-dose CT imaging performed according to the lung cancer screening protocol. Auto Exposure Controls were utilize during the CT exam to meet ALARA standards for radiation dose reduction. COMPARISON:CT chest from 12/22/2018 FINDINGS:The previous CT chest exam of 12/22/2018 noted mild scarring in the right middle lobe and lingula but failed to show any sign of an acute cardiopulmonary abnormality. On this exam there is a 3.8 mm noncalcified nodule in the anterior aspect of the lingula (image 119 of 213). This finding was present on the prior exam and has not changed significantly. However on the previous CT low-dose lung cancer screening exam of 06/19/2018 this parenchymal density measured only 2.5 mm. This finding still has a generally benign appearance. There is no other parenchymal lung mass identified. The atelectasis/scar formation involving both the lingula and the right middle lobe seen previously is less conspicuous on this exam. There is no sign of failure, pneumonia or pleural effusion to indicate an acute abnormality. The heart size is within normal limits. Coronary calcifications are noted. The aorta is not abnormally dilated. There is no obvious mediastinal or hilar adenopathy. The thyroid gland was partially obscured by streak artifact. There is no definite mass involving either breast. The bone windows show no sign of a fracture or destructive lesion. The images through the upper abdomen again show that the liver is of lower density than usually seen. This does suggest fatty metamorphosis. The liver also appears to be mildly enlarged. There is no acute abnormality of the upper abdomen. IMPRESSION: 1. The small nodular density in the left upper lobe seen previously is most likely a benign process. There is no other parenchymal lung mass seen to suggest malignancy. A follow-up low-dose lung cancer screening exam in one year would be recommended for further evaluation. 2. There is no sign of an acute cardiopulmonary abnormality. 3. There is coronary artery disease. 4. There is hepatomegaly with fatty metamorphosis of the liver. LUNG-RADS CATEGORY:1 MODIFIER: OTHER SIGNIFICANT FINDINGS: Dictated by: Dictated on workstation # [id number]
== END ==
LOC: RAD 07:33
PROVIDERS: ATTEND Nurse Practitioner Family
DX: Z12.2 Encounter for screening for malignant neoplasm of respiratory organs (principal); R91.1 Solitary pulmonary nodule; I25.10 Atherosclerotic heart disease of native coronary artery without angina pectoris; K76.0 Fatty (change of) liver, not elsewhere classified; Z87.891 Personal history of nicotine dependence
CPT/HCPCS: 71271

== ENCOUNTER 2021-02-07 14:16 | Emergency (ER) | payer BC ==
[~2021-02-07] VITALS: Ht 174 cm; Wt 95.4 kg
[~2021-02-07 14:16] MED LIST changes: +CALC600T91 PO; -CLC600T PO; -DICL100T83 PO; +NF-DICLOTA PO
[2021-02-07 14:21] VITALS: BP 138/83
[2021-02-07] MEDS ORDERED: CEPH500T PO (14:54)
[2021-02-07] MEDS ORDERED: ACHD5005 PO (14:54)
--- NOTE | 2021-02-07 14:54 | ED Upper Extremity ---
General Chief Complaint: Upper Extremity Stated Complaint: L HAND LAC Nursing Triage Note: PT PRESENTS TO THE ED FROM HOME, WAS DOING LAWN WORK WHEN HER LEFT HAND WAS CAUGHT IN THE [place]ED [place]. BLEEDING CONTROLLED BY KITCHEN TOWEL ON ARRIVAL. PT IS ABLE TO BEND THE AFFECTED RING AND POINTER FINGER. SENSATION IS STILL INTACT. Source: patient Exam Limitations: no limitations (GEM RAHMAN APRN) History of Present Illness Date Seen by Provider: Feb 07, 2021 Time Seen by Provider: 14:49 Initial Comments [id number] 60-year-old female presents to ER with a left hand injury after was cut with a pair of electric reciprocating hedge tremors just prior to arrival. This got the pointer finger and ring finger. Tetanus is up-to-date. Onset: just prior to arrival Severity: moderate Pain/Injury Location: left 2nd finger, left 4th finger Method of Injury: direct blow Modifying Factors: Worse With Movement (GEM RAHMAN APRN) Allergies and Home Medications Allergies Coded Allergies: azithromycin (Unverified Allergy, Severe, BLISTERS, 05/18/10) Home Medications Calcium Carbonate 600 Mg Tablet, 600 MG PO DAILY, (Reported) Cephalexin 500 Mg Tablet, 500 MG PO TID Prescribed by: GEM RAHMAN on 02/07/21 1454 Cetirizine HCl 10 Mg Tablet, 10 MG PO HS, (Reported) Cholecalciferol (Vitamin D3) 1,000 Unit Capsule, 1,000 UNIT PO DAILY, (Reported) Diclofenac Sod 100 Mg Tab, 100 MG PO BID, (Reported) Estradiol 2 Mg Tablet, 2 MG PO HS, (Reported) Fenofibrate,Micronized 134 Mg Capsule, 134 MG PO DAILY, (Reported) Furosemide 40 Mg Tablet, 20 MG PO DAILY@0700 Prescribed by: RAUL COLLIER on 08/13/16 1335 Hydrocodone/Acetaminophen 1 Each Tablet, 1 TAB PO Q4H PRN for PAIN-MODERATE (5- 7) Prescribed by: GEM RAHMAN on 02/07/21 1455 L. Acidophilus/Bulgaricus 1 Each Tablet, 1 TAB.CHEW PO AC Prescribed by: ROBERT REINOSO on 07/28/16 1147 Levothyroxine Sodium 50 Mcg Tablet, 50 MCG PO DAILY, (Reported) Lisinopril 20 Mg Tablet, 20 MG PO DAILY Prescribed by: RAUL COLLIER on 08/13/16 1335 Metoprolol Tartrate 50 Mg Tablet, 150 MG PO BID Prescribed by: RAUL COLLIER on 08/13/16 1335 Potassium Chloride 20 Meq Tab.er.prt, 20 MEQ PO DAILY@08 Prescribed by: RAUL COLLIER on 08/13/16 1335 Sucralfate 1 Gm Tablet, 1 GM PO ACHS Prescribed by: ROBERT REINOSO on 07/28/16 1147 Vitamin B Complex & Vit C No.4 150 Mg Tablet, 1 TAB PO DAILY, (Reported) Patient Home Medication List Home Medication List Reviewed: Yes (GEM RAHMAN APRN) Review of Systems Constitutional: see HPI Respiratory: no symptoms reported Cardiovascular: no symptoms reported Genitourinary: no symptoms reported Musculoskeletal: see HPI Skin: no symptoms reported Psychiatric/Neurological: No Symptoms Reported (GEM RAHMAN APRN) Past Yyjcgbh-Nfebps-Mhneae Hx Patient Social History Tobacco Use?: No Substance use?: No (GEM RAHMAN APRN) Immunizations Up To Date Tetanus Booster (TDap): More than 5yrs PED Vaccines UTD: No Influenza Vaccine Up-to-Date: Yes; Up-to-Date (GEM RAHMAN APRN) Seasonal Allergies Seasonal Allergies: Yes (GEM RAHMAN APRN) Past Medical History Surgeries: Yes (D&C) Section, Hysterectomy Respiratory: Yes Chronic Bronchitis Currently Using CPAP: No Currently Using BIPAP: No Cardiac: Yes Hypertension Neurological: No Reproductive Disorders: No Female Reproductive Disorders: Denies 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 Physical Exam Vital Signs Vital Signs - First Documented 02/07/21 14:21 Temp 36.2 Pulse 68 Resp 18 B/P (MAP) 138/83 (101) Pulse Ox 98 O2 Delivery Room Air (MARCELA CLAYTON MD) Vital Signs Capillary Refill : Less Than 3 Seconds (GEM RAHMAN APRN) Height, Weight, BMI Height: 5'2.00" Weight: 165lbs. 12.0oz. 74.284184ip; 31.00 BMI Method:Stated General Appearance: WD/WN, no apparent distress HEENT: PERRL/EOMI, normal ENT inspection Neck: non-tender, full range of motion Respiratory: no respiratory distress, no accessory muscle use Shoulder: normal inspection, non-tender Elbow/Forearm: normal inspection, non-tender Wrist: Yes normal inspection, Yes non-tender Hand: Left, laceration (There is a 2 cm laceration to the pad of the ring finger distally. This begins at the volar surface DIP joint and extends to the ulnar side. There is brisk bleeding controlled with direct pressure. There is visualization of the volar and distal aspect of the middle phalanx confirming that this is through the DIP joint capsule on the volar aspect. This was anesthetized locally, lidocaine without epinephrine. This was then irrigated thoroughly with sterile saline/chlorhexidine then closed the skin with 7 simple interrupted sutures size 5-0 Prolene. She will need to follow-up with orthopedics for evaluation of DIP joint integrity and flexor tendon. To the tip of the pointer finger on the left hand is a 2 cm laceration longitudinally oriented that starts on the middle pad of the finger just off to the ulnar side and extends to the dorsal aspect of the finger partially through the nail plate. This was closed with 1 continuous suture size 5-0 Prolene after thorough irrigation. Wounds were then covered with Xeroform and tube gauze.) Neurologic/Psychiatric: alert, normal mood/affect Skin: normal color, warm/dry (GEM RAHMAN APRN) Procedures/Interventions Date of ETT Placement: Jul 17, 2016 Time of ETT Placement: 909 (GEM RAHMAN APRN) Progress/Results/Core Measures Results/Orders Blood Pressure Mean: 101 Departure Impression Primary Impression: Finger laceration Disposition: 01 HOME, SELF-CARE Condition: Stable Departure-Patient Inst. Decision time for Depature: 14:53 (GEM RAHMAN APRN) Referrals: KINDRA RHODES DO (PCP/Family) Primary Care Physician ROSA MCLAUGHLIN MD Patient Instructions: Laceration Repair, Laceration Repair With Stitches ED Add. Discharge Instructions: 1. Return to ER on Tuesday to have the bandage removed and replaced. Call an orthopedist of your choosing on Tuesday for evaluation of your ring finger injury which does appear to have involved the flexor tendon and joint capsule. Antibiotics as directed. Pain medication as needed. Keep these dressings clean and dry. All discharge instructions reviewed with patient and/or family. Voiced understanding. Scripts Hydrocodone/Acetaminophen (Hydrocodone-Acetamin 5-325 mg) 1 Each Tablet 1 TAB PO Q4H PRN for PAIN-MODERATE (5-7), #14 TAB Prov: GEM RAHMAN APRN 02/07/21 Cephalexin (Cephalexin) 500 Mg Tablet 500 MG PO TID, #15 TAB Prov: GEM RAHMAN APRN 02/07/21 ATTENDING PHYSICIAN NOTE: I was physically present as attending physician in the emergency department during the care of this patient, but I was not directly involved in the decision making or delivery of care for this patient. (MARCELA CLAYTON MD) GEM RAHMAN APRN Feb 07, 2021 14:54 MARCELA CLAYTON MD Feb 10, 2021 20:35
[2021-02-07] MEDS ORDERED: CEPHALEXIN 250 MG (KEFLEX) CAP PO SCH (15:00)
--- NOTE | 2021-02-07 15:18 | Diagnostic Imaging Report ---
Indication: Lacerations. Findings: Soft tissue injury to the 4th finger present. No retained opaque metallic foreign body identified. Corticated density presumed bone fragment seen palmar to the distal interphalangeal joint in the lateral view measures 3 mm in length and is presumed off the base of the distal phalanx. Impression: Soft tissue injury and probable displaced bony fragment 3 mm off the intra-articular surface of the proximal aspect distal phalanx. No retained opaque foreign body. Dictated by: Dictated on workstation # [id number]
== END 2021-02-07 15:21 | disposition home or self-care (01) ==
LOC: EDUNIT# 14:16 → ER 14:18
DX: S61.215A Laceration without foreign body of left ring finger without damage to nail, initial encounter (principal); S61.211A Laceration without foreign body of left index finger without damage to nail, initial encounter; I10 Essential (primary) hypertension; E03.9 Hypothyroidism, unspecified; Z79.890 Hormone replacement therapy; Z79.899 Other long term (current) drug therapy; W29.3XXA Contact with powered garden and outdoor hand tools and machinery, initial encounter
CPT/HCPCS: 12041; 73130

== ENCOUNTER 2021-02-09 12:15 | Emergency (ER) | payer BC ==
[~2021-02-09] VITALS: Ht 157.4 cm; Wt 95.2 kg
[~2021-02-09 12:15] MED LIST changes: +CEPH500T PO
[2021-02-09 12:46] VITALS: BP 100/65
== END 2021-02-09 13:15 | disposition home or self-care (01) ==
LOC: EDUNIT# 12:15 → ER 12:17
DX: Z48.00 Encounter for change or removal of nonsurgical wound dressing (principal)

== ENCOUNTER 2021-02-17 08:31 | Emergency (ER) | payer BC ==
[~2021-02-17] VITALS: Ht 157 cm; Wt 100.0 kg
[2021-02-17 08:33] VITALS: BP 173/84
== END 2021-02-17 08:57 | disposition home or self-care (01) ==
LOC: EDUNIT# 08:31 → ER 08:32
DX: Z48.02 Encounter for removal of sutures (principal)